=== PATIENT | female | born 1950 | race Caucasian/White ===

== ENCOUNTER 2016-07-28 07:43 | Day surgery (SDC) | payer BC, OTHER ==
[2016-07-27 11:45] VITALS: BMI 43.0
[2016-07-28 08:25] LABS: EOSINOPHIL 3.9 % (0-4.5); MCH 31.9 pg (25.7-33.7); MCHC 33.3 g/dl (32.0-36.0); MEAN CELL VOLUME 95.9 fl (80-96); NEUTROPHILS 75.2 % (42.8-82.8); PLATELET COUNT 246 K/MM3 (134-434); RDW 15.5 % (11.6-15.6); WHITE BLOOD COUNT 5.3 K/mm3 (4.0-10.0)
[2016-07-28 08:45] LABS: ALBUMIN 3.3 g/dl (3.4-5.0); ALK PHOS 101 U/L (45-117); ANION GAP 5 (8-16); BILIRUBIN,TOTAL 0.4 mg/dL (0.2-1.0); CALCIUM 9.1 mg/dL (8.5-10.1); CO2 28 mmol/L (21-32); CREATININE 0.8 mg/dL (0.55-1.02); GLUCOSE,RANDOM 105 mg/dL (74-106); SGOT/AST 61 U/L (15-37); SGPT/ALT 44 U/L (12-78); TOT PROT 7.6 g/dl (6.4-8.2)
[2016-07-28 08:48] LABS: INR 1.25 (0.82-1.09); PROTHROMBIN TIME (PATIENT) 13.8 SEC (9.98-11.88)
[2016-07-28] MEDS ORDERED: DOXOrubicin HCL 50 MG/25 ML VIAL IV ONE (10:00)
[2016-07-28] MEDS ORDERED: DOXOrubicin HCL 50 MG/25 ML VIAL EMBO ONE (11:00)
--- NOTE | 2016-07-28 15:59 | HP ---
CHIEF COMPLAINT: S/P IR procedure PCP: Dr. Owens HISTORY OF PRESENT ILLNESS: The patient is a 65 year old female witha s ignificant past medical history of metastatic colorectal cancer (sp resection with diverting colostomy, s/p systemic chemotherapy) and hypothyroidism, who had IR guided chemoembolization of the right hepatic lobe today and is being observed for potential complications after the procedure. Case discussed with interventional radiologist Dr. Huston, who reported an uneventful procedure and no obvious complications at the right femoral puncture site. PAST MEDICAL HISTORY: As above PAST SURGICAL HISTORY: As above Social History: Smoking: None Alcohol: None Drugs: None Family History: Allergies shellfish derived Allergy (Verified 07/27/16 11:46) Vomiting HOME MEDICATIONS: Home Medications Medication Instructions Recorded Levothyroxine [Synthroid -] 112 mcg PO DAILY 10/09/13 Cholecalciferol (Vitamin D3) 1,000 unit PO DAILY 05/21/14 [Vitamin D3] Multivitamins [Multivit ([facility] 1 tab PO DAILY 05/21/14 Formulary)] Iron 28 mg PO DAILY 07/04/14 REVIEW OF SYSTEMS CONSTITUTIONAL: Absent: fever, chills, diaphoresis, generalized weakness, malaise, loss of appetite, weight change HEENT: Absent: rhinorrhea, nasal congestion, throat pain, throat swelling, difficulty swallowing, mouth swelling, ear pain, eye pain, visual changes CARDIOVASCULAR: Absent: chest pain, syncope, palpitations, irregular heart rate, lightheadedness , peripheral edema RESPIRATORY: Absent: cough, shortness of breath, dyspnea with exertion, orthopnea, wheezing, stridor, hemoptysis GASTROINTESTINAL: Absent: abdominal pain, abdominal distension, nausea, vomiting, diarrhea, constipation, melena, hematochezia GENITOURINARY: Absent: dysuria, frequency, urgency, hesitancy, hematuria, flank pain, genital pain MUSCULOSKELETAL: Absent: myalgia, arthralgia, joint swelling, back pain, neck pain SKIN: Absent: rash, itching, pallor HEMATOLOGIC/IMMUNOLOGIC: Absent: easy bleeding, easy bruising, lymphadenopathy, frequent infections ENDOCRINE: Absent: unexplained weight gain, unexplained weight loss, heat intolerance, cold intolerance NEUROLOGIC: Absent: headache, focal weakness or paresthesias, dizziness, unsteady gait, seizure, mental status changes, bladder or bowel incontinence PSYCHIATRIC: Absent: anxiety, depression, suicidal or homicidal ideation, hallucinations. PHYSICAL EXAMINATION Vital Signs - 24 hr 07/28/16 07/28/16 07/28/16 08:40 09:27 11:38 Temperature 98.4 F Pulse Rate 70 62 Pulse Rate [ Right Lower Arm ] Respiratory 18 16 Rate Respiratory Rate [Right Lower Arm] Blood Pressure 148/77 165/80 Blood Pressure [Right Lower Arm] O2 Sat by Pulse 96 100 Oximetry (%) O2 Sat by Pulse Oximetry (%) [ Right Lower Arm ] 07/28/16 07/28/16 07/28/16 11:49 11:59 12:06 Temperature Pulse Rate Pulse Rate [ 65 61 60 Right Lower Arm ] Respiratory Rate Respiratory 16 16 16 Rate [Right Lower Arm] Blood Pressure Blood Pressure 154/82 154/82 155/75 [Right Lower Arm] O2 Sat by Pulse Oximetry (%) O2 Sat by Pulse 100 100 100 Oximetry (%) [ Right Lower Arm ] 07/28/16 07/28/16 07/28/16 12:16 12:26 12:36 Temperature Pulse Rate Pulse Rate [ 61 62 62 Right Lower Arm ] Respiratory Rate Respiratory 16 16 16 Rate [Right Lower Arm] Blood Pressure Blood Pressure 155/75 163/76 170/80 [Right Lower Arm] O2 Sat by Pulse Oximetry (%) O2 Sat by Pulse 100 100 100 Oximetry (%) [ Right Lower Arm ] 07/28/16 07/28/16 07/28/16 12:46 12:56 13:06 Temperature Pulse Rate 60 Pulse Rate [ 63 59 L Right Lower Arm ] Respiratory 16 Rate Respiratory 16 16 Rate [Right Lower Arm] Blood Pressure 156/77 Blood Pressure 170/80 152/75 [Right Lower Arm] O2 Sat by Pulse 100 Oximetry (%) O2 Sat by Pulse 100 100 Oximetry (%) [ Right Lower Arm ] 07/28/16 07/28/16 07/28/16 13:50 14:05 14:20 Temperature 97.9 F Pulse Rate 60 62 61 Pulse Rate [ Right Lower Arm ] Respiratory 12 15 15 Rate Respiratory Rate [Right Lower Arm] Blood Pressure 146/64 143/68 138/65 Blood Pressure [Right Lower Arm] O2 Sat by Pulse 99 97 99 Oximetry (%) O2 Sat by Pulse Oximetry (%) [ Right Lower Arm ] GENERAL: Awake, alert, and fully oriented, in no acute distress. HEAD: Normal with no signs of trauma. EYES: Pupils equal, round and reactive to light, extraocular movements intact, sclera anicteric, conjunctiva clear. No lid lag. EARS, NOSE, THROAT: Ears normal, nares patent, oropharynx clear without exudates. Moist mucous membranes. NECK: Normal range of motion, supple without lymphadenopathy, JVD, or masses. LUNGS: Breath sounds equal, clear to auscultation bilaterally. No wheezes, and no crackles. No accessory muscle use. HEART: Regular rate and rhythm, normal S1 and S2 without murmur, rub or gallop. ABDOMEN: Soft, nontender, not distended, normoactive bowel sounds, no guarding, no rebound, no masses. No hepatomegaly or splenomegaly. MUSCULOSKELETAL: Normal range of motion at all joints. No bony deformities or tenderness. No CVA tenderness. UPPER EXTREMITIES: 2+ pulses, warm, well-perfused. No cyanosis. No clubbing. No peripheral edema. LOWER EXTREMITIES: 2+ pulses, warm, well-perfused. No calf tenderness. No peripheral edema. NEUROLOGICAL: Cranial nerves II-XII intact. Normal speech. Normal gait. PSYCHIATRIC: Cooperative. Good eye contact. Appropriate mood and affect. SKIN: Warm, dry, normal turgor, no rashes or lesions noted, normal capillary refill. Laboratory Results - last 24 hr 07/28/16 07/28/16 07/28/16 08:10 08:10 08:10 WBC 5.3 RBC 3.92 Hgb 12.5 Hct 37.6 MCV 95.9 MCHC 33.3 RDW 15.5 Plt Count 246 D MPV 8.0 Neutrophils % 75.2 D Lymphocytes % 14.3 D Monocytes % 5.6 Eosinophils % 3.9 Basophils % 1.0 INR 1.25 H Sodium 140 Potassium 4.5 D Chloride 107 Carbon Dioxide 28 Anion Gap 5 L BUN 13 Creatinine 0.8 Creat Clearance w eGFR > 60 Random Glucose 105 Calcium 9.1 Total Bilirubin 0.4 D AST 61 H ALT 44 D Alkaline Phosphatase 101 Total Protein 7.6 Albumin 3.3 L ASSESSMENT/PLAN: -Post Embolization Observation She has no complaints There is no evidence of bleeding at the femoral puncture site Femoral and lower extremity peripheral pulses are symmetric No evidence of peripheral microemboli on physical exam Per IR, low grade fever is common after chemoembolization Tylenol prn pain CBC at 6pm and in am to rule out occult femoral compartment bleeding CMP in the am to monitor LFTs Will continue to follow closely -Endocrine Continue Synthroid -FEN She is euvolemic Regular diet Continue home dietary meds -Prophylaxis Eating Ambulating after recovery SCDs rather than Lovenox given recent procedure and anticipated very short stay -Disposition Anticipate discharge in am Visit type - Emergency Visit Emergency Visit: No - New Patient This patient is new to me today: Yes Date on this admission: 07/31/16 - Critical Care Critical Care patient: No
[2016-07-28] MEDS ORDERED: ACETAMINOPHEN 325 MG TABLET (FP) PO PRN (16:08)
[2016-07-28] MEDS ORDERED: SODIUM CHLORIDE 0.45% 1,000 ML IV SCH (16:45)
--- NOTE | 2016-07-28 17:57 | HOSP ---
Physical Examination Vital Signs: Vital Signs Temperature 97.5 F L 07/28/16 17:11 Pulse Rate 69 07/28/16 17:11 Respiratory Rate 18 07/28/16 16:05 Blood Pressure 144/67 07/28/16 17:11 O2 Sat by Pulse Oximetry (%) 97 07/28/16 17:11 Constitutional: Yes: No Distress, Calm Eyes: Yes: Conjunctiva Clear Neck: Yes: Supple Cardiovascular: Yes: Regular Rate and Rhythm Respiratory: Yes: Regular Gastrointestinal: Yes: Normal Bowel Sounds, Soft, Abdomen, Obese Renal/: Yes: WNL Breast(s): Yes: WNL Musculoskeletal: Yes: WNL Extremities: Yes: WNL Peripheral Pulses WNL: Yes Wound/Incision: Yes: Clean/Dry, Dressing Dry and Intact Neurological: Yes: WNL ...Motor Strength: WNL Psychiatric: Yes: WNL Labs: CBC, BMP 07/28/16 08:10 07/28/16 08:10 Hospitalist Encounter Assessment: S/p chemoembolization: Surgical site assessment of right groin Assessment/Plan: Right groin site clean/dry/intact, no edema no hematoma noted Patient ambulating OOB to bathroom tolerating room air, lungs clear to auscultation bilaterally Encourage incentive spirometer Tylenol for low grade fevers, IVF as ordered denies abdominal pain, nausea or vomiting Appears comfortable at rest Plan: Will await repeat CBC @ 1800 Labs for a.m. > cbc, cmp, hepatic panel likely d/c in a.m.
[2016-07-28 18:21] LABS: MCH 31.2 pg (25.7-33.7); MCHC 32.4 g/dl (32.0-36.0); MEAN CELL VOLUME 96.4 fl (80-96); MEAN PLT VOLUME 8.4 fl (7.5-11.1); PLATELET COUNT 252 K/MM3 (134-434); RDW 15.8 % (11.6-15.6); WHITE BLOOD COUNT 6.8 K/mm3 (4.0-10.0)
[2016-07-29 04:23] VITALS: PULSE 68
[2016-07-29] MEDS ORDERED: LEVOTHYROXINE NA 112 MCG TABLET (FP) PO SCH (07:00)
[2016-07-29 08:13] LABS: MCH 31.9 pg (25.7-33.7); MCHC 33.3 g/dl (32.0-36.0); MEAN CELL VOLUME 95.8 fl (80-96); PLATELET COUNT 208 K/MM3 (134-434); RDW 15.6 % (11.6-15.6); WHITE BLOOD COUNT 6.6 K/mm3 (4.0-10.0)
[2016-07-29 08:36] VITALS: BP 160/77; TEMP 98
[2016-07-29 08:46] LABS: ANION GAP 9 (8-16); BILIRUBIN,TOTAL 0.6 mg/dL (0.2-1.0); CALCIUM 8.6 mg/dL (8.5-10.1); CO2 25 mmol/L (21-32); CREATININE 0.7 mg/dL (0.55-1.02); GLUCOSE,RANDOM 91 mg/dL (74-106); SGOT/AST 87 U/L (15-37); SGPT/ALT 41 U/L (12-78); TOT PROT 7.2 g/dl (6.4-8.2)
[2016-07-29 08:47] LABS: ALK PHOS 84 U/L (45-117)
[2016-07-29 08:56] LABS: ALBUMIN 3.1 g/dl (3.4-5.0); BILIRUBIN,DIRECT 0.2 mg/dL (0.0-0.2); BILIRUBIN,TOTAL 0.7 mg/dL (0.2-1.0); TOT PROT 7.2 g/dl (6.4-8.2)
[2016-07-29] MEDS ORDERED: MULTIVITAMINS (DAILY MVI) TABLET (FP) PO SCH (10:00)
[2016-07-29] MEDS ORDERED: CHOLECALCIFEROL (VITAMIN D3) 1,000 UNIT TABLET (FP) PO SCH (10:00)
[2016-07-29] MEDS ORDERED: IRON 28 MG PO SCH (10:00)
--- NOTE | 2016-07-29 16:26 | DS ---
Physical Exam: SUBJECTIVE: Patient seen and examined. Pt feels well, no bleeding reported, able to ambulate without difficulty. OBJECTIVE: Vital Signs Period Temp Pulse Resp BP Sys/Bird Pulse Ox Last 24 Hr 97.5 F-98.5 F 68-72 20-20 126-160/56-77 97-97 PE Neuro: alert, awake, cn 2-12intact Pulm: CTAB CV: s1 s2 rrr no mrg Abd: s nt nd + bs + colostomy bag Skin: R groin dressing CDI Ext: warm no le edema Laboratory Results - last 24 hr 07/28/16 07/29/16 07/29/16 17:45 06:20 06:20 WBC 6.8 RBC 4.00 Hgb 12.5 Hct 38.5 MCV 96.4 H MCHC 32.4 RDW 15.8 H Plt Count 252 MPV 8.4 Sodium 138 Potassium 4.2 Chloride 104 Carbon Dioxide 25 Anion Gap 9 BUN 10 D Creatinine 0.7 Creat Clearance w eGFR > 60 Random Glucose 91 Calcium 8.6 Total Bilirubin 0.6 D 0.7 Direct Bilirubin 0.2 AST 87 H D 87 H ALT 41 42 Alkaline Phosphatase 84 92 Total Protein 7.2 7.2 Albumin 3.0 L 3.1 L 07/29/16 06:30 WBC 6.6 RBC 3.76 Hgb 12.0 Hct 36.0 MCV 95.8 MCHC 33.3 RDW 15.6 Plt Count 208 MPV 8.0 Sodium Potassium Chloride Carbon Dioxide Anion Gap BUN Creatinine Creat Clearance w eGFR Random Glucose Calcium Total Bilirubin Direct Bilirubin AST ALT Alkaline Phosphatase Total Protein Albumin HOSPITAL COURSE: Date of Admission:07/28/16 Date of Discharge: 07/29/16 Minutes to complete discharge: 35 Discharge Summary Reason For Visit: RECTAL [place] Hospital Course: Initial Hospital Course: Briefly, this 65 year old female with significant past medical history of metastatic colorectal cancer (s/p resection with diverting colostomy, s/p systemic chemotherapy) and hypothyroidism s/p IR guided chemoembolization of the right hepatic lobe 07/28 admitted for observation. Per radiologist Dr. Huston procedure was uneventful and no obvious complications at the right femoral puncture site. Subsequent Hospital Course: Hgb stable, dressing dry, no fevers, CMP wnl Pt to remove dressing tomorrow and shower Outpt follow up with Dr. Owens next week for follow up Pt aware and agrees to above plan No changes to home medications Condition: Stable - Instructions Diet, Activity, Other Instructions: Please return to the ED for any new, persistent, or worsening symptoms. Remove right groin dressing 07/30/16, august shower. Follow up with Dr Owens in 1 week in his office Resume home medications as directed If wound site begins to bleed apply pressure immediately Referrals: Mateo Giraldo MD [Staff Physician] - Fred Owens MD [Staff Physician] - Disposition: HOME - Home Medications Comprehensive Discharge Medication List: Ambulatory Orders Levothyroxine [Synthroid -] 112 mcg PO DAILY 10/09/13 Cholecalciferol (Vitamin D3) [Vitamin D3] 1,000 unit PO DAILY 05/21/14 Multivitamins [Multivit ([facility] Formulary)] 1 tab PO DAILY 05/21/14 Iron 28 mg PO DAILY 07/04/14 This patient is new to me today: Yes Date on this admission: 07/29/16 Emergency Visit: Yes Care time: The patient presented to the Emergency Department on the above date and was hospitalized for further evaluation of their emergent condition. Critical Care patient: No - Discharge Referral Referred to [facility] Med P.C.: No
== END 2016-07-29 11:59 | disposition home or self-care (01) ==
LOC: JASUSAT 07:43 → SUATTDRO 07:43 → J8W 16:36 → JASUSAT 07-29 11:59
PROVIDERS: ATTEND Nurse Practitioner Acute Care
PROC: 3E05305 Introduction of Other Antineoplastic into Peripheral Artery, Percutaneous Approach (ICD-10-PCS; principal; 2016-07-28)
PROC: 04L33DZ Occlusion of Hepatic Artery with Intraluminal Device, Percutaneous Approach (ICD-10-PCS; 2016-07-28)
DX: C20 Malignant neoplasm of rectum (principal)
CPT/HCPCS: 36415; 37243; 76937-TC; 80053; 80076; 85025; 85027; 85610; C1760; C1769; C1887; C1894

== ENCOUNTER 2016-11-16 07:55 | Day surgery (SDC) | payer BC ==
[2016-11-13 15:56] VITALS: BMI 42.5
[2016-11-16 08:48] LABS: BASOPHIL 1.2 % (0-2.0); MCH 32.2 pg (25.7-33.7); MCHC 32.8 g/dl (32.0-36.0); MEAN CELL VOLUME 98.2 fl (80-96); MEAN PLT VOLUME 8.4 fl (7.5-11.1); NEUTROPHILS 70.2 % (42.8-82.8); PLATELET COUNT 178 K/MM3 (134-434); RDW 16.4 % (11.6-15.6); WHITE BLOOD COUNT 4.9 K/mm3 (4.0-10.0)
[2016-11-16 08:59] LABS: INR 1.26 (0.82-1.09); PROTHROMBIN TIME (PATIENT) 13.9 SEC (9.98-11.88)
[2016-11-16 09:36] LABS: ALBUMIN 3.4 g/dl (3.4-5.0); ANION GAP 6 (8-16); BILIRUBIN,DIRECT 0.1 mg/dL (0.0-0.2); CALCIUM 9.4 mg/dL (8.5-10.1); CO2 27 mmol/L (21-32); CREATININE 0.9 mg/dL (0.55-1.02); GLUCOSE,RANDOM 106 mg/dL (74-106); SGOT/AST 54 U/L (15-37); SGPT/ALT 37 U/L (12-78)
[2016-11-16 09:38] LABS: ALK PHOS 112 U/L (45-117); BILIRUBIN,TOTAL 0.4 mg/dL (0.2-1.0); TOT PROT 7.5 g/dl (6.4-8.2)
[2016-11-16] MEDS ORDERED: DOXOrubicin HCL 50 MG/25 ML VIAL EMBO ONE (11:15)
--- NOTE | 2016-11-16 17:22 | HP ---
CHIEF COMPLAINT: S/P IR procedure: chemoembolization via right groin PCP: Dr. Owens HISTORY OF PRESENT ILLNESS: Patient is a 66 year old female with a significant past medical history of metastatic colorectal cancer (sp resection with diverting colostomy s/p systemic chemotherapy) and hypothyroidism. Today she had a IR guided chemoembolization of the left hepatic lobe and is being observed for potential complications after the procedure. Right femoral groin site, is clean, dry and intact with no obvious complications at the puncture site. PAST MEDICAL HISTORY: Metastatic colorectal cancer (s/p resection with diverting colostomy s/p systemic chemotherapy) and hypothyroidism. PAST SURGICAL HISTORY: Multiple chemoembolizations Colostomy Social History: Smoking: None Alcohol: None Drugs: None Family History: Allergies shellfish derived Allergy (Verified 11/16/16 08:51) Vomiting HOME MEDICATIONS: Home Medications Medication Instructions Recorded Levothyroxine [Synthroid -] 112 mcg PO DAILY 10/09/13 Cholecalciferol (Vitamin D3) 1,000 unit PO DAILY 05/21/14 [Vitamin D3] Multivitamins [Multivit ([facility] 1 tab PO DAILY 05/21/14 Formulary)] Iron 28 mg PO DAILY 07/04/14 REVIEW OF SYSTEMS CONSTITUTIONAL: Absent: fever, chills, diaphoresis, generalized weakness, malaise, loss of appetite, weight change HEENT: Absent: rhinorrhea, nasal congestion, throat pain, throat swelling, difficulty swallowing, mouth swelling, ear pain, eye pain, visual changes CARDIOVASCULAR: Absent: chest pain, syncope, palpitations, irregular heart rate, lightheadedness , peripheral edema RESPIRATORY: Absent: cough, shortness of breath, dyspnea with exertion, orthopnea, wheezing, stridor, hemoptysis GASTROINTESTINAL: Absent: abdominal pain, abdominal distension, nausea, vomiting, diarrhea, constipation, melena, hematochezia GENITOURINARY: Absent: dysuria, frequency, urgency, hesitancy, hematuria, flank pain, genital pain MUSCULOSKELETAL: Absent: myalgia, arthralgia, joint swelling, back pain, neck pain SKIN: Absent: rash, itching, pallor HEMATOLOGIC/IMMUNOLOGIC: Absent: easy bleeding, easy bruising, lymphadenopathy, frequent infections ENDOCRINE: Absent: unexplained weight gain, unexplained weight loss, heat intolerance, cold intolerance NEUROLOGIC: Absent: headache, focal weakness or paresthesias, dizziness, unsteady gait, seizure, mental status changes, bladder or bowel incontinence PSYCHIATRIC: Absent: anxiety, depression, suicidal or homicidal ideation, hallucinations. PHYSICAL EXAMINATION Vital Signs - 24 hr 11/16/16 11/16/16 11/16/16 08:27 08:33 13:41 Temperature 98.9 F Pulse Rate 70 64 Pulse Rate [ Left Upper Arm] Respiratory 18 16 Rate Respiratory Rate [Left Upper Arm] Blood Pressure 147/77 163/88 Blood Pressure [Left Upper Arm ] O2 Sat by Pulse 99 97 Oximetry (%) O2 Sat by Pulse Oximetry (%) [ Left Upper Arm] 11/16/16 11/16/16 11/16/16 13:50 14:00 14:10 Temperature Pulse Rate Pulse Rate [ 63 62 62 Left Upper Arm] Respiratory Rate Respiratory 16 16 16 Rate [Left Upper Arm] Blood Pressure Blood Pressure 156/78 156/78 148/74 [Left Upper Arm ] O2 Sat by Pulse Oximetry (%) O2 Sat by Pulse 97 95 98 Oximetry (%) [ Left Upper Arm] 11/16/16 11/16/16 11/16/16 14:20 14:30 14:40 Temperature Pulse Rate Pulse Rate [ 62 61 65 Left Upper Arm] Respiratory Rate Respiratory 16 16 16 Rate [Left Upper Arm] Blood Pressure Blood Pressure 155/78 155/78 163/78 [Left Upper Arm ] O2 Sat by Pulse Oximetry (%) O2 Sat by Pulse 98 99 97 Oximetry (%) [ Left Upper Arm] 11/16/16 11/16/16 11/16/16 14:50 15:15 15:30 Temperature 98.6 F Pulse Rate 60 64 62 Pulse Rate [ Left Upper Arm] Respiratory 16 16 16 Rate Respiratory Rate [Left Upper Arm] Blood Pressure 170/78 155/70 155/70 Blood Pressure [Left Upper Arm ] O2 Sat by Pulse 97 100 100 Oximetry (%) O2 Sat by Pulse Oximetry (%) [ Left Upper Arm] 11/16/16 11/16/16 15:45 16:00 Temperature Pulse Rate 64 62 Pulse Rate [ Left Upper Arm] Respiratory 16 16 Rate Respiratory Rate [Left Upper Arm] Blood Pressure 152/70 160/81 Blood Pressure [Left Upper Arm ] O2 Sat by Pulse 100 100 Oximetry (%) O2 Sat by Pulse Oximetry (%) [ Left Upper Arm] GENERAL: Awake, alert, and fully oriented, in no acute distress. HEAD: Normal with no signs of trauma. EYES: Pupils equal, round and reactive to light, extraocular movements intact, sclera anicteric, conjunctiva clear. No lid lag. EARS, NOSE, THROAT: Ears normal, nares patent, oropharynx clear without exudates. Moist mucous membranes. NECK: Normal range of motion, supple without lymphadenopathy, JVD, or masses. LUNGS: Breath sounds equal, clear to auscultation bilaterally HEART: Regular rate and rhythm, normal S1 and S2 without murmur, rub or gallop. ABDOMEN: Soft, nontender, not distended, normoactive bowel sounds, no guarding, no rebound, no masses. No hepatomegaly or splenomegaly. MUSCULOSKELETAL: Normal range of motion at all joints. No bony deformities or tenderness. No CVA tenderness. UPPER EXTREMITIES: 2+ pulses, warm, well-perfused. No cyanosis. No clubbing. No peripheral edema. LOWER EXTREMITIES: 2+ pulses, warm, well-perfused. No calf tenderness. No peripheral edema. NEUROLOGICAL: Normal speech. Normal gait. PSYCHIATRIC: Cooperative. Good eye contact. Appropriate mood and affect. SKIN: + right groin puncture site s/p chemoembolization, no hematoma or bleeding noted Laboratory Results - last 24 hr 11/16/16 11/16/16 11/16/16 08:11 08:11 08:11 WBC 4.9 RBC 3.87 Hgb 12.5 Hct 38.0 MCV 98.2 H MCH 32.2 MCHC 32.8 RDW 16.4 H Plt Count 178 MPV 8.4 Neutrophils % 70.2 Lymphocytes % 16.7 Monocytes % 6.9 Eosinophils % 5.0 H Basophils % 1.2 INR 1.26 H Sodium 141 Potassium 4.5 Chloride 108 H Carbon Dioxide 27 Anion Gap 6 L BUN 9 Creatinine 0.9 Creat Clearance w eGFR > 60 Random Glucose 106 D Calcium 9.4 Total Bilirubin 0.4 Direct Bilirubin 0.1 AST 54 H ALT 37 Alkaline Phosphatase 112 Total Protein 7.5 Albumin 3.4 ASSESSMENT/PLAN: Patient is a 66 year old female with a significant past medical history of metastatic colorectal cancer (sp resection with diverting colostomy s/p systemic chemotherapy) and hypothyroidism. Today she had a IR guided chemoembolization of the left hepatic lobe today and is being observed for potential complications after the procedure. Oncology: S/p chemoembolization: Surgical site assessment of right groin/post embolization A/P: Comfortable at rest, no evidence of bleeding at the femoral puncture site ( right) Denies any pain, Lower ext peripheral pulses present No edema no hematoma noted Tylenol for low grade fevers, IVF as ordered denies abdominal pain, nausea or vomiting Appears comfortable at rest CBC at 6pm today to rule out acute bleeding Repeat CBC in a.m. CMP in a.m. to monitor LFTs GI: Diverting Colostomy A/P: Soft stool in colostomy bag Stoma not seen Endocrine: Hypothyroidism A/P: On Synthroid F.E.N. Fluids: Tolerating PO Electrolytes: CMP in a.m. Nutrition: Regular diet Prophylaxis: DVT: Ambulatory after post op SCDs, no Lovenox given recent procedure and anticipated short hospital stay Disposition: Discharge in a.m. with close oncology follow-up. Full code. Visit type - Emergency Visit Emergency Visit: Yes Care time: The patient presented to the Emergency Department on the above date and was hospitalized for further evaluation of their emergent condition. - New Patient This patient is new to me today: Yes Date on this admission: 11/16/16 - Critical Care Critical Care patient: No
[2016-11-16] MEDS ORDERED: ACETAMINOPHEN 325 MG TABLET (FP) PO PRN (18:43)
[2016-11-16 18:45] LABS: BASOPHIL 0.7 % (0-2.0); EOSINOPHIL 2.8 % (0-4.5); MCH 32.2 pg (25.7-33.7); MCHC 32.9 g/dl (32.0-36.0); MEAN PLT VOLUME 8.7 fl (7.5-11.1); PLATELET COUNT 166 K/MM3 (134-434); RDW 16.4 % (11.6-15.6); WHITE BLOOD COUNT 6.3 K/mm3 (4.0-10.0)
[2016-11-17 06:02] VITALS: BP 140/75; PULSE 63; TEMP 98.3
[2016-11-17 08:51] LABS: BASOPHIL 0.8 % (0-2.0); EOSINOPHIL 3.4 % (0-4.5); MCH 32.1 pg (25.7-33.7); MCHC 32.9 g/dl (32.0-36.0); MEAN CELL VOLUME 97.4 fl (80-96); MEAN PLT VOLUME 8.7 fl (7.5-11.1); NEUTROPHILS 74.4 % (42.8-82.8); PLATELET COUNT 165 K/MM3 (134-434); RDW 16.3 % (11.6-15.6); WHITE BLOOD COUNT 5.4 K/mm3 (4.0-10.0)
--- NOTE | 2016-11-17 09:09 | DS ---
Physical Exam: SUBJECTIVE: Patient seen and examined at the bedside. Patient denies any pain or discomfort at the groin site. Denies shortness of breath or any other discomfort. OBJECTIVE: Vital Signs Period Temp Pulse Resp BP Sys/Bird Pulse Ox Last 24 Hr 98.0 F-98.9 F 60-70 16-20 125-170/62-88 95-100 PHYSICAL EXAM GENERAL: Awake, alert, and fully oriented, in no acute distress. HEAD: Normal with no signs of trauma. EYES: Pupils equal, round and reactive to light, extraocular movements intact, sclera anicteric, conjunctiva clear. No lid lag. EARS, NOSE, THROAT: Ears normal, nares patent, oropharynx clear without exudates. Moist mucous membranes. NECK: Normal range of motion, supple without lymphadenopathy, JVD, or masses. LUNGS: Breath sounds equal, clear to auscultation bilaterally HEART: Regular rate and rhythm, normal S1 and S2 without murmur, rub or gallop. ABDOMEN: Soft, nontender, not distended, normoactive bowel sounds, no guarding, no rebound, no masses. No hepatomegaly or splenomegaly. MUSCULOSKELETAL: Normal range of motion at all joints. No bony deformities or tenderness. No CVA tenderness. UPPER EXTREMITIES: 2+ pulses, warm, well-perfused. No cyanosis. No clubbing. No peripheral edema. LOWER EXTREMITIES: 2+ pulses, warm, well-perfused. No calf tenderness. No peripheral edema. NEUROLOGICAL: Normal speech. Normal gait. PSYCHIATRIC: Cooperative. Good eye contact. Appropriate mood and affect. SKIN: + right groin puncture site s/p chemoembolization, no hematoma or bleeding noted LABS Laboratory Results - last 24 hr 11/16/16 11/16/16 11/16/16 08:11 08:11 18:00 WBC 6.3 RBC 3.87 Hgb 12.5 Hct 37.9 MCV 98.0 H MCH 32.2 MCHC 32.9 RDW 16.4 H Plt Count 166 MPV 8.7 Neutrophils % 79.0 Lymphocytes % 11.9 D Monocytes % 5.6 Eosinophils % 2.8 Basophils % 0.7 INR 1.26 H Sodium 141 Potassium 4.5 Chloride 108 H Carbon Dioxide 27 Anion Gap 6 L BUN 9 Creatinine 0.9 Creat Clearance w eGFR > 60 Random Glucose 106 D Calcium 9.4 Total Bilirubin 0.4 Direct Bilirubin 0.1 AST 54 H ALT 37 Alkaline Phosphatase 112 Total Protein 7.5 Albumin 3.4 11/17/16 08:36 WBC 5.4 RBC 3.77 Hgb 12.1 Hct 36.7 MCV 97.4 H MCH 32.1 MCHC 32.9 RDW 16.3 H Plt Count 165 MPV 8.7 Neutrophils % 74.4 Lymphocytes % 13.9 Monocytes % 7.5 Eosinophils % 3.4 Basophils % 0.8 INR Sodium Potassium Chloride Carbon Dioxide Anion Gap BUN Creatinine Creat Clearance w eGFR Random Glucose Calcium Total Bilirubin Direct Bilirubin AST ALT Alkaline Phosphatase Total Protein Albumin HOSPITAL COURSE: Date of Admission:11/16/16 Date of Discharge: 11/17/16 ASSESSMENT/PLAN: Patient is a 66 year old female with a significant past medical history of metastatic colorectal cancer (sp resection with diverting colostomy s/p systemic chemotherapy) and hypothyroidism. On 11/16/2016 she had a IR guided chemoembolization of the left hepatic lobe. Oncology: S/p chemoembolization on 11/16/2016 Surgical site assessment of right groin/post embolization A/P: Comfortable at rest, no evidence of bleeding at the femoral puncture site ( right), no overnight events Denies any pain, Lower ext peripheral pulses present, ambulating to bathroom, no dizziness, no pain or discomfort No edema no hematoma noted to the right groin, dressing remains c/d/i denies abdominal pain, nausea or vomiting Appears comfortable at rest CBC and CMP within normal limits GI: Diverting Colostomy A/P: Soft stool in colostomy bag Stoma not seen, colostomy bag changed by patient overnight Endocrine: Hypothyroidism A/P: On Synthroid, continue same Disposition: Discharge today with close follow up with Dr. Owens. Full code. Minutes to complete discharge: 60 Discharge Summary Reason For Visit: MALIGNANT NEOPLASM OF RECTUM Condition: Stable - Instructions Diet, Activity, Other Instructions: Mrs. Lindsay: You had a chemo embolization procedure with Dr. Cyr on 11/16/2016 through the right groin. You can remove the dressing tomorrow and shower. Please follow up with Dr. Owens next week for follow up appointment. There are no changes to your home medications. Please return to the ED for any new, persistent, or worsening symptoms. Remove right groin dressing 11/18/16, you may shower. If wound site begins to bleed apply pressure immediately and return to the nearest emergency room if bleeding persists. Please call me with any questions that you may have. [facility] [phone] Disposition: HOME - Home Medications Comprehensive Discharge Medication List: Ambulatory Orders Levothyroxine [Synthroid -] 112 mcg PO DAILY 10/09/13 Cholecalciferol (Vitamin D3) [Vitamin D3] 1,000 unit PO DAILY 05/21/14 Multivitamins [Multivit ([facility] Formulary)] 1 tab PO DAILY 05/21/14 Iron 28 mg PO DAILY 07/04/14 This patient is new to me today: No Emergency Visit: Yes Care time: The patient presented to the Emergency Department on the above date and was hospitalized for further evaluation of their emergent condition. Critical Care patient: No - Discharge Referral Referred to [facility] Med P.C.: No
[2016-11-17 09:15] LABS: ALBUMIN 3.3 g/dl (3.4-5.0); ALK PHOS 95 U/L (45-117); ANION GAP 9 (8-16); CALCIUM 9.2 mg/dL (8.5-10.1); CO2 25 mmol/L (21-32); CREATININE 0.7 mg/dL (0.55-1.02); GLUCOSE,RANDOM 100 mg/dL (74-106); SGOT/AST 75 U/L (15-37); SGPT/ALT 38 U/L (12-78)
[2016-11-17 09:16] LABS: TOT PROT 7.3 g/dl (6.4-8.2)
[2016-11-17] MEDS ORDERED: CHOLECALCIFEROL (VITAMIN D3) 1,000 UNIT TABLET (FP) PO SCH (10:00)
[2016-11-17] MEDS ORDERED: FERROUS SO4 325 MG TABLET (FP) PO SCH ×2 (10:00→12:00)
[2016-11-17] MEDS ORDERED: LEVOTHYROXINE NA 112 MCG TABLET (FP) PO SCH (10:00)
[2016-11-17] MEDS ORDERED: MULTIVITAMINS (DAILY MVI) TABLET (FP) PO SCH (10:00)
--- NOTE | 2016-11-17 10:02 | CONSULT ---
Consult Consult Specialty:: Oncology - History of Present Illness History of Present Illness: is admitted for TACE ( second) , for her metastatic rectal ca with liver mets. TACE 1 was in 07/2016. TACE 2 was 11/16/2016. Patient seen and examined. Well known to us. Patient feels tired, she mentioned that the procedure did go well. She has no pain in the groin. she denies any swelling in the lower extremity. She wanted to go home and rest as she could not sleep here overnight. - History Source History Provided By: Patient Limitations to Obtaining History: No Limitations - Past Medical History ...: No - Alcohol/Substance Use Hx Alcohol Use: No - Smoking History Smoking history: Former smoker Have you smoked in the past 12 months: Yes Aproximately how many cigarettes per day: 15 If you are a former smoker, when did you quit?: 12/2013 Home Medications - Allergies Allergies/Adverse Reactions: Allergies Allergy/AdvReac Type Severity Reaction Status Date / Time shellfish derived Allergy Vomiting Verified 11/16/16 08:51 - Home Medications Home Medications: Ambulatory Orders Levothyroxine [Synthroid -] 112 mcg PO DAILY 10/09/13 Cholecalciferol (Vitamin D3) [Vitamin D3] 1,000 unit PO DAILY 05/21/14 Multivitamins [Multivit ([facility] Formulary)] 1 tab PO DAILY 05/21/14 Iron 28 mg PO DAILY 07/04/14 Family Disease History - Family Disease History Family History: Denies Review of Systems - Review of Systems Constitutional: reports: Weakness. denies: Fever, Lethargy, Loss of Appetite HENT: denies: Difficult Swallowing, Hearing Loss Neck: denies: Decreased ROM Cardiovascular: denies: Chest Pain, Edema, Palpitations, Shortness of Breath Respiratory: denies: Cough, Exercise Intolerance Gastrointestinal: denies: Abdominal Pain Genitourinary: denies: Burning Musculoskeletal: denies: Extremity Pain Integumentary: denies: Erythema Hematology/Lymphatic: denies: Excessive Bleeding Physical Exam Vital Signs: Vital Signs Temperature 98.3 F 11/17/16 06:00 Pulse Rate 63 11/17/16 06:00 Respiratory Rate 20 11/17/16 06:00 Blood Pressure 140/75 11/17/16 06:00 O2 Sat by Pulse Oximetry (%) 100 11/16/16 21:00 Constitutional: Yes: Well Nourished, No Distress, Calm Eyes: Yes: Conjunctiva Clear, EOM Intact HENT: Yes: Atraumatic, Normocephalic Neck: Yes: Supple, Trachea Midline Cardiovascular: Yes: Regular Rate and Rhythm Respiratory: Yes: Regular, CTA Bilaterally Gastrointestinal: Yes: Normal Bowel Sounds, Soft, Other (colostomy) Musculoskeletal: Yes: Other (site of the TACE, rightgroin Looks normal, no tenderness No ecymmoses or bruises seen) Edema: No Labs: CBC, BMP 11/17/16 08:36 11/17/16 08:36 Problem List - Problems (1) Rectal adenocarcinoma metastatic to liver Code(s): C20 - MALIGNANT NEOPLASM OF RECTUM C78.7 - SECONDARY MALIG NEOPLASM OF LIVER AND INTRAHEPATIC BILE DUCT (2) Chemotherapy follow-up examination Code(s): Z09 - ENCNTR FOR F/U EXAM AFT TRTMT FOR COND OTH THAN MALIG NEOPLM Assessment/Plan is a mRectal to liver. now admitted for TACE , second procedure. Doing well post procedure CBC chem post procedure. Post procedure precautions given. Repeat imaging and tumor markers would be sent from office. She will follow-up in our office, she would give us a call to make appointment
== END 2016-11-17 11:11 | disposition home or self-care (01) ==
LOC: JASUSAT 07:55 → J6S 17:28 → JASUSAT 11-17 11:11
PROVIDERS: ATTEND Nurse Practitioner Family
PROC: 3E05305 Introduction of Other Antineoplastic into Peripheral Artery, Percutaneous Approach (ICD-10-PCS; 2016-11-16)
PROC: 04V33DZ Restriction of Hepatic Artery with Intraluminal Device, Percutaneous Approach (ICD-10-PCS; principal; 2016-11-16 10:00)
DX: C19 Malignant neoplasm of rectosigmoid junction (principal); C79.9 Secondary malignant neoplasm of unspecified site
CPT/HCPCS: 36415; 37243; 75894-TC; 76937-TC; 80053; 80076; 85025; 85610; 94760; C1760; C1769; C1887; C1894

== ENCOUNTER 2017-05-03 07:42 | Day surgery (SDC) | payer BC, OTHER ==
[2017-05-03] MEDS ORDERED: SODIUM CHLORIDE 250 ML IV ONE (08:00)
[2017-05-03] MEDS ORDERED: PALONOSETRON HCL 0.25 MG/5 ML VIAL IVPUSH ONE (08:30)
[2017-05-03] MEDS ORDERED: DEXAMETHASONE INJECTION 20 MG in SODIUM CHLORIDE 100 ML IVPB ONE (08:30)
[2017-05-03] MEDS ORDERED: BEVACIZUMAB IV ONE (09:00)
[2017-05-03] MEDS ORDERED: SODIUM CHLORIDE IV ONE (09:00)
[2017-05-03] MEDS ORDERED: DEXTROSE 5% IV ONE (09:30)
[2017-05-03] MEDS ORDERED: OXALIPLATIN IV ONE (09:30)
[2017-05-03] MEDS ORDERED: LEUCOVORIN IVPB ONE (09:30)
[2017-05-03] MEDS ORDERED: WATER IV ONE (09:30)
[2017-05-03] MEDS ORDERED: WATER IVPB ONE (09:30)
[2017-05-03] MEDS ORDERED: DEXTROSE 5% IVPB ONE (09:30)
[2017-05-03] MEDS ORDERED: FLUOROURACIL 500 MG/10 ML VIAL IVPUSH ONE (11:30)
[2017-05-03] MEDS ORDERED: FLUOROURACIL 4,275 MG in SODIUM CHLORIDE 6.5 ML IV ONE (11:45)
[2017-05-03 12:40] LABS: BASO % 0.8 % (0-2.0); EOS % 2.7 % (0-4.5); HEMATOCRIT 29.7 % (32.4-45.2); HEMOGLOBIN 9.4 GM/dL (10.7-15.3); LYMPH % 10.8 % (8-40); MCHC 31.6 g/dl (32.0-36.0); MEAN PLT VOLUME 9.6 fl (7.5-11.1); MONO % 7.8 % (3.8-10.2); NEUT % 77.9 % (42.8-82.8); PLATELET COUNT 149 K/MM3 (134-434); RBC 3.13 M/mm3 (3.60-5.2); RDW 17.6 % (11.6-15.6); WHITE BLOOD COUNT 4.5 K/mm3 (4.0-10.0)
[2017-05-03 13:06] LABS: ALK PHOS 102 U/L (45-117); ANION GAP 9 (8-16); BILIRUBIN,DIRECT 0.4 mg/dL (0.0-0.2); BILIRUBIN,TOTAL 0.9 mg/dL (0.2-1.0); BLOOD UREA NITROGEN 10 mg/dL (7-18); CALCIUM 9.2 mg/dL (8.5-10.1); CHLORIDE 106 mmol/L (98-107); CO2 26 mmol/L (21-32); CREATININE 0.7 mg/dL (0.55-1.02); GLUCOSE,RANDOM 83 mg/dL (74-106); POTASSIUM 3.8 mmol/L (3.5-5.1); SGOT/AST 57 U/L (15-37); SGPT/ALT 21 U/L (12-78); SODIUM 141 mmol/L (136-145); TOT PROT 7.4 g/dl (6.4-8.2)
[2017-05-03 16:12] VITALS: TEMP 98
[2017-05-03 18:51] VITALS: BP 132/68; PULSE 79
[2017-05-03] MEDS ORDERED: PORTA CATH FLUSH 10 ML IVPUSH ONE ×2 (18:51→19:07)
== END 2017-05-03 17:00 | disposition home or self-care (01) ==
LOC: JONCCHEMO 07:42 → J7W 10:46 → JONCCHEMO 17:00
PROVIDERS: ATTEND Internal Medicine Hematology & Oncology
PROC: 3E033GC Introduction of Other Therapeutic Substance into Peripheral Vein, Percutaneous Approach (ICD-10-PCS; principal; 2017-05-03)
DX: Z51.11 Encounter for antineoplastic chemotherapy (principal); C20 Malignant neoplasm of rectum
CPT/HCPCS: 36415; 80048; 80076; 82378; 83735; 85025; 96361; 96365; 96366; 96367; 96375; 96413; 96415; 96417; J1100; J2469; J9035; J9190; J9263

== ENCOUNTER 2017-05-24 07:06 | Day surgery (SDC) | payer BC, OTHER ==
[2017-05-24] MEDS ORDERED: SODIUM CHLORIDE 250 ML IV ONE (08:00)
[2017-05-24] MEDS ORDERED: DEXAMETHASONE INJECTION 20 MG in SODIUM CHLORIDE 100 ML IVPB ONE (08:30)
[2017-05-24] MEDS ORDERED: PALONOSETRON HCL 0.25 MG/5 ML VIAL IVPUSH ONE (08:30)
[2017-05-24] MEDS ORDERED: SODIUM CHLORIDE IV ONE (09:00)
[2017-05-24] MEDS ORDERED: BEVACIZUMAB IV ONE (09:00)
[2017-05-24] MEDS ORDERED: OXALIPLATIN 100 MG, OXALIPLATIN 50 MG in DEXTROSE 5%-WATER - 500 ML IV ONE (09:30)
[2017-05-24] MEDS ORDERED: WATER IVPB ONE (09:30)
[2017-05-24] MEDS ORDERED: DEXTROSE 5% IVPB ONE (09:30)
[2017-05-24] MEDS ORDERED: LEUCOVORIN IVPB ONE (09:30)
[2017-05-24 10:13] LABS: HEMATOCRIT 31.2 % (32.4-45.2); MCH 29.8 pg (25.7-33.7); MCHC 31.9 g/dl (32.0-36.0); MEAN CELL VOLUME 93.4 fl (80-96); MEAN PLT VOLUME 9.3 fl (7.5-11.1); PLATELET COUNT 174 K/MM3 (134-434); RBC 3.34 M/mm3 (3.60-5.2); RDW 18.3 % (11.6-15.6)
[2017-05-24 10:32] VITALS: TEMP 98.2
[2017-05-24 10:33] LABS: ANION GAP 8 (8-16); BLOOD UREA NITROGEN 9 mg/dL (7-18); CALCIUM 9.5 mg/dL (8.5-10.1); CHLORIDE 106 mmol/L (98-107); CO2 27 mmol/L (21-32); CREATININE 0.8 mg/dL (0.55-1.02); GLUCOSE,RANDOM 99 mg/dL (74-106); MAGNESIUM 2.1 mg/dL (1.8-2.4); POTASSIUM 3.8 mmol/L (3.5-5.1); SODIUM 141 mmol/L (136-145)
[2017-05-24 10:54] LABS: ALBUMIN 3.1 g/dl (3.4-5.0); ALK PHOS 100 U/L (45-117); BILIRUBIN,DIRECT 0.2 mg/dL (0.0-0.2); BILIRUBIN,TOTAL 0.5 mg/dL (0.2-1.0); SGOT/AST 38 U/L (15-37); SGPT/ALT 18 U/L (12-78); TOT PROT 7.4 g/dl (6.4-8.2)
[2017-05-24] MEDS ORDERED: FLUOROURACIL 4,275 MG in SODIUM CHLORIDE 6.5 ML IV ONE (11:30)
[2017-05-24 11:32] LABS: MACROCYTOSIS 1+; OVALOCYTE 1+; TEAR DROP CELLS 1+
[2017-05-24] MEDS ORDERED: PORTA CATH FLUSH 10 ML IVPUSH ONE (11:37)
[2017-05-24] MEDS ORDERED: HYDROCORTISONE 1% TOPICAL CREAM 30 GM TUBE TP SCH (15:45)
[2017-05-24 16:08] VITALS: BP 138/65; PULSE 68
== END 2017-05-24 16:45 | disposition home or self-care (01) ==
LOC: JONCNONCHE 07:06 → J7W 09:05 → JONCNONCHE 16:45
PROVIDERS: ATTEND Internal Medicine Hematology & Oncology
DX: Z51.11 Encounter for antineoplastic chemotherapy (principal); C20 Malignant neoplasm of rectum
CPT/HCPCS: 36415; 80048; 80076; 82378; 83735; 85025; 96361; 96366; 96367; 96375; 96413; 96415; 96417; G0498; J1100; J2469; J9035; J9263

== ENCOUNTER 2017-06-07 07:24 | Day surgery (SDC) | payer BC, OTHER ==
[2017-06-07] MEDS ORDERED: SODIUM CHLORIDE 250 ML IV ONE (09:00)
[2017-06-07] MEDS ORDERED: PALONOSETRON HCL 0.25 MG/5 ML VIAL IVPUSH ONE (10:00)
[2017-06-07] MEDS ORDERED: DEXAMETHASONE INJECTION 20 MG in SODIUM CHLORIDE 100 ML IVPB ONE (10:00)
[2017-06-07] MEDS ORDERED: BEVACIZUMAB IV ONE (10:30)
[2017-06-07] MEDS ORDERED: SODIUM CHLORIDE IV ONE (10:30)
[2017-06-07 10:55] LABS: BASO % 0.9 % (0-2.0); EOS % 3.2 % (0-4.5); HEMOGLOBIN 9.3 GM/dL (10.7-15.3); LYMPH % 17.9 % (8-40); MCH 29.4 pg (25.7-33.7); MCHC 31.1 g/dl (32.0-36.0); MEAN CELL VOLUME 94.4 fl (80-96); MEAN PLT VOLUME 9.3 fl (7.5-11.1); MONO % 23.7 % (3.8-10.2); NEUT % 54.3 % (42.8-82.8); PLATELET COUNT 141 K/MM3 (134-434); RBC 3.18 M/mm3 (3.60-5.2); RDW 19.8 % (11.6-15.6)
[2017-06-07] MEDS ORDERED: OXALIPLATIN 100 MG, OXALIPLATIN 50 MG in DEXTROSE 5%-WATER - 500 ML IV ONE (11:00)
[2017-06-07] MEDS ORDERED: DEXTROSE 5% IVPB ONE (11:00)
[2017-06-07] MEDS ORDERED: WATER IVPB ONE (11:00)
[2017-06-07] MEDS ORDERED: LEUCOVORIN IVPB ONE (11:00)
[2017-06-07 11:18] LABS: WHITE BLOOD COUNT 1.8 K/mm3 (4.0-10.0)
[2017-06-07 11:20] LABS: ALBUMIN 3.2 g/dl (3.4-5.0); ALK PHOS 83 U/L (45-117); ANION GAP 9 (8-16); BILIRUBIN,DIRECT 0.3 mg/dL (0.0-0.2); BILIRUBIN,TOTAL 0.8 mg/dL (0.2-1.0); BLOOD UREA NITROGEN 11 mg/dL (7-18); CALCIUM 8.5 mg/dL (8.5-10.1); CHLORIDE 105 mmol/L (98-107); CO2 24 mmol/L (21-32); CREATININE 0.8 mg/dL (0.55-1.02); GLUCOSE,RANDOM 102 mg/dL (74-106); MAGNESIUM 2.1 mg/dL (1.8-2.4); SGOT/AST 31 U/L (15-37); SGPT/ALT 19 U/L (12-78); SODIUM 138 mmol/L (136-145)
[2017-06-07] MEDS ORDERED: FLUOROURACIL 4,275 MG in SODIUM CHLORIDE 6.5 ML CP ONE (13:00)
[2017-06-07] MEDS ORDERED: PORTA CATH FLUSH 10 ML IVPUSH ONE ×2 (16:02→16:22)
[2017-06-07 16:07] VITALS: BP 140/70; PULSE 72
[2017-06-07 16:24] VITALS: TEMP 98.5
== END 2017-06-07 16:00 | disposition home or self-care (01) ==
LOC: JONCCHEMO 07:24 → J7W 10:52 → JONCCHEMO 16:00
PROVIDERS: ATTEND Internal Medicine Hematology & Oncology
DX: Z51.11 Encounter for antineoplastic chemotherapy (principal); C20 Malignant neoplasm of rectum
CPT/HCPCS: 36415; 80053; 80076; 83735; 85025; 96361; 96367; 96375; 96413; 96415; 96417; G0498; J1100; J2469; J9035; J9263

== ENCOUNTER 2017-06-09 07:35 | Day surgery (SDC) | payer BC, OTHER ==
[2017-06-09 17:42] VITALS: BP 140/62; PULSE 77; TEMP 98
[2017-06-09] MEDS ORDERED: PORTA CATH FLUSH 10 ML IVPUSH ONE (17:45)
== END 2017-06-09 14:45 | disposition home or self-care (01) ==
LOC: JONCCHEMO 07:35 → J7W 14:10 → JONCCHEMO 14:45
PROVIDERS: ATTEND Internal Medicine Hematology & Oncology
PROC: 0JPVXVZ Removal of Infusion Pump from Upper Extremity Subcutaneous Tissue and Fascia, External Approach (ICD-10-PCS; principal; 2017-06-09)
DX: Z53.8 Procedure and treatment not carried out for other reasons (principal)

== ENCOUNTER 2017-06-10 07:37 | Day surgery (SDC) | payer BC, OTHER ==
[2017-06-10] MEDS ORDERED: PEGFILGRASTIM 6 MG/0.6 ML DISP.SYRIN SQ ONE (10:00)
[2017-06-10 12:38] VITALS: BP 131/65; PULSE 88; TEMP 98
== END 2017-06-10 12:40 | disposition home or self-care (01) ==
LOC: JONCCHEMO 07:37
PROVIDERS: ATTEND Internal Medicine Hematology & Oncology
PROC: 3E013GC Introduction of Other Therapeutic Substance into Subcutaneous Tissue, Percutaneous Approach (ICD-10-PCS; principal; 2017-06-10)
DX: C20 Malignant neoplasm of rectum (principal)
CPT/HCPCS: 96372; J2505

== ENCOUNTER 2017-06-21 07:37 | Day surgery (SDC) | payer OTHER, BC ==
[2017-06-21] MEDS ORDERED: SODIUM CHLORIDE 250 ML IV ONE (09:00)
[2017-06-21] MEDS ORDERED: DEXAMETHASONE INJECTION 20 MG in SODIUM CHLORIDE 100 ML IVPB ONE (10:00)
[2017-06-21] MEDS ORDERED: PALONOSETRON HCL 0.25 MG/5 ML VIAL IVPUSH ONE (10:00)
[2017-06-21] MEDS ORDERED: SODIUM CHLORIDE IV ONE (10:30)
[2017-06-21] MEDS ORDERED: BEVACIZUMAB IV ONE (10:30)
[2017-06-21] MEDS ORDERED: WATER IV ONE (11:00)
[2017-06-21] MEDS ORDERED: WATER IVPB ONE (11:00)
[2017-06-21] MEDS ORDERED: DEXTROSE 5% IV ONE (11:00)
[2017-06-21] MEDS ORDERED: OXALIPLATIN IV ONE (11:00)
[2017-06-21] MEDS ORDERED: LEUCOVORIN IVPB ONE (11:00)
[2017-06-21] MEDS ORDERED: DEXTROSE 5% IVPB ONE (11:00)
[2017-06-21 11:33] LABS: BASO % 0.6 % (0-2.0); EOS % 0.9 % (0-4.5); HEMATOCRIT 30.6 % (32.4-45.2); HEMOGLOBIN 9.8 GM/dL (10.7-15.3); LYMPH % 10.3 % (8-40); MCH 30.1 pg (25.7-33.7); MEAN CELL VOLUME 94.1 fl (80-96); MEAN PLT VOLUME 9.8 fl (7.5-11.1); MONO % 7.9 % (3.8-10.2); NEUT % 80.3 % (42.8-82.8); PLATELET COUNT 146 K/MM3 (134-434); RBC 3.25 M/mm3 (3.60-5.2); WHITE BLOOD COUNT 6.6 K/mm3 (4.0-10.0)
[2017-06-21 11:50] LABS: ANION GAP 11 (8-16); BLOOD UREA NITROGEN 9 mg/dL (7-18); CALCIUM 9.1 mg/dL (8.5-10.1); CHLORIDE 107 mmol/L (98-107); CO2 25 mmol/L (21-32); CREATININE 0.8 mg/dL (0.55-1.02); GLUCOSE,RANDOM 102 mg/dL (74-106); MAGNESIUM 2.4 mg/dL (1.8-2.4); SODIUM 143 mmol/L (136-145)
[2017-06-21 11:51] LABS: ALBUMIN 2.9 g/dl (3.4-5.0); BILIRUBIN,DIRECT 0.2 mg/dL (0.0-0.2)
[2017-06-21 11:54] LABS: BILIRUBIN,TOTAL 0.6 mg/dL (0.2-1.0); TOT PROT 7.1 g/dl (6.4-8.2)
[2017-06-21] MEDS ORDERED: FLUOROURACIL 4,275 MG in SODIUM CHLORIDE 6.5 ML CP ONE (13:00)
[2017-06-21 18:01] VITALS: BP 146/76; PULSE 84; TEMP 98
[2017-06-21] MEDS ORDERED: PORTA CATH FLUSH 10 ML IVPUSH ONE (18:01)
== END 2017-06-21 14:30 | disposition home or self-care (01) ==
LOC: JONCCHEMO 07:37 → J7W 10:55 → JONCCHEMO 14:30
PROVIDERS: ATTEND Internal Medicine Hematology & Oncology
DX: Z51.11 Encounter for antineoplastic chemotherapy (principal); C20 Malignant neoplasm of rectum
CPT/HCPCS: 36415; 80048; 80076; 82378; 83735; 84439; 84443; 85025; 96361; 96367; 96375; 96413; 96415; 96417; G0498; J1100; J2469; J9035; J9263

== ENCOUNTER 2017-07-07 07:31 | Day surgery (SDC) | payer OTHER, BC ==
[2017-07-07 17:44] VITALS: BP 118/68; PULSE 81; TEMP 98.5
[2017-07-07] MEDS ORDERED: PORTA CATH FLUSH 10 ML IVPUSH ONE (17:47)
== END 2017-07-07 14:35 | disposition home or self-care (01) ==
LOC: JONCCHEMO 07:31 → J7W 14:45
PROVIDERS: ATTEND Internal Medicine Hematology & Oncology
PROC: 0JPVXVZ Removal of Infusion Pump from Upper Extremity Subcutaneous Tissue and Fascia, External Approach (ICD-10-PCS; principal; 2017-07-07)
DX: Z53.8 Procedure and treatment not carried out for other reasons (principal)

== ENCOUNTER 2017-07-19 07:13 | Inpatient (IN) | payer OTHER, BC ==
[2017-07-19] MEDS ORDERED: SODIUM CHLORIDE 250 ML IV ONE (08:00)
[2017-07-19] MEDS ORDERED: DEXAMETHASONE INJECTION 20 MG in SODIUM CHLORIDE 100 ML IVPB ONE (08:30)
[2017-07-19] MEDS ORDERED: PALONOSETRON HCL 0.25 MG/5 ML VIAL IVPUSH ONE (08:30)
[2017-07-19] MEDS ORDERED: BEVACIZUMAB IV ONE (09:00)
[2017-07-19] MEDS ORDERED: SODIUM CHLORIDE IV ONE ×2 (09:00→09:30)
[2017-07-19] MEDS ORDERED: DEXTROSE 5% IVPB ONE (09:30)
[2017-07-19] MEDS ORDERED: OXALIPLATIN 100 MG, OXALIPLATIN 50 MG in DEXTROSE 5%-WATER - 500 ML IV ONE (09:30)
[2017-07-19] MEDS ORDERED: WATER IVPB ONE (09:30)
[2017-07-19] MEDS ORDERED: LEUCOVORIN IVPB ONE (09:30)
[2017-07-19] MEDS ORDERED: OXALIPLATIN IV ONE (09:30)
[2017-07-19 10:01] LABS: BASO % 1.2 % (0-2.0); EOS % 0.8 % (0-4.5); HEMATOCRIT 28.8 % (32.4-45.2); HEMOGLOBIN 9.1 GM/dL (10.7-15.3); LYMPH % 18.8 % (8-40); MCH 30.8 pg (25.7-33.7); MCHC 31.8 g/dl (32.0-36.0); MEAN CELL VOLUME 96.9 fl (80-96); MEAN PLT VOLUME 8.3 fl (7.5-11.1); MONO % 18.8 % (3.8-10.2); NEUT % 60.4 % (42.8-82.8); PLATELET COUNT 126 K/MM3 (134-434); RBC 2.97 M/mm3 (3.60-5.2); RDW 23.7 % (11.6-15.6); WHITE BLOOD COUNT 2.2 K/mm3 (4.0-10.0)
[2017-07-19 10:27] LABS: ANION GAP 10 (8-16); CALCIUM 9.2 mg/dL (8.5-10.1); CHLORIDE 106 mmol/L (98-107); CO2 22 mmol/L (21-32); GLUCOSE,RANDOM 116 mg/dL (74-106); POTASSIUM 4.1 mmol/L (3.5-5.1); SODIUM 138 mmol/L (136-145)
[2017-07-19 10:31] LABS: ALK PHOS 84 U/L (45-117); BILIRUBIN,DIRECT 0.3 mg/dL (0.0-0.2); BILIRUBIN,TOTAL 0.9 mg/dL (0.2-1.0); BLOOD UREA NITROGEN 15 mg/dL (7-18); CREATININE 1.1 mg/dL (0.55-1.02); SGOT/AST 23 U/L (15-37); SGPT/ALT 18 U/L (12-78); TOT PROT 7.7 g/dl (6.4-8.2)
[2017-07-19] MEDS ORDERED: MAGNESIUM SULF 50% (8.12 MEQ/2 ML-1 GM VIAL) ONE (10:45)
[2017-07-19] MEDS ORDERED: TBO-FILGRASTIM 480 MCG/0.8 ML DISP.SYRIN SQ ONE (11:00)
[2017-07-19] MEDS ORDERED: LOPERAMIDE HCL 2 MG CAPSULE PO ONE ×2 (11:00→18:45)
[2017-07-19] MEDS ORDERED: FLUOROURACIL 4,275 MG in SODIUM CHLORIDE 6.5 ML IV ONE (11:30)
[2017-07-19] MEDS: D5-1/2NS+20 MEQ KCL - 20 MEQ/1,000 ML INFUS.BAG IV SCH (14:10)
[2017-07-19] MEDS ORDERED: PORTA CATH FLUSH 10 ML IVPUSH ONE (16:53)
[2017-07-19] MEDS: CLINDAMYCIN 600MG PREMIX IVPB 600 MG/50 ML BAG IVPB SCH (18:32)
[2017-07-19] MEDS: ZOLPIDEM TARTRATE 5 MG TABLET PO PRN (21:55)
[2017-07-20] MEDS: CLINDAMYCIN 600MG PREMIX IVPB 600 MG/50 ML BAG IVPB SCH ×3 (01:32→18:29)
[2017-07-20] MEDS: D5-1/2NS+20 MEQ KCL - 20 MEQ/1,000 ML INFUS.BAG IV SCH ×3 (05:38→21:55)
[2017-07-20] MEDS: LEVOTHYROXINE NA 125 MCG TABLET (FP) PO SCH (06:50)
--- NOTE | 2017-07-20 09:35 | HP ---
History and Physical History and Physical: Patient seen and examined 07/20/15 Patient is a 65 year old female with significant medical hx of metastatic rectal CA (s/p tumor resection) , radioembolizationof liver mets, here for FOLFOX but it was held due to neutropenia She is being admitted for diarrhea and weakness from the infusion suite Denies fever, chills, nausea, vomiting, and abdominal pain. c/o insomnia - Past Medical History Anemia: Yes Cancer: Yes (RECTAL CANCER, LIVER 09/23) GI Disorders: Yes (RECTAL CA) Liver Disease: Yes (CA) Thyroid Disease: Yes (HYPO) - Surgical History Abdominal Surgery: Yes (ILEOSTOMY 09/23) - Psycho/Social/Smoking Cessation Hx Smoking History: Former smoker Allergies/Adverse Reactions: Allergies Allergy/AdvReac Type Severity Reaction Status Date / Time shellfish derived Allergy Vomiting Verified 04/12/15 20:51 Home Medications: Ambulatory Orders Levothyroxine [Synthroid -] 1 tab PO DAILY 10/09/13 Cholecalciferol (Vitamin D3) [Vitamin D] 1,000 unit PO DAILY 05/21/14 Multivitamins [Multivit ([facility] Formul[facility])] 1 tab PO DAILY 05/21/14 Iron 28 mg PO DAILY 07/04/14 Vital Signs: AFVSS GENERAL: Well-appearing, well-nourished. No apparent distress. CARDIOVASCULAR: Normal S1, S2. Regular rate and rhythm. PULMONARY: Clear to auscultation bilaterally. ABDOMEN: Soft, non-distended, non-tender + colostomy EXTREMITIES: Normal ROM in all four extremities. No gross deformities. Labs/Meds reviewed A/P 67 y/o female with metastatic rectal cancer , liver mets, on palliative chemotherapy. FOLFOX held today due to neutropenia Being admitted from infusion suite for diarrhea and weakness Checking cultures empiric antibiotics IV hydration neupogen monitor labs
[2017-07-20] MEDS: CHOLECALCIFEROL (VITAMIN D3) 1,000 UNIT TABLET (FP) PO SCH (10:03)
[2017-07-20] MEDS: LOPERAMIDE HCL 2 MG CAPSULE PO PRN (10:03)
[2017-07-20] MEDS: FERROUS SO4 325 MG TABLET (FP) PO SCH (10:03)
[2017-07-20] MEDS: MULTIVITAMINS (DAILY MVI) TABLET (FP) PO SCH (10:03)
[2017-07-20 11:21] LABS: HEMATOCRIT 22.4 % (32.4-45.2); HEMOGLOBIN 7.1 GM/dL (10.7-15.3); MCH 30.7 pg (25.7-33.7); MCHC 31.5 g/dl (32.0-36.0); MEAN CELL VOLUME 97.5 fl (80-96); MEAN PLT VOLUME 9.9 fl (7.5-11.1); PLATELET COUNT 100 K/MM3 (134-434); RDW 23.8 % (11.6-15.6); WHITE BLOOD COUNT 3.1 K/mm3 (4.0-10.0)
[2017-07-20 11:49] LABS: ANION GAP 9 (8-16); BLOOD UREA NITROGEN 13 mg/dL (7-18); CALCIUM 8.9 mg/dL (8.5-10.1); CHLORIDE 108 mmol/L (98-107); CO2 24 mmol/L (21-32); CREATININE 0.8 mg/dL (0.55-1.02); GLUCOSE,RANDOM 107 mg/dL (74-106); MAGNESIUM 2.1 mg/dL (1.8-2.4); PHOSPHOROUS 2.5 mg/dL (2.5-4.9); POTASSIUM 3.9 mmol/L (3.5-5.1); SODIUM 141 mmol/L (136-145)
--- NOTE | 2017-07-20 12:36 | PN ---
Progress Note (short form) - Note Progress Note: Pt seen and examined +Fatigue No fevers +liquid ostomy output O/E: General: NAD HEENT: NCAT Oral: Dry MM Cor:RRR Lungs: CTA b/l Abd: +ostomy , liquid stool LE: No CCE Temp Pulse Resp BP Pulse Ox 98.3 F 75 20 137/76 07/20/17 06:06 07/20/17 06:06 07/20/17 06:06 07/20/17 06:06 CBC, BMP 07/20/17 10:45 07/20/17 10:45 Current Medications Generic Name Dose Route Start Last Admin Trade Name Freq PRN Reason Stop Dose Admin Cholecalciferol 1,000 unit 07/20/17 10:00 07/20/17 10:03 Vitamin D3 - PO 1,000 unit DAILY TED Administration Ferrous Sulfate 325 mg 07/20/17 10:00 07/20/17 10:03 Feosol - PO 325 mg DAILY TED Administration Clindamycin Phosphate 600 mg in 50 mls @ 100 mls/hr 07/19/17 18:00 07/20/17 10:03 Cleocin 600 Mg Premix Ivpb - IVPB 100 mls/hr Q8H-IV TED Administration Potassium Chloride/Dextrose/Sod Cl 20 meq in 1,000 mls @ 83 mls/hr 07/19/17 16 :15 07/20/17 05:38 D5-1/2ns+20 Meq Kcl - IV 83 mls/hr ASDIR TED Administration Levothyroxine Sodium 125 mcg 07/20/17 07:00 07/20/17 06:50 Synthroid - PO 125 mcg DAILY@0700 TED Administration Loperamide HCl 2 mg 07/19/17 18:41 07/20/17 10:03 Imodium - PO 2 mg Q6H PRN Administration DIARRHEA Multivitamins/Minerals/Vitamin C 1 tab 07/20/17 10:00 07/20/17 10:03 Tab-A-Vit - PO 1 tab DAILY TED Administration Zolpidem Tartrate 5 mg 07/19/17 21:17 07/19/17 21:55 Ambien - PO 5 mg HS PRN Administration INSOMNIA Pancytopenia: in the setting of chemotherapy for stage IV CRC for 2U PRBCs today Increased Ostomy Output: send C diff empiric abx c/w loperamide for now monitor closely. will monitor lytes IVF Fatigue; Multifactorial transfusion ,might help
[2017-07-20] MEDS ORDERED: SODIUM CHLORIDE 1,000 ML IV SCH (12:45)
[2017-07-20 13:13] LABS: ANISOCYTOSIS 2+; MACROCYTOSIS 1+; OVALOCYTE 1+; PLATELET ESTIMATE DECREASED; TEAR DROP CELLS 1+
[2017-07-20 13:59] VITALS: BMI 33.9
[2017-07-20] MEDS: ZOLPIDEM TARTRATE 5 MG TABLET PO PRN (21:54)
[2017-07-21] MEDS: CLINDAMYCIN 600MG PREMIX IVPB 600 MG/50 ML BAG IVPB SCH ×3 (02:34→18:35)
[2017-07-21] MEDS: LEVOTHYROXINE NA 125 MCG TABLET (FP) PO SCH (06:02)
[2017-07-21] MEDS: FERROUS SO4 325 MG TABLET (FP) PO SCH (09:34)
[2017-07-21] MEDS: CHOLECALCIFEROL (VITAMIN D3) 1,000 UNIT TABLET (FP) PO SCH (09:34)
[2017-07-21] MEDS: MULTIVITAMINS (DAILY MVI) TABLET (FP) PO SCH (09:34)
--- NOTE | 2017-07-21 10:04 | PN ---
Progress Note (short form) - Note Progress Note: Pt seen and examined No overnight events c/o continued fatigue s/p 2U PRBCS stool studies pending O/E: General: NAD HEENT: NCAT Oral: Dry MM Cor:RRR Lungs: CTA b/l Abd: +ostomy ,slightly formed stool LE: No CCE CBC, BMP Last Vital Signs Temp Pulse Resp BP Pulse Ox 98.6 F 66 18 120/66 97 07/21/17 09:09 07/21/17 09:09 07/21/17 09:09 07/21/17 09:09 07/20/17 21:00 CBC, BMP 07/20/17 10:45 07/20/17 10:45 Current Medications Generic Name Dose Route Start Last Admin Trade Name Freq PRN Reason Stop Dose Admin Cholecalciferol 1,000 unit 07/20/17 10:00 07/21/17 09:34 Vitamin D3 - PO 1,000 unit DAILY TED Administration Ferrous Sulfate 325 mg 07/20/17 10:00 07/21/17 09:34 Feosol - PO 325 mg DAILY TED Administration Clindamycin Phosphate 600 mg in 50 mls @ 100 mls/hr 07/19/17 18:00 07/21/17 09:33 Cleocin 600 Mg Premix Ivpb - IVPB 100 mls/hr Q8H-IV TED Administration Potassium Chloride/Dextrose/Sod Cl 20 meq in 1,000 mls @ 83 mls/hr 07/19/17 16 :15 07/20/17 21:55 D5-1/2ns+20 Meq Kcl - IV 83 mls/hr ASDIR TED Administration Levothyroxine Sodium 125 mcg 07/20/17 07:00 07/21/17 06:02 Synthroid - PO 125 mcg DAILY@0700 TED Administration Loperamide HCl 2 mg 07/19/17 18:41 07/20/17 10:03 Imodium - PO 2 mg Q6H PRN Administration DIARRHEA Multivitamins/Minerals/Vitamin C 1 tab 07/20/17 10:00 07/21/17 09:34 Tab-A-Vit - PO 1 tab DAILY TED Administration Zolpidem Tartrate 5 mg 07/19/17 21:17 07/20/17 21:54 Ambien - PO 5 mg HS PRN Administration INSOMNIA Stage IV CRC Pancytopenia Fatigue Increased Ostomy Output: CBC pending from today ( post 2U PRBCS) follow stool studies empiric abx c/w loperamide for now monitor lytes c/w IVF will start DVT ppx if CBC acceptable PT eval. OOB to chair anticipated DC in 1-2days pending stool studies/pt improvement.
[2017-07-21 10:12] LABS: BASO % 0.6 % (0-2.0); EOS % 1.9 % (0-4.5); HEMATOCRIT 27.8 % (32.4-45.2); LYMPH % 15.6 % (8-40); MCH 30.4 pg (25.7-33.7); MCHC 32.3 g/dl (32.0-36.0); MEAN CELL VOLUME 94.1 fl (80-96); MEAN PLT VOLUME 9.4 fl (7.5-11.1); MONO % 17.3 % (3.8-10.2); NEUT % 64.6 % (42.8-82.8); PLATELET COUNT 106 K/MM3 (134-434); RBC 2.96 M/mm3 (3.60-5.2); RDW 23.2 % (11.6-15.6); WHITE BLOOD COUNT 3.2 K/mm3 (4.0-10.0)
[2017-07-21] MEDS: D5-1/2NS+20 MEQ KCL - 20 MEQ/1,000 ML INFUS.BAG IV SCH (15:36)
[2017-07-21] MEDS: ZOLPIDEM TARTRATE 5 MG TABLET PO PRN (22:27)
[2017-07-22] MEDS: CLINDAMYCIN 600MG PREMIX IVPB 600 MG/50 ML BAG IVPB SCH ×3 (02:23→17:12)
[2017-07-22] MEDS ORDERED: PT OWN MED DRAWER 7, Y5N ONE (06:23)
[2017-07-22] MEDS: LEVOTHYROXINE NA 125 MCG TABLET (FP) PO SCH (06:43)
[2017-07-22 07:38] LABS: HEMATOCRIT 27.8 % (32.4-45.2); HEMOGLOBIN 9.1 GM/dL (10.7-15.3); MCH 30.4 pg (25.7-33.7); MCHC 32.6 g/dl (32.0-36.0); MEAN CELL VOLUME 93.2 fl (80-96); MEAN PLT VOLUME 9.7 fl (7.5-11.1); PLATELET COUNT 114 K/MM3 (134-434); RBC 2.98 M/mm3 (3.60-5.2); RDW 23.3 % (11.6-15.6)
[2017-07-22 07:58] LABS: CHLORIDE 108 mmol/L (98-107); SODIUM 141 mmol/L (136-145)
[2017-07-22 08:15] LABS: ALBUMIN 2.4 g/dl (3.4-5.0); ALK PHOS 81 U/L (45-117); ANION GAP 9 (8-16); BILIRUBIN,TOTAL 0.4 mg/dL (0.2-1.0); BLOOD UREA NITROGEN 8 mg/dL (7-18); CALCIUM 8.6 mg/dL (8.5-10.1); CO2 24 mmol/L (21-32); CREATININE 0.7 mg/dL (0.55-1.02); GLUCOSE,RANDOM 99 mg/dL (74-106); MAGNESIUM 1.9 mg/dL (1.8-2.4); SGOT/AST 24 U/L (15-37); SGPT/ALT 14 U/L (12-78); TOT PROT 6.4 g/dl (6.4-8.2)
--- NOTE | 2017-07-22 10:13 | PN ---
Progress Note (short form) - Note Progress Note: Pt seen and examined No overnight events ROS : denies chest pain, SOB, headaches, LE pain , +rash in the diaper area. stool studies pending O/E: General: NAD HEENT: NCAT Oral: Dry MM Cor:RRR Lungs: CTA b/l Abd: +ostomy ,more formed stool than yesterday LE: No CCE Last Vital Signs Temp Pulse Resp BP Pulse Ox 98.1 F 61 20 132/73 96 07/22/17 06:25 07/22/17 06:25 07/22/17 06:25 07/22/17 06:25 07/21/17 22:00 CBC, BMP 07/22/17 06:00 07/22/17 06:00 Current Medications Generic Name Dose Route Start Last Admin Trade Name Freq PRN Reason Stop Dose Admin Cholecalciferol 1,000 unit 07/20/17 10:00 07/21/17 09:34 Vitamin D3 - PO 1,000 unit DAILY TED Administration Ferrous Sulfate 325 mg 07/20/17 10:00 07/21/17 09:34 Feosol - PO 325 mg DAILY TED Administration Clindamycin Phosphate 600 mg in 50 mls @ 100 mls/hr 07/19/17 18:00 07/22/17 02:23 Cleocin 600 Mg Premix Ivpb - IVPB 100 mls/hr Q8H-IV TED Administration Potassium Chloride/Dextrose/Sod Cl 20 meq in 1,000 mls @ 83 mls/hr 07/19/17 16 :15 07/21/17 15:36 D5-1/2ns+20 Meq Kcl - IV 83 mls/hr ASDIR TED Administration Levothyroxine Sodium 125 mcg 07/20/17 07:00 07/22/17 06:43 Synthroid - PO 125 mcg DAILY@0700 TED Administration Loperamide HCl 2 mg 07/19/17 18:41 07/20/17 10:03 Imodium - PO 2 mg Q6H PRN Administration DIARRHEA Multivitamins/Minerals/Vitamin C 1 tab 07/20/17 10:00 07/21/17 09:34 Tab-A-Vit - PO 1 tab DAILY TED Administration Zolpidem Tartrate 5 mg 07/19/17 21:17 07/21/17 22:27 Ambien - PO 5 mg HS PRN Administration INSOMNIA Stage IV CRC Pancytopenia---improving Fatigue--stable, multifactorial Increased Ostomy Output:Improving CBC stable had to re-send stool for c diff c/w loperamide for now Stop IVF, tolerating PO well, now with formed stools PT eval appreciated, home with services ,SW aware OOB to chair DVT ppx anticipated DC in tomorrow pending stool studies/pt improvement.
[2017-07-22] MEDS: MULTIVITAMINS (DAILY MVI) TABLET (FP) PO SCH (10:29)
[2017-07-22] MEDS: CHOLECALCIFEROL (VITAMIN D3) 1,000 UNIT TABLET (FP) PO SCH (10:29)
[2017-07-22] MEDS: FERROUS SO4 325 MG TABLET (FP) PO SCH (10:29)
[2017-07-22 11:28] LABS: ANISOCYTOSIS 2+
[2017-07-22 11:29] LABS: MACROCYTOSIS 1+; OVALOCYTE 1+; PLATELET ESTIMATE DECREASED; TEAR DROP CELLS 1+
[2017-07-22] MEDS: ENOXAPARIN NA (PORCINE) 40 MG/0.4 ML DISP.SYRIN SQ SCH (11:58)
[2017-07-22] MEDS: D5-1/2NS+20 MEQ KCL - 20 MEQ/1,000 ML INFUS.BAG IV SCH ×2 (17:12→21:37)
[2017-07-22] MEDS: ZOLPIDEM TARTRATE 5 MG TABLET PO PRN (22:01)
[2017-07-23] MEDS: CLINDAMYCIN 600MG PREMIX IVPB 600 MG/50 ML BAG IVPB SCH ×3 (02:07→18:25)
[2017-07-23] MEDS ORDERED: PT OWN MED DRAWER 7, Y5N ONE (06:13)
[2017-07-23] MEDS: LEVOTHYROXINE NA 125 MCG TABLET (FP) PO SCH (06:42)
[2017-07-23] MEDS: FERROUS SO4 325 MG TABLET (FP) PO SCH (10:37)
[2017-07-23] MEDS: ENOXAPARIN NA (PORCINE) 40 MG/0.4 ML DISP.SYRIN SQ SCH (10:37)
[2017-07-23] MEDS: CHOLECALCIFEROL (VITAMIN D3) 1,000 UNIT TABLET (FP) PO SCH (10:37)
[2017-07-23] MEDS: MULTIVITAMINS (DAILY MVI) TABLET (FP) PO SCH (10:39)
[2017-07-23] MEDS: HYDROCORTISONE 2.5% TOPICAL CREAM 30 GM TUBE PR SCH (11:33)
--- NOTE | 2017-07-23 13:57 | PN ---
Progress Note (short form) - Note Progress Note: Pt seen and examined No overnight events ROS : denies chest pain, SOB, headaches, LE pain , +rectal pain stool studies negative for C diff O/E: General: NAD HEENT: NCAT Oral: Dry MM Cor:RRR Lungs: CTA b/l Abd: +ostomy ,much more formed stool than yesterday LE: No CCE Last Vital Signs Temp Pulse Resp BP Pulse Ox 98.1 F 61 20 132/73 96 07/22/17 06:25 07/22/17 06:25 07/22/17 06:25 07/22/17 06:25 07/21/17 22:00 CBC, BMP 07/22/17 06:00 07/22/17 06:00 Current Medications Generic Name Dose Route Start Last Admin Trade Name Freq PRN Reason Stop Dose Admin Cholecalciferol 1,000 unit 07/20/17 10:00 07/21/17 09:34 Vitamin D3 - PO 1,000 unit DAILY TED Administration Ferrous Sulfate 325 mg 07/20/17 10:00 07/21/17 09:34 Feosol - PO 325 mg DAILY TED Administration Clindamycin Phosphate 600 mg in 50 mls @ 100 mls/hr 07/19/17 18:00 07/22/17 02:23 Cleocin 600 Mg Premix Ivpb - IVPB 100 mls/hr Q8H-IV TED Administration Potassium Chloride/Dextrose/Sod Cl 20 meq in 1,000 mls @ 83 mls/hr 07/19/17 16 :15 07/21/17 15:36 D5-1/2ns+20 Meq Kcl - IV 83 mls/hr ASDIR TED Administration Levothyroxine Sodium 125 mcg 07/20/17 07:00 07/22/17 06:43 Synthroid - PO 125 mcg DAILY@0700 TED Administration Loperamide HCl 2 mg 07/19/17 18:41 07/20/17 10:03 Imodium - PO 2 mg Q6H PRN Administration DIARRHEA Multivitamins/Minerals/Vitamin C 1 tab 07/20/17 10:00 07/21/17 09:34 Tab-A-Vit - PO 1 tab DAILY TED Administration Zolpidem Tartrate 5 mg 07/19/17 21:17 07/21/17 22:27 Ambien - PO 5 mg HS PRN Administration INSOMNIA Stage IV CRC Pancytopenia---improving Fatigue--stable, multifactorial Increased Ostomy Output:Improving CBC stable c diff negative c/w loperamide change to PO abx tomorrow rectal pain Rx with anusol. PT [place] appreciated, home with services ,SW aware and all was set up. OOB to chair DVT ppx dc in the am
[2017-07-23] MEDS ORDERED: SODIUM CHLORIDE 1,000 ML IV SCH (19:45)
[2017-07-23] MEDS ORDERED: PORTA CATH FLUSH 10 ML IVPUSH ONE (19:46)
[2017-07-23] MEDS ORDERED: ACETAMINOPHEN 325 MG TABLET (FP) PO PRN (19:47)
[2017-07-23] MEDS: SODIUM CHLORIDE 1,000 ML IV SCH (20:39)
[2017-07-24] MEDS: ZOLPIDEM TARTRATE 5 MG TABLET PO PRN ×2 (00:26→21:55)
[2017-07-24] MEDS: CLINDAMYCIN 600MG PREMIX IVPB 600 MG/50 ML BAG IVPB SCH ×2 (01:21→10:04)
[2017-07-24] MEDS: LEVOTHYROXINE NA 125 MCG TABLET (FP) PO SCH (06:28)
[2017-07-24 07:38] LABS: HEMATOCRIT 29.6 % (32.4-45.2); HEMOGLOBIN 9.7 GM/dL (10.7-15.3); MCH 30.6 pg (25.7-33.7); MCHC 32.7 g/dl (32.0-36.0); MEAN CELL VOLUME 93.5 fl (80-96); MEAN PLT VOLUME 9.2 fl (7.5-11.1); PLATELET COUNT 133 K/MM3 (134-434); RBC 3.16 M/mm3 (3.60-5.2); RDW 22.9 % (11.6-15.6); WHITE BLOOD COUNT 6.2 K/mm3 (4.0-10.0)
[2017-07-24 07:58] LABS: CHLORIDE 108 mmol/L (98-107); POTASSIUM 4.1 mmol/L (3.5-5.1); SODIUM 138 mmol/L (136-145)
[2017-07-24 08:05] LABS: ALBUMIN 2.4 g/dl (3.4-5.0); ALK PHOS 73 U/L (45-117); ANION GAP 5 (8-16); BILIRUBIN,TOTAL 0.5 mg/dL (0.2-1.0); BLOOD UREA NITROGEN 11 mg/dL (7-18); CALCIUM 8.8 mg/dL (8.5-10.1); CO2 25 mmol/L (21-32); CREATININE 0.7 mg/dL (0.55-1.02); GLUCOSE,RANDOM 96 mg/dL (74-106); SGOT/AST 22 U/L (15-37); SGPT/ALT 13 U/L (12-78); TOT PROT 6.7 g/dl (6.4-8.2)
[2017-07-24] MEDS: CHOLECALCIFEROL (VITAMIN D3) 1,000 UNIT TABLET (FP) PO SCH (10:02)
[2017-07-24] MEDS: FERROUS SO4 325 MG TABLET (FP) PO SCH (10:03)
[2017-07-24] MEDS: MULTIVITAMINS (DAILY MVI) TABLET (FP) PO SCH (10:03)
[2017-07-24] MEDS: ENOXAPARIN NA (PORCINE) 40 MG/0.4 ML DISP.SYRIN SQ SCH (10:04)
[2017-07-24] MEDS: HYDROCORTISONE 2.5% TOPICAL CREAM 30 GM TUBE PR SCH (10:09)
--- NOTE | 2017-07-24 17:30 | PN ---
Progress Note (short form) - Note Progress Note: Pt seen and examined fevers overnight ROS : denies chest pain, SOB, headaches, LE pain , +rectal pain stool studies negative for C diff O/E: General: NAD HEENT: NCAT Oral: Dry MM Cor:RRR Lungs: CTA b/l Abd: +ostomy ,continues to have good output LE: No CCE Last Vital Signs Temp Pulse Resp BP Pulse Ox 99.1 F 84 18 128/56 96 07/24/17 13:33 07/24/17 13:33 07/24/17 13:33 07/24/17 13:33 07/24/17 09:00 CBC, BMP 07/24/17 06:00 07/24/17 06:00 Current Medications Generic Name Dose Route Start Last Admin Trade Name Freq PRN Reason Stop Dose Admin Acetaminophen 650 mg 07/23/17 19:47 07/23/17 20:36 Tylenol - PO 650 mg Q6H PRN Administration PAIN Cholecalciferol 1,000 unit 07/20/17 10:00 07/24/17 10:02 Vitamin D3 - PO 1,000 unit DAILY TED Administration Enoxaparin Sodium 40 mg 07/22/17 12:00 07/24/17 10:04 Lovenox - SQ 40 mg DAILY TED Administration Ferrous Sulfate 325 mg 07/20/17 10:00 07/24/17 10:03 Feosol - PO 325 mg DAILY TED Administration Hydrocortisone 1 applic 07/23/17 11:00 07/24/17 10:09 Anusol 2.5% Hc Cream - TN Not Given DAILY TED Clindamycin Phosphate 600 mg in 50 mls @ 100 mls/hr 07/19/17 18:00 07/24/17 10:04 Cleocin 600 Mg Premix Ivpb - IVPB 100 mls/hr Q8H-IV TED Administration Sodium Chloride 1,000 mls @ 60 mls/hr 07/23/17 20:00 07/23/17 20:39 Normal Saline - IV 60 mls/hr ASDIR TED Administration Levothyroxine Sodium 125 mcg 07/20/17 07:00 07/24/17 06:28 Synthroid - PO 125 mcg DAILY@0700 TED Administration Loperamide HCl 2 mg 07/19/17 18:41 07/20/17 10:03 Imodium - PO 2 mg Q6H PRN Administration DIARRHEA Multivitamins/Minerals/Vitamin C 1 tab 07/20/17 10:00 07/23/17 10:39 Tab-A-Vit - PO 1 tab DAILY TED Administration Zolpidem Tartrate 5 mg 07/22/17 21:56 07/24/17 00:26 Ambien - PO 5 mg HS PRN Administration INSOMNIA Stage IV CRC Pancytopenia---improving Fatigue--stable, multifactorial Increased Ostomy Output:Improving ID c/s supportive care
--- NOTE | 2017-07-24 17:39 | PN ---
Progress Note (short form) - Note Progress Note: ID consult dictated imp/reccd 67 yo female with metastatic rectal cancer admitted with neutropenia and dehydration she had not been feeling well for the last week prior to coming on Wednesday for chemo her counts were low and she was admitted for further evaluation she notes she has started having some stools per rectum over the last 3 weeks she got rectal radiation many years ago nurse reports port site has no erythema neutropenia has resolved last night she had sudden onset of fevers with sweats-tmax 102 no cough, no sob cxray no infiltrate fever metastatic rectal cancer cultures pending ct scan abd/pelvis r/o abscess, r/o fistula vanco/zosyn until cultures are back Problem List - Problems (1) Fever Code(s): R50.9 - FEVER, UNSPECIFIED (2) Rectal adenocarcinoma metastatic to liver Code(s): C20 - MALIGNANT NEOPLASM OF RECTUM; C78.7 - SECONDARY MALIG NEOPLASM OF LIVER AND INTRAHEPATIC BILE DUCT
[2017-07-24] MEDS ORDERED: PIPERACILLIN/TAZOB 4.5 GM/100 ML PREMIX BAG IVPB SCH (18:00)
[2017-07-24] MEDS: VANCOMYCIN 1,000 MG in DEXTROSE 5%-WATER - 250 ML IVPB SCH (18:45)
[2017-07-24] MEDS: PIPERACILLIN/TAZOB 4.5 GM 4.5 GM in DEXTROSE 5%-WATER 100 ML IVPB SCH (20:40)
[2017-07-24] MEDS: SODIUM CHLORIDE 1,000 ML IV SCH (23:32)
[2017-07-24] MEDS: LOPERAMIDE HCL 2 MG CAPSULE PO PRN (23:32)
[2017-07-25] MEDS: PIPERACILLIN/TAZOB 4.5 GM 4.5 GM in DEXTROSE 5%-WATER 100 ML IVPB SCH ×3 (02:15→17:18)
[2017-07-25] MEDS ORDERED: PT OWN MED DRAWER 7, Y5N ONE (05:54)
[2017-07-25] MEDS: VANCOMYCIN 1,000 MG in DEXTROSE 5%-WATER - 250 ML IVPB SCH (06:06)
[2017-07-25] MEDS: LEVOTHYROXINE NA 125 MCG TABLET (FP) PO SCH (06:07)
[2017-07-25] MEDS: SODIUM CHLORIDE 1,000 ML IV SCH (06:07)
--- NOTE | 2017-07-25 06:25 | CONS ---
DATE OF CONSULTATION: DATE OF DICTATION: 07/24/2017 INFECTIOUS DISEASE CONSULTATION REQUESTING PHYSICIAN: HISTORY OF PRESENT ILLNESS: This is a 67-year-old female with a history of metastatic rectal cancer. She has had tumor resection in the past. She has an ileostomy. She has had radiation in the past. She has also had radio embolization of liver metastases. She presented for infusion on the and was noted to have neutropenia. She also then reported feeling extremely weak and dehydrated over the course of the prior week, and she was admitted for weakness. There were no fever, chills, nausea, vomiting or diarrhea. She was treated empirically with clindamycin. She had cultures done that were negative. She received IV hydration, and she received Neupogen. She has started feeling better over the course of the last several days, but last night she developed fever as high as 102. Currently she is 99.8. She had no rigors but she thought that she had sweats. She had no nausea or vomiting. She reports for the last 3 weeks that she has had some discharge from her rectum as well. Her chemotherapy currently is FOLFOX. PAST MEDICAL HISTORY: Notable for the rectal carcinoma. She has a history of anemia and hypothyroidism. PAST SURGICAL HISTORY: Notable for a port in her right chest wall and ileostomy in September 2013. ALLERGIES: SHE IS ALLERGIC TO SHELLFISH, BUT SHE CAN TOLERATE CONTRAST DYE. MEDICATIONS: Her medications include Synthroid, vitamin D, multivitamins and iron. SOCIAL HISTORY: She lives with her brother. She is retired. They have no pets. There has been no travel. PHYSICAL EXAMINATION: Vital Signs: Current temperature is 99.8. Temperature maximum is 102. Pulse is 76. Blood pressure 134/65, respiratory rate 18. HEENT: She is normocephalic. Her eyes are anicteric. Chest: She has a large dressing over her port site. I spoke with the nurses, as the site is clean access the port. Her lungs are clear to auscultation. Abdomen: Soft, nontender. Extremities: Without edema. Skin: The perirectal area has some mild erythema. There is no fluctuance. DIAGNOSTIC STUDIES: White count is 6.2 today, hemoglobin 9.7, platelets 133, BUN 11, creatinine 0.7. Her blood cultures done on the are negative. She had a C. difficile that was negative as well. Blood cultures have been repeated today. She had a chest x-ray done earlier today that shows no acute pathology. ASSESSMENT AND RECOMMENDATIONS: In summary, this is a 67-year-old woman with metastatic rectal carcinoma, who now has unknown onset of fevers, with resolution of her neutropenia. The only localizing factor is that she is now having some stools per rectum. So I would suggest at this time that while awaiting cultures, we treat her with vancomycin and Zosyn. We will get a CT scan of her abdomen and pelvis to rule out abscess, rule out fistula. I discussed this with Dr. Carrizales, and she is agreeable to her getting p.o. and IV contrast, as she has tolerated this in the past. Her last scan was in April. Further recommendations to follow. The patient was informed of the plan. ANNA GARCIA M.D. [id number]
[2017-07-25] MEDS ORDERED: DEXTROSE 5%-WATER 100 ML IVPB ONE ×2 (09:51→17:13)
[2017-07-25] MEDS ORDERED: PIPERACILLIN/TAZOBACTAM 4.5 GM VIAL IVPB ONE ×2 (09:51→17:13)
[2017-07-25] MEDS: MULTIVITAMINS (DAILY MVI) TABLET (FP) PO SCH (09:55)
[2017-07-25] MEDS: CHOLECALCIFEROL (VITAMIN D3) 1,000 UNIT TABLET (FP) PO SCH (09:55)
[2017-07-25] MEDS: FERROUS SO4 325 MG TABLET (FP) PO SCH (09:55)
[2017-07-25] MEDS: ENOXAPARIN NA (PORCINE) 40 MG/0.4 ML DISP.SYRIN SQ SCH (09:55)
--- NOTE | 2017-07-25 13:37 | PN ---
Progress Note (short form) - Note Progress Note: Pt seen and examined fevers overnight ROS : denies chest pain, SOB, headaches, LE pain , +rectal pain stool studies negative for C diff Urine studies: Noted O/E: General: NAD HEENT: NCAT Oral: Dry MM Cor:RRR Lungs: CTA b/l Abd: +ostomy ,continues to have good output LE: No CCE Last Vital Signs Temp Pulse Resp BP Pulse Ox 98.3 F 69 20 136/85 95 07/25/17 06:00 07/25/17 06:00 07/25/17 06:00 07/25/17 06:00 07/24/17 21:00 CBC, BMP 07/24/17 06:00 07/24/17 06:00 Current Medications Generic Name Dose Route Start Last Admin Trade Name Freq PRN Reason Stop Dose Admin Acetaminophen 650 mg 07/23/17 19:47 07/23/17 20:36 Tylenol - PO 650 mg Q6H PRN Administration PAIN Cholecalciferol 1,000 unit 07/20/17 10:00 07/25/17 09:55 Vitamin D3 - PO 1,000 unit DAILY TED Administration Enoxaparin Sodium 40 mg 07/22/17 12:00 07/25/17 09:55 Lovenox - SQ 40 mg DAILY TED Administration Ferrous Sulfate 325 mg 07/20/17 10:00 07/25/17 09:55 Feosol - PO 325 mg DAILY TED Administration Hydrocortisone 1 applic 07/23/17 11:00 07/24/17 10:09 Anusol 2.5% Hc Cream - DC Not Given DAILY TED Sodium Chloride 1,000 mls @ 60 mls/hr 07/23/17 20:00 07/25/17 06:07 Normal Saline - IV 60 mls/hr ASDIR TED Administration Vancomycin HCl 1,000 mg/ 250 mls @ 166.667 mls/hr 07/24/17 19:00 07/25/17 06: 06 Dextrose IVPB 166.667 mls/hr BID@0700,1900 TED Administration Piperacillin Sod/Tazobactam 100 mls @ 200 mls/hr 07/24/17 18:00 07/25/17 09: 55 Sod 4.5 gm/ Dextrose IVPB 200 mls/hr Q8H-IV TED Administration Levothyroxine Sodium 125 mcg 07/20/17 07:00 07/25/17 06:07 Synthroid - PO 125 mcg DAILY@0700 TED Administration Loperamide HCl 2 mg 07/19/17 18:41 07/24/17 23:32 Imodium - PO 2 mg Q6H PRN Administration DIARRHEA Multivitamins/Minerals/Vitamin C 1 tab 07/20/17 10:00 07/25/17 09:55 Tab-A-Vit - PO 1 tab DAILY TED Administration Zolpidem Tartrate 5 mg 07/22/17 21:56 07/24/17 21:55 Ambien - PO 5 mg HS PRN Administration INSOMNIA Stage IV CRC Pancytopenia---improving Fatigue--stable, multifactorial Increased Ostomy Output:Improving ID c/s appreciated supportive care
[2017-07-25] MEDS: HYDROCORTISONE 2.5% TOPICAL CREAM 30 GM TUBE PR SCH (14:00)
[2017-07-25] MEDS ORDERED: SODIUM CHLORIDE 1,000 ML IV SCH (16:20)
--- NOTE | 2017-07-25 16:22 | PN ---
Progress Note (short form) - Note Progress Note: no further fevers still some rectal discharge just returned from ct scan Vital Signs Period Temp Pulse Resp BP Sys/Bird Pulse Ox Last 24 Hr 98.3 F-99.8 F 69-76 18-20 134-137/65-85 95 cor-rrr lungs clear abd soft,nt ext no edema CBC, BMP 07/24/17 06:00 07/24/17 06:00 Microbiology 07/23/17 21:40 Urine - Urine Clean Catch Urine Culture - Final Streptococcus Viridans 07/23/17 20:00 Stool Salmonella/Shigella Culture - Preliminary Non Lactose Fermenting Gnb 07/23/17 20:00 Stool Yersinia Culture - Preliminary NO ENTERIC PATHOGENS, 24 HOURS, ON PRIMARY PLATES 07/23/17 20:00 Stool Vibrio Culture - Final NO GROWTH OF VIBRIO SPECIES OBTAINED 07/23/17 20:00 Stool Escherichia coli 0157 Culture - Final NO GROWTH OF E COLI 0157 OBTAINED 07/23/17 20:35 Blood - Peripheral Venous Blood Culture - Preliminary NO GROWTH OBTAINED AFTER 24 HOURS, INCUBATION TO CONTINUE FOR 4 DAYS. 07/23/17 20:30 Blood - Angus Cath Blood Culture - Preliminary NO GROWTH OBTAINED AFTER 24 HOURS, INCUBATION TO CONTINUE FOR 4 DAYS. 07/19/17 11:00 Blood - Angus Cath Blood Culture - Final NO GROWTH AFTER 5 DAYS INCUBATION 07/19/17 11:00 Blood - Angus Cath Blood Culture - Final NO GROWTH AFTER 5 DAYS INCUBATION 07/22/17 01:15 Stool Clostridium difficile Antigen (JEFFY) - Final 07/22/17 01:15 Stool Clostridium difficile Toxin Assay - Final a/p fever metastatic rectal cancer cultures pending ct scan abd/pelvis r/o abscess, r/o fistula d/c vancomycin, blood cultures negative continue zosyn continue IVF Problem List - Problems (1) Fever Code(s): R50.9 - FEVER, UNSPECIFIED (2) Rectal adenocarcinoma metastatic to liver Code(s): C20 - MALIGNANT NEOPLASM OF RECTUM; C78.7 - SECONDARY MALIG NEOPLASM OF LIVER AND INTRAHEPATIC BILE DUCT
[2017-07-25] MEDS: ZOLPIDEM TARTRATE 5 MG TABLET PO PRN (21:21)
[2017-07-26] MEDS ORDERED: SODIUM CHLORIDE 1,000 ML IV SCH (00:37)
[2017-07-26] MEDS ORDERED: PIPERACILLIN/TAZOBACTAM 4.5 GM VIAL IVPB ONE ×2 (01:13→09:37)
[2017-07-26] MEDS ORDERED: DEXTROSE 5%-WATER 100 ML IVPB ONE ×2 (01:13→09:38)
[2017-07-26] MEDS: PIPERACILLIN/TAZOB 4.5 GM 4.5 GM in DEXTROSE 5%-WATER 100 ML IVPB SCH ×2 (01:42→10:01)
[2017-07-26] MEDS ORDERED: PT OWN MED DRAWER 7, Y5N ONE (06:13)
[2017-07-26] MEDS: LEVOTHYROXINE NA 125 MCG TABLET (FP) PO SCH (07:11)
[2017-07-26 07:48] LABS: HEMATOCRIT 28.5 % (32.4-45.2); HEMOGLOBIN 9.3 GM/dL (10.7-15.3); MCH 30.4 pg (25.7-33.7); MCHC 32.4 g/dl (32.0-36.0); MEAN CELL VOLUME 93.8 fl (80-96); PLATELET COUNT 121 K/MM3 (134-434); RBC 3.04 M/mm3 (3.60-5.2); RDW 22.3 % (11.6-15.6); WHITE BLOOD COUNT 3.8 K/mm3 (4.0-10.0)
[2017-07-26 08:16] LABS: CALCIUM 8.7 mg/dL (8.5-10.1); CHLORIDE 111 mmol/L (98-107); POTASSIUM 3.8 mmol/L (3.5-5.1); SODIUM 142 mmol/L (136-145)
[2017-07-26 08:23] LABS: ALBUMIN 2.3 g/dl (3.4-5.0); ALK PHOS 77 U/L (45-117); ANION GAP 8 (8-16); BILIRUBIN,TOTAL 0.5 mg/dL (0.2-1.0); BLOOD UREA NITROGEN 6 mg/dL (7-18); CO2 23 mmol/L (21-32); CREATININE 0.7 mg/dL (0.55-1.02); GLUCOSE,RANDOM 90 mg/dL (74-106); MAGNESIUM 2.2 mg/dL (1.8-2.4); SGOT/AST 26 U/L (15-37); SGPT/ALT 16 U/L (12-78); TOT PROT 6.5 g/dl (6.4-8.2)
[2017-07-26] MEDS: HYDROCORTISONE 2.5% TOPICAL CREAM 30 GM TUBE PR SCH (10:00)
[2017-07-26] MEDS: MULTIVITAMINS (DAILY MVI) TABLET (FP) PO SCH (10:01)
[2017-07-26] MEDS: FERROUS SO4 325 MG TABLET (FP) PO SCH (10:01)
[2017-07-26] MEDS: CHOLECALCIFEROL (VITAMIN D3) 1,000 UNIT TABLET (FP) PO SCH (10:02)
--- NOTE | 2017-07-26 10:27 | PN ---
Progress Note (short form) - Note Progress Note: no further fevers still some rectal discharge Vital Signs Period Temp Pulse Resp BP Sys/Bird Pulse Ox Last 24 Hr 98.3 F-99.1 F 66-73 20-20 128-140/64-67 96 cor-rrr lungs clear abd soft,nt ext no edema +ostomy CBC, BMP 07/26/17 06:45 07/26/17 06:45 Microbiology 07/23/17 20:35 Blood - Peripheral Venous Blood Culture - Preliminary NO GROWTH OBTAINED AFTER 48 HOURS, INCUBATION TO CONTINUE FOR 3 DAYS. 07/23/17 20:30 Blood - Angus Cath Blood Culture - Preliminary NO GROWTH OBTAINED AFTER 48 HOURS, INCUBATION TO CONTINUE FOR 3 DAYS. 07/23/17 21:40 Urine - Urine Clean Catch Urine Culture - Final Streptococcus Viridans 07/23/17 20:00 Stool Salmonella/Shigella Culture - Preliminary Non Lactose Fermenting Gnb 07/23/17 20:00 Stool Yersinia Culture - Preliminary NO ENTERIC PATHOGENS, 24 HOURS, ON PRIMARY PLATES 07/23/17 20:00 Stool Vibrio Culture - Final NO GROWTH OF VIBRIO SPECIES OBTAINED 07/23/17 20:00 Stool Escherichia coli 0157 Culture - Final NO GROWTH OF E COLI 0157 OBTAINED 07/19/17 11:00 Blood - Angus Cath Blood Culture - Final NO GROWTH AFTER 5 DAYS INCUBATION 07/19/17 11:00 Blood - Angus Cath Blood Culture - Final NO GROWTH AFTER 5 DAYS INCUBATION 07/22/17 01:15 Stool Clostridium difficile Antigen (JEFFY) - Final 07/22/17 01:15 Stool Clostridium difficile Toxin Assay - Final a/p fever metastatic rectal cancer ct scan no abscess spoke to microbiology stool cultures all negative will d/c antiibotics and observe Problem List - Problems (1) Fever Code(s): R50.9 - FEVER, UNSPECIFIED (2) Rectal adenocarcinoma metastatic to liver Code(s): C20 - MALIGNANT NEOPLASM OF RECTUM; C78.7 - SECONDARY MALIG NEOPLASM OF LIVER AND INTRAHEPATIC BILE DUCT
[2017-07-26] MEDS: ENOXAPARIN NA (PORCINE) 40 MG/0.4 ML DISP.SYRIN SQ SCH (11:00)
--- NOTE | 2017-07-26 22:34 | PN ---
Progress Note (short form) - Note Progress Note: Patient seen and examined weak c/o insominia AFVSS Cor: RSR, No murmurs, No gallops Lungs: Clear to P&A Abd: Soft, Normal bowel sounds, No organomegaly Ext:No significant edema Labs/meds reviewed A/P 67 y/o patient with metrastatic colon cancer declining performance sattus observing off antibiotics carrie ruboi
[2017-07-26] MEDS: ZOLPIDEM TARTRATE 5 MG TABLET PO PRN (23:41)
[2017-07-27] MEDS ORDERED: PT OWN MED DRAWER 7, Y5N ONE (06:12)
[2017-07-27] MEDS: LEVOTHYROXINE NA 125 MCG TABLET (FP) PO SCH (06:34)
[2017-07-27] MEDS: FERROUS SO4 325 MG TABLET (FP) PO SCH (10:26)
[2017-07-27] MEDS: MULTIVITAMINS (DAILY MVI) TABLET (FP) PO SCH (10:26)
[2017-07-27] MEDS: ENOXAPARIN NA (PORCINE) 40 MG/0.4 ML DISP.SYRIN SQ SCH (10:26)
[2017-07-27] MEDS: CHOLECALCIFEROL (VITAMIN D3) 1,000 UNIT TABLET (FP) PO SCH (10:26)
[2017-07-27] MEDS: HYDROCORTISONE 2.5% TOPICAL CREAM 30 GM TUBE PR SCH (10:27)
--- NOTE | 2017-07-27 17:21 | PN ---
Progress Note (short form) - Note Progress Note: Patient seen and examined Off antibiotics- afebrile Minimal rectal discharge Last Vital Signs Temp Pulse Resp BP Pulse Ox 97.9 F 78 20 132/63 98 07/27/17 13:54 07/27/17 13:54 07/27/17 13:54 07/27/17 13:54 07/27/17 09:00 HEENT: EVETTE, EOM Intact Oropharynx: No thrush, No mucositis Cor: RSR, No murmurs, No gallops Lungs: Clear to P&A Abd: Soft, Normal bowel sounds, No organomegaly, functioning colostomy Ext:No significant edema Skin: No rashes, Integument intact CBC, BMP 07/26/17 06:45 07/26/17 06:45 Current Medications Generic Name Dose Route Start Last Admin Trade Name Freq PRN Reason Stop Dose Admin Acetaminophen 650 mg 07/23/17 19:47 07/23/17 20:36 Tylenol - PO 650 mg Q6H PRN Administration PAIN Cholecalciferol 1,000 unit 07/20/17 10:00 07/27/17 10:26 Vitamin D3 - PO 1,000 unit DAILY TED Administration Enoxaparin Sodium 40 mg 07/22/17 12:00 07/27/17 10:26 Lovenox - SQ 40 mg DAILY TED Administration Ferrous Sulfate 325 mg 07/20/17 10:00 07/27/17 10:26 Feosol - PO 325 mg DAILY TED Administration Hydrocortisone 1 applic 07/23/17 11:00 07/27/17 10:27 Anusol 2.5% Hc Cream - SD 1 applic DAILY TED Administration Levothyroxine Sodium 125 mcg 07/20/17 07:00 07/27/17 06:34 Synthroid - PO 125 mcg DAILY@0700 TED Administration Loperamide HCl 2 mg 07/19/17 18:41 07/24/17 23:32 Imodium - PO 2 mg Q6H PRN Administration DIARRHEA Multivitamins/Minerals/Vitamin C 1 tab 07/20/17 10:00 07/27/17 10:26 Tab-A-Vit - PO 1 tab DAILY TED Administration Zolpidem Tartrate 5 mg 07/26/17 23:30 07/26/17 23:41 Ambien - PO 5 mg HS PRN Administration INSOMNIA Impression: Metastatic colorectal ca Liver /Extrahepatic mets Fevers- source?? Plan: Off antibiotics Being monitored. If afebrile will be discharged 07/28.
[2017-07-27] MEDS: ZOLPIDEM TARTRATE 5 MG TABLET PO PRN (21:38)
[2017-07-28] MEDS: LEVOTHYROXINE NA 125 MCG TABLET (FP) PO SCH (06:26)
[2017-07-28] MEDS: MULTIVITAMINS (DAILY MVI) TABLET (FP) PO SCH (09:18)
[2017-07-28] MEDS: CHOLECALCIFEROL (VITAMIN D3) 1,000 UNIT TABLET (FP) PO SCH (09:18)
[2017-07-28] MEDS: ENOXAPARIN NA (PORCINE) 40 MG/0.4 ML DISP.SYRIN SQ SCH (09:18)
[2017-07-28] MEDS: HYDROCORTISONE 2.5% TOPICAL CREAM 30 GM TUBE PR SCH (09:21)
[2017-07-28] MEDS: FERROUS SO4 325 MG TABLET (FP) PO SCH (09:21)
--- NOTE | 2017-07-28 09:47 | DS ---
Physical Examination Vital Signs: Vital Signs Temperature 98 F 07/28/17 09:29 Pulse Rate 66 07/28/17 09:29 Respiratory Rate 18 07/28/17 09:29 Blood Pressure 145/70 07/28/17 09:29 O2 Sat by Pulse Oximetry (%) 96 07/27/17 20:09 Constitutional: Yes: No Distress, Calm Eyes: Yes: Conjunctiva Clear HENT: Yes: Atraumatic, Normocephalic Cardiovascular: Yes: Regular Rate and Rhythm Respiratory: Yes: Regular Gastrointestinal: Yes: Normal Bowel Sounds, Soft, Abdomen, Obese Musculoskeletal: Yes: WNL Labs: CBC, BMP 07/26/17 06:45 07/26/17 06:45 Discharge Summary Reason For Visit: RECTAL CANCER (C20) METS TO LIVER(C78.7) Current Active Problems Fever (Acute) Hospital Course: admitted for diarrhea and hypovolemia received IVF, PRBCs, antibiotics Had fevers, CT c/a/p negative and no source found Was observed off of abx for >48 hr Pt ready to be discharged home with services on 07/28 Condition: Good - Instructions Disposition: VNS/HOME HEALTH CARE - Home Medications Comprehensive Discharge Medication List: Ambulatory Orders Levothyroxine [Synthroid -] 112 mcg PO DAILY 10/09/13 Cholecalciferol (Vitamin D3) [Vitamin D3] 1,000 unit PO DAILY 05/21/14 Multivitamins [Multivit ([facility] Formulary)] 1 tab PO DAILY 05/21/14 Iron 28 mg PO DAILY 07/04/14
[2017-07-28 14:12] VITALS: BP 137/70; PULSE 71; TEMP 98.2
== END 2017-07-28 16:42 | disposition home health service (06) | DRG 809 ==
LOC: JONCCHEMO 07:13 → J7W 10:27 → JONCCHEMO 10:28 → J7W 21:31
PROVIDERS: ADMIT Internal Medicine Hematology & Oncology; ATTEND Internal Medicine Hematology & Oncology
PROC: 30233N1 Transfusion of Nonautologous Red Blood Cells into Peripheral Vein, Percutaneous Approach (ICD-10-PCS; principal; 2017-07-20)
DX: D61.810 Antineoplastic chemotherapy induced pancytopenia (principal); C20 Malignant neoplasm of rectum; C78.7 Secondary malignant neoplasm of liver and intrahepatic bile duct; R19.7 Diarrhea, unspecified; E86.0 Dehydration; Z93.3 Colostomy status
CPT/HCPCS: 36415; 36430; 71045-TC-FY; 74178-TC; 80048; 80053; 80076; 82378; 83735; 84100; 85025; 85027; 86850; 86900; 86901; 86922; 87040; 87045; 87046; 87077; 87086; 87177; 87186; 87209; 87324; 87449; 96372; 97116-GP; 97162-GP; J1447; J7030; P9038; P9058

== ENCOUNTER 2017-08-18 09:43 | Inpatient (IN) | payer OTHER, BC ==
--- NOTE | 2017-08-18 10:11 | PDOC ---
History of Present Illness - General History Source: Patient Exam Limitations: No Limitations - History of Present Illness Initial Comments: 08/18/17 11:22 The patient is a 67 year old F with history of rectal CA with mets to the liver s/p total colectomy 2013 with ileostomy bag, s/p total hysterectomy, on chemotherapy and radiation who presents to the ED complaining of rectal bleeding for two weeks, significantly worse last night. She states that approximately 2 months ago, she began to experience the urge to pass a bowel movement. She used a suppository but did not pass anything. In July, she began to feel generally weak and was admitted to the hospital for dehydration. She states she has continued to feel generally weak since that time. Over the past two weeks, she has noted small amounts of intermittent, bright red blood per rectum. Last night, she noted a larger amount of BRB, prompting her to come to the ED for evaluation. She does admit she is not entirely sure whether her bleeding is from the rectum or vagina. She was supposed to see her oncologist Dr. Owens today, but due to the bleeding came to the ED for evaluation. No fever or chills. No nausea or vomiting. Has not been able to have chemotherapy end of June. Oncologist: Dr. Fred Owens <Sissy Danielle - Last Filed: 08/18/17 14:45> <Shelbie Peralta - Last Filed: 08/20/17 21:10> - General Chief Complaint: Rectal Bleed Stated Complaint: Rectal Bleed Time Seen by Provider: 08/18/17 10:11 Past History <Sissy Danielle - Last Filed: 08/18/17 14:45> - Past Medical History Anemia: Yes Asthma: No Cancer: Yes (RECTAL CANCER, LIVER 09/23) Cardiac Disorders: No CVA: No COPD: No CHF: No Dementia: No Diabetes: No GI Disorders: Yes (RECTAL CA) Disorders: No HTN: No Hypercholesterolemia: No Liver Disease: Yes (Cancer) Seizures: No Thyroid Disease: Yes (HYPO) - Surgical History Abdominal Surgery: Yes (ILEOSTOMY 09/23) Appendectomy: No Cardiac Surgery: No Cholecystectomy: No Lung Surgery: No Neurologic Surgery: No Orthopedic Surgery: No - Suicide/Smoking/Psychosocial Hx Smoking History: Former smoker Have you smoked in the past 12 months: No Number of Cigarettes Smoked Daily: 15 If you are a former smoker, when did you quit?: 2013 Information on smoking cessation initiated: No 'Breaking Loose' booklet given: 10/09/13 Hx Alcohol Use: No Drug/Substance Use Hx: No Substance Use Type: None Hx Substance Use Treatment: No <Shelbie Peralta - Last Filed: 08/20/17 21:10> - Past Medical History Allergies/Adverse Reactions: Allergies Allergy/AdvReac Type Severity Reaction Status Date / Time ciprofloxacin [From Cipro] Allergy Rash Verified 08/18/17 10:00 shellfish derived Allergy Vomiting Verified 08/18/17 10:00 Home Medications: Ambulatory Orders Levothyroxine [Synthroid -] 125 mcg PO DAILY 10/09/13 Zolpidem Tartrate [Ambien] 10 mg PO HS 08/18/17 Review of Systems - Review of Systems Able to Perform ROS?: Yes Comments:: 08/18/17 11:23 GENERAL/CONSTITUTIONAL: +Generalized weaknessx 2 months. No fever or chills. HEAD, EYES, EARS, NOSE AND THROAT: No change in vision. No ear pain or discharge. No sore throat. GASTROINTESTINAL: +Rectal bleeding. No nausea, vomiting, diarrhea or constipation. GENITOURINARY: No dysuria, frequency, or change in urination. CARDIOVASCULAR: No chest pain or shortness of breath. RESPIRATORY: No cough, wheezing, or hemoptysis. MUSCULOSKELETAL: No joint or muscle swelling or pain. No neck or back pain. SKIN: No rash NEUROLOGIC: No headache, vertigo, loss of consciousness, or change in strength/ sensation. ENDOCRINE: No increased thirst. No abnormal weight change. HEMATOLOGIC/LYMPHATIC: No anemia, easy bleeding, or history of blood clots. ALLERGIC/IMMUNOLOGIC: No hives or skin allergy. <Sissy Danielle - Last Filed: 08/18/17 14:45> *Physical Exam - Vital Signs Last Vital Signs Temp Pulse Resp BP Pulse Ox 97.9 F 75 20 143/67 100 08/18/17 10:00 08/18/17 10:00 08/18/17 10:00 08/18/17 10:00 08/18/17 10:23 - Physical Exam Comments: 08/18/17 11:26 GENERAL: Awake, alert, and fully oriented, in no acute distress. Pale HEAD: No signs of trauma EYES: PERRLA, EOMI, sclera anicteric, conjunctiva clear ENT: Auricles normal inspection, hearing grossly normal, nares patent, oropharynx clear without exudates. Moist mucosa NECK: Normal ROM, supple, no lymphadenopathy, JVD, or masses LUNGS: Breath sounds equal, clear to auscultation bilaterally. No wheezes, and no crackles HEART: Regular rate and rhythm, normal S1 and S2, no murmurs, rubs or gallops ABDOMEN: Soft, nontender, normoactive bowel sounds. No guarding, no rebound. + empty Ileostomy bag in place. EXTREMITIES: Normal range of motion, no edema. No clubbing or cyanosis. No cords, erythema, or tenderness BACK: No midline spinal tenderness in cervical/thoracic/lumbar region NEUROLOGICAL: Normal speech, cranial nerves intact, negative pronator drift, 5/ 5 strength in all 4 extremities, normal sensation to light touch in all 4 extremities SKIN: Warm, Dry, normal turgor, no rashes or lesions noted. RECTAL/PELVIS: Oozing brownish red discharge from vaginal vault. No oozing from rectum <Sissy Danielle - Last Filed: 08/18/17 14:45> - Vital Signs Last Vital Signs Temp Pulse Resp BP Pulse Ox 97.9 F 75 20 143/67 100 08/18/17 10:00 08/18/17 10:00 08/18/17 10:00 08/18/17 10:00 08/18/17 10:00 <Shelbie Peralta - Last Filed: 08/20/17 21:10> Heart Score/ECG Review #1 08/18/17 10:12 Twelve-lead EKG was performed and reviewed by me. <Shelbie Peralta - Last Filed: 08/20/17 21:10> ED Treatment Course - LABORATORY CBC & Chemistry Diagram: 08/18/17 10:36 08/18/17 10:36 - ADDITIONAL ORDERS Additional order review: Laboratory Results 08/18/17 10:36 PT with INR 14.50 H INR 1.28 H PTT (Actin FS) 34.1 08/18/17 10:36 RBC 2.99 L MCV 92.9 MCHC 32.6 RDW 20.9 H MPV 8.1 Neutrophils % 78.9 D Lymphocytes % 10.7 D Monocytes % 7.9 Eosinophils % 1.8 Basophils % 0.7 <Sissy Danielle - Last Filed: 08/18/17 14:45> - LABORATORY CBC & Chemistry Diagram: 08/20/17 07:30 08/20/17 07:30 <Shelbie Peralta - Last Filed: 08/20/17 21:10> Medical Decision Making - Medical Decision Making 08/18/17 14:39 Case discussed with patient's oncologist, Dr. Owens. Requested patient be admitted to hospital 08/18/17 14:45 CT of abdomen with contrast, read and reviewed by Dr. Timmons Impression: 1. Multiple pulmonary nodules 2. Multiple hepatic metastases 3. Cholelithiasis and fluid collection within the gallbladder fosa. 4. Extensive retroperitoneal lymphadenopathy 5. No evidence of acute pathology or significant change since prior exam. <Sissy Danielle - Last Filed: 08/18/17 14:45> - Medical Decision Making 08/18/17 11:11 67-year-old female with multiple medical problems including metastatic rectal cancer on chemotherapy presents the emergency department with c/o rectal bleeding, on exam more consistent with vaginal bleeding. Vitals unremarkable. Exam with brown bloody material oozing from the vagina concerning for possible rectovaginal fistula vs mass eroding into vaginal wall. Will obtain a CT scan of the abdomen and pelvis, lab work and discussed with Dr. Owens. 08/18/17 14:56 Labs with hemoglobin of 9.1, not too far off baseline. Remainder of labs unremarkable. CT abdomen pelvis with metastatic disease but no evidence of acute pathology. Case discussed with Dr. Owens who recommends admission and consultation by DECALER, surgery, and gastroenterology. Consults ordered. Case discussed with Dr. Blanchard who accepts the patient for admission. Case discussed in detail with admitting physician including history, physical exam and ancillary studies. Admitting physician has assumed care for the patient, will follow all pending diagnostics and will complete the evaluation and treatment. <Shelbie Peralta - Last Filed: 08/20/17 21:10> *DC/Admit/Observation/Transfer - Attestations Scribe Attestion: 08/18/17 11:26 Documentation prepared by Sissy Danielle, acting as medical technical writer for Shelbie Peralta MD. <Sissy Danielle - Last Filed: 08/18/17 14:45> - Discharge Dispostion Decision to Admit order: Yes - Attestations Physician Attestion: 08/18/17 14:58 I, Dr. Shelbie Peralta MD, attest that this document has been prepared under my direction and personally reviewed by me in its entirety. I further attest, that it accurately reflects all work, treatment, procedures and medical decision -making performed by me. 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
[2017-08-18 10:43] LABS: BASO % 0.7 % (0-2.0); EOS % 1.8 % (0-4.5); HEMATOCRIT 27.8 % (32.4-45.2); HEMOGLOBIN 9.1 GM/dL (10.7-15.3); LYMPH % 10.7 % (8-40); MCH 30.3 pg (25.7-33.7); MCHC 32.6 g/dl (32.0-36.0); MEAN CELL VOLUME 92.9 fl (80-96); MEAN PLT VOLUME 8.1 fl (7.5-11.1); MONO % 7.9 % (3.8-10.2); NEUT % 78.9 % (42.8-82.8); PLATELET COUNT 118 K/MM3 (134-434); RBC 2.99 M/mm3 (3.60-5.2); RDW 20.9 % (11.6-15.6); WHITE BLOOD COUNT 3.5 K/mm3 (4.0-10.0)
[2017-08-18 11:05] LABS: INR 1.28 (0.82-1.09); PROTHROMBIN TIME (PATIENT) 14.5 SEC (9.7-13.0)
[2017-08-18 11:08] LABS: ACTIVATED PTT 34.1 SECONDS (26.9-34.4)
[2017-08-18 11:16] LABS: ALBUMIN 2.5 g/dl (3.4-5.0); ANION GAP 7 (8-16); BLOOD UREA NITROGEN 8 mg/dL (7-18); CALCIUM 8.7 mg/dL (8.5-10.1); CHLORIDE 109 mmol/L (98-107); CO2 25 mmol/L (21-32); GLUCOSE,RANDOM 93 mg/dL (74-106); LIPASE 66 U/L (73-393); MAGNESIUM 2.2 mg/dL (1.8-2.4); POTASSIUM 4.2 mmol/L (3.5-5.1); SODIUM 141 mmol/L (136-145)
[2017-08-18 11:19] LABS: ALK PHOS 88 U/L (45-117); BILIRUBIN,TOTAL 0.5 mg/dL (0.2-1.0); CREATININE 0.7 mg/dL (0.55-1.02); SGOT/AST 30 U/L (15-37); SGPT/ALT 14 U/L (12-78); TOT PROT 6.8 g/dl (6.4-8.2)
[2017-08-18 15:19] LABS: HEMATOCRIT 31.7 % (32.4-45.2); HEMOGLOBIN 10.2 GM/dL (10.7-15.3); MCHC 32.1 g/dl (32.0-36.0); MEAN CELL VOLUME 93.5 fl (80-96); RBC 3.39 M/mm3 (3.60-5.2); RDW 21.4 % (11.6-15.6); WHITE BLOOD COUNT 3.4 K/mm3 (4.0-10.0)
--- NOTE | 2017-08-18 15:28 | EKG ---
Test Reason : Blood Pressure : / mmHG Vent. Rate : 076 BPM Atrial Rate : 076 BPM P-R Int : 144 ms QRS Dur : 114 ms QT Int : 392 ms P-R-T Axes : 012 -51 010 degrees QTc Int : 441 ms NORMAL SINUS RHYTHM LEFT AXIS DEVIATION ABNORMAL ECG WHEN COMPARED WITH ECG OF 28-DEC-2013 09:47, NO SIGNIFICANT CHANGE WAS FOUND Confirmed by LESLIE MALDONADO MD ([id number]) on 08/18/2017 3:28:49 PM Referred By: Confirmed By:LESLIE MALDONADO MD
[2017-08-18 15:53] LABS: MEAN PLT VOLUME 8.3 fl (7.5-11.1); PLATELET COUNT 120 K/MM3 (134-434)
[2017-08-18] MEDS ORDERED: ONDANSETRON 4 MG/2 ML VIAL IVPUSH PRN (17:16)
[2017-08-18] MEDS ORDERED: ACETAMINOPHEN 325 MG TABLET (FP) PO PRN (17:16)
[2017-08-18] MEDS: ZOLPIDEM TARTRATE 5 MG TABLET PO PRN (23:13)
[2017-08-19] MEDS: LEVOTHYROXINE NA 125 MCG TABLET (FP) PO SCH (06:01)
--- NOTE | 2017-08-19 06:19 | CONSULT ---
Consult Consult Specialty:: surgery Reason for Consultation:: rectal/ vaginal bleeding - History of Present Illness Chief Complaint: rectal / vaginal bleeding History of Present Illness: 67 yr old female s/p coloectomy for coorectal cancer 4 yrs ago presents with advanced metastatic disease and new onset of rectal? vaginal bleeding intermitently over the past 1 month - History Source History Provided By: Patient Limitations to Obtaining History: No Limitations - Alcohol/Substance Use Hx Alcohol Use: No - Smoking History Smoking history: Former smoker Have you smoked in the past 12 months: No Aproximately how many cigarettes per day: 15 If you are a former smoker, when did you quit?: 2013 Home Medications - Allergies Allergies/Adverse Reactions: Allergies Allergy/AdvReac Type Severity Reaction Status Date / Time ciprofloxacin [From Cipro] Allergy Rash Verified 08/18/17 10:00 shellfish derived Allergy Vomiting Verified 08/18/17 10:00 - Home Medications Home Medications: Ambulatory Orders Levothyroxine [Synthroid -] 125 mcg PO DAILY 10/09/13 Zolpidem Tartrate [Ambien] 10 mg PO HS 08/18/17 Physical Exam Vital Signs: Vital Signs Temperature 98.2 F 08/18/17 20:00 Pulse Rate 72 08/18/17 20:00 Respiratory Rate 18 08/19/17 02:00 Blood Pressure 131/64 08/18/17 20:00 O2 Sat by Pulse Oximetry (%) 97 08/19/17 02:00 Labs: CBC, BMP 08/18/17 15:12 08/18/17 10:36 Problem List - Problems (1) Rectal adenocarcinoma metastatic to liver Assessment/Plan: 67 yr olf female with advanced rectal cancer and intermittent vaginal bleeding , 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 Oconnor Code(s): C20 - MALIGNANT NEOPLASM OF RECTUM; C78.7 - SECONDARY MALIG NEOPLASM OF LIVER AND INTRAHEPATIC BILE DUCT (2) Vaginal bleeding Code(s): N93.9 - ABNORMAL UTERINE AND VAGINAL BLEEDING, UNSPECIFIED
[2017-08-19 07:36] LABS: HEMOGLOBIN 10.4 GM/dL (10.7-15.3); MCH 30.3 pg (25.7-33.7); MCHC 32.4 g/dl (32.0-36.0); MEAN CELL VOLUME 93.5 fl (80-96); MEAN PLT VOLUME 9.3 fl (7.5-11.1); PLATELET COUNT 206 K/MM3 (134-434); RBC 3.43 M/mm3 (3.60-5.2); RDW 20.8 % (11.6-15.6); WHITE BLOOD COUNT 5.2 K/mm3 (4.0-10.0)
[2017-08-19 08:09] LABS: ALBUMIN 2.8 g/dl (3.4-5.0); ANION GAP 8 (8-16); BILIRUBIN,TOTAL 0.7 mg/dL (0.2-1.0); BLOOD UREA NITROGEN 10 mg/dL (7-18); CALCIUM 8.8 mg/dL (8.5-10.1); CHLORIDE 105 mmol/L (98-107); CHOLESTEROL 177 mg/dL (50-200); CO2 25 mmol/L (21-32); GLUCOSE,RANDOM 88 mg/dL (74-106); LDL CHOLESTEROL (ONLY SJRH) 132 mg/dL (5-100); POTASSIUM 4.2 mmol/L (3.5-5.1); SGOT/AST 37 U/L (15-37); SGPT/ALT 14 U/L (12-78); SODIUM 138 mmol/L (136-145); TOT PROT 7.6 g/dl (6.4-8.2); TRIGLYCERIDES 145 mg/dL (35-160)
[2017-08-19 08:10] LABS: ALK PHOS 96 U/L (45-117); HDL CHOLESTEROL 32 mg/dL (40-60)
[2017-08-19] MEDS ORDERED: PT OWN MED DRAWER 7, Y5N ONE ×2 (09:18→21:47)
--- NOTE | 2017-08-19 10:10 | CON.OBG ---
Consult Consult Specialty:: gynecology Reason for Consultation:: ?Vaginal bleeding - possible rectovaginal fistula - History of Present Illness History of Present Illness: 67 y/o female with h/o metastatic rectal cancer s/p colectomy, diverting ileostomy and h/o total hysterectomy who presents to ED with possible vaginal bleeding that had worsened over the past few days. Pt states blood/discharge is dark and brown in color, and foul smelling. Pt was initially concerned for rectal bleeding but now thinks the discharge/bleeding is coming from the vagina. - History Source History Provided By: Patient, Medical Record Limitations to Obtaining History: No Limitations - Past Medical History Gastrointestinal: Yes: Other (rectal ca - metastatic) - Past Surgical History Past Surgical History: Yes: Colectomy, Colostomy, Hysterectomy - Alcohol/Substance Use Hx Alcohol Use: No - Smoking History Smoking history: Former smoker Have you smoked in the past 12 months: No Aproximately how many cigarettes per day: 15 If you are a former smoker, when did you quit?: 2013 - Social History History of Recent Travel: No Home Medications - Allergies Allergies/Adverse Reactions: Allergies Allergy/AdvReac Type Severity Reaction Status Date / Time ciprofloxacin [From Cipro] Allergy Rash Verified 08/18/17 10:00 shellfish derived Allergy Vomiting Verified 08/18/17 10:00 - Home Medications Home Medications: Ambulatory Orders Levothyroxine [Synthroid -] 125 mcg PO DAILY 10/09/13 Zolpidem Tartrate [Ambien] 10 mg PO HS 08/18/17 Review of Systems - Review of Systems Constitutional: denies: Chills, Fever Neck: reports: No Symptoms Cardiovascular: reports: No Symptoms Respiratory: reports: No Symptoms Gastrointestinal: reports: Rectal Bleeding (possible recto/vaginal bleeding/ discharge). denies: Abdominal Pain Genitourinary: reports: Vaginal Bleeding (vs. 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
[2017-08-19] MEDS: LIDOCAINE HCL 2% JELLY (30 ML/TUBE) TP SCH ×2 (14:00→21:51)
--- NOTE | 2017-08-19 14:19 | HP ---
Admitting History and Physical - Primary Care Physician PCP: Jaime Velasco MD - Admission Chief Complaint: came in for vagina discharge History of Present Illness: he patient is a 67 year old F with history of rectal CA with mets to the liver s /p total colectomy 2013 with ileostomy bag, s/p total hysterectomy, on chemotherapy and radiation who presents to the ED complaining of rectal bleeding for two weeks, significantly worse last night. She states that approximately 2 months ago, she began to experience the urge to pass a bowel movement. She used a suppository but did not pass anything. In July, she began to feel generally weak and was admitted to the hospital for dehydration. She states she has continued to feel generally weak since that time. Over the past two weeks, she has noted small amounts of intermittent, bright red blood per rectum. Last night, she noted a larger amount of BRB, prompting her to come to the ED for evaluation. She does admit she is not entirely sure whether her bleeding is from the rectum or vagina. She was supposed to see her oncologist Dr. Owens today, but due to the bleeding came to the ED for evaluation. No fever or chills. No nausea or vomiting. Has not been able to have chemotherapy end of June. Oncologist: Dr. Fred Owens History Source: Patient - Past Medical History Gastrointestinal: Yes: Other (rectal ca - metastatic) Endocrine: Yes: Hypothyroidism - Past Surgical History Past Surgical History: Yes: Colectomy, Colostomy, Hysterectomy - Smoking History Smoking history: Former smoker Have you smoked in the past 12 months: No Aproximately how many cigarettes per day: 15 If you are a former smoker, when did you quit?: 2013 - Alcohol/Substance Use Hx Alcohol Use: No - Social History History of Recent Travel: No Home Medications - Allergies Allergies/Adverse Reactions: Allergies Allergy/AdvReac Type Severity Reaction Status Date / Time ciprofloxacin [From Cipro] Allergy Rash Verified 08/18/17 10:00 shellfish derived Allergy Vomiting Verified 08/18/17 10:00 - Home Medications Home Medications: Ambulatory Orders Levothyroxine [Synthroid -] 125 mcg PO DAILY 10/09/13 Zolpidem Tartrate [Ambien] 10 mg PO HS 08/18/17 Review of Systems - Review of Systems Gastrointestinal: reports: Other (rectal discharge) Physical Examination Vital Signs: Vital Signs Temperature 98.8 F 08/19/17 14:02 Pulse Rate 76 08/19/17 14:02 Respiratory Rate 18 08/19/17 14:02 Blood Pressure 131/66 08/19/17 14:02 O2 Sat by Pulse Oximetry (%) 96 08/19/17 09:11 Constitutional: Yes: Calm Cardiovascular: Yes: Regular Rate and Rhythm, S1, S2 Respiratory: Yes: CTA Bilaterally Gastrointestinal: Yes: Normal Bowel Sounds, Soft, Other (osotomy with brown liquid) Renal/: Yes: Vaginal Discharge (brownish discharge looks like stool) Edema: No Neurological: Yes: Alert, Oriented Labs: CBC, BMP 08/19/17 06:30 08/19/17 06:30 Imaging - Results Cat Scan: Report Reviewed Problem List - Problems (1) Vaginal bleeding Assessment/Plan: appreicate surgery and obstetrician gynecologist note plan to do examination under anesthesia in OR to r/o rectal-vaginal fistula Code(s): N93.9 - ABNORMAL UTERINE AND VAGINAL BLEEDING, UNSPECIFIED (2) 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
--- NOTE | 2017-08-19 15:25 | CON.GI ---
Consult Consult Specialty:: GI Reason for Consultation:: question of rectovaginal fistula - History of Present Illness History of Present Illness: chart reviewed. Events noted. GI consulted for possible rectovaginal fistula. As per initial intake: he patient is a 67 year old F with history of rectal CA with mets to the liver s/p total colectomy 2013 with ileostomy bag, s/ p total hysterectomy, on chemotherapy and radiation who presents to the ED complaining of rectal bleeding for two weeks, significantly worse last night. She states that approximately 2 months ago, she began to experience the urge to pass a bowel movement. She used a suppository but did not pass anything. In July, she began to feel generally weak and was admitted to the hospital for dehydration. She states she has continued to feel generally weak since that time. Over the past two weeks, she has noted small amounts of intermittent, bright red blood per rectum. Last night, she noted a larger amount of BRB, prompting her to come to the ED for evaluation. She does admit she is not entirely sure whether her bleeding is from the rectum or vagina. She was supposed to see her oncologist Dr. Owens today, but due to the bleeding came to the ED for evaluation. No fever or chills. No nausea or vomiting. at the time of this and constipation appears comfortable. Reports foul- smelling vaginal discharge for the last 2 weeks. Denies fever, chills, abdominal pain, luann bleeding. Also reports occasional, minimal amounts of foul-smelling discharge per rectum, at times blood tinged. No luann hematochezia. reports no issues with ileostomy back. Denies nausea, vomiting, dysphagia, odynophagia, abdominal distention, blood in ileostomy bag, or melena. - History Source History Provided By: Patient, Medical Record - Past Medical History Gastrointestinal: Yes: Other (rectal ca - metastatic) Endocrine: Yes: Hypothyroidism - Past Surgical History Past Surgical History: Yes: Colectomy, Colostomy, Hysterectomy - Alcohol/Substance Use Hx Alcohol Use: No - Smoking History Smoking history: Former smoker Have you smoked in the past 12 months: No Aproximately how many cigarettes per day: 15 If you are a former smoker, when did you quit?: 2013 - Social History History of Recent Travel: No Home Medications - Allergies Allergies/Adverse Reactions: Allergies Allergy/AdvReac Type Severity Reaction Status Date / Time ciprofloxacin [From Cipro] Allergy Rash Verified 08/18/17 10:00 shellfish derived Allergy Vomiting Verified 08/18/17 10:00 - Home Medications Home Medications: Ambulatory Orders Levothyroxine [Synthroid -] 125 mcg PO DAILY 10/09/13 Zolpidem Tartrate [Ambien] 10 mg PO HS 08/18/17 Review of Systems Findings/Remarks: As per H&P and HPI Physical Exam-GI Vital Signs: Vital Signs Temperature 98.8 F 08/19/17 14:02 Pulse Rate 76 08/19/17 14:02 Respiratory Rate 18 08/19/17 14:02 Blood Pressure 131/66 08/19/17 14:02 O2 Sat by Pulse Oximetry (%) 96 08/19/17 09:11 Constitutional: Yes: Well Nourished, No Distress, Calm Eyes: Yes: Conjunctiva Clear HENT: Yes: Atraumatic Neck: Yes: Supple Cardiovascular: Yes: Regular Rate and Rhythm Respiratory: Yes: Regular Gastrointestinal Inspection: No: Distention ...Palpate: No: Firm/Rigid, Guarding, Tenderness, Epigastium, Tenderness, Rebound ...Rectal Exam: Yes: Hemorrhoids/External, Sphincter Tone Normal, Other ( Normal anal canal. A defect is palpable in the rectal vault At 6 o'clock position. Brown stool-like material on the glove. no launn hematochezia, or melena.) Neurological: Yes: Alert, Oriented Labs: CBC, BMP 08/19/17 06:30 08/19/17 06:30 INR, PTT INR 1.28 (0.82-1.09) H 08/18/17 10:36 Laboratory Last Values WBC 5.2 K/mm3 (4.0-10.0) D 08/19/17 06:30 RBC 3.43 M/mm3 (3.60-5.2) L 08/19/17 06:30 Hgb 10.4 GM/dL (10.7-15.3) L 08/19/17 06:30 Hct 32.0 % (32.4-45.2) L 08/19/17 06:30 MCV 93.5 fl (80-96) 08/19/17 06:30 MCH 30.3 pg (25.7-33.7) 08/19/17 06:30 MCHC 32.4 g/dl (32.0-36.0) 08/19/17 06:30 RDW 20.8 % (11.6-15.6) H 08/19/17 06:30 Plt Count 206 K/MM3 (134-434) D 08/19/17 06:30 MPV 9.3 fl (7.5-11.1) D 08/19/17 06:30 Neutrophils % 78.9 % (42.8-82.8) D 08/18/17 10:36 Lymphocytes % 10.7 % (8-40) D 08/18/17 10:36 Monocytes % 7.9 % (3.8-10.2) 08/18/17 10:36 Eosinophils % 1.8 % (0-4.5) 08/18/17 10:36 Basophils % 0.7 % (0-2.0) 08/18/17 10:36 Platelet Comment No clumping noted 08/18/17 15:12 PT with INR 14.50 SEC (9.7-13.0) H 08/18/17 10:36 INR 1.28 (0.82-1.09) H 08/18/17 10:36 PTT (Actin FS) 34.1 SECONDS (26.9-34.4) 08/18/17 10:36 Sodium 138 mmol/L (136-145) 08/19/17 06:30 Potassium 4.2 mmol/L (3.5-5.1) 08/19/17 06:30 Chloride 105 mmol/L (98-107) 08/19/17 06:30 Carbon Dioxide 25 mmol/L (21-32) 08/19/17 06:30 Anion Gap 8 (8-16) 08/19/17 06:30 BUN 10 mg/dL (7-18) 08/19/17 06:30 Creatinine 0.7 mg/dL (0.55-1.02) 08/18/17 10:36 Creat Clearance w eGFR > 60 (>60) 08/18/17 10:36 Random Glucose 88 mg/dL (74-106) 08/19/17 06:30 Hemoglobin A1c % 5.2 % (4.8-6.0) 08/19/17 06:30 Calcium 8.8 mg/dL (8.5-10.1) 08/19/17 06:30 Magnesium 2.2 mg/dL (1.8-2.4) 08/18/17 10:36 Total Bilirubin 0.7 mg/dL (0.2-1.0) D 08/19/17 06:30 AST 37 U/L (15-37) 08/19/17 06:30 ALT 14 U/L (12-78) 08/19/17 06:30 Alkaline Phosphatase 96 U/L (45-117) 08/19/17 06:30 Total Protein 7.6 g/dl (6.4-8.2) 08/19/17 06:30 Albumin 2.8 g/dl (3.4-5.0) L 08/19/17 06:30 Triglycerides 145 mg/dL (35-160) 08/19/17 06:30 Cholesterol 177 mg/dL (50-200) 08/19/17 06:30 Total LDL Cholesterol 132 mg/dL (5-100) H 08/19/17 06:30 HDL Cholesterol 32 mg/dL (40-60) L 08/19/17 06:30 Lipase 66 U/L (73-393) L 08/18/17 10:36 Blood Type O POSITIVE 08/18/17 10:36 Antibody Screen Negative 08/18/17 10:36 Imaging - Results Cat Scan: Report Reviewed Problem List - Problems (1) Rectovaginal fistula Code(s): N82.3 - FISTULA OF VAGINA TO LARGE INTESTINE (2) Rectal adenocarcinoma metastatic to liver Code(s): C20 - MALIGNANT NEOPLASM OF RECTUM; C78.7 - SECONDARY MALIG NEOPLASM OF LIVER AND INTRAHEPATIC BILE DUCT Assessment/Plan CHUTE BUILDER/vaginal exam. Proctoscopy/Anoscopy to evaluate digital rectal exam findings. Discussed with the patient in detail. Will follow.
--- NOTE | 2017-08-19 16:32 | PN ---
Progress Note (short form) - Note Progress Note: Pt seen and examined Patient is our office patient with history of stage IV CRC on active chemotherapy, last being in 06/2017. Presently, she is admitted for vaginal bleeding. The concern here is recto-vaginal fistula. 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 Pt seen and examined. she endorses Fatigue, slight bleeding. O/E: General: NAD HEENT: NCAT Oral: Dry MM Cor:RRR Lungs: CTA b/l Abd: +ostomy ,slightly formed stool LE: No CCE Last Vital Signs Temp Pulse Resp BP Pulse Ox 98.8 F 76 18 131/66 96 08/19/17 14:02 08/19/17 14:02 08/19/17 14:02 08/19/17 14:02 08/19/17 09:11 CBC, BMP 08/19/17 06:30 08/19/17 06:30 Current Medications Generic Name Dose Route Start Last Admin Trade Name Freq PRN Reason Stop Dose Admin Acetaminophen 650 mg 08/18/17 17:16 Tylenol - PO Q6H PRN PAIN OR FEVER Levothyroxine Sodium 125 mcg 08/19/17 07:00 08/19/17 06:01 Synthroid - PO 125 mcg DAILY@0700 TED Administration Lidocaine HCl 1 applic 08/19/17 14:00 Xylocaine 2% Jelly TP BID TED Ondansetron HCl 4 mg 08/18/17 17:16 Zofran Injection IVPUSH Q6H PRN NAUSEA AND/OR VOMITING Zolpidem Tartrate 5 mg 08/18/17 22:00 08/18/17 23:13 Ambien - PO 5 mg HS PRN Administration INSOMNIA concern for recto-vaginal fistula appreciate all the consultants involved plan for EUA. Stage IV CRC presently off of chemotherapy will monitor counts Stable disease as of the CT c/a/p will follow through course
[2017-08-19 22:15] LABS: CREATININE 0.9 mg/dL (0.55-1.02)
[2017-08-20] MEDS: ZOLPIDEM TARTRATE 5 MG TABLET PO PRN ×2 (01:56→22:46)
[2017-08-20] MEDS: LEVOTHYROXINE NA 125 MCG TABLET (FP) PO SCH (06:18)
--- NOTE | 2017-08-20 07:06 | PN ---
Progress Note (short form) - Note Progress Note: Patient remains stable will coordinate with Engineering Analyst time for EUA In the mean time will order a gastrograffin enema Problem List - Problems (1) Rectal adenocarcinoma metastatic to liver Code(s): C20 - MALIGNANT NEOPLASM OF RECTUM; C78.7 - SECONDARY MALIG NEOPLASM OF LIVER AND INTRAHEPATIC BILE DUCT (2) Vaginal bleeding Code(s): N93.9 - ABNORMAL UTERINE AND VAGINAL BLEEDING, UNSPECIFIED
[2017-08-20 07:48] LABS: BASO % 0.6 % (0-2.0); EOS % 1.7 % (0-4.5); HEMATOCRIT 28.9 % (32.4-45.2); HEMOGLOBIN 9.3 GM/dL (10.7-15.3); LYMPH % 14.8 % (8-40); MCH 30.1 pg (25.7-33.7); MCHC 32.3 g/dl (32.0-36.0); MEAN CELL VOLUME 93.3 fl (80-96); MEAN PLT VOLUME 8.6 fl (7.5-11.1); MONO % 7.6 % (3.8-10.2); NEUT % 75.3 % (42.8-82.8); PLATELET COUNT 118 K/MM3 (134-434); RBC 3.09 M/mm3 (3.60-5.2); RDW 21.2 % (11.6-15.6); WHITE BLOOD COUNT 3.1 K/mm3 (4.0-10.0)
[2017-08-20 08:13] LABS: ALBUMIN 2.5 g/dl (3.4-5.0); ANION GAP 8 (8-16); BLOOD UREA NITROGEN 10 mg/dL (7-18); CALCIUM 8.5 mg/dL (8.5-10.1); CHLORIDE 107 mmol/L (98-107); CO2 26 mmol/L (21-32); GLUCOSE,RANDOM 91 mg/dL (74-106); POTASSIUM 3.8 mmol/L (3.5-5.1); SODIUM 141 mmol/L (136-145)
[2017-08-20 08:25] LABS: ALK PHOS 86 U/L (45-117); BILIRUBIN,TOTAL 0.5 mg/dL (0.2-1.0); CREATININE 0.7 mg/dL (0.55-1.02); SGOT/AST 31 U/L (15-37); SGPT/ALT 14 U/L (12-78); TOT PROT 6.9 g/dl (6.4-8.2)
[2017-08-20] MEDS: LIDOCAINE HCL 2% JELLY (30 ML/TUBE) TP SCH ×2 (10:00→21:41)
--- NOTE | 2017-08-20 10:47 | PN ---
Progress Note (short form) - Note Progress Note: Patient seen and examined Seen by GI, surgery, and SPICE MILLER. Consults appreciated. Patient feels that when she wipes herself there is stool present - suggesting as previously thought possibility of rectal - vaginal fistula. To have gastrograffin -enema to help assess. Last Vital Signs Temp Pulse Resp BP Pulse Ox 98 F 70 17 123/66 95 08/20/17 08:54 08/20/17 08:54 08/20/17 08:54 08/20/17 08:54 08/19/17 21:00 HEENT: EVETTE, EOM Intact Oropharynx: No thrush, No mucositis Neck: Supple Nodes: Without adenopathy Breasts: Without masses Cor: RSR, No murmurs, No gallops Lungs: Clear to P&A Abd: Soft, Normal bowel sounds, No organomegaly, functioning colostomy Current Medications Generic Name Dose Route Start Last Admin Trade Name Freq PRN Reason Stop Dose Admin Acetaminophen 650 mg 08/18/17 17:16 Tylenol - PO Q6H PRN PAIN OR FEVER Levothyroxine Sodium 125 mcg 08/19/17 07:00 08/20/17 06:18 Synthroid - PO 125 mcg DAILY@0700 TED Administration Lidocaine HCl 1 applic 08/19/17 14:00 08/19/17 21:51 Xylocaine 2% Jelly TP 1 applic BID TED Administration Ondansetron HCl 4 mg 08/18/17 17:16 Zofran Injection IVPUSH Q6H PRN NAUSEA AND/OR VOMITING Zolpidem Tartrate 5 mg 08/18/17 22:00 08/20/17 01:56 Ambien - PO 5 mg HS PRN Administration INSOMNIA Ext:No significant edema Skin: No rashes, Integument intact Impression: Metastatic colo-rectal ca with hepatic and extra- hepatic mets. Recent chemotherapy with response suggested by falling CEA.Developed vaginal bleeding and now suggestion of stool from vagina. For gastrograffin enema. Despite vaginal bleeding, in view of malignancy, sedentary state, obesity will begin DVT prophylaxis after enema today.
[2017-08-20 11:25] VITALS: BMI 31.3
--- NOTE | 2017-08-20 15:17 | PN ---
Progress Note, Physician Chief Complaint: patient in bed no distress got barium enema today awaiting report - Current Medication List Current Medications: Active Medications Acetaminophen (Tylenol -) 650 mg PO Q6H PRN PRN Reason: PAIN OR FEVER Enoxaparin Sodium (Lovenox -) 40 mg SQ DAILY [facility] Levothyroxine Sodium (Synthroid -) 125 mcg PO DAILY@0700 [facility] Last Admin: 08/20/17 06:18 Dose: 125 mcg Lidocaine HCl (Xylocaine 2% Jelly) 1 applic TP BID [facility] Last Admin: 08/20/17 10:00 Dose: Not Given Ondansetron HCl (Zofran Injection) 4 mg IVPUSH Q6H PRN PRN Reason: NAUSEA AND/OR VOMITING Zolpidem Tartrate (Ambien -) 5 mg PO HS PRN PRN Reason: INSOMNIA Last Admin: 08/20/17 01:56 Dose: 5 mg - Objective Vital Signs: Vital Signs Temperature 98 F 08/20/17 08:54 Pulse Rate 70 08/20/17 08:54 Respiratory Rate 17 08/20/17 08:54 Blood Pressure 123/66 08/20/17 08:54 O2 Sat by Pulse Oximetry (%) 96 08/20/17 08:45 Constitutional: Yes: Calm Neck: Yes: Trachea Midline Cardiovascular: Yes: Regular Rate and Rhythm, S1, S2 Respiratory: Yes: CTA Bilaterally Gastrointestinal: Yes: Normal Bowel Sounds, Soft Neurological: Yes: Alert, Oriented Labs: CBC, BMP 08/20/17 07:30 08/20/17 07:30 INR, PTT INR 1.28 (0.82-1.09) H 08/18/17 10:36 Problem List - Problems (1) Vaginal bleeding Assessment/Plan: appreicate surgery and aircraft systems technician note plan to do examination under anesthesia in OR to r/o rectal-vaginal fistula barium enema done awaiting report Code(s): N93.9 - ABNORMAL UTERINE AND VAGINAL BLEEDING, UNSPECIFIED (2) Rectal adenocarcinoma metastatic to liver Assessment/Plan: oncology eval noted dvt ppx started Code(s): C20 - MALIGNANT NEOPLASM OF RECTUM; C78.7 - SECONDARY MALIG NEOPLASM OF LIVER AND INTRAHEPATIC BILE DUCT (3) Hypothyroid Assessment/Plan: synthroid tsh noted decrease the dose to 112mcg daily Code(s): E03.9 - HYPOTHYROIDISM, UNSPECIFIED
[2017-08-20] MEDS: ENOXAPARIN NA (PORCINE) 40 MG/0.4 ML DISP.SYRIN SQ SCH (17:26)
[2017-08-21] MEDS ORDERED: PT OWN MED DRAWER 7, Y5N ONE ×3 (04:56→23:04)
[2017-08-21] MEDS: LEVOTHYROXINE NA 112 MCG TABLET (FP) PO SCH (06:08)
[2017-08-21] MEDS: ENOXAPARIN NA (PORCINE) 40 MG/0.4 ML DISP.SYRIN SQ SCH (10:13)
[2017-08-21] MEDS: LIDOCAINE HCL 2% JELLY (30 ML/TUBE) TP SCH ×2 (10:13→21:29)
--- NOTE | 2017-08-21 10:29 | PN ---
Progress Note, Physician History of Present Illness: 67 yr old female s/p neoadjuvant chemo radiation, low anterior resection with a loop transverse colostomy presenting now with a recto-vaginal fistula - Current Medication List Current Medications: Active Medications Acetaminophen (Tylenol -) 650 mg PO Q6H PRN PRN Reason: PAIN OR FEVER Enoxaparin Sodium (Lovenox -) 40 mg SQ DAILY [facility] Last Admin: 08/20/17 17:26 Dose: 40 mg Levothyroxine Sodium (Synthroid -) 112 mcg PO DAILY@0700 [facility] Last Admin: 08/21/17 06:08 Dose: 112 mcg Lidocaine HCl (Xylocaine 2% Jelly) 1 applic TP BID [facility] Last Admin: 08/20/17 21:41 Dose: Not Given Ondansetron HCl (Zofran Injection) 4 mg IVPUSH Q6H PRN PRN Reason: NAUSEA AND/OR VOMITING Zolpidem Tartrate (Ambien -) 5 mg PO HS PRN PRN Reason: INSOMNIA Last Admin: 08/20/17 22:46 Dose: 5 mg - Objective Vital Signs: Vital Signs Temperature 97.5 F L 08/21/17 10:09 Pulse Rate 71 08/21/17 10:09 Respiratory Rate 19 08/21/17 10:09 Blood Pressure 126/64 08/21/17 10:09 O2 Sat by Pulse Oximetry (%) 97 08/20/17 21:00 Labs: CBC, BMP 08/20/17 07:30 08/20/17 07:30 INR, PTT INR 1.28 (0.82-1.09) H 08/18/17 10:36 Problem List - Problems (1) Rectal adenocarcinoma metastatic to liver Code(s): C20 - MALIGNANT NEOPLASM OF RECTUM; C78.7 - SECONDARY MALIG NEOPLASM OF LIVER AND INTRAHEPATIC BILE DUCT (2) Vaginal bleeding Code(s): N93.9 - ABNORMAL UTERINE AND VAGINAL BLEEDING, UNSPECIFIED Assessment/Plan Repair of recto-vaginal fistula is possible but difficult and challenging in this setting with significant perioperative risk. Alternatively I have also suggested to convert the loop colostomy , which is incompletely diverting, to an end colostomy, which would completely divert the fecal stream and in the very least alleviate her current symptoms. This would be a simpler low risk option and allow patient to return to her chemotherapy soon. Once her chemotherapy is over and she is nutritionally optimized we can reconsider elective repair of the fistula Will tentatively add her to the schedule for wednesday pending medical clearance
--- NOTE | 2017-08-21 12:02 | PN ---
Progress Note, Physician Chief Complaint: recto-vaginal fistula History of Present Illness: NAD seen by Surgery recommended to convert the loop colostomy - Current Medication List Current Medications: Active Medications Acetaminophen (Tylenol -) 650 mg PO Q6H PRN PRN Reason: PAIN OR FEVER Enoxaparin Sodium (Lovenox -) 40 mg SQ DAILY [facility] Last Admin: 08/21/17 10:13 Dose: 40 mg Levothyroxine Sodium (Synthroid -) 112 mcg PO DAILY@0700 [facility] Last Admin: 08/21/17 06:08 Dose: 112 mcg Lidocaine HCl (Xylocaine 2% Jelly) 1 applic TP BID [facility] Last Admin: 08/21/17 10:13 Dose: 1 applic Ondansetron HCl (Zofran Injection) 4 mg IVPUSH Q6H PRN PRN Reason: NAUSEA AND/OR VOMITING Zolpidem Tartrate (Ambien -) 5 mg PO HS PRN PRN Reason: INSOMNIA Last Admin: 08/20/17 22:46 Dose: 5 mg - Objective Vital Signs: Vital Signs Temperature 97.5 F L 08/21/17 10:09 Pulse Rate 71 08/21/17 10:09 Respiratory Rate 19 08/21/17 10:09 Blood Pressure 126/64 08/21/17 10:09 O2 Sat by Pulse Oximetry (%) 97 08/21/17 09:00 Constitutional: Yes: Well Nourished, No Distress, Calm Cardiovascular: Yes: Regular Rate and Rhythm Respiratory: Yes: Regular Gastrointestinal: Yes: Normal Bowel Sounds, Soft Musculoskeletal: Yes: WNL Extremities: Yes: WNL Edema: No Peripheral Pulses WNL: Yes Neurological: Yes: Alert, Oriented Psychiatric: Yes: Alert, Oriented Labs: CBC, BMP 08/20/17 07:30 08/20/17 07:30 INR, PTT INR 1.28 (0.82-1.09) H 08/18/17 10:36 Problem List - Problems (1) Rectal adenocarcinoma metastatic to liver Assessment/Plan: -seen by oncology -on chemo outpatient Code(s): C20 - MALIGNANT NEOPLASM OF RECTUM; C78.7 - SECONDARY MALIG NEOPLASM OF LIVER AND INTRAHEPATIC BILE DUCT (2) Rectovaginal fistula Assessment/Plan: -Seen by Surgery -agreeable to loop colostomy -cardiology clearance Code(s): N82.3 - FISTULA OF VAGINA TO LARGE INTESTINE (3) Anemia Assessment/Plan: -2/2 to blood loss -monitor trend -normal transfusion parameters -check iron profile, B12,FA,Thyroid profile Code(s): D64.9 - ANEMIA, UNSPECIFIED Assessment/Plan see problem list
[2017-08-21 13:14] LABS: EOS % 2.6 % (0-4.5); HEMATOCRIT 28.3 % (32.4-45.2); HEMOGLOBIN 9.1 GM/dL (10.7-15.3); LYMPH % 12.4 % (8-40); MCH 30.2 pg (25.7-33.7); MCHC 32.2 g/dl (32.0-36.0); MEAN CELL VOLUME 93.6 fl (80-96); MEAN PLT VOLUME 9.8 fl (7.5-11.1); MONO % 8.3 % (3.8-10.2); NEUT % 75.7 % (42.8-82.8); PLATELET COUNT 131 K/MM3 (134-434); RBC 3.02 M/mm3 (3.60-5.2); RDW 20.9 % (11.6-15.6); WHITE BLOOD COUNT 2.8 K/mm3 (4.0-10.0)
[2017-08-21 13:59] LABS: ALBUMIN 2.7 g/dl (3.4-5.0); ALK PHOS 95 U/L (45-117); ANION GAP 11 (8-16); BILIRUBIN,TOTAL 0.3 mg/dL (0.2-1.0); BLOOD UREA NITROGEN 11 mg/dL (7-18); CALCIUM 8.8 mg/dL (8.5-10.1); CHLORIDE 107 mmol/L (98-107); CO2 26 mmol/L (21-32); CREATININE 0.8 mg/dL (0.55-1.02); GLUCOSE,RANDOM 103 mg/dL (74-106); SGOT/AST 32 U/L (15-37); SGPT/ALT 12 U/L (12-78); SODIUM 144 mmol/L (136-145); TOT PROT 6.9 g/dl (6.4-8.2)
--- NOTE | 2017-08-21 18:10 | CON.CARD ---
Consult Consult Specialty:: Cardiology Referred by:: Gely Box ND Reason for Consultation:: Pre-op CV evaluation - History of Present Illness Chief Complaint: Vaginal bleed and foul smelling vaginal discharge History of Present Illness: 67 y/o female with h/o hypothyroidism, metastatic rectal cancer to liver s/p neoadjuvant chemo radiation, low anterior resection with a loop transverse colostomy and h/o total hysterectomy who presents to ED with possible vaginal bleeding that had worsened over the past few days. Pt states blood/discharge is dark and brown in color, and foul smelling consistent with a recto-vaginal fistula planned for loop colostomy repair. - History Source History Provided By: Patient Limitations to Obtaining History: No Limitations - Past Medical History Gastrointestinal: Yes: Other (rectal ca - metastatic) Endocrine: Yes: Hypothyroidism - Past Surgical History Past Surgical History: Yes: Colectomy, Colostomy, Hysterectomy - Alcohol/Substance Use Hx Alcohol Use: No - Smoking History Smoking history: Former smoker Have you smoked in the past 12 months: No Aproximately how many cigarettes per day: 15 If you are a former smoker, when did you quit?: 2013 - Social History History of Recent Travel: No Home Medications - Allergies Allergies/Adverse Reactions: Allergies Allergy/AdvReac Type Severity Reaction Status Date / Time ciprofloxacin [From Cipro] Allergy Rash Verified 08/18/17 10:00 shellfish derived Allergy Vomiting Verified 08/18/17 10:00 - Home Medications Home Medications: Ambulatory Orders Levothyroxine [Synthroid -] 125 mcg PO DAILY 10/09/13 Zolpidem Tartrate [Ambien] 10 mg PO HS 08/18/17 Review of Systems - Review of Systems Genitourinary: reports: Vaginal Bleeding Vital Signs: Vital Signs Temperature 98.3 F 08/21/17 14:46 Pulse Rate 80 08/21/17 14:46 Respiratory Rate 20 08/21/17 14:46 Blood Pressure 125/65 08/21/17 14:46 O2 Sat by Pulse Oximetry (%) 97 08/21/17 09:00 Constitutional: Yes: No Distress, Calm Neck: Yes: Supple Respiratory: Yes: Regular, CTA Bilaterally Gastrointestinal: Yes: Normal Bowel Sounds, Soft Cardiovascular: Yes: Regular Rate and Rhythm JVD: No Carotid Bruit: No Heart Sounds: Yes: S1, S2 Edema: No - Other Data Labs, Other Data: CBC, BMP 08/21/17 12:53 08/21/17 12:53 INR, PTT INR 1.28 (0.82-1.09) H 08/18/17 10:36 NSR LAD Problem List - Problems (1) Pre-operative cardiovascular examination Code(s): Z01.810 - ENCOUNTER FOR PREPROCEDURAL CARDIOVASCULAR EXAMINATION (2) Anemia Code(s): D64.9 - ANEMIA, UNSPECIFIED Qualifiers: Anemia type: unspecified type Qualified Code(s): D64.9 - Anemia, unspecified (3) Hypothyroid Code(s): E03.9 - HYPOTHYROIDISM, UNSPECIFIED Qualifiers: Hypothyroidism type: unspecified Qualified Code(s): E03.9 - Hypothyroidism , unspecified (4) Rectal adenocarcinoma metastatic to liver Code(s): C20 - MALIGNANT NEOPLASM OF RECTUM; C78.7 - SECONDARY MALIG NEOPLASM OF LIVER AND INTRAHEPATIC BILE DUCT (5) Rectovaginal fistula Code(s): N82.3 - FISTULA OF VAGINA TO LARGE INTESTINE (6) Vaginal bleeding Code(s): N93.9 - ABNORMAL UTERINE AND VAGINAL BLEEDING, UNSPECIFIED Assessment/Plan 1. Pre-operative cardiovascular evaluation 2. Rectal ca with liver mets 3. Rectovaginal fistula plan for repair with loop colostomy 4. Anemia 5. Hypothyroidism P:1. Given absence of sxs of acute coronary syndrome, decompensated CHF or malignant arrythmia, may proceed with noncardiac surgery from CV-standpoint without further testing 2. Transfuse for Hgb>8.0, f/u TSH 3. Thank you for consultative opportunity
[2017-08-21] MEDS: ZOLPIDEM TARTRATE 5 MG TABLET PO PRN (23:20)
[2017-08-22] MEDS: LEVOTHYROXINE NA 112 MCG TABLET (FP) PO SCH (07:03)
[2017-08-22 07:36] LABS: BASO % 0.8 % (0-2.0); EOS % 2.5 % (0-4.5); HEMATOCRIT 26.4 % (32.4-45.2); HEMOGLOBIN 8.8 GM/dL (10.7-15.3); LYMPH % 14.4 % (8-40); MCH 30.7 pg (25.7-33.7); MCHC 33.2 g/dl (32.0-36.0); MEAN CELL VOLUME 92.5 fl (80-96); MONO % 12.1 % (3.8-10.2); NEUT % 70.2 % (42.8-82.8); PLATELET COUNT 111 K/MM3 (134-434); RBC 2.85 M/mm3 (3.60-5.2); RDW 21.5 % (11.6-15.6); WHITE BLOOD COUNT 2.7 K/mm3 (4.0-10.0)
[2017-08-22 07:54] LABS: ALBUMIN 2.4 g/dl (3.4-5.0); ANION GAP 5 (8-16); BLOOD UREA NITROGEN 12 mg/dL (7-18); CALCIUM 8.5 mg/dL (8.5-10.1); CHLORIDE 109 mmol/L (98-107); CO2 27 mmol/L (21-32); CREATININE 0.8 mg/dL (0.55-1.02); GLUCOSE,RANDOM 96 mg/dL (74-106); POTASSIUM 3.8 mmol/L (3.5-5.1); SGOT/AST 32 U/L (15-37); SGPT/ALT 13 U/L (12-78); SODIUM 141 mmol/L (136-145)
[2017-08-22 07:56] LABS: ALK PHOS 85 U/L (45-117); BILIRUBIN,TOTAL 0.4 mg/dL (0.2-1.0); TOT PROT 6.6 g/dl (6.4-8.2)
[2017-08-22 08:07] LABS: SERUM IRON SATURATION 16 % (15-55); TOTAL IRON BINDING CAPACITY 183 ug/dL (250-450); UIBC 154 ug/dL (118-369)
[2017-08-22] MEDS: LIDOCAINE HCL 2% JELLY (30 ML/TUBE) TP SCH ×2 (09:25→22:08)
[2017-08-22] MEDS: ENOXAPARIN NA (PORCINE) 40 MG/0.4 ML DISP.SYRIN SQ SCH (09:36)
--- NOTE | 2017-08-22 12:06 | PN ---
Progress Note, Physician Chief Complaint: recto-vaginal fistula History of Present Illness: NAD seen by Surgery recommended to convert the loop colostomy Cleared by Cardiology - Current Medication List Current Medications: Active Medications Acetaminophen (Tylenol -) 650 mg PO Q6H PRN PRN Reason: PAIN OR FEVER Enoxaparin Sodium (Lovenox -) 40 mg SQ DAILY [facility] Last Admin: 08/22/17 09:36 Dose: 40 mg Levothyroxine Sodium (Synthroid -) 112 mcg PO DAILY@0700 [facility] Last Admin: 08/22/17 07:03 Dose: 112 mcg Lidocaine HCl (Xylocaine 2% Jelly) 1 applic TP BID [facility] Last Admin: 08/22/17 09:25 Dose: 1 applic Ondansetron HCl (Zofran Injection) 4 mg IVPUSH Q6H PRN PRN Reason: NAUSEA AND/OR VOMITING Zolpidem Tartrate (Ambien -) 5 mg PO HS PRN PRN Reason: INSOMNIA Last Admin: 08/21/17 23:20 Dose: 5 mg - Objective Vital Signs: Vital Signs Temperature 98.5 F 08/22/17 09:00 Pulse Rate 74 08/22/17 09:00 Respiratory Rate 18 08/22/17 09:00 Blood Pressure 131/61 08/22/17 09:00 O2 Sat by Pulse Oximetry (%) 99 08/22/17 09:00 Constitutional: Yes: Well Nourished, No Distress, Calm Cardiovascular: Yes: Regular Rate and Rhythm Respiratory: Yes: Regular Gastrointestinal: Yes: Normal Bowel Sounds, Soft Musculoskeletal: Yes: WNL Extremities: Yes: WNL Edema: No Peripheral Pulses WNL: Yes Neurological: Yes: Alert, Oriented Psychiatric: Yes: Alert, Oriented Labs: CBC, BMP 08/22/17 06:50 08/22/17 06:50 INR, PTT INR 1.28 (0.82-1.09) H 08/18/17 10:36 Problem List - Problems (1) Rectal adenocarcinoma metastatic to liver Assessment/Plan: -seen by oncology -on chemo outpatient Code(s): C20 - MALIGNANT NEOPLASM OF RECTUM; C78.7 - SECONDARY MALIG NEOPLASM OF LIVER AND INTRAHEPATIC BILE DUCT (2) Rectovaginal fistula Assessment/Plan: -Seen by Surgery -agreeable to loop colostomy -cardiology clearance done -NPO past midnight -Medically cleared for surgery with acceptable OR risks Code(s): N82.3 - FISTULA OF VAGINA TO LARGE INTESTINE (3) Anemia Assessment/Plan: -2/2 to blood loss -monitor trend -normal transfusion parameters -labs in AM Code(s): D64.9 - ANEMIA, UNSPECIFIED Qualifiers: Anemia type: unspecified type Qualified Code(s): D64.9 - Anemia, unspecified (4) Hyperthyroidism, subclinical Assessment/Plan: -Levothyroxine readjusted from 125 mcg to 112 mcg -repeat thyroid profile in 4 weeks Code(s): E05.90 - THYROTOXICOSIS, UNSP WITHOUT THYROTOXIC CRISIS OR STORM Assessment/Plan see problem list
--- NOTE | 2017-08-22 14:47 | PN ---
Progress Note, Physician History of Present Illness: Pt with recto-vaginal fistula planned for loop colostomy repair in AM. - Current Medication List Current Medications: Active Medications Acetaminophen (Tylenol -) 650 mg PO Q6H PRN PRN Reason: PAIN OR FEVER Enoxaparin Sodium (Lovenox -) 40 mg SQ DAILY [facility] Last Admin: 08/22/17 09:36 Dose: 40 mg Levothyroxine Sodium (Synthroid -) 112 mcg PO DAILY@0700 [facility] Last Admin: 08/22/17 07:03 Dose: 112 mcg Lidocaine HCl (Xylocaine 2% Jelly) 1 applic TP BID [facility] Last Admin: 08/22/17 09:25 Dose: 1 applic Ondansetron HCl (Zofran Injection) 4 mg IVPUSH Q6H PRN PRN Reason: NAUSEA AND/OR VOMITING Zolpidem Tartrate (Ambien -) 5 mg PO HS PRN PRN Reason: INSOMNIA Last Admin: 08/21/17 23:20 Dose: 5 mg - Objective Vital Signs: Vital Signs Temperature 98.5 F 08/22/17 09:00 Pulse Rate 74 08/22/17 09:00 Respiratory Rate 18 08/22/17 09:00 Blood Pressure 131/61 08/22/17 09:00 O2 Sat by Pulse Oximetry (%) 99 08/22/17 09:00 Constitutional: Yes: No Distress, Calm Neck: Yes: Supple Cardiovascular: Yes: Regular Rate and Rhythm Respiratory: Yes: Regular, Diminished Gastrointestinal: Yes: Soft, Hypoactive Bowel Sounds Edema: No Labs: CBC, BMP 08/22/17 06:50 08/22/17 06:50 INR, PTT INR 1.28 (0.82-1.09) H 08/18/17 10:36 Problem List - Problems (1) Pre-operative cardiovascular examination Code(s): Z01.810 - ENCOUNTER FOR PREPROCEDURAL CARDIOVASCULAR EXAMINATION (2) Anemia Code(s): D64.9 - ANEMIA, UNSPECIFIED Qualifiers: Anemia type: unspecified type Qualified Code(s): D64.9 - Anemia, unspecified (3) Hypothyroid Code(s): E03.9 - HYPOTHYROIDISM, UNSPECIFIED Qualifiers: Hypothyroidism type: unspecified Qualified Code(s): E03.9 - Hypothyroidism , unspecified (4) Rectal adenocarcinoma metastatic to liver Code(s): C20 - MALIGNANT NEOPLASM OF RECTUM; C78.7 - SECONDARY MALIG NEOPLASM OF LIVER AND INTRAHEPATIC BILE DUCT (5) Rectovaginal fistula Code(s): N82.3 - FISTULA OF VAGINA TO LARGE INTESTINE (6) Vaginal bleeding Code(s): N93.9 - ABNORMAL UTERINE AND VAGINAL BLEEDING, UNSPECIFIED Assessment/Plan 1. Pre-operative cardiovascular evaluation 2. Rectal ca with liver mets 3. Rectovaginal fistula plan for repair with loop colostomy 4. Anemia 5. Hypothyroidism P:1. Given absence of sxs of acute coronary syndrome, decompensated CHF or malignant arrythmia, may proceed with noncardiac surgery from CV-standpoint without further testing 2. Transfuse for Hgb>8.0, synthroid decreased per TSH
[2017-08-23] MEDS: LEVOTHYROXINE NA 112 MCG TABLET (FP) PO SCH ×2 (07:08→09:57)
[2017-08-23 08:17] LABS: BASO % 0.9 % (0-2.0); EOS % 3.2 % (0-4.5); HEMATOCRIT 26.9 % (32.4-45.2); HEMOGLOBIN 8.8 GM/dL (10.7-15.3); LYMPH % 14.7 % (8-40); MCH 30.6 pg (25.7-33.7); MCHC 32.8 g/dl (32.0-36.0); MEAN CELL VOLUME 93.2 fl (80-96); MEAN PLT VOLUME 8.7 fl (7.5-11.1); MONO % 11.7 % (3.8-10.2); NEUT % 69.5 % (42.8-82.8); PLATELET COUNT 106 K/MM3 (134-434); RBC 2.89 M/mm3 (3.60-5.2); RDW 21.5 % (11.6-15.6); WHITE BLOOD COUNT 2.1 K/mm3 (4.0-10.0)
[2017-08-23 08:29] LABS: INR 1.3 (0.82-1.09); PROTHROMBIN TIME (PATIENT) 14.7 SEC (9.7-13.0)
[2017-08-23 08:42] LABS: CHLORIDE 110 mmol/L (98-107); POTASSIUM 4.2 mmol/L (3.5-5.1); SODIUM 143 mmol/L (136-145)
[2017-08-23 08:51] LABS: ALBUMIN 2.4 g/dl (3.4-5.0); ALK PHOS 89 U/L (45-117); ANION GAP 7 (8-16); BILIRUBIN,TOTAL 0.5 mg/dL (0.2-1.0); BLOOD UREA NITROGEN 11 mg/dL (7-18); CALCIUM 8.4 mg/dL (8.5-10.1); CO2 26 mmol/L (21-32); CREATININE 0.7 mg/dL (0.55-1.02); GLUCOSE,RANDOM 90 mg/dL (74-106); SGOT/AST 34 U/L (15-37); SGPT/ALT 14 U/L (12-78); TOT PROT 6.6 g/dl (6.4-8.2)
[2017-08-23] MEDS ORDERED: PT OWN MED DRAWER 7, Y5N ONE ×2 (09:46→09:55)
[2017-08-23] MEDS: LIDOCAINE HCL 2% JELLY (30 ML/TUBE) TP SCH ×2 (09:54→22:47)
[2017-08-23] MEDS: ENOXAPARIN NA (PORCINE) 40 MG/0.4 ML DISP.SYRIN SQ SCH (09:54)
--- NOTE | 2017-08-23 11:25 | PN ---
Progress Note, Physician History of Present Illness: Pt with recto-vaginal fistula planned for loop colostomy repair. - Current Medication List Current Medications: Active Medications Acetaminophen (Tylenol -) 650 mg PO Q6H PRN PRN Reason: PAIN OR FEVER Enoxaparin Sodium (Lovenox -) 40 mg SQ DAILY [facility] Last Admin: 08/23/17 09:54 Dose: 40 mg Levothyroxine Sodium (Synthroid -) 112 mcg PO DAILY@0700 [facility] Last Admin: 08/23/17 09:57 Dose: 112 mcg Lidocaine HCl (Xylocaine 2% Jelly) 1 applic TP BID [facility] Last Admin: 08/23/17 09:54 Dose: Not Given Ondansetron HCl (Zofran Injection) 4 mg IVPUSH Q6H PRN PRN Reason: NAUSEA AND/OR VOMITING Zolpidem Tartrate (Ambien -) 5 mg PO HS PRN PRN Reason: INSOMNIA Last Admin: 08/21/17 23:20 Dose: 5 mg - Objective Vital Signs: Vital Signs Temperature 98.1 F 08/23/17 06:00 Pulse Rate 65 08/23/17 06:00 Respiratory Rate 20 08/23/17 06:00 Blood Pressure 226/68 08/23/17 06:00 O2 Sat by Pulse Oximetry (%) 99 08/22/17 21:00 Constitutional: Yes: No Distress, Calm Neck: Yes: Supple Cardiovascular: Yes: Regular Rate and Rhythm Respiratory: Yes: Regular, Diminished Gastrointestinal: Yes: Soft, Hypoactive Bowel Sounds Edema: No Labs: CBC, BMP 08/23/17 07:36 08/23/17 07:36 INR, PTT INR 1.30 (0.82-1.09) H 08/23/17 07:36 Problem List - Problems (1) Pre-operative cardiovascular examination Code(s): Z01.810 - ENCOUNTER FOR PREPROCEDURAL CARDIOVASCULAR EXAMINATION (2) Anemia Code(s): D64.9 - ANEMIA, UNSPECIFIED Qualifiers: Anemia type: unspecified type Qualified Code(s): D64.9 - Anemia, unspecified (3) Hypothyroid Code(s): E03.9 - HYPOTHYROIDISM, UNSPECIFIED Qualifiers: Hypothyroidism type: unspecified Qualified Code(s): E03.9 - Hypothyroidism , unspecified (4) Rectal adenocarcinoma metastatic to liver Code(s): C20 - MALIGNANT NEOPLASM OF RECTUM; C78.7 - SECONDARY MALIG NEOPLASM OF LIVER AND INTRAHEPATIC BILE DUCT (5) Rectovaginal fistula Code(s): N82.3 - FISTULA OF VAGINA TO LARGE INTESTINE (6) Vaginal bleeding Code(s): N93.9 - ABNORMAL UTERINE AND VAGINAL BLEEDING, UNSPECIFIED Assessment/Plan 1. Pre-operative cardiovascular evaluation 2. Rectal ca with liver mets 3. Rectovaginal fistula plan for repair with loop colostomy 4. Anemia 5. Hypothyroidism P:1. Given absence of sxs of acute coronary syndrome, decompensated CHF or malignant arrythmia, may proceed with noncardiac surgery from CV-standpoint without further testing 2. Transfuse for Hgb>8.0, synthroid decreased per TSH
--- NOTE | 2017-08-23 14:18 | PN ---
Progress Note, Physician Chief Complaint: patient seen and examined awaiting to get procedure done - Current Medication List Current Medications: Active Medications Acetaminophen (Tylenol -) 650 mg PO Q6H PRN PRN Reason: PAIN OR FEVER Enoxaparin Sodium (Lovenox -) 40 mg SQ DAILY [facility] Last Admin: 08/23/17 09:54 Dose: 40 mg Levothyroxine Sodium (Synthroid -) 112 mcg PO DAILY@0700 [facility] Last Admin: 08/23/17 09:57 Dose: 112 mcg Lidocaine HCl (Xylocaine 2% Jelly) 1 applic TP BID [facility] Last Admin: 08/23/17 09:54 Dose: Not Given Ondansetron HCl (Zofran Injection) 4 mg IVPUSH Q6H PRN PRN Reason: NAUSEA AND/OR VOMITING Zolpidem Tartrate (Ambien -) 5 mg PO HS PRN PRN Reason: INSOMNIA Last Admin: 08/21/17 23:20 Dose: 5 mg - Objective Vital Signs: Vital Signs Temperature 98.3 F 08/23/17 09:00 Pulse Rate 70 08/23/17 09:00 Respiratory Rate 18 08/23/17 09:00 Blood Pressure 127/49 08/23/17 09:00 O2 Sat by Pulse Oximetry (%) 99 08/22/17 21:00 Constitutional: Yes: Calm Neck: Yes: Trachea Midline Cardiovascular: Yes: Regular Rate and Rhythm, S1, S2 Respiratory: Yes: CTA Bilaterally Gastrointestinal: Yes: Normal Bowel Sounds, Soft Edema: No Neurological: Yes: Alert, Oriented Labs: CBC, BMP 08/23/17 07:36 08/23/17 07:36 INR, PTT INR 1.30 (0.82-1.09) H 08/23/17 07:36 Problem List - Problems (1) Vaginal bleeding Assessment/Plan: appreicate surgery and night club manager note plan to do examination under anesthesia in OR to r/o rectal-vaginal fistula barium enema report noted to get procedure later tmw afternoon Code(s): N93.9 - ABNORMAL UTERINE AND VAGINAL BLEEDING, UNSPECIFIED (2) Rectal adenocarcinoma metastatic to liver Assessment/Plan: oncology eval noted dvt ppx started Code(s): C20 - MALIGNANT NEOPLASM OF RECTUM; C78.7 - SECONDARY MALIG NEOPLASM OF LIVER AND INTRAHEPATIC BILE DUCT (3) Hypothyroid Assessment/Plan: synthroid tsh noted decrease the dose to 112mcg daily Code(s): E03.9 - HYPOTHYROIDISM, UNSPECIFIED Qualifiers: Hypothyroidism type: unspecified Qualified Code(s): E03.9 - Hypothyroidism , unspecified
--- NOTE | 2017-08-23 16:02 | SPA.PREOP ---
- PRE-OP NOTE Dx: recto-vaginal fistula Planned Procedure: exam under anesthesia, revision of colostomy Surgeon: Dr. Benítez Last Vital Signs Temp Pulse Resp BP Pulse Ox 98.5 F 72 18 136/59 99 08/23/17 15:13 08/23/17 15:13 08/23/17 15:13 08/23/17 15:13 08/23/17 09:00 Lab Results WBC 2.1 K/mm3 (4.0-10.0) L 08/23/17 07:36 RBC 2.89 M/mm3 (3.60-5.2) L 08/23/17 07:36 Hgb 8.8 GM/dL (10.7-15.3) L 08/23/17 07:36 Hct 26.9 % (32.4-45.2) L 08/23/17 07:36 MCV 93.2 fl (80-96) 08/23/17 07:36 MCHC 32.8 g/dl (32.0-36.0) 08/23/17 07:36 RDW 21.5 % (11.6-15.6) H 08/23/17 07:36 Plt Count 106 K/MM3 (134-434) L 08/23/17 07:36 Sodium 143 mmol/L (136-145) 08/23/17 07:36 Potassium 4.2 mmol/L (3.5-5.1) 08/23/17 07:36 Chloride 110 mmol/L (98-107) H 08/23/17 07:36 Carbon Dioxide 26 mmol/L (21-32) 08/23/17 07:36 Anion Gap 7 (8-16) L 08/23/17 07:36 BUN 11 mg/dL (7-18) 08/23/17 07:36 Creatinine 0.7 mg/dL (0.55-1.02) 08/23/17 07:36 Random Glucose 90 mg/dL (74-106) 08/23/17 07:36 Calcium 8.4 mg/dL (8.5-10.1) L 08/23/17 07:36 Blood Type O POSITIVE 08/18/17 10:36 Antibody Screen Negative 08/18/17 10:36 INR 1.30 (0.82-1.09) H 08/23/17 07:36 T &S, 08/18 - ASSESSMENT/PLAN 1. Make NPO after midnight except po meds 2. GI/DVT PPX 3. Medical optimization / clearance in chart from 08/23/2017 4. Type and screen ordered
--- NOTE | 2017-08-23 22:56 | PN ---
Progress Note (short form) - Note Progress Note: Patient seen and examined Feels weak Last Vital Signs Temp Pulse Resp BP Pulse Ox 99.4 F 72 18 128/69 99 08/23/17 18:00 08/23/17 18:00 08/23/17 18:00 08/23/17 18:00 08/23/17 09:00 Cor: RSR, No murmurs, No gallops Lungs: Clear to P&A Abd: Soft, Normal bowel sounds, colostomy + Ext:No significant edema Abnormal Lab Results 08/23/17 08/23/17 08/23/17 07:36 07:36 07:36 WBC 2.1 L RBC 2.89 L Hgb 8.8 L Hct 26.9 L RDW 21.5 H Plt Count 106 L Monocytes % 11.7 H PT with INR 14.70 H INR 1.30 H Chloride 110 H Anion Gap 7 L Calcium 8.4 L Albumin 2.4 L Active Medications Generic Name Dose Route Start Last Admin Trade Name Freq PRN Reason Stop Dose Admin Acetaminophen 650 mg 08/18/17 17:16 Tylenol - PO Q6H PRN PAIN OR FEVER Enoxaparin Sodium 40 mg 08/20/17 17:15 08/23/17 09:54 Lovenox - SQ 40 mg DAILY [facility] Administration Levothyroxine Sodium 112 mcg 08/21/17 07:00 08/23/17 09:57 Synthroid - PO 112 mcg DAILY@0700 [facility] Administration Lidocaine HCl 1 applic 08/19/17 14:00 08/23/17 22:47 Xylocaine 2% Jelly TP Not Given BID [facility] Ondansetron HCl 4 mg 08/18/17 17:16 Zofran Injection IVPUSH Q6H PRN NAUSEA AND/OR VOMITING Zolpidem Tartrate 5 mg 08/18/17 22:00 08/21/17 23:20 Ambien - PO 5 mg HS PRN Administration INSOMNIA A/P 67 y/o patient with advanced rectal cancer/h/o chemp/RT, h/grace mets, now with possible rectovaginal fistula For EUA/revision of colostomy tomorrow will discuss with Dr. Owens
[2017-08-24] MEDS ORDERED: PT OWN MED DRAWER 7, Y5N ONE ×2 (06:26→06:47)
[2017-08-24] MEDS: LEVOTHYROXINE NA 112 MCG TABLET (FP) PO SCH (06:39)
[2017-08-24 07:41] LABS: BASO % 0.8 % (0-2.0); EOS % 2.9 % (0-4.5); LYMPH % 16.6 % (8-40); MCH 30.3 pg (25.7-33.7); MCHC 32.2 g/dl (32.0-36.0); MEAN CELL VOLUME 94.1 fl (80-96); MEAN PLT VOLUME 9.7 fl (7.5-11.1); MONO % 11.7 % (3.8-10.2); PLATELET COUNT 113 K/MM3 (134-434); RBC 2.98 M/mm3 (3.60-5.2); RDW 21.7 % (11.6-15.6); WHITE BLOOD COUNT 2.5 K/mm3 (4.0-10.0)
[2017-08-24 08:19] LABS: CHLORIDE 109 mmol/L (98-107); SODIUM 142 mmol/L (136-145)
[2017-08-24 08:29] LABS: ALBUMIN 2.5 g/dl (3.4-5.0); ALK PHOS 91 U/L (45-117); ANION GAP 9 (8-16); BILIRUBIN,TOTAL 0.6 mg/dL (0.2-1.0); BLOOD UREA NITROGEN 11 mg/dL (7-18); CALCIUM 8.9 mg/dL (8.5-10.1); CO2 24 mmol/L (21-32); CREATININE 0.7 mg/dL (0.55-1.02); GLUCOSE,RANDOM 87 mg/dL (74-106); SGOT/AST 37 U/L (15-37); SGPT/ALT 15 U/L (12-78); TOT PROT 6.7 g/dl (6.4-8.2)
[2017-08-24] MEDS: ENOXAPARIN NA (PORCINE) 40 MG/0.4 ML DISP.SYRIN SQ SCH (10:01)
[2017-08-24] MEDS: LIDOCAINE HCL 2% JELLY (30 ML/TUBE) TP SCH (10:43)
--- NOTE | 2017-08-24 13:04 | PN ---
Progress Note, Physician Chief Complaint: patient is nPO awaiting to g génesis OR for EUA and revision of fistula - Current Medication List Current Medications: Active Medications Acetaminophen (Tylenol -) 650 mg PO Q6H PRN PRN Reason: PAIN OR FEVER Enoxaparin Sodium (Lovenox -) 40 mg SQ DAILY [facility] Last Admin: 08/24/17 10:01 Dose: Not Given Levothyroxine Sodium (Synthroid -) 112 mcg PO DAILY@0700 [facility] Last Admin: 08/24/17 06:39 Dose: 112 mcg Lidocaine HCl (Xylocaine 2% Jelly) 1 applic TP BID [facility] Last Admin: 08/24/17 10:43 Dose: Not Given Ondansetron HCl (Zofran Injection) 4 mg IVPUSH Q6H PRN PRN Reason: NAUSEA AND/OR VOMITING Zolpidem Tartrate (Ambien -) 5 mg PO HS PRN PRN Reason: INSOMNIA Last Admin: 08/21/17 23:20 Dose: 5 mg - Objective Vital Signs: Vital Signs Temperature 98.6 F 08/24/17 06:30 Pulse Rate 68 08/24/17 06:30 Respiratory Rate 18 08/24/17 06:30 Blood Pressure 135/67 08/24/17 06:30 O2 Sat by Pulse Oximetry (%) 99 08/23/17 21:00 Constitutional: Yes: Calm Neck: Yes: Trachea Midline Cardiovascular: Yes: Regular Rate and Rhythm, S1, S2 Respiratory: Yes: CTA Bilaterally Gastrointestinal: Yes: Normal Bowel Sounds, Soft Edema: No Neurological: Yes: Alert, Oriented Labs: CBC, BMP 08/24/17 06:30 08/24/17 06:30 INR, PTT INR 1.30 (0.82-1.09) H 08/23/17 07:36 Problem List - Problems (1) Vaginal bleeding Assessment/Plan: appreciate surgery and enrollment clerk note today examination under anesthesia in OR to r/o rectal-vaginal fistula barium enema report noted NPO cleared for procedure Code(s): N93.9 - ABNORMAL UTERINE AND VAGINAL BLEEDING, UNSPECIFIED (2) Rectal adenocarcinoma metastatic to liver Assessment/Plan: oncology eval noted dvt ppx started Code(s): C20 - MALIGNANT NEOPLASM OF RECTUM; C78.7 - SECONDARY MALIG NEOPLASM OF LIVER AND INTRAHEPATIC BILE DUCT (3) Hypothyroid Assessment/Plan: synthroid tsh noted decrease the dose to 112mcg daily Code(s): E03.9 - HYPOTHYROIDISM, UNSPECIFIED Qualifiers: Hypothyroidism type: unspecified Qualified Code(s): E03.9 - Hypothyroidism , unspecified
--- NOTE | 2017-08-24 15:55 | PN ---
Progress Note (short form) - Note Progress Note: pt in OR, Unable to be seen.
[2017-08-24] MEDS ORDERED: fentaNYL CITRATE 250 MCG/5 ML VIAL ONE (19:44)
[2017-08-24] MEDS ORDERED: ROCURONIUM BROMIDE 50 MG/5 ML VIAL ONE (19:45)
[2017-08-24] MEDS ORDERED: MIDAZOLAM HCL 2 MG/2 ML SINGLE DOSE VIAL ONE (19:45)
[2017-08-24] MEDS ORDERED: PROPOFOL 20 ML ONE (19:45)
[2017-08-24] MEDS ORDERED: LIDOCAINE HCL/PF 2% SDV 5ML VIAL ONE (19:46)
[2017-08-24] MEDS ORDERED: DEXAMETHASONE SOD PHOSPHATE 4 MG/1 ML VIAL ONE (20:43)
[2017-08-24] MEDS ORDERED: ceFAZolin SODIUM 1 GM VIAL ONE (20:43)
[2017-08-24] MEDS ORDERED: ceFAZolin SODIUM 1 GM VIAL IVPB ONE (20:45)
[2017-08-24] MEDS ORDERED: BUPIVACAINE HCL/PF 0.5% (5MG/ML) 10 ML VIAL ONE (21:22)
[2017-08-24] MEDS ORDERED: NEOSTIGMINE METHYLSULFATE 0.5 MG/ML - 10 ML MDV ONE (21:24)
[2017-08-24] MEDS ORDERED: KETOROLAC TROMETHAMINE 30 MG/1 ML VIAL ONE (21:24)
[2017-08-24] MEDS ORDERED: GLYCOPYRROLATE 0.2 MG/1 ML VIAL ONE (21:24)
--- NOTE | 2017-08-24 21:28 | PN ---
Progress Note, Physician Chief Complaint: Patient was seen earlier this morning before surgery History of Present Illness: Not in distress this morning anxiously waiting for surgery Denied chest pain, shortness of breath or palpitations - Current Medication List Current Medications: Active Medications Acetaminophen (Tylenol -) 650 mg PO Q6H PRN PRN Reason: PAIN OR FEVER Enoxaparin Sodium (Lovenox -) 40 mg SQ DAILY [facility] Last Admin: 08/24/17 10:01 Dose: Not Given Levothyroxine Sodium (Synthroid -) 112 mcg PO DAILY@0700 [facility] Last Admin: 08/24/17 06:39 Dose: 112 mcg Lidocaine HCl (Xylocaine 2% Jelly) 1 applic TP BID [facility] Last Admin: 08/24/17 10:43 Dose: Not Given Ondansetron HCl (Zofran Injection) 4 mg IVPUSH Q6H PRN PRN Reason: NAUSEA AND/OR VOMITING Zolpidem Tartrate (Ambien -) 5 mg PO HS PRN PRN Reason: INSOMNIA Last Admin: 08/21/17 23:20 Dose: 5 mg - Objective Vital Signs: Vital Signs Temperature 98.3 F 08/24/17 18:00 Pulse Rate 71 08/24/17 18:00 Respiratory Rate 20 08/24/17 18:00 Blood Pressure 141/67 08/24/17 18:00 O2 Sat by Pulse Oximetry (%) 99 08/24/17 09:00 Constitutional: Yes: Well Nourished HENT: Yes: Atraumatic Neck: Yes: Supple Cardiovascular: Yes: Regular Rate and Rhythm, S1, S2 Respiratory: Yes: CTA Bilaterally Gastrointestinal: Yes: Normal Bowel Sounds, Soft. No: Tenderness Edema: No Labs: CBC, BMP 08/24/17 06:30 08/24/17 06:30 INR, PTT INR 1.30 (0.82-1.09) H 08/23/17 07:36 Problem List - Problems (1) Anemia Code(s): D64.9 - ANEMIA, UNSPECIFIED Qualifiers: Anemia type: unspecified type Qualified Code(s): D64.9 - Anemia, unspecified (2) Hypothyroid Code(s): E03.9 - HYPOTHYROIDISM, UNSPECIFIED Qualifiers: Hypothyroidism type: unspecified Qualified Code(s): E03.9 - Hypothyroidism , unspecified (3) Rectal adenocarcinoma metastatic to liver Code(s): C20 - MALIGNANT NEOPLASM OF RECTUM; C78.7 - SECONDARY MALIG NEOPLASM OF LIVER AND INTRAHEPATIC BILE DUCT (4) Rectovaginal fistula Code(s): N82.3 - FISTULA OF VAGINA TO LARGE INTESTINE Assessment/Plan 1. Rectal cancer with liver metastasis 2. Rectovaginal fistula plan for repair with loop colostomy 3. Anemia 4. Hypothyroidism PLAN: 1. As outlined previously, may proceed with surgery 2. Transfuse as needed. 3. Thyroid replacement therapy Thor Castillo MD
--- NOTE | 2017-08-24 21:32 | OP ---
Operative Note - Note: Operative Date: 08/24/17 Pre-Operative Diagnosis: rectovaginal fistula Operation: revision of colostomy to end colostomy Findings: ventral hernia Post-Operative Diagnosis: Same as Pre-op Surgeon: Al Gray Shoe Sticks Repairer: Candie Romero Anesthesia: General Estimated Blood Loss (mls): 1 Operative Report Dictated: Yes
[2017-08-24] MEDS ORDERED: morphine SULFATE 4 MG/ML VIAL IVPUSH PRN (21:41)
[2017-08-24] MEDS ORDERED: ACETAMINOPHEN WITH CODEINE 300MG/30MG TABLET PO PRN (21:42)
[2017-08-24] MEDS ORDERED: DEXTROSE 5%-LACTATED RINGERS 1,000 ML IV SCH (21:45)
[2017-08-24] MEDS ORDERED: PROMETHAZINE HCL 25 MG/1 ML VIAL IVPUSH PRN (21:47)
[2017-08-24] MEDS ORDERED: LACTATED RINGERS SOLUTION 1,000 ML IV SCH (22:00)
[2017-08-24] MEDS ORDERED: ONDANSETRON 4 MG/2 ML VIAL IVPUSH PRN (22:04)
[2017-08-24] MEDS ORDERED: ACETAMINOPHEN 325 MG TABLET (FP) PO PRN (22:04)
[2017-08-24] MEDS ORDERED: ZOLPIDEM TARTRATE 5 MG TABLET PO PRN (22:04)
[2017-08-25] MEDS: LEVOTHYROXINE NA 112 MCG TABLET (FP) PO SCH (06:09)
--- NOTE | 2017-08-25 08:12 | PN ---
Progress Note (short form) - Note Progress Note: POD #1 - s/p EUA/revision of colostomy under general anesthesia. VSS. Pt. doing well, sitting up comfortably in bed having breakfast. No complaints. No apparent anesthetic complications noted. Continue current care.
--- NOTE | 2017-08-25 08:30 | OP ---
DATE OF OPERATION: 08/24/2017 PREOPERATIVE DIAGNOSIS: Rectovaginal fistula, metastatic colorectal cancer. SURGEON: Avi Bo MD INTERNATIONAL FREIGHT FORWARDER: MELISA Hawthorne PROCEDURE: Examination under anesthesia, lavage of the distal colon, laparoscopic revision of loop colostomy to end-colostomy. INDICATIONS: This is a 67-year-old female with a history of rectal cancer status post pelvic radiation and chemotherapy, low anterior resection, presenting now with a rectovaginal fistula, currently undergoing chemotherapy which has been suspended because of this admission. Given the evidence of the rectovaginal fistula and continuous spillage as patient has a history of a previous loop colostomy which was never closed by patient choice, a decision was made to then convert this to end-colostomy in order to give her better pelvic hygiene. DESCRIPTION OF PROCEDURE: In the operating room she was placed in supine position. After induction of general anesthesia, an examination under anesthesia was performed by digital manual exam which revealed no extensive abnormality other than extensive spillage of feces into the vagina. A Patel was placed through the distal end of loop colostomy. It was irrigated with copious amount of saline until most of the lavage was clear. At this point in time a 4 x 4 was placed over the ostomy, and then the area was prepped with chlorhexidine prep and then draped with Ioban. At this point in time a Veress needle was used to insufflate in the left subcostal margin to a pressure of 15 mmHg, and Optiview trocar was used to gain initial access to the left subcostal margin via the 5-mm port. A 12-mm port was placed just superior to the umbilicus in the paramedian direction, and another 5-mm port was placed in the left lower quadrant. The tract was followed, was easily visualized entering into the abdominal wall through a large ventral hernia defect at the site of the ostomy. A large parastomal ventral hernia was identified. Some adhesions were then taken down upon the distal aspect of the transverse colon to allow mobilization as much as possible of the transverse colon just distal to the ostomy. Once it was clearly visualized, an EndoGIA stapler purple cartridge was used transverse the transverse colon at this level near the fascia of the abdominal wall. There was little to no bleeding from the staple line. The area was inspected for integrity and the procedure at this point terminated. The ports were removed under direct vision. A new appliance was applied. The wound was closed with 4-0 Monocryl, infiltrated with Marcaine, and the patient was then returned to the recovery room awake and alert in stable condition. She tolerated the procedure well. AVI BO M.D. [id number]
[2017-08-25] MEDS ORDERED: PT OWN MED DRAWER 7, Y5N ONE (10:18)
[2017-08-25] MEDS: ENOXAPARIN NA (PORCINE) 40 MG/0.4 ML DISP.SYRIN SQ SCH (10:22)
[2017-08-25] MEDS: LIDOCAINE HCL 2% JELLY (30 ML/TUBE) TP SCH ×2 (10:24→21:49)
--- NOTE | 2017-08-25 11:07 | DS ---
Physical Examination Vital Signs: Vital Signs Temperature 97.7 F 08/25/17 09:00 Pulse Rate 61 08/25/17 09:00 Respiratory Rate 18 08/25/17 09:00 Blood Pressure 117/63 08/25/17 09:00 O2 Sat by Pulse Oximetry (%) 100 08/24/17 22:30 Constitutional: Yes: Well Nourished, No Distress, Calm Cardiovascular: Yes: Regular Rate and Rhythm Respiratory: Yes: Regular Gastrointestinal: Yes: Normal Bowel Sounds, Soft, Abdomen, Obese, Tenderness ( lncisional, colostomy) Musculoskeletal: Yes: WNL Extremities: Yes: WNL Edema: No Peripheral Pulses WNL: Yes Wound/Incision: Yes: Dressing Dry and Intact Neurological: Yes: Alert, Oriented Psychiatric: Yes: Alert, Oriented Labs: CBC, BMP 08/24/17 06:30 08/24/17 06:30 Discharge Summary Reason For Visit: ADENOCARCINOMA OF RECTUM METASTATIC TO LIVER,VAG B Current Active Problems Anemia (Acute) Hyperthyroidism, subclinical (Acute) Hypothyroid (Acute) Pre-operative cardiovascular examination (Acute) Rectal adenocarcinoma metastatic to liver (Acute) Rectovaginal fistula (Acute) Vaginal bleeding (Acute) Other Procedures: Operative Date: 08/24/17. Pre-Operative Diagnosis: rectovaginal fistula. Operation: revision of colostomy to end colostomy. Findings: ventral hernia. Post-Operative Diagnosis: Same as Pre-op. Surgeon: Al Gray Morgue Keeper: Candie Romero [facility] Course: The patient is a 67 year old F with history of rectal CA with mets to the liver s/p total colectomy 2013 with ileostomy bag, s/p total hysterectomy, on chemotherapy and radiation who presents to the ED complaining of rectal bleeding for two weeks, significantly worse last night. She states that approximately 2 months ago, she began to experience the urge to pass a bowel movement. She used a suppository but did not pass anything. In July, she began to feel generally weak and was admitted to the hospital for dehydration. She states she has continued to feel generally weak since that time. Over the past two weeks, she has noted small amounts of intermittent, bright red blood per rectum. Last night, she noted a larger amount of BRB, prompting her to come to the ED for evaluation. She does admit she is not entirely sure whether her bleeding is from the rectum or vagina. She was supposed to see her oncologist Dr. Owens today, but due to the bleeding came to the ED for evaluation. No fever or chills. No nausea or vomiting. Has not been able to have chemotherapy end of June. Oncologist: Dr. Fred Owens Barium enema CT showed: Limited examination to rule out a rectovaginal fistula. The sigmoid and the most of the descending colon was opacified without gross evidence of a stricture. Filling of a pouchlike cavity anterior to the distal sigmoid colon compatible with the vagina is consistent with the presence of a rectovaginal fistula. Correlate clinically. Case discussed with , referring attending physician Condition: Stable - Instructions Referrals: Jaime Velasco MD, MD [Primary Care Provider] - Disposition: VNS/HOME HEALTH CARE - Home Medications Comprehensive Discharge Medication List: Ambulatory Orders Levothyroxine [Synthroid -] 125 mcg PO DAILY 10/09/13 Zolpidem Tartrate [Ambien] 10 mg PO HS 08/18/17
--- NOTE | 2017-08-25 11:12 | PN ---
Progress Note, Physician Chief Complaint: recto-vaginal fistula History of Present Illness: NAD Tolerated surgery well sitting in chair - Current Medication List Current Medications: Active Medications Acetaminophen (Tylenol -) 650 mg PO Q6H PRN PRN Reason: PAIN OR FEVER Acetaminophen/Codeine Phosphate (Tylenol # 3 -) 1 tab PO Q6H PRN PRN Reason: PAIN LEVEL 4 - 6 Enoxaparin Sodium (Lovenox -) 40 mg SQ DAILY [facility] Last Admin: 08/25/17 10:22 Dose: 40 mg Dextrose/Lactated Ringer's (D5-Lr -) 1,000 mls @ 83 mls/hr IV ASDIR [facility] Last Admin: 08/24/17 22:45 Dose: 0 mls Levothyroxine Sodium (Synthroid -) 112 mcg PO DAILY@0700 [facility] Last Admin: 08/25/17 06:09 Dose: 112 mcg Lidocaine HCl (Xylocaine 2% Jelly) 1 applic TP BID [facility] Last Admin: 08/25/17 10:24 Dose: Not Given Morphine Sulfate (Morphine Sulfate) 4 mg IVPUSH Q3H PRN PRN Reason: PAIN LEVEL 7 - 10 Ondansetron HCl (Zofran Injection) 4 mg IVPUSH Q6H PRN PRN Reason: NAUSEA AND/OR VOMITING Zolpidem Tartrate (Ambien -) 5 mg PO HS PRN PRN Reason: INSOMNIA - Objective Vital Signs: Vital Signs Temperature 97.7 F 08/25/17 09:00 Pulse Rate 61 08/25/17 09:00 Respiratory Rate 18 08/25/17 09:00 Blood Pressure 117/63 08/25/17 09:00 O2 Sat by Pulse Oximetry (%) 100 08/24/17 22:30 Constitutional: Yes: Well Nourished, No Distress, Calm Cardiovascular: Yes: Regular Rate and Rhythm Respiratory: Yes: Regular Gastrointestinal: Yes: Normal Bowel Sounds, Soft, Abdomen, Obese, Tenderness ( incisional), Other (colostomy) Musculoskeletal: Yes: WNL Extremities: Yes: WNL Edema: No Peripheral Pulses WNL: Yes Wound/Incision: Yes: Dressing Dry and Intact Neurological: Yes: Alert, Oriented Psychiatric: Yes: Alert, Oriented Labs: CBC, BMP 08/24/17 06:30 08/24/17 06:30 INR, PTT INR 1.30 (0.82-1.09) H 08/23/17 07:36 Problem List - Problems (1) Rectal adenocarcinoma metastatic to liver Assessment/Plan: -seen by oncology -on chemo outpatient Code(s): C20 - MALIGNANT NEOPLASM OF RECTUM; C78.7 - SECONDARY MALIG NEOPLASM OF LIVER AND INTRAHEPATIC BILE DUCT (2) Rectovaginal fistula Assessment/Plan: -Seen by Surgery -s/p loop colostomy -liquid stool leaking from vaginal canal Code(s): N82.3 - FISTULA OF VAGINA TO LARGE INTESTINE (3) Anemia Assessment/Plan: -2/2 to blood loss -monitor trend -normal transfusion parameters -labs in AM Code(s): D64.9 - ANEMIA, UNSPECIFIED Qualifiers: Anemia type: unspecified type Qualified Code(s): D64.9 - Anemia, unspecified (4) Hyperthyroidism, subclinical Assessment/Plan: -Levothyroxine readjusted from 125 mcg to 112 mcg -repeat thyroid profile in 4 weeks Code(s): E05.90 - THYROTOXICOSIS, UNSP WITHOUT THYROTOXIC CRISIS OR STORM Assessment/Plan see problem list walked well with physical therapy
--- NOTE | 2017-08-25 12:16 | PN ---
Progress Note (short form) - Note Progress Note: surgery POD #1 revision of colostomy to end colostomy. Patient seen and examined at bedside. Patient states her pain is controlled. She has been OOb to urinate and is having some stool d/c from the vagina. She denies ant C/P, SOB, Fever, Chills , N/V. She is tolerating a clear liquid diet. Vital Signs Temp 97.7 F 08/25/17 09:00 Pulse 61 08/25/17 09:00 Resp 18 08/25/17 09:00 BP 117/63 08/25/17 09:00 Pulse Ox 100 08/24/17 22:30 Intake & Output 08/24/17 08/25/17 08/25/17 23:59 11:59 23:59 Intake Total 1150 750 Output Total 10 600 Balance 1140 150 Weight 205 lb 9 oz Intake: IV 1100 600 D5-Lr - 1,000 ml @ 83 mls 600 /hr IV ASDIR TED Rx#: [id number] Oral 50 150 Output: Urine 400 Void 400 Colostomy 200 Estimated Blood Loss 10 Other: Voiding Method Bedpan Bowel Movement Yes colostomy # Bowel Movements 1 200 Weight Measurement Method Built in [facility] CBC, BMP 08/24/17 06:30 08/24/17 06:30 PE: A&Ox3, NAD unlabored resp on RA abdomen with large hernia and distended around colostomy site RUQ (unchanged from pre-op) Colostomy, [place] and producing some liquid stool, no evidence of tracking erythema or ecchymosis, Abdomen is soft with mild ttp over epigastric area and RUQ. dressings are clean and dry. Problem List - Problems (1) Rectal adenocarcinoma metastatic to liver Assessment/Plan: POD #1 revision of colostomy patient doing well. 1) Advance diet as tolerated 2) OOB with PT 3) Pain control 4) d/c planning Code(s): C20 - MALIGNANT NEOPLASM OF RECTUM; C78.7 - SECONDARY MALIG NEOPLASM OF LIVER AND INTRAHEPATIC BILE DUCT
--- NOTE | 2017-08-25 19:01 | PN ---
Progress Note (short form) - Note Progress Note: Patient seen and examined Feels weak surgery tolerated Cor: RSR, No murmurs, No gallops Lungs: Clear to P&A Abd: Soft, Normal bowel sounds, colostomy + Ext:No significant edema Last Vital Signs Temp Pulse Resp BP Pulse Ox 98.0 F 62 20 127/45 100 08/25/17 14:00 08/25/17 14:00 08/25/17 14:00 08/25/17 14:00 08/25/17 09:00 CBC, BMP 08/24/17 06:30 08/24/17 06:30 Current Medications Generic Name Dose Route Start Last Admin Trade Name Freq PRN Reason Stop Dose Admin Acetaminophen 650 mg 08/24/17 22:04 Tylenol - PO Q6H PRN PAIN OR FEVER Acetaminophen/Codeine Phosphate 1 tab 08/24/17 21:42 Tylenol # 3 - PO Q6H PRN PAIN LEVEL 4 - 6 Enoxaparin Sodium 40 mg 08/25/17 10:00 08/25/17 10:22 Lovenox - SQ 40 mg DAILY TED Administration Dextrose/Lactated Ringer's 1,000 mls @ 83 mls/hr 08/24/17 21:45 08/24/17 22: 45 D5-Lr - IV 0 mls ASDIR TED Administration Levothyroxine Sodium 112 mcg 08/25/17 07:00 08/25/17 06:09 Synthroid - PO 112 mcg DAILY@0700 TED Administration Lidocaine HCl 1 applic 08/25/17 10:00 08/25/17 10:24 Xylocaine 2% Jelly TP Not Given BID TED Morphine Sulfate 4 mg 08/24/17 21:41 Morphine Sulfate IVPUSH Q3H PRN PAIN LEVEL 7 - 10 Ondansetron HCl 4 mg 08/24/17 22:04 Zofran Injection IVPUSH Q6H PRN NAUSEA AND/OR VOMITING Zolpidem Tartrate 5 mg 08/24/17 22:04 Ambien - PO HS PRN INSOMNIA 67 y/o patient with advanced rectal cancer/h/o chemp/RT, h/grace mets, now with possible rectovaginal fistula s/p EUA/revision of colostomy post surgical care monitor CBC, slightly low counts PT eval for OP f.u
[2017-08-26] MEDS: LEVOTHYROXINE NA 112 MCG TABLET (FP) PO SCH (06:14)
[2017-08-26] MEDS: ENOXAPARIN NA (PORCINE) 40 MG/0.4 ML DISP.SYRIN SQ SCH (10:36)
[2017-08-26] MEDS: LIDOCAINE HCL 2% JELLY (30 ML/TUBE) TP SCH ×2 (10:36→22:07)
--- NOTE | 2017-08-26 10:47 | PN ---
Progress Note, Physician History of Present Illness: Pt with rectovaginal fistula planned POD #1 loop colostomy repair, tolerated meal. - Current Medication List Current Medications: Active Medications Acetaminophen (Tylenol -) 650 mg PO Q6H PRN PRN Reason: PAIN OR FEVER Acetaminophen/Codeine Phosphate (Tylenol # 3 -) 1 tab PO Q6H PRN PRN Reason: PAIN LEVEL 4 - 6 Enoxaparin Sodium (Lovenox -) 40 mg SQ DAILY [facility] Last Admin: 08/26/17 10:36 Dose: 40 mg Dextrose/Lactated Ringer's (D5-Lr -) 1,000 mls @ 83 mls/hr IV ASDIR [facility] Last Admin: 08/24/17 22:45 Dose: 0 mls Levothyroxine Sodium (Synthroid -) 112 mcg PO DAILY@0700 [facility] Last Admin: 08/26/17 06:14 Dose: 112 mcg Lidocaine HCl (Xylocaine 2% Jelly) 1 applic TP BID [facility] Last Admin: 08/26/17 10:36 Dose: 1 applic Morphine Sulfate (Morphine Sulfate) 4 mg IVPUSH Q3H PRN PRN Reason: PAIN LEVEL 7 - 10 Ondansetron HCl (Zofran Injection) 4 mg IVPUSH Q6H PRN PRN Reason: NAUSEA AND/OR VOMITING Zolpidem Tartrate (Ambien -) 5 mg PO HS PRN PRN Reason: INSOMNIA - Objective Vital Signs: Vital Signs Temperature 97.9 F 08/26/17 06:00 Pulse Rate 60 08/26/17 06:00 Respiratory Rate 18 08/26/17 06:00 Blood Pressure 134/62 08/26/17 06:00 O2 Sat by Pulse Oximetry (%) 100 08/25/17 21:00 Constitutional: Yes: No Distress, Calm Neck: Yes: Supple Cardiovascular: Yes: Regular Rate and Rhythm Respiratory: Yes: Regular, Diminished Gastrointestinal: Yes: Normal Bowel Sounds, Soft Edema: No Labs: CBC, BMP 08/24/17 06:30 08/24/17 06:30 INR, PTT INR 1.30 (0.82-1.09) H 08/23/17 07:36 Problem List - Problems (1) Anemia Code(s): D64.9 - ANEMIA, UNSPECIFIED Qualifiers: Anemia type: unspecified type Qualified Code(s): D64.9 - Anemia, unspecified (2) Hypothyroid Code(s): E03.9 - HYPOTHYROIDISM, UNSPECIFIED Qualifiers: Hypothyroidism type: unspecified Qualified Code(s): E03.9 - Hypothyroidism , unspecified (3) Rectal adenocarcinoma metastatic to liver Code(s): C20 - MALIGNANT NEOPLASM OF RECTUM; C78.7 - SECONDARY MALIG NEOPLASM OF LIVER AND INTRAHEPATIC BILE DUCT (4) Rectovaginal fistula Code(s): N82.3 - FISTULA OF VAGINA TO LARGE INTESTINE (5) Vaginal bleeding Code(s): N93.9 - ABNORMAL UTERINE AND VAGINAL BLEEDING, UNSPECIFIED Assessment/Plan 1. Rectal cancer with liver metastasis 2. Rectovaginal fistula POD#1 revision of colostomy to end colostomy 3. Anemia 4. Hypothyroidism PLAN: 1. Routine post-op care, analgesia as needed, DVT prophylaxis, advance diet as tolerated 2. Transfuse as needed. 3. Thyroid replacement therapy
--- NOTE | 2017-08-26 10:53 | PN ---
Progress Note, Physician Chief Complaint: recto-vaginal fistula History of Present Illness: NAD Tolerated surgery well sitting in chair - Current Medication List Current Medications: Active Medications Acetaminophen (Tylenol -) 650 mg PO Q6H PRN PRN Reason: PAIN OR FEVER Acetaminophen/Codeine Phosphate (Tylenol # 3 -) 1 tab PO Q6H PRN PRN Reason: PAIN LEVEL 4 - 6 Enoxaparin Sodium (Lovenox -) 40 mg SQ DAILY [facility] Last Admin: 08/26/17 10:36 Dose: 40 mg Dextrose/Lactated Ringer's (D5-Lr -) 1,000 mls @ 83 mls/hr IV ASDIR [facility] Last Admin: 08/24/17 22:45 Dose: 0 mls Levothyroxine Sodium (Synthroid -) 112 mcg PO DAILY@0700 [facility] Last Admin: 08/26/17 06:14 Dose: 112 mcg Lidocaine HCl (Xylocaine 2% Jelly) 1 applic TP BID [facility] Last Admin: 08/26/17 10:36 Dose: 1 applic Morphine Sulfate (Morphine Sulfate) 4 mg IVPUSH Q3H PRN PRN Reason: PAIN LEVEL 7 - 10 Ondansetron HCl (Zofran Injection) 4 mg IVPUSH Q6H PRN PRN Reason: NAUSEA AND/OR VOMITING Zolpidem Tartrate (Ambien -) 5 mg PO HS PRN PRN Reason: INSOMNIA - Objective Vital Signs: Vital Signs Temperature 97.9 F 08/26/17 06:00 Pulse Rate 60 08/26/17 06:00 Respiratory Rate 18 08/26/17 06:00 Blood Pressure 134/62 08/26/17 06:00 O2 Sat by Pulse Oximetry (%) 100 08/25/17 21:00 Constitutional: Yes: Well Nourished, No Distress, Calm Labs: CBC, BMP 08/24/17 06:30 08/24/17 06:30 INR, PTT INR 1.30 (0.82-1.09) H 08/23/17 07:36 Problem List - Problems (1) Rectal adenocarcinoma metastatic to liver Assessment/Plan: -seen by oncology -on chemo outpatient Code(s): C20 - MALIGNANT NEOPLASM OF RECTUM; C78.7 - SECONDARY MALIG NEOPLASM OF LIVER AND INTRAHEPATIC BILE DUCT (2) Rectovaginal fistula Assessment/Plan: -Seen by Surgery -s/p loop colostomy -liquid stool leaking from vaginal canal Code(s): N82.3 - FISTULA OF VAGINA TO LARGE INTESTINE (3) Anemia Assessment/Plan: -2/2 to blood loss -monitor trend -normal transfusion parameters -Vaginal bleeding overnight -Surgery to re-evaluate -labs in AM Code(s): D64.9 - ANEMIA, UNSPECIFIED Qualifiers: Anemia type: unspecified type Qualified Code(s): D64.9 - Anemia, unspecified (4) Hyperthyroidism, subclinical Assessment/Plan: -Levothyroxine readjusted from 125 mcg to 112 mcg -repeat thyroid profile in 4 weeks Code(s): E05.90 - THYROTOXICOSIS, UNSP WITHOUT THYROTOXIC CRISIS OR STORM Assessment/Plan see problem list walked well with physical therapy
--- NOTE | 2017-08-26 23:59 | HOSP ---
Subjective - Review of Symptoms Events since last encounter: Hospitalist Encounter Notified by RN that the patient reports having vaginal bleeding. Subjective: Arrived to bedside, patient is awake, alert and oriented. Patient reports having vaginal bleeding with clots and is concerned. Upon inspection of the vaginal opening, and labia, no active bleed noted, no blood noted in diaper. Reassurance given to patent Plan: [employer] Consult RN to inform Surgeon of overnights events Will continue to monitor overnight Other Systems: Gynecological: Vaginal bleed with small clots Physical Examination Vital Signs: Vital Signs Temperature 97.9 F 08/26/17 21:17 Pulse Rate 79 08/26/17 21:17 Respiratory Rate 19 08/26/17 21:17 Blood Pressure 122/61 08/26/17 21: O2 Sat by Pulse Oximetry (%) 98 08/26/17 08:00 Constitutional: Yes: Anxious, Obese Eyes: Yes: Conjunctiva Clear, EOM Intact, PERRL HENT: Yes: WNL, Atraumatic, Normocephalic Neck: Yes: WNL, Supple, Trachea Midline Cardiovascular: Yes: WNL, Regular Rate and Rhythm Respiratory: Yes: WNL, Regular, CTA Bilaterally Gastrointestinal: Yes: Abdomen, Obese, Hypoactive Bowel Sounds, Other ( Colostomy noted- mid abdomen with collection bag- fecal content) Breast(s): Yes: WNL Musculoskeletal: Yes: WNL Neurological: Yes: WNL, Alert, Oriented, Cran Nerves II-XII Intact ...Motor Strength: WNL Psychiatric: Yes: WNL, Alert, Oriented Labs: CBC, BMP 08/24/17 06:30 08/24/17 06:30 Current Medications Generic Name Dose Route Start Last Admin Trade Name Freq PRN Reason Stop Dose Admin Acetaminophen 650 mg 08/24/17 22:04 Tylenol - PO Q6H PRN PAIN OR FEVER Acetaminophen/Codeine Phosphate 1 tab 08/24/17 21:42 Tylenol # 3 - PO Q6H PRN PAIN LEVEL 4 - 6 Enoxaparin Sodium 40 mg 08/25/17 10:00 08/27/17 09:59 Lovenox - SQ 40 mg DAILY TED Administration Dextrose/Lactated Ringer's 1,000 mls @ 83 mls/hr 08/24/17 21:45 08/24/17 22: 45 D5-Lr - IV 0 mls ASDIR TED Administration Levothyroxine Sodium 112 mcg 08/25/17 07:00 08/27/17 06:25 Synthroid - PO 112 mcg DAILY@0700 TED Administration Lidocaine HCl 1 applic 08/25/17 10:00 08/27/17 09:59 Xylocaine 2% Jelly TP 1 applic BID TED Administration Morphine Sulfate 4 mg 08/24/17 21:41 Morphine Sulfate IVPUSH Q3H PRN PAIN LEVEL 7 - 10 Ondansetron HCl 4 mg 08/24/17 22:04 Zofran Injection IVPUSH Q6H PRN NAUSEA AND/OR VOMITING Zolpidem Tartrate 5 mg 08/24/17 22:04 08/26/17 22:06 Ambien - PO 5 mg HS PRN Administration INSOMNIA Intake & Output 08/24/17 08/25/17 08/26/17 08/27/17 23:59 23:59 23:59 23:59 Intake Total 1150 2050 1150 Output Total 10 1200 1200 Balance 1140 850 -50 Weight 91.181 kg 93.242 kg 92.164 kg 93.582 kg
[2017-08-27 06:06] LABS: SERUM IRON SATURATION 18 % (15-55); TOTAL IRON BINDING CAPACITY 158 ug/dL (250-450); UIBC 130 ug/dL (118-369)
[2017-08-27] MEDS: LEVOTHYROXINE NA 112 MCG TABLET (FP) PO SCH (06:25)
[2017-08-27 07:27] LABS: BASO % 0.9 % (0-2.0); EOS % 2.5 % (0-4.5); HEMATOCRIT 29.3 % (32.4-45.2); HEMOGLOBIN 9.5 GM/dL (10.7-15.3); LYMPH % 17.4 % (8-40); MCH 30.6 pg (25.7-33.7); MCHC 32.5 g/dl (32.0-36.0); MEAN CELL VOLUME 94.1 fl (80-96); MONO % 8.3 % (3.8-10.2); NEUT % 70.9 % (42.8-82.8); PLATELET COUNT 121 K/MM3 (134-434); RBC 3.12 M/mm3 (3.60-5.2); RDW 21.5 % (11.6-15.6); WHITE BLOOD COUNT 3.2 K/mm3 (4.0-10.0)
[2017-08-27] MEDS: ENOXAPARIN NA (PORCINE) 40 MG/0.4 ML DISP.SYRIN SQ SCH (09:59)
[2017-08-27] MEDS: LIDOCAINE HCL 2% JELLY (30 ML/TUBE) TP SCH (09:59)
--- NOTE | 2017-08-27 10:57 | PN ---
Progress Note, Physician Chief Complaint: recto-vaginal fistula History of Present Illness: NAD Tolerated surgery well sitting in chair - Current Medication List Current Medications: Active Medications Acetaminophen (Tylenol -) 650 mg PO Q6H PRN PRN Reason: PAIN OR FEVER Acetaminophen/Codeine Phosphate (Tylenol # 3 -) 1 tab PO Q6H PRN PRN Reason: PAIN LEVEL 4 - 6 Enoxaparin Sodium (Lovenox -) 40 mg SQ DAILY [facility] Last Admin: 08/27/17 09:59 Dose: 40 mg Dextrose/Lactated Ringer's (D5-Lr -) 1,000 mls @ 83 mls/hr IV ASDIR [facility] Last Admin: 08/24/17 22:45 Dose: 0 mls Levothyroxine Sodium (Synthroid -) 112 mcg PO DAILY@0700 [facility] Last Admin: 08/27/17 06:25 Dose: 112 mcg Lidocaine HCl (Xylocaine 2% Jelly) 1 applic TP BID [facility] Last Admin: 08/27/17 09:59 Dose: 1 applic Morphine Sulfate (Morphine Sulfate) 4 mg IVPUSH Q3H PRN PRN Reason: PAIN LEVEL 7 - 10 Ondansetron HCl (Zofran Injection) 4 mg IVPUSH Q6H PRN PRN Reason: NAUSEA AND/OR VOMITING Zolpidem Tartrate (Ambien -) 5 mg PO HS PRN PRN Reason: INSOMNIA Last Admin: 08/26/17 22:06 Dose: 5 mg - Objective Vital Signs: Vital Signs Temperature 98.4 F 08/27/17 05:50 Pulse Rate 71 08/27/17 05:50 Respiratory Rate 20 08/27/17 05:50 Blood Pressure 116/66 08/27/17 05:50 O2 Sat by Pulse Oximetry (%) 98 08/26/17 21:00 Constitutional: Yes: Well Nourished, No Distress, Calm Cardiovascular: Yes: Regular Rate and Rhythm Respiratory: Yes: Regular Gastrointestinal: Yes: Normal Bowel Sounds, Soft Genitourinary: Yes: Vaginal Bleeding (overnight) Musculoskeletal: Yes: WNL Extremities: Yes: WNL Edema: No Peripheral Pulses WNL: Yes Neurological: Yes: Alert, Oriented Psychiatric: Yes: Alert, Oriented Labs: CBC, BMP 08/27/17 07:06 08/24/17 06:30 INR, PTT INR 1.30 (0.82-1.09) H 08/23/17 07:36 Problem List - Problems (1) Rectal adenocarcinoma metastatic to liver Assessment/Plan: -seen by oncology -on chemo outpatient Code(s): C20 - MALIGNANT NEOPLASM OF RECTUM; C78.7 - SECONDARY MALIG NEOPLASM OF LIVER AND INTRAHEPATIC BILE DUCT (2) Rectovaginal fistula Assessment/Plan: -Seen by Surgery -s/p loop colostomy -liquid stool leaking from vaginal canal Code(s): N82.3 - FISTULA OF VAGINA TO LARGE INTESTINE (3) Anemia Assessment/Plan: -2/2 to blood loss -monitor trend -normal transfusion parameters -Vaginal bleeding overnight -Surgery to re-evaluate -labs in AM Code(s): D64.9 - ANEMIA, UNSPECIFIED Qualifiers: Anemia type: unspecified type Qualified Code(s): D64.9 - Anemia, unspecified (4) Hyperthyroidism, subclinical Assessment/Plan: -Levothyroxine readjusted from 125 mcg to 112 mcg -repeat thyroid profile in 4 weeks Code(s): E05.90 - THYROTOXICOSIS, UNSP WITHOUT THYROTOXIC CRISIS OR STORM Assessment/Plan see problem list walked well with physical therapy
[2017-08-27 14:45] VITALS: BP 114/62; PULSE 74; TEMP 98.7
--- NOTE | 2017-08-27 17:06 | DS ---
Physical Examination Vital Signs: Vital Signs Temperature 98.7 F 08/27/17 14:00 Pulse Rate 74 08/27/17 14:00 Respiratory Rate 20 08/27/17 14:00 Blood Pressure 114/62 08/27/17 14:00 O2 Sat by Pulse Oximetry (%) 98 08/27/17 08:00 Constitutional: Yes: Well Nourished, No Distress, Calm Cardiovascular: Yes: Regular Rate and Rhythm Respiratory: Yes: Regular Gastrointestinal: Yes: Normal Bowel Sounds, Soft, Other (Colostomy) Musculoskeletal: Yes: WNL Extremities: Yes: WNL Edema: No Peripheral Pulses WNL: Yes Neurological: Yes: Alert, Oriented Psychiatric: Yes: Alert, Oriented Labs: CBC, BMP 08/27/17 07:06 08/24/17 06:30 Discharge Summary Reason For Visit: ADENOCARCINOMA OF RECTUM METASTATIC TO LIVER,VAG B Current Active Problems Anemia (Acute) Hyperthyroidism, subclinical (Acute) Hypothyroid (Acute) Pre-operative cardiovascular examination (Acute) Rectal adenocarcinoma metastatic to liver (Acute) Rectovaginal fistula (Acute) Vaginal bleeding (Acute) Hospital Course: Other Procedures: Operative Date: 08/24/17. Pre-Operative Diagnosis: rectovaginal fistula. Operation: revision of colostomy to end colostomy. Findings: ventral hernia. Post-Operative Diagnosis: Same as Pre-op. Surgeon: Al Gray Drop Wire Operator: Candie Romero [facility] Course: The patient is a 67 year old F with history of rectal CA with mets to the liver s/p total colectomy 2013 with ileostomy bag, s/p total hysterectomy, on chemotherapy and radiation who presents to the ED complaining of rectal bleeding for two weeks, significantly worse last night. She states that approximately 2 months ago, she began to experience the urge to pass a bowel movement. She used a suppository but did not pass anything. In July, she began to feel generally weak and was admitted to the hospital for dehydration. She states she has continued to feel generally weak since that time. Over the past two weeks, she has noted small amounts of intermittent, bright red blood per rectum. Last night, she noted a larger amount of BRB, prompting her to come to the ED for evaluation. She does admit she is not entirely sure whether her bleeding is from the rectum or vagina. She was supposed to see her oncologist Dr. Owens today, but due to the bleeding came to the ED for evaluation. No fever or chills. No nausea or vomiting. Has not been able to have chemotherapy end of June. Oncologist: Dr. Fred Owens Barium enema CT showed: Limited examination to rule out a rectovaginal fistula. The sigmoid and the most of the descending colon was opacified without gross evidence of a stricture. Filling of a pouchlike cavity anterior to the distal sigmoid colon compatible with the vagina is consistent with the presence of a rectovaginal fistula. Correlate clinically. Case discussed with , referring attending physician Condition: Stable - Instructions Referrals: Jaime Velasco MD, MD [Primary Care Provider] - Fred Owens MD [Staff Physician] - Al Gray [Staff Physician] - Disposition: VNS/HOME HEALTH CARE - Home Medications Comprehensive Discharge Medication List: Ambulatory Orders Zolpidem Tartrate [Ambien] 10 mg PO HS 08/18/17 Acetaminophen W/ Codeine #3 [Tylenol # 3 -] 1 tab PO Q6H PRN #40 tablet MDD 4 Acetaminophen [Tylenol .Regular Strength -] 650 mg PO Q6H PRN tablet 08/27/17 Levothyroxine [Synthroid -] 112 mcg PO DAILY@0700 #30 tablet 08/27/17 Lidocaine 2% Jelly [Xylocaine 2% Jelly] 1 applic TP BID #1 tube 08/27/17 Zolpidem Tartrate [Ambien] 5 mg PO HS PRN tablet MDD 1 08/27/17
--- NOTE | 2017-08-27 18:43 | PN ---
Progress Note, Physician History of Present Illness: s/p revision of colostomy reports smalll amount of blood in the ostomy ans some vaginal discharge - Current Medication List Current Medications: Active Medications Acetaminophen (Tylenol -) 650 mg PO Q6H PRN PRN Reason: PAIN OR FEVER Acetaminophen/Codeine Phosphate (Tylenol # 3 -) 1 tab PO Q6H PRN PRN Reason: PAIN LEVEL 4 - 6 Enoxaparin Sodium (Lovenox -) 40 mg SQ DAILY [facility] Last Admin: 08/27/17 09:59 Dose: 40 mg Dextrose/Lactated Ringer's (D5-Lr -) 1,000 mls @ 83 mls/hr IV ASDIR [facility] Last Admin: 08/24/17 22:45 Dose: 0 mls Levothyroxine Sodium (Synthroid -) 112 mcg PO DAILY@0700 [facility] Last Admin: 08/27/17 06:25 Dose: 112 mcg Lidocaine HCl (Xylocaine 2% Jelly) 1 applic TP BID [facility] Last Admin: 08/27/17 09:59 Dose: 1 applic Morphine Sulfate (Morphine Sulfate) 4 mg IVPUSH Q3H PRN PRN Reason: PAIN LEVEL 7 - 10 Ondansetron HCl (Zofran Injection) 4 mg IVPUSH Q6H PRN PRN Reason: NAUSEA AND/OR VOMITING Zolpidem Tartrate (Ambien -) 5 mg PO HS PRN PRN Reason: INSOMNIA Last Admin: 08/26/17 22:06 Dose: 5 mg - Objective Vital Signs: Vital Signs Temperature 98.7 F 08/27/17 14:00 Pulse Rate 74 08/27/17 14:00 Respiratory Rate 20 08/27/17 14:00 Blood Pressure 114/62 08/27/17 14:00 O2 Sat by Pulse Oximetry (%) 98 08/27/17 08:00 Labs: CBC, BMP 08/27/17 07:06 08/24/17 06:30 INR, PTT INR 1.30 (0.82-1.09) H 08/23/17 07:36 Problem List - Problems (1) Rectal adenocarcinoma metastatic to liver Code(s): C20 - MALIGNANT NEOPLASM OF RECTUM; C78.7 - SECONDARY MALIG NEOPLASM OF LIVER AND INTRAHEPATIC BILE DUCT (2) Vaginal bleeding Code(s): N93.9 - ABNORMAL UTERINE AND VAGINAL BLEEDING, UNSPECIFIED Assessment/Plan s/p revision of colostomy small amount of serosanguinous fluid at this stage is expected and not of concern Clear for discharge from surgical point of view
--- NOTE | 2017-08-27 19:38 | PN ---
Progress Note (short form) - Note Progress Note: Patient seen and examined S/P revision of colostomy Rectovaginal fistula Last Vital Signs Temp Pulse Resp BP Pulse Ox 98.7 F 74 20 114/62 98 08/27/17 14:00 08/27/17 14:00 08/27/17 14:00 08/27/17 14:00 08/27/17 08:00 HEENT: [place], EOM Intact Oropharynx: No thrush, No mucositis Cor: RSR, No murmurs, No gallops Lungs: Clear to P&A Abd: colostomy Ext:No significant edema Skin: No rashes, Integument intact CBC, BMP 08/27/17 07:06 08/24/17 06:30 Impression: Metastatic colon ca Recto-vaginal fistulae S/P colostomy revision For outpatient follow up. Will resume chemotherapy when healed surgically.
--- NOTE | 2017-08-28 10:52 | PN ---
Progress Note, Physician - Objective Vital Signs: Vital Signs Temperature 98.7 F 08/27/17 14:00 Pulse Rate 74 08/27/17 14:00 Respiratory Rate 20 08/27/17 20:18 Blood Pressure 114/62 08/27/17 14:00 O2 Sat by Pulse Oximetry (%) 98 08/27/17 20:18 Labs: CBC, BMP 08/27/17 07:06 08/24/17 06:30 INR, PTT INR 1.30 (0.82-1.09) H 08/23/17 07:36 Problem List - Problems (1) Rectal adenocarcinoma metastatic to liver Code(s): C20 - MALIGNANT NEOPLASM OF RECTUM; C78.7 - SECONDARY MALIG NEOPLASM OF LIVER AND INTRAHEPATIC BILE DUCT (2) Rectovaginal fistula Code(s): N82.3 - FISTULA OF VAGINA TO LARGE INTESTINE (3) Anemia Code(s): D64.9 - ANEMIA, UNSPECIFIED Qualifiers: Anemia type: unspecified type Qualified Code(s): D64.9 - Anemia, unspecified (4) Hyperthyroidism, subclinical Code(s): E05.90 - THYROTOXICOSIS, UNSP WITHOUT THYROTOXIC CRISIS OR STORM
== END 2017-08-27 20:44 | disposition home health service (06) | DRG 330 ==
LOC: JER 09:43 → JERBED 14:58 → J5S 17:50 → J6S 08-24 23:23
PROVIDERS: ADMIT Family Medicine; ATTEND Family Medicine
PROC: 3E1H78Z Irrigation of Lower GI using Irrigating Substance, Via Natural or Artificial Opening (ICD-10-PCS; 2017-08-24)
PROC: 0D1L4Z4 Bypass Transverse Colon to Cutaneous, Percutaneous Endoscopic Approach (ICD-10-PCS; principal; 2017-08-24 17:00)
DX: N82.3 Fistula of vagina to large intestine (principal); C78.7 Secondary malignant neoplasm of liver and intrahepatic bile duct; D62 Acute posthemorrhagic anemia; C20 Malignant neoplasm of rectum; K43.9 Ventral hernia without obstruction or gangrene; R91.8 Other nonspecific abnormal finding of lung field; Z85.038 Personal history of other malignant neoplasm of large intestine; Z93.2 Ileostomy status; Z90.49 Acquired absence of other specified parts of digestive tract; Z90.710 Acquired absence of both cervix and uterus; E03.9 Hypothyroidism, unspecified; Z87.891 Personal history of nicotine dependence; E66.9 Obesity, unspecified; Z68.32 Body mass index [BMI] 32.0-32.9, adult; N39.9 Disorder of urinary system, unspecified
CPT/HCPCS: 36415; 74177-TC; 74270-TC-FY; 80053; 80061; 82378; 82607; 82728; 82746; 83036; 83540; 83550; 83690; 83721; 83735; 84439; 84443; 85025; 85027; 85610; 85730; 86850; 86900; 86901; 93005; 93010; 94760; 97116-GP; 97161-GP; 99284-25

== ENCOUNTER 2017-10-21 07:46 | Day surgery (SDC) | payer OTHER, BC ==
[2017-10-21] MEDS ORDERED: DEXAMETHASONE INJECTION 10 MG in SODIUM CHLORIDE 50 ML IVPB ONE (08:00)
[2017-10-21] MEDS ORDERED: PALONOSETRON HCL 0.25 MG/5 ML VIAL IVPUSH ONE (08:00)
[2017-10-21] MEDS ORDERED: BEVACIZUMAB IV ONE (08:30)
[2017-10-21] MEDS ORDERED: SODIUM CHLORIDE IV ONE (08:30)
[2017-10-21] MEDS ORDERED: WATER IVPB ONE (09:00)
[2017-10-21] MEDS ORDERED: DEXTROSE 5% IVPB ONE (09:00)
[2017-10-21] MEDS ORDERED: LEUCOVORIN IVPB ONE (09:00)
[2017-10-21] MEDS ORDERED: FLUOROURACIL 2,500 MG/50 ML VIAL IVPUSH ONE (10:00)
[2017-10-21 10:53] LABS: BASO % 0.7 % (0-2.0); EOS % 1.7 % (0-4.5); HEMATOCRIT 28.3 % (32.4-45.2); HEMOGLOBIN 8.9 GM/dL (10.7-15.3); LYMPH % 6.6 % (8-40); MCH 27.8 pg (25.7-33.7); MCHC 31.6 g/dl (32.0-36.0); MEAN CELL VOLUME 88.2 fl (80-96); MEAN PLT VOLUME 9.2 fl (7.5-11.1); MONO % 8.4 % (3.8-10.2); NEUT % 82.6 % (42.8-82.8); PLATELET COUNT 171 K/MM3 (134-434); RBC 3.21 M/mm3 (3.60-5.2); RDW 21.2 % (11.6-15.6); WHITE BLOOD COUNT 4.4 K/mm3 (4.0-10.0)
[2017-10-21 11:12] LABS: ANION GAP 10 (8-16); BLOOD UREA NITROGEN 9 mg/dL (7-18); CALCIUM 9.1 mg/dL (8.5-10.1); CHLORIDE 107 mmol/L (98-107); CO2 24 mmol/L (21-32); CREATININE 0.7 mg/dL (0.55-1.02); GLUCOSE,RANDOM 85 mg/dL (74-106); POTASSIUM 3.8 mmol/L (3.5-5.1); SODIUM 141 mmol/L (136-145)
[2017-10-21] MEDS ORDERED: SODIUM CHLORIDE 250 ML IV ONE (11:15)
[2017-10-21 11:17] LABS: ALBUMIN 2.6 g/dl (3.4-5.0); BILIRUBIN,DIRECT 0.3 mg/dL (0.0-0.2); BILIRUBIN,TOTAL 0.8 mg/dL (0.2-1.0); TOT PROT 6.6 g/dl (6.4-8.2)
[2017-10-21 15:10] VITALS: TEMP 98
[2017-10-21 16:17] VITALS: BP 159/79; PULSE 75
[2017-10-21 21:21] LABS: ANISOCYTOSIS 2+
[2017-10-21 21:22] LABS: MACROCYTOSIS 1+; OVALOCYTE 1+; PLATELET ESTIMATE ADEQUATE
== END 2017-10-21 16:21 | disposition home or self-care (01) ==
LOC: JONCCHEMO 07:46 → J7W 09:55 → JONCCHEMO 16:21
PROVIDERS: ATTEND Internal Medicine Hematology & Oncology
DX: Z51.11 Encounter for antineoplastic chemotherapy (principal); C20 Malignant neoplasm of rectum; C78.7 Secondary malignant neoplasm of liver and intrahepatic bile duct
CPT/HCPCS: 36415; 80048; 80076; 82378; 83735; 84439; 84443; 85025; 87070; 87186; 87205; 96361; 96375; 96413; 96415; 96417; J1100; J2469; J9035

== ENCOUNTER 2017-10-28 07:41 | Day surgery (SDC) | payer OTHER, BC ==
[2017-10-28] MEDS ORDERED: PALONOSETRON HCL 0.25 MG/5 ML VIAL IVPUSH ONE (08:00)
[2017-10-28] MEDS ORDERED: DEXAMETHASONE INJECTION 10 MG in SODIUM CHLORIDE 50 ML IVPB ONE (08:00)
[2017-10-28] MEDS ORDERED: DEXTROSE 5% IVPB ONE (08:30)
[2017-10-28] MEDS ORDERED: LEUCOVORIN IVPB ONE (08:30)
[2017-10-28] MEDS ORDERED: WATER IVPB ONE (08:30)
[2017-10-28] MEDS ORDERED: FLUOROURACIL 2,500 MG/50 ML VIAL IVPUSH ONE (09:30)
[2017-10-28 09:59] VITALS: TEMP 98.2
[2017-10-28] MEDS ORDERED: PORTA CATH FLUSH 10 ML IVPUSH ONE (09:59)
[2017-10-28] MEDS ORDERED: SODIUM CHLORIDE 250 ML IV ONE (10:30)
[2017-10-28 10:33] LABS: EOS % 2.9 % (0-4.5); HEMATOCRIT 27.3 % (32.4-45.2); HEMOGLOBIN 8.9 GM/dL (10.7-15.3); LYMPH % 9.3 % (8-40); MCH 28.4 pg (25.7-33.7); MCHC 32.7 g/dl (32.0-36.0); MEAN CELL VOLUME 86.9 fl (80-96); MEAN PLT VOLUME 8.7 fl (7.5-11.1); MONO % 9.1 % (3.8-10.2); NEUT % 77.7 % (42.8-82.8); PLATELET COUNT 143 K/MM3 (134-434); RBC 3.14 M/mm3 (3.60-5.2); RDW 20.7 % (11.6-15.6); WHITE BLOOD COUNT 3.8 K/mm3 (4.0-10.0)
[2017-10-28 11:25] LABS: ANISOCYTOSIS 2+; MACROCYTOSIS 0; OVALOCYTE 1+; PLATELET ESTIMATE DECREASED
[2017-10-28 11:39] LABS: ALBUMIN 2.8 g/dl (3.4-5.0); ANION GAP 9 (8-16); BILIRUBIN,DIRECT 0.3 mg/dL (0.0-0.2); BLOOD UREA NITROGEN 9 mg/dL (7-18); CALCIUM 8.8 mg/dL (8.5-10.1); CHLORIDE 106 mmol/L (98-107); CO2 24 mmol/L (21-32); GLUCOSE,RANDOM 84 mg/dL (74-106); MAGNESIUM 1.9 mg/dL (1.8-2.4); POTASSIUM 3.9 mmol/L (3.5-5.1); SODIUM 139 mmol/L (136-145)
[2017-10-28 11:42] LABS: ALK PHOS 121 U/L (45-117); BILIRUBIN,TOTAL 0.6 mg/dL (0.2-1.0); CREATININE 0.6 mg/dL (0.55-1.02); SGOT/AST 48 U/L (15-37); SGPT/ALT 22 U/L (12-78); TOT PROT 6.6 g/dl (6.4-8.2)
[2017-10-28 14:54] VITALS: BP 146/70; PULSE 72
== END 2017-10-28 14:59 | disposition home or self-care (01) ==
LOC: JONCCHEMO 07:41 → J7W 09:46 → JONCCHEMO 14:59
PROVIDERS: ATTEND Internal Medicine Hematology & Oncology
PROC: 3E043GC Introduction of Other Therapeutic Substance into Central Vein, Percutaneous Approach (ICD-10-PCS; principal; 2017-10-28)
PROC: 3E043GC Introduction of Other Therapeutic Substance into Central Vein, Percutaneous Approach (ICD-10-PCS; 2017-10-28)
DX: C20 Malignant neoplasm of rectum (principal); C78.7 Secondary malignant neoplasm of liver and intrahepatic bile duct; E03.9 Hypothyroidism, unspecified
CPT/HCPCS: 36415; 80048; 80076; 83735; 85025; 96365; 96366; 96375; 96409; 96415; 96417; J1100; J2469

== ENCOUNTER 2017-11-04 07:29 | Day surgery (SDC) | payer OTHER, BC ==
[2017-11-04] MEDS ORDERED: PALONOSETRON HCL 0.25 MG/5 ML VIAL IVPUSH ONE (08:00)
[2017-11-04] MEDS ORDERED: DEXAMETHASONE INJECTION 10 MG in SODIUM CHLORIDE 50 ML IVPB ONE (08:00)
[2017-11-04] MEDS ORDERED: BEVACIZUMAB IV ONE (08:30)
[2017-11-04] MEDS ORDERED: SODIUM CHLORIDE IV ONE (08:30)
[2017-11-04] MEDS ORDERED: LEUCOVORIN IVPB ONE (09:00)
[2017-11-04] MEDS ORDERED: WATER IVPB ONE (09:00)
[2017-11-04] MEDS ORDERED: DEXTROSE 5% IVPB ONE (09:00)
[2017-11-04] MEDS ORDERED: FLUOROURACIL 2,500 MG/50 ML VIAL IVPUSH ONE (10:00)
[2017-11-04 10:44] LABS: BASO % 1.7 % (0-2.0); EOS % 4.2 % (0-4.5); HEMATOCRIT 27.6 % (32.4-45.2); MCH 28.9 pg (25.7-33.7); MCHC 32.5 g/dl (32.0-36.0); MEAN CELL VOLUME 88.7 fl (80-96); MEAN PLT VOLUME 8.3 fl (7.5-11.1); MONO % 9.1 % (3.8-10.2); PLATELET COUNT 162 K/MM3 (134-434); RBC 3.11 M/mm3 (3.60-5.2); RDW 21.3 % (11.6-15.6); WHITE BLOOD COUNT 3.1 K/mm3 (4.0-10.0)
[2017-11-04] MEDS ORDERED: SODIUM CHLORIDE 250 ML IV ONE (11:00)
[2017-11-04] MEDS ORDERED: PORTA CATH FLUSH 10 ML IVPUSH ONE (11:45)
[2017-11-04 12:33] LABS: ANISOCYTOSIS 2+; MACROCYTOSIS 1+; OVALOCYTE 1+
[2017-11-04 15:18] VITALS: BP 150/70; PULSE 65
[2017-11-04 15:23] VITALS: TEMP 98.1
[2017-11-04 15:24] LABS: BLOOD UREA NITROGEN 9 mg/dL (7-18); CREATININE 0.6 mg/dL (0.55-1.02); GLUCOSE,RANDOM 83 mg/dL (74-106)
[2017-11-04 15:25] LABS: ANION GAP 8 (8-16); BILIRUBIN,DIRECT 0.2 mg/dL (0.0-0.2); BILIRUBIN,TOTAL 0.6 mg/dL (0.2-1.0); CALCIUM 9.1 mg/dL (8.5-10.1); CHLORIDE 106 mmol/L (98-107); CO2 25 mmol/L (21-32); MAGNESIUM 1.9 mg/dL (1.8-2.4); SGOT/AST 35 U/L (15-37); SGPT/ALT 21 U/L (12-78); SODIUM 139 mmol/L (136-145); TOT PROT 6.7 g/dl (6.4-8.2)
[2017-11-04 15:27] LABS: ALK PHOS 114 U/L (45-117)
[2017-11-04 17:26] LABS: URINE APPEARANCE CLEAR; URINE BILIRUBIN NEGATIVE (<2.0 mg/dL); URINE COLOR STRAW; URINE GLUCOSE (UA) NEGATIVE (NEGATIVE); URINE KETONE NEGATIVE (NEGATIVE); URINE NITRITE NEGATIVE (NEGATIVE); URINE PROTEIN NEGATIVE (NEGATIVE); URINE UROBILINOGEN NEGATIVE mg/dL (0.2-1.0)
[2017-11-04 17:28] LABS: URINE LEUK ESTERASE 1+ (NEGATIVE)
[2017-11-04 19:04] LABS: EPI CELLS RARE /HPF (FEW); URINE MUCUS RARE
== END 2017-11-04 15:15 | disposition home or self-care (01) ==
LOC: JONCCHEMO 07:29 → J7W 09:36 → JONCCHEMO 15:15
PROVIDERS: ATTEND Internal Medicine Hematology & Oncology
DX: Z51.11 Encounter for antineoplastic chemotherapy (principal); C20 Malignant neoplasm of rectum; C78.7 Secondary malignant neoplasm of liver and intrahepatic bile duct; E03.9 Hypothyroidism, unspecified
CPT/HCPCS: 36415; 80048; 80076; 81003; 81015; 83735; 85025; 87086; 96361; 96366; 96367; 96375; 96409; 96413; 96415; 96417; 97116-GP; 97161-GP; J1100; J2469; J9035

== ENCOUNTER 2017-11-18 07:18 | Day surgery (SDC) | payer OTHER, BC ==
[2017-11-18] MEDS ORDERED: PALONOSETRON HCL 0.25 MG/5 ML VIAL IVPUSH ONE (10:00)
[2017-11-18] MEDS ORDERED: DEXAMETHASONE INJECTION 10 MG in SODIUM CHLORIDE 50 ML IVPB ONE (10:00)
[2017-11-18] MEDS ORDERED: DEXTROSE 5% IVPB ONE (10:30)
[2017-11-18] MEDS ORDERED: WATER IVPB ONE (10:30)
[2017-11-18] MEDS ORDERED: LEUCOVORIN IVPB ONE (10:30)
[2017-11-18 11:07] LABS: BASO % 1.2 % (0-2.0); EOS % 2.5 % (0-4.5); HEMATOCRIT 31.3 % (32.4-45.2); HEMOGLOBIN 10.1 GM/dL (10.7-15.3); LYMPH % 13.1 % (8-40); MCH 29.8 pg (25.7-33.7); MCHC 32.4 g/dl (32.0-36.0); MEAN CELL VOLUME 92.1 fl (80-96); MEAN PLT VOLUME 9.1 fl (7.5-11.1); MONO % 11.4 % (3.8-10.2); NEUT % 71.8 % (42.8-82.8); PLATELET COUNT 164 K/MM3 (134-434); RDW 27.1 % (11.6-15.6); WHITE BLOOD COUNT 3.8 K/mm3 (4.0-10.0)
[2017-11-18] MEDS ORDERED: FLUOROURACIL 500 MG/10 ML VIAL IVPUSH ONE (11:30)
[2017-11-18 11:56] LABS: ALBUMIN 3.2 g/dl (3.4-5.0); ANION GAP 13 (8-16); BLOOD UREA NITROGEN 10 mg/dL (7-18); CALCIUM 9.4 mg/dL (8.5-10.1); CHLORIDE 105 mmol/L (98-107); CO2 23 mmol/L (21-32); GLUCOSE,RANDOM 87 mg/dL (74-106); MAGNESIUM 2.1 mg/dL (1.8-2.4); POTASSIUM 3.9 mmol/L (3.5-5.1); SODIUM 141 mmol/L (136-145)
[2017-11-18 12:00] LABS: ALK PHOS 127 U/L (45-117); BILIRUBIN,DIRECT 0.4 mg/dL (0.0-0.2); BILIRUBIN,TOTAL 1.1 mg/dL (0.2-1.0); CREATININE 0.8 mg/dL (0.55-1.02); SGOT/AST 33 U/L (15-37); SGPT/ALT 17 U/L (12-78)
[2017-11-18] MEDS ORDERED: BEVACIZUMAB IV ONE (12:30)
[2017-11-18] MEDS ORDERED: SODIUM CHLORIDE IV ONE (12:30)
[2017-11-18] MEDS ORDERED: SODIUM CHLORIDE 250 ML IV ONE (13:00)
[2017-11-18 17:40] VITALS: TEMP 98
[2017-11-18 18:06] VITALS: BP 126/58; PULSE 82
[2017-11-18] MEDS ORDERED: PORTA CATH FLUSH 10 ML IVPUSH ONE (18:15)
== END 2017-11-18 16:45 | disposition home or self-care (01) ==
LOC: JONCCHEMO 07:18 → J7W 10:17 → JONCCHEMO 16:45
PROVIDERS: ATTEND Internal Medicine Hematology & Oncology
PROC: 3E04305 Introduction of Other Antineoplastic into Central Vein, Percutaneous Approach (ICD-10-PCS; principal; 2017-11-18)
PROC: 3E043GC Introduction of Other Therapeutic Substance into Central Vein, Percutaneous Approach (ICD-10-PCS; 2017-11-18)
PROC: 3E0437Z Introduction of Electrolytic and Water Balance Substance into Central Vein, Percutaneous Approach (ICD-10-PCS; 2017-11-18)
DX: Z51.11 Encounter for antineoplastic chemotherapy (principal); C20 Malignant neoplasm of rectum; C78.7 Secondary malignant neoplasm of liver and intrahepatic bile duct; E03.9 Hypothyroidism, unspecified
CPT/HCPCS: 36415; 80048; 80076; 83735; 85025; 96361; 96375; 96409; 96413; 96415; 96417; J1100; J2469; J9035; J9190

== ENCOUNTER 2017-11-25 07:38 | Day surgery (SDC) | payer OTHER, BC ==
[2017-11-25] MEDS ORDERED: DEXAMETHASONE INJECTION 10 MG in SODIUM CHLORIDE 50 ML IVPB ONE (10:00)
[2017-11-25] MEDS ORDERED: PALONOSETRON HCL 0.25 MG/5 ML VIAL IVPUSH ONE (10:00)
[2017-11-25] MEDS ORDERED: WATER IVPB ONE (10:30)
[2017-11-25] MEDS ORDERED: DEXTROSE 5% IVPB ONE (10:30)
[2017-11-25] MEDS ORDERED: LEUCOVORIN IVPB ONE (10:30)
[2017-11-25 10:42] LABS: BASO % 0.8 % (0-2.0); EOS % 2.9 % (0-4.5); HEMATOCRIT 28.2 % (32.4-45.2); HEMOGLOBIN 9.2 GM/dL (10.7-15.3); MCH 30.1 pg (25.7-33.7); MCHC 32.5 g/dl (32.0-36.0); MEAN CELL VOLUME 92.8 fl (80-96); MEAN PLT VOLUME 8.8 fl (7.5-11.1); MONO % 10.1 % (3.8-10.2); NEUT % 77.2 % (42.8-82.8); PLATELET COUNT 119 K/MM3 (134-434); RBC 3.04 M/mm3 (3.60-5.2); RDW 26.6 % (11.6-15.6); WHITE BLOOD COUNT 3.6 K/mm3 (4.0-10.0)
[2017-11-25 11:01] LABS: ANION GAP 10 (8-16); BILIRUBIN,DIRECT 0.3 mg/dL (0.0-0.2); BLOOD UREA NITROGEN 13 mg/dL (7-18); CALCIUM 9.2 mg/dL (8.5-10.1); CHLORIDE 107 mmol/L (98-107); CO2 25 mmol/L (21-32); CREATININE 0.7 mg/dL (0.55-1.02); GLUCOSE,RANDOM 99 mg/dL (74-106); POTASSIUM 3.7 mmol/L (3.5-5.1); SGOT/AST 29 U/L (15-37); SGPT/ALT 18 U/L (12-78); SODIUM 142 mmol/L (136-145)
[2017-11-25 11:02] LABS: ALK PHOS 107 U/L (45-117); BILIRUBIN,TOTAL 0.7 mg/dL (0.2-1.0); TOT PROT 6.5 g/dl (6.4-8.2)
[2017-11-25] MEDS ORDERED: FLUOROURACIL 500 MG/10 ML VIAL IVPUSH ONE (11:30)
[2017-11-25] MEDS ORDERED: SODIUM CHLORIDE 250 ML IV ONE (12:30)
[2017-11-25 15:24] VITALS: TEMP 98.1
[2017-11-25] MEDS ORDERED: PORTA CATH FLUSH 10 ML IVPUSH ONE (16:07)
[2017-11-25 16:11] VITALS: BP 137/67; PULSE 68
== END 2017-11-25 15:00 | disposition home or self-care (01) ==
LOC: JONCCHEMO 07:38 → J7W 09:09 → JONCCHEMO 15:00
PROVIDERS: ATTEND Internal Medicine Hematology & Oncology
PROC: 3E04305 Introduction of Other Antineoplastic into Central Vein, Percutaneous Approach (ICD-10-PCS; principal; 2017-11-25)
PROC: 3E043GC Introduction of Other Therapeutic Substance into Central Vein, Percutaneous Approach (ICD-10-PCS; 2017-11-25)
PROC: 3E043GC Introduction of Other Therapeutic Substance into Central Vein, Percutaneous Approach (ICD-10-PCS; 2017-11-25)
DX: Z51.11 Encounter for antineoplastic chemotherapy (principal); C20 Malignant neoplasm of rectum; C78.7 Secondary malignant neoplasm of liver and intrahepatic bile duct; E03.9 Hypothyroidism, unspecified
CPT/HCPCS: 36415; 80048; 80076; 82378; 83735; 85025; 96361; 96365; 96375; 96409; 96415; 96417; J1100; J2469; J9190

== ENCOUNTER 2017-12-02 07:20 | Day surgery (SDC) | payer OTHER, BC ==
[2017-12-02] MEDS ORDERED: PALONOSETRON HCL 0.25 MG/5 ML VIAL IVPUSH ONE (10:00)
[2017-12-02] MEDS ORDERED: DEXAMETHASONE INJECTION 10 MG in SODIUM CHLORIDE 50 ML IVPB ONE (10:00)
[2017-12-02] MEDS ORDERED: SODIUM CHLORIDE IV ONE (10:30)
[2017-12-02] MEDS ORDERED: BEVACIZUMAB IV ONE (10:30)
[2017-12-02 10:33] LABS: BASO % 1.2 % (0-2.0); EOS % 2.3 % (0-4.5); HEMATOCRIT 29.9 % (32.4-45.2); HEMOGLOBIN 9.9 GM/dL (10.7-15.3); LYMPH % 10.8 % (8-40); MCHC 33.2 g/dl (32.0-36.0); MEAN CELL VOLUME 93.2 fl (80-96); MEAN PLT VOLUME 9.1 fl (7.5-11.1); MONO % 9.8 % (3.8-10.2); NEUT % 75.9 % (42.8-82.8); PLATELET COUNT 139 K/MM3 (134-434); RDW 27.2 % (11.6-15.6); WHITE BLOOD COUNT 4.3 K/mm3 (4.0-10.0)
[2017-12-02] MEDS ORDERED: WATER IVPB ONE (11:00)
[2017-12-02] MEDS ORDERED: LEUCOVORIN IVPB ONE (11:00)
[2017-12-02] MEDS ORDERED: DEXTROSE 5% IVPB ONE (11:00)
[2017-12-02 11:03] LABS: ANION GAP 12 MMOL/L (8-16); BILIRUBIN,DIRECT 0.3 mg/dL (0.0-0.2); BLOOD UREA NITROGEN 10 mg/dL (7-18); CALCIUM 9.2 mg/dL (8.5-10.1); CHLORIDE 106 mmol/L (98-107); CO2 24 mmol/L (21-32); CREATININE 0.6 mg/dL (0.55-1.02); GLUCOSE,RANDOM 86 mg/dL (74-106); POTASSIUM 3.6 mmol/L (3.5-5.1); SGOT/AST 28 U/L (15-37); SODIUM 142 mmol/L (136-145)
[2017-12-02 11:09] LABS: ALK PHOS 102 U/L (45-117); SGPT/ALT 17 U/L (12-78); TOT PROT 6.5 g/dl (6.4-8.2)
[2017-12-02] MEDS ORDERED: FLUOROURACIL 500 MG/10 ML VIAL IVPUSH ONE (12:00)
[2017-12-02 12:24] VITALS: BP 128/62; PULSE 77; TEMP 97.3
[2017-12-02] MEDS ORDERED: PORTA CATH FLUSH 10 ML IVPUSH ONE ×2 (12:25→15:30)
[2017-12-02] MEDS ORDERED: SODIUM CHLORIDE 250 ML IV ONE (13:00)
== END 2017-12-02 15:00 | disposition home or self-care (01) ==
LOC: JONCCHEMO 07:20 → J7W 09:42 → JONCCHEMO 15:00
PROVIDERS: ATTEND Internal Medicine Hematology & Oncology
DX: Z51.11 Encounter for antineoplastic chemotherapy (principal); C20 Malignant neoplasm of rectum; C78.7 Secondary malignant neoplasm of liver and intrahepatic bile duct
CPT/HCPCS: 36415; 80048; 80076; 85025; 96361; 96366; 96367; 96375; 96409; 96413; 96415; 96417; J1100; J2469; J9035; J9190

== ENCOUNTER 2017-12-09 06:18 | Inpatient (IN) | payer OTHER, BC ==
--- NOTE | 2017-12-09 06:45 | PDOC ---
Rapid Medical Evaluation Chief Complaint: Bleeding from Anus Medical Evaluation: Allergies Allergy/AdvReac Type Severity Reaction Status Date / Time ciprofloxacin [From Cipro] Allergy Rash Verified 12/09/17 06:28 shellfish derived Allergy Vomiting Verified 12/09/17 06:28 Vital Signs Temp Pulse Resp BP Pulse Ox 97.9 F 88 20 95/56 97 12/09/17 06:28 12/09/17 06:28 12/09/17 06:28 12/09/17 06:28 12/09/17 06:28 12/09/17 06:41 67 yo F with hx of colon cancer with active chemotherapy presenting with bright red blood per rectum since 12 am. Had small bleeding yesterday that was considered "normal" that she has every few weeks, but had bright red blood per rectum that soaked through two depends and was unusual for her. Denies pain and anticoagulant use, but has weakness. Last chemo; last followed by Dr. Owens. PE: VS borderline stable, A and O x3 will order cbc, cmp, TS, PT/INR, cardiac profile, EKG, 1 L NS. Will proceed to ED for further evaluation. 12/09/17 06:45 12/09/17 06:45 12/09/17 11:54 Discharge Disposition - Diagnosis GI bleed Qualifiers: GI bleed type/associated pathology: unspecified gastrointestinal hemorrhage type Qualified Code(s): K92.2 - Gastrointestinal hemorrhage, unspecified - Discharge Dispostion Last Admission D/C Date: 08/27/17 - Referrals - Patient Instructions - Post Discharge Activity
[2017-12-09] MEDS ORDERED: SODIUM CHLORIDE 1,000 ML IV STA (06:46)
--- NOTE | 2017-12-09 07:36 | PDOC ---
History of Present Illness - General Chief Complaint: Bleeding from Anus Stated Complaint: WEAKNESS Time Seen by Provider: 12/09/17 06:55 History Source: Patient Exam Limitations: No Limitations - History of Present Illness Initial Comments: 12/09/17 07:31 Pt is a 67yo f with PMH of rectal ca presenting to ED because "they told me that I'm bleeding from my rectum, but it could be my vagina and I feel week". Symptoms started 2 days ago. Pt said she was sitting in a chair and fell off, and could not get up. She denies losing consciousness or hitting her head. Pt said this happened to her before, and it went away. She states that she was told it was a fistula between her colon and vagina. She feels weak and lightheaded. She denies syncope, chest pain, shortness of breath, abdominal pain , n/v/d, dizziness, hematuria, dysuria, new numbness/tingling, changes in vision. She receives chemo 3 times/mo, last tx was last week. PCP: Rod Onc: Roman PMH: colorectal ca, hypothyroid PSH: colostomy Mesd: levothyroxine, cefidil allergies: cipro social: occasional alcohol use. Denies tobacco, illicit drug use Past History - Past Medical History Allergies/Adverse Reactions: Allergies Allergy/AdvReac Type Severity Reaction Status Date / Time ciprofloxacin [From Cipro] Allergy Rash Verified 12/09/17 06:28 shellfish derived Allergy Vomiting Verified 12/09/17 06:28 Home Medications: Ambulatory Orders Acetaminophen W/ Codeine #3 [Tylenol # 3 -] 1 tab PO Q6H PRN #40 tablet MDD 4 Acetaminophen [Tylenol .Regular Strength -] 650 mg PO Q6H PRN tablet 08/27/17 Levothyroxine [Synthroid -] 112 mcg PO DAILY@0700 #30 tablet 08/27/17 Melatonin 10 mg PO HS 12/09/17 Anemia: Yes Asthma: No Cancer: Yes (RECTAL CANCER w/ mets to LIVER 09/23) Cardiac Disorders: No CVA: No COPD: No CHF: No Dementia: No Diabetes: No GI Disorders: Yes (RECTAL CA) Disorders: No HTN: No Hypercholesterolemia: No Liver Disease: Yes (Cancer) Seizures: No Thyroid Disease: Yes (HYPO) - Surgical History Abdominal Surgery: Yes (ILEOSTOMY 09/23) Appendectomy: No Cardiac Surgery: No Cholecystectomy: No Lung Surgery: No Neurologic Surgery: No Orthopedic Surgery: No - Immunization History Immunization Up to Date: Yes - Suicide/Smoking/Psychosocial Hx Smoking History: Never smoked Have you smoked in the past 12 months: No Number of Cigarettes Smoked Daily: 15 If you are a former smoker, when did you quit?: 2013 Information on smoking cessation initiated: No 'Breaking Loose' booklet given: 10/09/13 Hx Alcohol Use: No Drug/Substance Use Hx: No Substance Use Type: None Hx Substance Use Treatment: No Review of Systems - Review of Systems Constitutional: Yes: Weakness. No: Chills, Fever HEENTM: No: Recent change in vision, Double Vision Respiratory: No: Cough, Shortness of Breath Cardiac (ROS): Yes: Lightheadedness. No: Chest Pain, Palpitations ABD/GI: Yes: Rectal Bleeding (or vaginal bleeding). No: Blood Streaked Bowels, Constipated, Diarrhea, Nausea, Vomiting, Tarry Stools : No: Burning, Dysuria Musculoskeletal: No: Back Pain, Muscle Pain Neurological: No: Headache, Numbness, Paresthesia, Tingling *Physical Exam - Vital Signs Last Vital Signs Temp Pulse Resp BP Pulse Ox 97.9 F 88 20 95/56 97 12/09/17 06:28 12/09/17 06:28 12/09/17 06:28 12/09/17 06:28 12/09/17 06:28 - Physical Exam General Appearance: Yes: Nourished, Appropriately Dressed, Apparent Distress HEENT: positive: EOMI, SIMON, Pharynx Normal, Pale Conjunctivae. negative: Pharyngeal Erythema Neck: positive: Trachea midline, Supple, Lymphadenopathy (R), Lymphadenopathy (L ). negative: Carotid bruit Respiratory/Chest: positive: Lungs Clear, Normal Breath Sounds. negative: Crackles, Rales, Rhonchi, Stridor Cardiovascular: positive: Regular Rate, S1, S2, Irregular. negative: JVD, Murmur Vascular Pulses: Carotid (R): 2+, Carotid (L): 2+, Dorsalis-Pedis (R): 2+, Doralis-Pedis (L): 2+ Female Pelvic Exam: positive: other (blood oozing from vaginal canal) Gastrointestinal/Abdominal: positive: Normal Bowel Sounds, Soft, Tenderness (RLQ , LUQ), Other (colostomy back RLQ). negative: Guarding, Rebound Rectal Exam: positive: normal rectal tone, heme positive stool (could be due to clotting blood noted around anus), other (dried blood around rectum. No gross blood noted on glove. ). negative: melena, hemorrhoids Musculoskeletal: negative: CVA Tenderness Extremity: positive: Delayed Capillary Refill. 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 negative: Motor Strength 08/14 ED Treatment Course - LABORATORY CBC & Chemistry Diagram: 12/09/17 06:45 12/09/17 08:30 Medical Decision Making - Medical Decision Making 12/09/17 19:44 Pt is a 67yo f with PMH of rectal ca presenting to ED because "they told me that I'm bleeding from my rectum, but it could be my vagina and I feel week". Pt given 2 L fluid, blood pressure went up from 95/56 to 110/54. Hgb 7.9 from 9.9 on 12/02. Pt given blood. 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 Pt will be admitted to Dr. Blanchard for further management. BP 113/44 *DC/Admit/Observation/Transfer Diagnosis at time of Disposition: GI bleed Qualifiers: GI bleed type/associated pathology: unspecified gastrointestinal hemorrhage type Qualified Code(s): K92.2 - Gastrointestinal hemorrhage, unspecified - Discharge Dispostion Condition at time of disposition: Stable Decision to Admit order: Yes - Referrals - Patient Instructions - Post Discharge Activity
[2017-12-09 07:38] LABS: BASO % 0.4 % (0-2.0); EOS % 0.2 % (0-4.5); HEMATOCRIT 24.8 % (32.4-45.2); HEMOGLOBIN 7.9 GM/dL (10.7-15.3); LYMPH % 4.4 % (8-40); MCHC 31.9 g/dl (32.0-36.0); MEAN CELL VOLUME 97.3 fl (80-96); MEAN PLT VOLUME 9.7 fl (7.5-11.1); MONO % 14.6 % (3.8-10.2); NEUT % 80.4 % (42.8-82.8); PLATELET COUNT 116 K/MM3 (134-434); RBC 2.55 M/mm3 (3.60-5.2); RDW 28.2 % (11.6-15.6); WHITE BLOOD COUNT 4.2 K/mm3 (4.0-10.0)
--- NOTE | 2017-12-09 08:53 | PDOC ---
Attending Attestation - Resident Resident Name: Cora Song - ED Attending Attestation I have performed the following: I have examined & evaluated the patient, The case was reviewed & discussed with the resident, I agree w/resident's findings & plan - HPI HPI: 12/09/17 08:45 67-year-old female with cognitive medical history including metastatic rectal adenocarcinoma status post resection/colostomy on chemotherapy with last infusion about one week ago presents now with 1 day of vaginal versus rectal bleeding, progressive severe weakness, and fall from chair this morning without loss of consciousness or injury. Denies any chest pain or shortness of breath, denies any fevers or chills. - Physicial Exam PE: 12/09/17 08:45 Vitals as noted, blood pressure initially 90 systolic down to 105 systolic after IV fluid resuscitation Pale, chronically ill-appearing, but alert and speaking full sentences Exam is atraumatic Right chest chemotherapy port lungs clear, heart regular abdomen soft, pelvic per resident - Critical Care Time Total Critical Care Time: 45 Critical Care Statement: The care of this patient involved high complexity decision making to prevent further life threatening deterioration of the patient 's condition and/or to evaluate & treat vital organ system(s) failure or risk of failure. - Medical Decision Making 12/09/17 08:53 67-year-old female with history of adenocarcinoma now complicated again by bleeding, likely acute on chronic anemia 2/2 blood loss leading to severe weakness and fall, initially hypotensive now improved after resuscitation. check labs transfuse PRBC ekg, cxr discuss with primary team: Rod/Roman/Marina for admission
[2017-12-09 09:42] LABS: ALBUMIN 2.2 g/dl (3.4-5.0); ANION GAP 12 MMOL/L (8-16); BLOOD UREA NITROGEN 18 mg/dL (7-18); CALCIUM 8.5 mg/dL (8.5-10.1); CHLORIDE 107 mmol/L (98-107); CO2 21 mmol/L (21-32); GLUCOSE,RANDOM 116 mg/dL (74-106); POTASSIUM 4.1 mmol/L (3.5-5.1); SODIUM 140 mmol/L (136-145)
[2017-12-09 09:45] LABS: ALK PHOS 76 U/L (45-117); CREATININE 1.2 mg/dL (0.55-1.02); SGOT/AST 25 U/L (15-37); SGPT/ALT 14 U/L (12-78); TOT PROT 4.8 g/dl (6.4-8.2)
[2017-12-09 09:49] LABS: INR 1.9 (0.83-1.09); PROTHROMBIN TIME (PATIENT) 21.5 SEC (9.7-13.0)
[2017-12-09 09:52] LABS: ACTIVATED PTT 23.3 SECONDS (25.2-36.5)
[2017-12-09 11:22] LABS: ANISOCYTOSIS 2+; MACROCYTOSIS 1+; OVALOCYTE 1+; PLATELET ESTIMATE DECREASED; TEAR DROP CELLS 1+; TOXIC GRANULATION 1+
--- NOTE | 2017-12-09 11:47 | EKG ---
Test Reason : Blood Pressure : / mmHG Vent. Rate : 092 BPM Atrial Rate : 092 BPM P-R Int : 148 ms QRS Dur : 112 ms QT Int : 396 ms P-R-T Axes : 008 -55 042 degrees QTc Int : 489 ms POOR DATA QUALITY, INTERPRETATION MAY BE ADVERSELY AFFECTED NORMAL SINUS RHYTHM LEFT ANTERIOR FASCICULAR BLOCK ABNORMAL ECG WHEN COMPARED WITH ECG OF 18-AUG-2017 10:02, QT HAS LENGTHENED Confirmed by ROCHELLE EDOUARD, DMITRY ([id number]) on 12/09/2017 11:46:58 AM Referred By: Confirmed By:DMITRY BYRD MD
[2017-12-09 15:55] VITALS: BMI 29.6
[2017-12-09] MEDS ORDERED: ONDANSETRON 4 MG/2 ML VIAL IVPB PRN (17:49)
[2017-12-09] MEDS ORDERED: MORPHINE SULFATE 2 MG/ML VIAL IVPUSH PRN (17:49)
[2017-12-09] MEDS ORDERED: ACETAMINOPHEN 1000 MG/100 ML VIAL (NON FORMULARY) IVPB PRN (17:49)
--- NOTE | 2017-12-09 23:17 | PN ---
Teaching Attending Note Name of Resident: Kamla Laureano ATTENDING PHYSICIAN STATEMENT I saw and evaluated the patient. I reviewed the resident's note and discussed the case with the resident. I agree with the resident's findings and plan as documented. SUBJECTIVE:67-year-old female with medical history including metastatic rectal adenocarcinoma status post resection/colostomy on chemotherapy with last chemotherapy about one week ago presents now with 1 day of vaginal bleeding, progressive severe weakness, and fall from chair this morning without loss of consciousness or injury. Denies any chest pain or shortness of breath, denies any fevers or chills. PE: Last Vital Signs Temp Pulse Resp BP Pulse Ox 97.9 F 88 20 95/56 97 12/09/17 06:28 12/09/17 06:28 12/09/17 06:28 12/09/17 06:28 12/09/17 06:28 Pale chronically ill-appearing, but alert and speaking full sentences Exam is atraumatic Right chest chemotherapy port lungs clear, heart regular abdomen soft, normal bowel sounds ext -no edema A/P 67 year old with history of rectal ca , s/p neoadjuvant RT and chemotherapy followed by surgery requiring colostomy and completion of adjuvant therapy. Developed liver mets and extrahepatic mets requiring multiple courses of chemotherapy. (oxaliplatin, irinotecan, avastin xeloda) Last chemotherapy one week earlier with infusional 5FU and leucovorum. 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 Presents now with vaginal bleeding , falling Hct. Getting PRBC transfusion
[2017-12-10] MEDS: LEVOTHYROXINE NA 112 MCG TABLET (FP) PO SCH (06:15)
--- NOTE | 2017-12-10 08:12 | PN ---
Progress Note (short form) - Note Progress Note: Patient seen and examined Admitted with weakness, falling Hct bleeding which seems vaginal in origin. Has required 2 units of packed cells and continues to have vaginal bleeding. Last Vital Signs Temp Pulse Resp BP Pulse Ox 97.8 F 57 L 20 121/58 100 12/10/17 06:00 12/10/17 06:00 12/10/17 06:00 12/10/17 06:00 12/09/17 21:00 HEENT: EVETTE, EOM Intact Oropharynx: No thrush, No mucositis Neck: Supple Nodes: Without adenopathy Breasts: Without masses Cor: RSR, No murmurs, No gallops Lungs: Clear to P&A Abd: Soft, Normal bowel sounds, No organomegaly, colostomy Ext:No significant edema Skin: No rashes, Integument intact No definite bleeding via rectum Blood per rectum CBC, BMP 12/09/17 06:45 12/09/17 08:30 INR, PTT INR 1.90 (0.83-1.09) H 12/09/17 08:30 Current Medications Generic Name Dose Route Start Last Admin Trade Name Freq PRN Reason Stop Dose Admin Acetaminophen 650 mg 12/09/17 11:07 Tylenol - PO Q6H PRN PAIN OR FEVER Acetaminophen 1,000 mg 12/09/17 17:49 Ofirmev Injection - IVPB Q6H PRN FEVER Acetaminophen/Codeine Phosphate 1 tab 12/09/17 11:07 Tylenol # 3 - PO Q6H PRN PAIN LEVEL 4 - 6 Levothyroxine Sodium 112 mcg 12/10/17 07:00 12/10/17 06:15 Synthroid - PO Not Given DAILY@0700 [facility] Morphine Sulfate 2 mg 12/09/17 17:49 Morphine Sulfate IVPUSH Q6H PRN PAIN LEVEL 7 - 10 Ondansetron HCl 8 mg 12/09/17 17:49 Zofran Injection IVPB Q6H PRN NAUSEA Pantoprazole Sodium 40 mg 12/10/17 10:00 Protonix Iv IVPUSH DAILY [facility] Impression: 67 year old with history of rectal ca , s/p neoadjuvant RT and chemotherapy followed by surgery requiring colostomy and completion of adjuvant therapy. Developed liver mets and extrahepatic mets requiring multiple courses of chemotherapy. (oxaliplatin, irinotecan, avastin xeloda) Last chemotherapy one week earlier with infusional 5FU and leucovorum. 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 Presents now with vaginal bleeding , falling Hct. Plan: Elevated INR- for vitamin K and FFP. HOME APPRAISER consult - called CT abdomen /pelvis Pelvic sono/TVS Surgical follow up Nonitor CBC/coags/lytes.
[2017-12-10 08:38] LABS: HEMATOCRIT 24.7 % (32.4-45.2); HEMOGLOBIN 8.3 GM/dL (10.7-15.3); MCH 30.8 pg (25.7-33.7); MCHC 33.5 g/dl (32.0-36.0); PLATELET COUNT 75 K/MM3 (134-434); RBC 2.69 M/mm3 (3.60-5.2); RDW 22.2 % (11.6-15.6); WHITE BLOOD COUNT 2.2 K/mm3 (4.0-10.0)
[2017-12-10 08:57] LABS: ALBUMIN 2.1 g/dl (3.4-5.0); ANION GAP 7 MMOL/L (8-16); BLOOD UREA NITROGEN 16 mg/dL (7-18); CALCIUM 8.2 mg/dL (8.5-10.1); CHLORIDE 109 mmol/L (98-107); CO2 24 mmol/L (21-32); CREATININE 0.6 mg/dL (0.55-1.02); GLUCOSE,RANDOM 75 mg/dL (74-106); MAGNESIUM 1.9 mg/dL (1.8-2.4); POTASSIUM 3.8 mmol/L (3.5-5.1); SGOT/AST 37 U/L (15-37); SODIUM 140 mmol/L (136-145)
[2017-12-10 09:10] LABS: ALK PHOS 82 U/L (45-117); BILIRUBIN,TOTAL 1.1 mg/dL (0.2-1.0); SGPT/ALT 16 U/L (12-78)
--- NOTE | 2017-12-10 09:22 | CONS ---
DATE OF CONSULTATION: 12/10/2017 REASON FOR CONSULTATION: Vaginal bleeding, rule out rectovaginal fistula. HISTORY OF PRESENT ILLNESS: Patient is a 67-year-old pleasant female with a past medical history of rectal cancer, status post colorectal surgery and colostomy, who has received chemotherapy, previous history of rectovaginal fistula which was repaired, now presented with weakness and severe anemia and complaint of rectovaginal bleed. I was asked to see the patient to rule out recurrence of the rectovaginal fistula, rule out metastasis to the vagina. PAST MEDICAL HISTORY: Hypothyroidism, presently on Synthroid. PHYSICAL EXAMINATION:Vital Signs: Temperature was 97.8, pulse was 57, blood pressure 121/58. Her white count was 2.2, hemoglobin of 8.3, hematocrit of 24.7 and platelets of 75,000. General: Patient comfortable, pleasant and awake and alert. Abdomen: Soft, nontender. No masses were palpable. She has a colostomy which was functional. Pelvic: Difficult examination on the bed and patient was very uncomfortable during the examination. External genitalia to be were normal. Vagina had some old bloody discharge. There was weakness between the vaginal rectum and the right vaginal wall area which appeared to be a possible rectovaginal fistula in that area. The glove was bloody when that area was touched. Upper part of the vagina blood was not seen. Difficult to visualize cervix. Rest of the pelvic exam was normal. Rectal: Also showed that there was some weakness in the right rectovaginal area, but no gross fistula was demonstrated. IMPRESSION: Vaginal bleeding secondary to possible recurrence of rectovaginal fistula. Patient has been scheduled to have radiographic studies and CAT scan. Will reevaluate after the CAT scan of the abdomen and pelvis completed. Meantime recommend monitor platelets and hemoglobin and hematocrit and observation. Thank you. Calin [id number]
--- NOTE | 2017-12-10 09:34 | PN ---
Progress Note (short form) - Note Progress Note: PT seen this am with Dr. Owens. A consult was placed for Dr. Benítez. The patient is s/p revision of loop colosotmy to end colostomy for rectovaginal fistula. She has a history of rectal cancer with a LAR/loop colostomy pelivc radiation/chemotherapy. She came to the ER becasue she felt weakness and slumped off the chair, when the paramedics arrived there was bleeding noted in her diaper. She states that she noticed it mostly in her diaper but also with urinating and blood on the tissue. This has happened in the past but resolved on its own. s/p 2 units of PRBC overnight. C/o poor appeitite/weakness. Last week she recvied a chomotherapy treatment. No blood noted in ostomy. Vital Signs Period Temp Pulse Resp BP Sys/Bird Pulse Ox Last 24 Hr 97.6 F-97.9 F 57-66 18-20 99-121/44-63 100-100 GEN: appears lethargic, A&0x3 ABD: soft, non-distended, non-tender. Ostomy with brown stool. TRAVEL PTA: blood noted on her labia Rectum: No blood visualized CBC, BMP 12/10/17 07:00 12/10/17 07:00 Laboratory Tests 12/09/17 08:30 PT with INR 21.50 H INR 1.90 H PTT (Actin FS) 23.3 L A/P: 67 yo female with a h/o Rectal CA s/p LAR with pelvic radiation/ chemotherapy. Revision of loop colostomy to end colostomy for rectovagnial fistula D/w Dr. Benítez and TRAVEL PTA consulted ordered Spoke with Dr. Owens and Dr. Prabhakar ordered pelvic/transvagnial sono, as well as ct scan of abd pelvis Recommend to monitor H&H and transfuse as needed Spoke with Dr. Benítez and he is to follow-up with the patients care
[2017-12-10] MEDS ORDERED: PHYTONADIONE 10 MG/1 ML AMP SQ ONE (10:45)
--- NOTE | 2017-12-10 11:07 | PN ---
Progress Note, Physician Chief Complaint: rectovaginal fistula History of Present Illness: NAD H/H stable Seen by CHAR BELT OPERATOR Awaiting CT abdomen/pelvis, U/S transvaginal - Current Medication List Current Medications: Active Medications Acetaminophen (Tylenol -) 650 mg PO Q6H PRN PRN Reason: PAIN OR FEVER Acetaminophen (Ofirmev Injection -) 1,000 mg IVPB Q6H PRN PRN Reason: FEVER Acetaminophen/Codeine Phosphate (Tylenol # 3 -) 1 tab PO Q6H PRN PRN Reason: PAIN LEVEL 4 - 6 Levothyroxine Sodium (Synthroid -) 112 mcg PO DAILY@0700 [facility] Last Admin: 12/10/17 06:15 Dose: Not Given Morphine Sulfate (Morphine Sulfate) 2 mg IVPUSH Q6H PRN PRN Reason: PAIN LEVEL 7 - 10 Ondansetron HCl (Zofran Injection) 8 mg IVPB Q6H PRN PRN Reason: NAUSEA Pantoprazole Sodium (Protonix Iv) 40 mg IVPUSH DAILY [facility] - Objective Vital Signs: Vital Signs Temperature 97.8 F 12/10/17 06:00 Pulse Rate 57 L 12/10/17 06:00 Respiratory Rate 20 12/10/17 06:00 Blood Pressure 121/58 12/10/17 06:00 O2 Sat by Pulse Oximetry (%) 100 12/09/17 21:00 Constitutional: Yes: Well Nourished, No Distress, Calm Cardiovascular: Yes: Regular Rate and Rhythm Respiratory: Yes: Regular Gastrointestinal: Yes: Normal Bowel Sounds, Soft Musculoskeletal: Yes: WNL Extremities: Yes: WNL Edema: No Neurological: Yes: Alert, Oriented Psychiatric: Yes: Alert, Oriented Labs: CBC, BMP 12/10/17 07:00 12/10/17 07:00 INR, PTT INR 1.90 (0.83-1.09) H 12/09/17 08:30 Problem List - Problems (1) Anemia Assessment/Plan: -2/2 to GI bleed -h/h stable at this time -monitor trend -transfuse for hg <8.0 -Hematology/oncology on board Code(s): D64.9 - ANEMIA, UNSPECIFIED Qualifiers: Anemia type: unspecified type Qualified Code(s): D64.9 - Anemia, unspecified (2) Rectovaginal fistula Assessment/Plan: -Has loop diverting colostomy -Surgery consult -CHAR BELT OPERATOR consult -Awaitng CT abd/pelvis -Pelvic/transvaginal US pending Code(s): N82.3 - FISTULA OF VAGINA TO LARGE INTESTINE (3) Metastasis from rectal cancer Assessment/Plan: -to liver and lungs -Oncology on board -Palliative consult Code(s): C79.9 - SECONDARY MALIGNANT NEOPLASM OF UNSPECIFIED SITE; C20 - MALIGNANT NEOPLASM OF RECTUM (4) Thrombocytopenia Assessment/Plan: 2/2 to chemo? -Oncology/hematology on board -monitor trend, transfuse if Plt < 10 mg/dl Code(s): D69.6 - THROMBOCYTOPENIA, UNSPECIFIED (5) Hypoalbuminemia Assessment/Plan: -2/2 to poor appetite -Prosource -Ensure BID Code(s): E88.09 - OTH DISORDERS OF PLASMA-PROTEIN METABOLISM, NEC Assessment/Plan see problem list
[2017-12-10] MEDS: PANTOPRAZOLE SODIUM 40 MG VIAL IVPUSH SCH (12:56)
[2017-12-10] MEDS ORDERED: PHYTONADIONE 10 MG/1 ML AMP ONE (13:02)
[2017-12-10 20:31] LABS: INR 1.64 (0.83-1.09); PROTHROMBIN TIME (PATIENT) 18.5 SEC (9.7-13.0)
[2017-12-11] MEDS: LEVOTHYROXINE NA 112 MCG TABLET (FP) PO SCH ×2 (06:39→08:27)
--- NOTE | 2017-12-11 07:16 | CONSULT ---
Consult Consult Specialty:: surgery Reason for Consultation:: vaginal bleeding - History of Present Illness History of Present Illness: 67 yr old with Hx of advanced rectal CA , s/p neoadjuvant radio/chemo therapy , low anterior resection followed by Adjuvant chemotherapy. presents with vaginal beeling and weakness. Of note she Presents several months ago with vaginal bleeding , at which time she was diagnosed with a recto-vaginal bleeding. At the time she underwent a completion diverting colostomy. - Past Medical History Gastrointestinal: Yes: Other (rectal ca - metastatic) ...: No Endocrine: Yes: Hypothyroidism - Past Surgical History Past Surgical History: Yes: Colectomy, Colostomy, Hysterectomy - Alcohol/Substance Use Hx Alcohol Use: No - Smoking History Smoking history: Never smoked Have you smoked in the past 12 months: No Aproximately how many cigarettes per day: 15 If you are a former smoker, when did you quit?: 2013 - Social History History of Recent Travel: No Home Medications - Allergies Allergies/Adverse Reactions: Allergies Allergy/AdvReac Type Severity Reaction Status Date / Time ciprofloxacin [From Cipro] Allergy Rash Verified 12/09/17 06:28 shellfish derived Allergy Vomiting Verified 12/09/17 06:28 - Home Medications Home Medications: Ambulatory Orders Acetaminophen W/ Codeine #3 [Tylenol # 3 -] 1 tab PO Q6H PRN #40 tablet MDD 4 Acetaminophen [Tylenol .Regular Strength -] 650 mg PO Q6H PRN tablet 08/27/17 Levothyroxine [Synthroid -] 112 mcg PO DAILY@0700 #30 tablet 08/27/17 Melatonin 10 mg PO HS 12/09/17 Physical Exam Vital Signs: Vital Signs Temperature 97.6 F 12/11/17 06:16 Pulse Rate 56 L 12/11/17 06:16 Respiratory Rate 20 12/11/17 06:16 Blood Pressure 134/59 12/11/17 06:16 O2 Sat by Pulse Oximetry (%) 100 12/09/17 21:00 Labs: CBC, BMP 12/10/17 07:00 12/10/17 07:00 Problem List - Problems (1) GI bleed Code(s): K92.2 - GASTROINTESTINAL HEMORRHAGE, UNSPECIFIED Qualifiers: GI bleed type/associated pathology: unspecified gastrointestinal hemorrhage type Qualified Code(s): K92.2 - Gastrointestinal hemorrhage, unspecified (2) Metastasis from rectal cancer Code(s): C79.9 - SECONDARY MALIGNANT NEOPLASM OF UNSPECIFIED SITE; C20 - MALIGNANT NEOPLASM OF RECTUM (3) Rectovaginal fistula Code(s): N82.3 - FISTULA OF VAGINA TO LARGE INTESTINE Assessment/Plan 67 yr old female with advanced rectal cancer s/p rectal resection and hysterectomy, currently undergoing chemotherapy presents with recurrent vaginal bleeding Recommendations Consider GI consult for possible sigmoidoscopy to evaluate possible GI source of bleeding [employer] consult will consider OR for Examination under anesthesia to evaluate the possiblity of repair of rectovaginal fistula which under the circunstances , undergoing chemo therapy and radiated pelvis stands a high risk of failure of any attempts of surgical repair.
--- NOTE | 2017-12-11 08:04 | PN ---
Progress Note, Physician Chief Complaint: rectovaginal fistula History of Present Illness: NAD H/H stable Seen by AIRFIELD MANAGER Awaiting CT abdomen/pelvis, U/S transvaginal - Current Medication List Current Medications: Active Medications Acetaminophen (Tylenol -) 650 mg PO Q6H PRN PRN Reason: PAIN OR FEVER Acetaminophen/Codeine Phosphate (Tylenol # 3 -) 1 tab PO Q6H PRN PRN Reason: PAIN LEVEL 4 - 6 Amino Acids (Prosource No Carb Liquid Pkt) 30 ml PO BID@0800,1730 [facility] Lactated Ringer's (Lactated Ringers Solution) 1,000 ml in 1,000 mls @ 75 mls/ hr IV ASDIR [facility] Levothyroxine Sodium (Synthroid -) 112 mcg PO DAILY@0700 [facility] Last Admin: 12/11/17 06:39 Dose: Not Given Morphine Sulfate (Morphine Sulfate) 2 mg IVPUSH Q6H PRN PRN Reason: PAIN LEVEL 7 - 10 Ondansetron HCl (Zofran Injection) 8 mg IVPB Q6H PRN PRN Reason: NAUSEA Pantoprazole Sodium (Protonix Iv) 40 mg IVPUSH DAILY [facility] Last Admin: 12/10/17 12:56 Dose: 40 mg - Objective Vital Signs: Vital Signs Temperature 97.6 F 12/11/17 06:16 Pulse Rate 56 L 12/11/17 06:16 Respiratory Rate 20 12/11/17 06:16 Blood Pressure 134/59 12/11/17 06:16 O2 Sat by Pulse Oximetry (%) 100 12/09/17 21:00 Constitutional: Yes: Well Nourished, No Distress, Calm, Other (fatigue) Cardiovascular: Yes: Regular Rate and Rhythm Respiratory: Yes: Regular Gastrointestinal: Yes: Normal Bowel Sounds, Soft, Abdomen, Obese, Other (RLQ colostomy bag) Musculoskeletal: Yes: Muscle Weakness Edema: No Peripheral Pulses WNL: Yes Neurological: Yes: Alert, Oriented Psychiatric: Yes: Alert, Oriented Labs: CBC, BMP 12/10/17 07:00 12/10/17 07:00 INR, PTT INR 1.64 (0.83-1.09) H 12/10/17 20:00 Problem List - Problems (1) Anemia Assessment/Plan: -2/2 to GI bleed -h/h stable at this time -monitor trend -transfuse for hg <8.0 -Hematology/oncology on board -Awaiting labs from today Code(s): D64.9 - ANEMIA, UNSPECIFIED Qualifiers: Anemia type: unspecified type Qualified Code(s): D64.9 - Anemia, unspecified (2) Rectovaginal fistula Assessment/Plan: -Has loop diverting colostomy -Seen by Surgery- pt to go to OR for further evaluation under anesthesia -GI consult called in -AIRFIELD MANAGER consult -CT abd/pelvis: 1. Multiple right pulmonary nodules suspicious for metastatic disease. 2. Small right pleural effusion and bibasilar atelectasis. 3. Ascites. 4. Multiple hepatic masses consistent with metastatic disease. 5. Right adrenal mass suspicious for additional metastases. 6. Cholelithiasis. 7. Retroperitoneal lymphadenopathy. 8. S/P diverting colostomy. 9. Slight progression of disease since 08/18/2017. Clinical correlation and follow -up recommended. Please see above discussion. -Pelvic/transvaginal US: Very limited transvaginal examination due to pain. Status post hysterectomy. Both ovaries were not visualized. Correlate clinically to determine further evaluation in view of the clinical history Partially distended urinary bladder without wall thickening. Floating internal debris and minimal layering, posteriorly. Bilateral ureteral jets were identified. Minimal postvoid urine residue Code(s): N82.3 - FISTULA OF VAGINA TO LARGE INTESTINE (3) Metastasis from rectal cancer Assessment/Plan: -to liver and lungs -Oncology on board -Palliative consult Code(s): C79.9 - SECONDARY MALIGNANT NEOPLASM OF UNSPECIFIED SITE; C20 - MALIGNANT NEOPLASM OF RECTUM (4) Thrombocytopenia Assessment/Plan: 2/2 to chemo? -Oncology/hematology on board -monitor trend, transfuse if Plt < 10 mg/dl Code(s): D69.6 - THROMBOCYTOPENIA, UNSPECIFIED (5) Hypoalbuminemia Assessment/Plan: -2/2 to poor appetite -Prosource -Ensure BID Code(s): E88.09 - OTH DISORDERS OF PLASMA-PROTEIN METABOLISM, NEC Assessment/Plan see problem list
[2017-12-11] MEDS: LACTATED RINGERS SOLUTION 1,000 ML/1,000 ML INFUS.BAG IV SCH ×2 (08:28→22:50)
[2017-12-11] MEDS: AMINO ACIDS/PROTEIN HYDROLYS 30 ML LIQUID.PKT PO SCH ×2 (08:28→16:48)
[2017-12-11 08:33] LABS: BASO % 0.8 % (0-2.0); EOS % 2.3 % (0-4.5); HEMATOCRIT 25.1 % (32.4-45.2); HEMOGLOBIN 8.4 GM/dL (10.7-15.3); LYMPH % 12.4 % (8-40); MCH 31.1 pg (25.7-33.7); MCHC 33.4 g/dl (32.0-36.0); MEAN CELL VOLUME 93.3 fl (80-96); MONO % 13.1 % (3.8-10.2); NEUT % 71.4 % (42.8-82.8); PLATELET COUNT 82 K/MM3 (134-434); RBC 2.69 M/mm3 (3.60-5.2); RDW 23.3 % (11.6-15.6); WHITE BLOOD COUNT 2.1 K/mm3 (4.0-10.0)
[2017-12-11 09:01] LABS: ALBUMIN 2.4 g/dl (3.4-5.0); ANION GAP 10 MMOL/L (8-16); BLOOD UREA NITROGEN 13 mg/dL (7-18); CALCIUM 8.6 mg/dL (8.5-10.1); CHLORIDE 110 mmol/L (98-107); CO2 24 mmol/L (21-32); CREATININE 0.5 mg/dL (0.55-1.02); GLUCOSE,RANDOM 71 mg/dL (74-106); POTASSIUM 3.7 mmol/L (3.5-5.1); SGOT/AST 33 U/L (15-37); SGPT/ALT 18 U/L (12-78); SODIUM 144 mmol/L (136-145)
[2017-12-11 09:03] LABS: ALK PHOS 83 U/L (45-117); BILIRUBIN,TOTAL 0.8 mg/dL (0.2-1.0); TOT PROT 5.3 g/dl (6.4-8.2)
[2017-12-11] MEDS: PANTOPRAZOLE SODIUM 40 MG VIAL IVPUSH SCH (09:26)
--- NOTE | 2017-12-11 11:37 | CON.GI ---
Consult Consult Specialty:: GI Referred by:: Ric Box Reason for Consultation:: rectovaginal fistula - History of Present Illness Chief Complaint: Pt admitted with profuse vaginal bleeding. History of Present Illness: 67 y.o. F with history of rectal ca., known rectovaginal fistula, massive liver metastases, admitted with vaginal bleeding in the context of coagulopathy ( moderate thrombocytopenia, INR 1.9) Pt has a diverting colostomy. She denies taking warfarin, aspirin, or recent antibiotic use. - Past Medical History Gastrointestinal: Yes: Other (rectal ca - metastatic) ...: No Endocrine: Yes: Hypothyroidism - Past Surgical History Past Surgical History: Yes: Colectomy, Colostomy, Hysterectomy - Alcohol/Substance Use Hx Alcohol Use: No - Smoking History Smoking history: Never smoked Have you smoked in the past 12 months: No Aproximately how many cigarettes per day: 15 If you are a former smoker, when did you quit?: 2013 - Social History History of Recent Travel: No Home Medications - Allergies Allergies/Adverse Reactions: Allergies Allergy/AdvReac Type Severity Reaction Status Date / Time ciprofloxacin [From Cipro] Allergy Rash Verified 12/09/17 06:28 shellfish derived Allergy Vomiting Verified 12/09/17 06:28 - Home Medications Home Medications: Ambulatory Orders Acetaminophen W/ Codeine #3 [Tylenol # 3 -] 1 tab PO Q6H PRN #40 tablet MDD 4 Acetaminophen [Tylenol .Regular Strength -] 650 mg PO Q6H PRN tablet 08/27/17 Levothyroxine [Synthroid -] 112 mcg PO DAILY@0700 #30 tablet 08/27/17 Melatonin 10 mg PO HS 12/09/17 Physical Exam-GI Vital Signs: Vital Signs Temperature 97.6 F 12/11/17 06:16 Pulse Rate 56 L 12/11/17 06:16 Respiratory Rate 20 12/11/17 06:16 Blood Pressure 134/59 12/11/17 06:16 O2 Sat by Pulse Oximetry (%) 100 12/09/17 21:00 Labs: CBC, BMP 12/11/17 08:00 12/11/17 08:00 INR, PTT INR 1.64 (0.83-1.09) H 12/10/17 20:00 Imaging - Results Cat Scan: Report Reviewed, Image Reviewed (Massive replacement of the right lobe of liver with multiple metastases.) Assessment/Plan Bleeding is at this point related to her coagulopathy. Given the patient's overall poor clinical condition I would reserve endoscopy and surgical evaluation only if bleeding persists after her coagulopathy is corrected. I do not see how an attempt at repair of the fistula will in any way improve her remaining quality of life. Also, with what is probably either radiation proctitis or locally recurrent rectal cancer, I do not see how any endoscopic approach can be effective with an INR approaching 2. Again, if she has enough residual liver function to make clotting factors after Vit K administration, then if bleeding persists after correction of the INR we can reconsider endoscopic or surgical intervention.
[2017-12-11] MEDS ORDERED: PHYTONADIONE 10 MG/1 ML AMP SQ ONE (20:00)
[2017-12-11] MEDS: PHYTONADIONE 10 MG/1 ML AMP SQ ONE ×2 (22:49→22:50)
--- NOTE | 2017-12-11 23:21 | PN ---
Progress Note (short form) - Note Progress Note: Patient seen and examined Feels weak overall AFVSS Cor: RSR, No murmurs, No gallops Lungs: Clear to P&A Abd: Soft, Normal bowel sounds, No organomegaly Ext:No significant edema Labs/Meds reviewed A/P 67 year old with history of rectal ca , s/p neoadjuvant RT and chemotherapy followed by surgery requiring colostomy and completion of adjuvant therapy. Developed liver mets and extrahepatic mets requiring multiple courses of chemotherapy. (oxaliplatin, irinotecan, avastin xeloda) Last chemotherapy one week earlier with infusional 5FU and leucovorum. 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 Presents now with vaginal bleeding , falling Hct. CT c/ap --slightly worsening mets since 08/28/17--extensive lung/liver/adrenal mets/retroperitoneal nodes Surgery/GI consults noted To get DROP WIRE ALINER consult ? consideration of EUA Elevated INR-improved with FFP. will repeat 5mg dose of vitamin K discussed with patient. will discuss with primary team .
[2017-12-12] MEDS: LEVOTHYROXINE NA 112 MCG TABLET (FP) PO SCH (06:50)
--- NOTE | 2017-12-12 08:01 | PN ---
Progress Note, Physician Chief Complaint: rectovaginal fistula History of Present Illness: NAD H/H stable Seen by DRYWALL STRIPPER CT abdomen/pelvis, U/S transvaginal reviewed - Current Medication List Current Medications: Active Medications Acetaminophen (Tylenol -) 650 mg PO Q6H PRN PRN Reason: PAIN OR FEVER Acetaminophen/Codeine Phosphate (Tylenol # 3 -) 1 tab PO Q6H PRN PRN Reason: PAIN LEVEL 4 - 6 Amino Acids (Prosource No Carb Liquid Pkt) 30 ml PO BID@0800,1730 [facility] Last Admin: 12/11/17 16:48 Dose: 30 ml Lactated Ringer's (Lactated Ringers Solution) 1,000 ml in 1,000 mls @ 75 mls/ hr IV ASDIR [facility] Last Admin: 12/11/17 22:50 Dose: 75 mls/hr Levothyroxine Sodium (Synthroid -) 112 mcg PO DAILY@0700 [facility] Last Admin: 12/12/17 06:50 Dose: 112 mcg Morphine Sulfate (Morphine Sulfate) 2 mg IVPUSH Q6H PRN PRN Reason: PAIN LEVEL 7 - 10 Ondansetron HCl (Zofran Injection) 8 mg IVPB Q6H PRN PRN Reason: NAUSEA Pantoprazole Sodium (Protonix Iv) 40 mg IVPUSH DAILY [facility] Last Admin: 12/11/17 09:26 Dose: 40 mg - Objective Vital Signs: Vital Signs Temperature 98.5 F 12/12/17 06:00 Pulse Rate 61 12/12/17 06:00 Respiratory Rate 18 12/12/17 06:00 Blood Pressure 136/58 12/12/17 06:00 O2 Sat by Pulse Oximetry (%) 98 12/11/17 21:00 Constitutional: Yes: Well Nourished, No Distress, Calm Cardiovascular: Yes: Regular Rate and Rhythm Respiratory: Yes: Regular Gastrointestinal: Yes: Normal Bowel Sounds, Soft, Other (RLQ colostomy) Musculoskeletal: Yes: Muscle Weakness Edema: No Peripheral Pulses WNL: Yes Neurological: Yes: Alert, Oriented Psychiatric: Yes: Alert, Oriented Labs: CBC, BMP 12/11/17 08:00 12/11/17 08:00 INR, PTT INR 1.64 (0.83-1.09) H 12/10/17 20:00 Problem List - Problems (1) Anemia Assessment/Plan: -2/2 to GI bleed -h/h stable at this time -monitor trend -transfuse for hg <8.0 -Hematology/oncology on board -Awaiting labs from today Code(s): D64.9 - ANEMIA, UNSPECIFIED Qualifiers: Anemia type: unspecified type Qualified Code(s): D64.9 - Anemia, unspecified (2) Rectovaginal fistula Assessment/Plan: -Has loop diverting colostomy -Seen by Surgery- pt to go to OR for further evaluation under anesthesia -GI consult called in -DRYWALL STRIPPER consult -CT abd/pelvis: 1. Multiple right pulmonary nodules suspicious for metastatic disease. 2. Small right pleural effusion and bibasilar atelectasis. 3. Ascites. 4. Multiple hepatic masses consistent with metastatic disease. 5. Right adrenal mass suspicious for additional metastases. 6. Cholelithiasis. 7. Retroperitoneal lymphadenopathy. 8. S/P diverting colostomy. 9. Slight progression of disease since 08/18/2017. Clinical correlation and follow -up recommended. Please see above discussion. -Pelvic/transvaginal US: Very limited transvaginal examination due to pain. Status post hysterectomy. Both ovaries were not visualized. Correlate clinically to determine further evaluation in view of the clinical history Partially distended urinary bladder without wall thickening. Floating internal debris and minimal layering, posteriorly. Bilateral ureteral jets were identified. Minimal postvoid urine residue Code(s): N82.3 - FISTULA OF VAGINA TO LARGE INTESTINE (3) Metastasis from rectal cancer Assessment/Plan: -to liver and lungs -Oncology on board -Palliative consult Code(s): C79.9 - SECONDARY MALIGNANT NEOPLASM OF UNSPECIFIED SITE; C20 - MALIGNANT NEOPLASM OF RECTUM (4) Thrombocytopenia Assessment/Plan: 2/2 to chemo? -Oncology/hematology on board -monitor trend, transfuse if Plt < 10 mg/dl Code(s): D69.6 - THROMBOCYTOPENIA, UNSPECIFIED (5) Hypoalbuminemia Assessment/Plan: -2/2 to poor appetite -Prosource -Ensure BID Code(s): E88.09 - OTH DISORDERS OF PLASMA-PROTEIN METABOLISM, NEC Assessment/Plan see problem list
[2017-12-12 09:17] LABS: BASO % 0.8 % (0-2.0); EOS % 3.6 % (0-4.5); HEMATOCRIT 23.2 % (32.4-45.2); HEMOGLOBIN 7.6 GM/dL (10.7-15.3); LYMPH % 14.3 % (8-40); MCH 30.8 pg (25.7-33.7); MCHC 32.7 g/dl (32.0-36.0); MEAN CELL VOLUME 94.1 fl (80-96); MEAN PLT VOLUME 8.7 fl (7.5-11.1); MONO % 11.6 % (3.8-10.2); NEUT % 69.7 % (42.8-82.8); PLATELET COUNT 72 K/MM3 (134-434); RBC 2.47 M/mm3 (3.60-5.2); RDW 22.7 % (11.6-15.6); WHITE BLOOD COUNT 2.1 K/mm3 (4.0-10.0)
--- NOTE | 2017-12-12 09:33 | PN ---
Progress Note (short form) - Note Progress Note: Pt comfortable, denies any further gross bleeding. Hgb/Hct stable. INR still somewhat elevated after FFP yesterday. Today's INR still pending. If INR does not correct with vit K it could indicate severe liver dysfunction, not surprising in view of the massive hepatic metastases and low serum albumin. Again, I do not believe an exam under anesthesia or a sigmoidoscopy will tell us any more than we already know, namely, that she has recurrent, widely metastatic rectal cancer and likely has radiation proctitis as well. Will no longer follow unless called again.
[2017-12-12] MEDS: AMINO ACIDS/PROTEIN HYDROLYS 30 ML LIQUID.PKT PO SCH ×2 (09:35→17:31)
[2017-12-12 09:37] LABS: INR 1.39 (0.83-1.09); PROTHROMBIN TIME (PATIENT) 15.7 SEC (9.7-13.0)
[2017-12-12] MEDS: PANTOPRAZOLE SODIUM 40 MG VIAL IVPUSH SCH (09:40)
[2017-12-12 10:46] LABS: ANION GAP 10 MMOL/L (8-16); BLOOD UREA NITROGEN 10 mg/dL (7-18); CALCIUM 7.7 mg/dL (8.5-10.1); CHLORIDE 110 mmol/L (98-107); CO2 23 mmol/L (21-32); CREATININE 0.4 mg/dL (0.55-1.02); GLUCOSE,RANDOM 81 mg/dL (74-106); POTASSIUM 3.5 mmol/L (3.5-5.1); SGOT/AST 25 U/L (15-37); SGPT/ALT 15 U/L (12-78); SODIUM 143 mmol/L (136-145)
[2017-12-12 10:48] LABS: ALK PHOS 83 U/L (45-117); BILIRUBIN,TOTAL 0.7 mg/dL (0.2-1.0); TOT PROT 4.7 g/dl (6.4-8.2)
--- NOTE | 2017-12-12 18:18 | PN ---
Progress Note (short form) - Note Progress Note: Patient seen and examined Feels weak overall AFVSS Cor: RSR, No murmurs, No gallops Lungs: Clear to P&A Abd: Soft, Normal bowel sounds, No organomegaly Ext:No significant edema Labs/Meds reviewed A/P 67 year old with history of rectal ca , s/p neoadjuvant RT and chemotherapy followed by surgery requiring colostomy and completion of adjuvant therapy. Developed liver mets and extrahepatic mets requiring multiple courses of chemotherapy. (oxaliplatin, irinotecan, avastin xeloda) Last chemotherapy one week earlier with infusional 5FU and leucovorin Has had enterovaginal fistula which has required surgical repair. Presents now with vaginal bleeding , falling Hct. CT c/ap --slightly worsening mets since 08/28/17--extensive lung/liver/adrenal mets/retroperitoneal nodes Surgery/GI consults noted Elevated INR-improved with FFP and 2 doses of vitamin K discussed with primary team .
[2017-12-13] MEDS ORDERED: PT OWN MED DRAWER 7, Y5N ONE (02:06)
[2017-12-13] MEDS: LEVOTHYROXINE NA 112 MCG TABLET (FP) PO SCH (06:09)
[2017-12-13] MEDS: AMINO ACIDS/PROTEIN HYDROLYS 30 ML LIQUID.PKT PO SCH ×2 (09:28→17:13)
[2017-12-13] MEDS: LACTATED RINGERS SOLUTION 1,000 ML/1,000 ML INFUS.BAG IV SCH ×2 (09:28→23:38)
[2017-12-13] MEDS: PANTOPRAZOLE SODIUM 40 MG VIAL IVPUSH SCH (09:28)
--- NOTE | 2017-12-13 11:19 | PN ---
Progress Note (short form) - Note Progress Note: stable Agree with Dr Troncoso's assessment. Rectovaginal fistulas do not usually cause bleeding. Local recrrence is llikely cause of bleeding and given the advance stage of disease, Surgical intervention is not likely to be beneficial. Continue with attempsts to correct coagulopathy and transfuse as needed. Problem List - Problems (1) GI bleed Code(s): K92.2 - GASTROINTESTINAL HEMORRHAGE, UNSPECIFIED Qualifiers: GI bleed type/associated pathology: unspecified gastrointestinal hemorrhage type Qualified Code(s): K92.2 - Gastrointestinal hemorrhage, unspecified (2) Metastasis from rectal cancer Code(s): C79.9 - SECONDARY MALIGNANT NEOPLASM OF UNSPECIFIED SITE; C20 - MALIGNANT NEOPLASM OF RECTUM (3) Rectovaginal fistula Code(s): N82.3 - FISTULA OF VAGINA TO LARGE INTESTINE
[2017-12-13 12:18] LABS: EOS % 3.9 % (0-4.5); HEMOGLOBIN 8.7 GM/dL (10.7-15.3); LYMPH % 13.7 % (8-40); MCH 30.9 pg (25.7-33.7); MCHC 32.3 g/dl (32.0-36.0); MEAN CELL VOLUME 95.7 fl (80-96); MEAN PLT VOLUME 8.1 fl (7.5-11.1); MONO % 11.8 % (3.8-10.2); NEUT % 69.6 % (42.8-82.8); PLATELET COUNT 86 K/MM3 (134-434); RBC 2.82 M/mm3 (3.60-5.2); RDW 22.4 % (11.6-15.6)
[2017-12-13 12:46] LABS: BLOOD UREA NITROGEN 10 mg/dL (7-18); CHLORIDE 106 mmol/L (98-107); POTASSIUM 3.3 mmol/L (3.5-5.1); SODIUM 141 mmol/L (136-145)
[2017-12-13 12:52] LABS: ALK PHOS 95 U/L (45-117); ANION GAP 9 MMOL/L (8-16); BILIRUBIN,TOTAL 0.6 mg/dL (0.2-1.0); CALCIUM 8.1 mg/dL (8.5-10.1); CO2 26 mmol/L (21-32); CREATININE 0.6 mg/dL (0.55-1.02); GLUCOSE,RANDOM 102 mg/dL (74-106); SGOT/AST 23 U/L (15-37); SGPT/ALT 15 U/L (12-78); TOT PROT 5.2 g/dl (6.4-8.2)
--- NOTE | 2017-12-13 16:47 | PN ---
Progress Note, Physician - Current Medication List Current Medications: Active Medications Acetaminophen (Tylenol -) 650 mg PO Q6H PRN PRN Reason: PAIN OR FEVER Acetaminophen/Codeine Phosphate (Tylenol # 3 -) 1 tab PO Q6H PRN PRN Reason: PAIN LEVEL 4 - 6 Amino Acids (Prosource No Carb Liquid Pkt) 30 ml PO BID@0800,1730 [facility] Last Admin: 12/13/17 09:28 Dose: 30 ml Lactated Ringer's (Lactated Ringers Solution) 1,000 ml in 1,000 mls @ 75 mls/ hr IV ASDIR [facility] Last Admin: 12/13/17 09:28 Dose: 75 mls/hr Levothyroxine Sodium (Synthroid -) 112 mcg PO DAILY@0700 [facility] Last Admin: 12/13/17 06:09 Dose: 112 mcg Morphine Sulfate (Morphine Sulfate) 2 mg IVPUSH Q6H PRN PRN Reason: PAIN LEVEL 7 - 10 Ondansetron HCl (Zofran Injection) 8 mg IVPB Q6H PRN PRN Reason: NAUSEA Pantoprazole Sodium (Protonix Iv) 40 mg IVPUSH DAILY [facility] Last Admin: 12/13/17 09:28 Dose: 40 mg - Objective Vital Signs: Vital Signs Temperature 99.1 F 12/13/17 14:00 Pulse Rate 68 12/13/17 14:00 Respiratory Rate 17 12/13/17 14:00 Blood Pressure 123/55 12/13/17 14:00 O2 Sat by Pulse Oximetry (%) 100 12/13/17 09:20 Cardiovascular: Yes: S1, S2 Respiratory: Yes: Regular, CTA Bilaterally Labs: CBC, BMP 12/13/17 12:05 12/13/17 12:05 INR, PTT INR 1.39 (0.83-1.09) H 12/12/17 08:00 Assessment/Plan - Problems (1) Anemia Assessment/Plan: -2/2 to GI bleed -h/h stable at this time -monitor trend -transfuse for hg <8.0 -Hematology/oncology on board -Awaiting labs from today Code(s): D64.9 - ANEMIA, UNSPECIFIED Qualifiers: Anemia type: unspecified type Qualified Code(s): D64.9 - Anemia, unspecified (2) Rectovaginal fistula Assessment/Plan: -Has loop diverting colostomy -Seen by Surgery- pt to go to OR for further evaluation under anesthesia -GI consult called in -SPAR MACHINE OPERATOR consult -CT abd/pelvis: 1. Multiple right pulmonary nodules suspicious for metastatic disease. 2. Small right pleural effusion and bibasilar atelectasis. 3. Ascites. 4. Multiple hepatic masses consistent with metastatic disease. 5. Right adrenal mass suspicious for additional metastases. 6. Cholelithiasis. 7. Retroperitoneal lymphadenopathy. 8. S/P diverting colostomy. 9. Slight progression of disease since 08/18/2017. Clinical correlation and follow -up recommended. Please see above discussion. -Pelvic/transvaginal US: Very limited transvaginal examination due to pain. Status post hysterectomy. Both ovaries were not visualized. Correlate clinically to determine further evaluation in view of the clinical history Partially distended urinary bladder without wall thickening. Floating internal debris and minimal layering, posteriorly. Bilateral ureteral jets were identified. Minimal postvoid urine residue Code(s): N82.3 - FISTULA OF VAGINA TO LARGE INTESTINE (3) Metastasis from rectal cancer Assessment/Plan: -to liver and lungs -Oncology on board -Palliative consult Code(s): C79.9 - SECONDARY MALIGNANT NEOPLASM OF UNSPECIFIED SITE; C20 - MALIGNANT NEOPLASM OF RECTUM (4) Thrombocytopenia Assessment/Plan: 2/2 to chemo? -Oncology/hematology on board -monitor trend, transfuse if Plt < 10 mg/dl Code(s): D69.6 - THROMBOCYTOPENIA, UNSPECIFIED (5) Hypoalbuminemia Assessment/Plan: -2/2 to poor appetite -Prosource -Ensure BID Code(s): E88.09 - OTH DISORDERS OF PLASMA-PROTEIN METABOLISM, NEC
[2017-12-13] MEDS: ACETAMINOPHEN WITH CODEINE 300MG/30MG TABLET PO PRN ×2 (17:13→23:48)
[2017-12-14] MEDS: LEVOTHYROXINE NA 112 MCG TABLET (FP) PO SCH (06:01)
[2017-12-14 08:32] LABS: BASO % 1.1 % (0-2.0); EOS % 5.3 % (0-4.5); HEMATOCRIT 29.8 % (32.4-45.2); HEMOGLOBIN 9.6 GM/dL (10.7-15.3); LYMPH % 16.5 % (8-40); MCHC 32.4 g/dl (32.0-36.0); MEAN CELL VOLUME 95.7 fl (80-96); MEAN PLT VOLUME 9.2 fl (7.5-11.1); MONO % 13.2 % (3.8-10.2); NEUT % 63.9 % (42.8-82.8); PLATELET COUNT 94 K/MM3 (134-434); RBC 3.11 M/mm3 (3.60-5.2); RDW 22.5 % (11.6-15.6); WHITE BLOOD COUNT 2.3 K/mm3 (4.0-10.0)
[2017-12-14 08:42] LABS: ALBUMIN 2.2 g/dl (3.4-5.0); ANION GAP 11 MMOL/L (8-16); BLOOD UREA NITROGEN 11 mg/dL (7-18); CALCIUM 8.5 mg/dL (8.5-10.1); CHLORIDE 107 mmol/L (98-107); CO2 25 mmol/L (21-32); GLUCOSE,RANDOM 83 mg/dL (74-106); POTASSIUM 3.7 mmol/L (3.5-5.1); SODIUM 143 mmol/L (136-145)
[2017-12-14 08:46] LABS: ALK PHOS 109 U/L (45-117); BILIRUBIN,TOTAL 0.7 mg/dL (0.2-1.0); CREATININE 0.4 mg/dL (0.55-1.02); SGOT/AST 24 U/L (15-37); SGPT/ALT 17 U/L (12-78); TOT PROT 5.4 g/dl (6.4-8.2)
[2017-12-14] MEDS: AMINO ACIDS/PROTEIN HYDROLYS 30 ML LIQUID.PKT PO SCH ×2 (08:59→16:36)
[2017-12-14] MEDS: PANTOPRAZOLE SODIUM 40 MG VIAL IVPUSH SCH (11:51)
--- NOTE | 2017-12-14 15:45 | PN ---
Progress Note, Physician Chief Complaint: EVENTS AND NOTES REVIEWED NAD FEELS GOOD TODAY - Current Medication List Current Medications: Active Medications Acetaminophen (Tylenol -) 650 mg PO Q6H PRN PRN Reason: PAIN OR FEVER Acetaminophen/Codeine Phosphate (Tylenol # 3 -) 1 tab PO Q6H PRN PRN Reason: PAIN LEVEL 4 - 6 Last Admin: 12/13/17 23:48 Dose: 1 tab Amino Acids (Prosource No Carb Liquid Pkt) 30 ml PO BID@0800,1730 [facility] Last Admin: 12/14/17 08:59 Dose: 30 ml Lactated Ringer's (Lactated Ringers Solution) 1,000 ml in 1,000 mls @ 75 mls/ hr IV ASDIR [facility] Last Admin: 12/13/17 23:38 Dose: 75 mls/hr Levothyroxine Sodium (Synthroid -) 112 mcg PO DAILY@0700 [facility] Last Admin: 12/14/17 06:01 Dose: 112 mcg Morphine Sulfate (Morphine Sulfate) 2 mg IVPUSH Q6H PRN PRN Reason: PAIN LEVEL 7 - 10 Ondansetron HCl (Zofran Injection) 8 mg IVPB Q6H PRN PRN Reason: NAUSEA Pantoprazole Sodium (Protonix Iv) 40 mg IVPUSH DAILY [facility] Last Admin: 12/14/17 11:51 Dose: 40 mg - Objective Vital Signs: Vital Signs Temperature 99.9 F H 12/14/17 14:46 Pulse Rate 83 12/14/17 14:46 Respiratory Rate 18 12/14/17 14:46 Blood Pressure 143/59 12/14/17 14:46 O2 Sat by Pulse Oximetry (%) 99 12/13/17 21:00 Constitutional: Yes: No Distress Eyes: Yes: WNL HENT: Yes: WNL Neck: Yes: WNL Cardiovascular: Yes: WNL Respiratory: Yes: WNL Gastrointestinal: Yes: Other (COLOSTOMY BAG) Genitourinary: Yes: WNL Musculoskeletal: Yes: Muscle Weakness Extremities: Yes: WNL Edema: Yes Edema: LLE: Trace, RLE: Trace Peripheral Pulses WNL: Yes Integumentary: Yes: WNL Wound/Incision: Yes: Other Neurological: Yes: Unsteady Gait ...Motor Strength: LLE, RLE Psychiatric: Yes: Other Labs: CBC, BMP 12/14/17 07:00 12/14/17 07:00 INR, PTT INR 1.39 (0.83-1.09) H 12/12/17 08:00 Problem List - Problems (1) GI bleed Code(s): K92.2 - GASTROINTESTINAL HEMORRHAGE, UNSPECIFIED Qualifiers: GI bleed type/associated pathology: unspecified gastrointestinal hemorrhage type Qualified Code(s): K92.2 - Gastrointestinal hemorrhage, unspecified (2) Metastasis from rectal cancer Code(s): C79.9 - SECONDARY MALIGNANT NEOPLASM OF UNSPECIFIED SITE; C20 - MALIGNANT NEOPLASM OF RECTUM (3) Thrombocytopenia Code(s): D69.6 - THROMBOCYTOPENIA, UNSPECIFIED (4) Rectal adenocarcinoma metastatic to liver Code(s): C20 - MALIGNANT NEOPLASM OF RECTUM; C78.7 - SECONDARY MALIG NEOPLASM OF LIVER AND INTRAHEPATIC BILE DUCT Assessment/Plan MONITORING LABS TRANSFUSE PRBC NEEDED ONCOLOGY F/U DC PLANNING [facility] SONDRA RIBERA TO CHAIR WITH ASSIST
[2017-12-14] MEDS: LACTATED RINGERS SOLUTION 1,000 ML/1,000 ML INFUS.BAG IV SCH (16:36)
[2017-12-14] MEDS: ACETAMINOPHEN 325 MG TABLET (FP) PO PRN (16:36)
--- NOTE | 2017-12-14 21:10 | PN ---
Progress Note (short form) - Note Progress Note: Patient seen and examined Prior notes reviewed Discussed with pastoral care. Patient is DNR,DNI --the question is whether she has decided to be a DN-treat. Surprisingly, the patient has had an almost of a halving of her CEA on her recent regimen of 5FU/Leucovorum. and Avastin. With recent bleeding avastin mook need be discontinued if the patient opts to continue therapy. I discussed hospice, as a possibility or going to a short term rehab for several weeks and then deciding if she would like to re-resume treatments or not . She currently has not decided which direction to go, but would think on it. Last Vital Signs Temp Pulse Resp BP Pulse Ox 99.4 F 76 20 120/66 98 12/14/17 18:54 12/14/17 16:20 12/14/17 16:20 12/14/17 16:20 12/14/17 09:00 HEENT: EVETTE, EOM Intact Cor: RSR, No murmurs, No gallops Lungs: Clear to P&A Abd: Soft, Normal bowel sounds, No organomegaly, colostomy brownish vaginal discharge Ext:No significant edema Skin: No rashes, Integument intact CBC, BMP 12/14/17 07:00 12/14/17 07:00 INR, PTT INR 1.39 (0.83-1.09) H 12/12/17 08:00 Current Medications Generic Name Dose Route Start Last Admin Trade Name Freq PRN Reason Stop Dose Admin Acetaminophen 650 mg 12/09/17 11:07 12/14/17 16:36 Tylenol - PO 650 mg Q6H PRN Administration PAIN OR FEVER Acetaminophen/Codeine Phosphate 1 tab 12/09/17 11:07 12/13/17 23:48 Tylenol # 3 - PO 1 tab Q6H PRN Administration PAIN LEVEL 4 - 6 Amino Acids 30 ml 12/11/17 08:00 12/14/17 16:36 Prosource No Carb Liquid Pkt PO 30 ml BID@0800,1730 [facility] Administration Lactated Ringer's 1,000 ml in 1,000 mls @ 75 mls/hr 12/11/17 08:00 12/14/17 16:36 Lactated Ringers Solution IV Not Given ASDIR [facility] Levothyroxine Sodium 112 mcg 12/10/17 07:00 12/14/17 06:01 Synthroid - PO 112 mcg DAILY@0700 [facility] Administration Morphine Sulfate 2 mg 12/09/17 17:49 Morphine Sulfate IVPUSH Q6H PRN PAIN LEVEL 7 - 10 Ondansetron HCl 8 mg 12/09/17 17:49 Zofran Injection IVPB Q6H PRN NAUSEA Pantoprazole Sodium 40 mg 12/10/17 10:00 12/14/17 11:51 Protonix Iv IVPUSH 40 mg DAILY [facility] Administration Impression: Metastatic rectal ca Hepatic and extra hepatic mets Vaginal bleeding - ?? local mets ?? other ?? fistulae Anemia Social issues to be decided upon if clinically stable, consider short term rehab
[2017-12-15] MEDS: LEVOTHYROXINE NA 112 MCG TABLET (FP) PO SCH (06:38)
[2017-12-15] MEDS: LACTATED RINGERS SOLUTION 1,000 ML/1,000 ML INFUS.BAG IV SCH ×2 (06:55→16:34)
[2017-12-15] MEDS: AMINO ACIDS/PROTEIN HYDROLYS 30 ML LIQUID.PKT PO SCH ×2 (08:09→17:19)
[2017-12-15 08:18] LABS: HEMATOCRIT 26.4 % (32.4-45.2); HEMOGLOBIN 8.5 GM/dL (10.7-15.3); MCH 30.5 pg (25.7-33.7); MCHC 32.1 g/dl (32.0-36.0); MEAN CELL VOLUME 95.1 fl (80-96); MEAN PLT VOLUME 8.9 fl (7.5-11.1); PLATELET COUNT 99 K/MM3 (134-434); RBC 2.78 M/mm3 (3.60-5.2); RDW 22.3 % (11.6-15.6); WHITE BLOOD COUNT 2.7 K/mm3 (4.0-10.0)
--- NOTE | 2017-12-15 08:51 | DS ---
Physical Examination Vital Signs: Vital Signs Temperature 99 F 12/15/17 06:49 Pulse Rate 75 12/15/17 06:49 Respiratory Rate 20 12/15/17 06:49 Blood Pressure 139/62 12/15/17 06:49 O2 Sat by Pulse Oximetry (%) 98 12/14/17 22:50 Constitutional: Yes: Mild Distress Eyes: Yes: WNL HENT: Yes: WNL Neck: Yes: WNL Cardiovascular: Yes: WNL Respiratory: Yes: WNL Gastrointestinal: Yes: WNL Renal/: Yes: WNL Musculoskeletal: Yes: Muscle Weakness Extremities: Yes: WNL Edema: Yes Edema: LLE: Trace, RLE: Trace Peripheral Pulses WNL: Yes Integumentary: Yes: WNL Wound/Incision: Yes: Clean/Dry Neurological: Yes: WNL ...Motor Strength: LLE, RLE Psychiatric: Yes: WNL Discharge Summary Reason For Visit: RECTOVAGINAL FISTULA Current Active Problems GI bleed (Acute) Hypoalbuminemia (Acute) Metastasis from rectal cancer (Acute) Thrombocytopenia (Acute) Procedures: Principal: CT SCAN/SONO Hospital Course: ADMITTED GI BLEED, VAGINAL BLLED, ANEMIA, METASTATIC CANCER, TREATED WITH TRANSFUSION, GI AND ONCOLOGY W/UP. PATIENT WILL NEED SNF FOR WEAKNESS AND CARE. PATIENT IS DECIDING ON ONCOLOGY FOLLOW UP Condition: Stable - Instructions Referrals: Jaime Velasco MD, MD [Primary Care Provider] - Disposition: LONG-TERM FACILITY - Home Medications Comprehensive Discharge Medication List: Ambulatory Orders Acetaminophen W/ Codeine #3 [Tylenol # 3 -] 1 tab PO Q6H PRN #40 tablet MDD 4 Acetaminophen [Tylenol .Regular Strength -] 650 mg PO Q6H PRN tablet 08/27/17 Levothyroxine [Synthroid -] 112 mcg PO DAILY@0700 #30 tablet 08/27/17 Melatonin 10 mg PO HS 12/09/17
[2017-12-15 08:56] LABS: ANION GAP 12 MMOL/L (8-16); BLOOD UREA NITROGEN 11 mg/dL (7-18); CALCIUM 8.5 mg/dL (8.5-10.1); CHLORIDE 106 mmol/L (98-107); CO2 22 mmol/L (21-32); CREATININE 0.3 mg/dL (0.55-1.02); GLUCOSE,RANDOM 91 mg/dL (74-106); POTASSIUM 3.8 mmol/L (3.5-5.1); SODIUM 140 mmol/L (136-145)
[2017-12-15] MEDS ORDERED: PT OWN MED DRAWER 7, Y5N ONE ×2 (09:13→18:09)
[2017-12-15] MEDS: PANTOPRAZOLE SODIUM 40 MG VIAL IVPUSH SCH (09:19)
[2017-12-15] MEDS: ACETAMINOPHEN 325 MG TABLET (FP) PO PRN (11:55)
[2017-12-15] MEDS ORDERED: VANCOMYCIN 1,250 MG in DEXTROSE 5%-WATER - 250 ML IVPB SCH (15:30)
--- NOTE | 2017-12-15 15:34 | PN ---
Progress Note (short form) - Note Progress Note: ID consult dictated imp/reccd fever (new) vaginal bleeding metastatic colorectal cancer blood cultures -peripheral and port urine culture cxray clear vanco/cefepime for now d/w Dr Owens Problem List - Problems (1) Fever Code(s): R50.9 - FEVER, UNSPECIFIED (2) Vaginal bleeding Code(s): N93.9 - ABNORMAL UTERINE AND VAGINAL BLEEDING, UNSPECIFIED (3) Rectal adenocarcinoma metastatic to liver Code(s): C20 - MALIGNANT NEOPLASM OF RECTUM; C78.7 - SECONDARY MALIG NEOPLASM OF LIVER AND INTRAHEPATIC BILE DUCT
[2017-12-15 17:35] LABS: URINE APPEARANCE CLOUDY; URINE BILIRUBIN NEGATIVE (<2.0 mg/dL); URINE COLOR YELLOW; URINE GLUCOSE (UA) NEGATIVE (NEGATIVE); URINE KETONE NEGATIVE (NEGATIVE); URINE NITRITE NEGATIVE (NEGATIVE)
[2017-12-15 17:44] LABS: URINE LEUK ESTERASE 3+ (NEGATIVE); URINE PROTEIN 1+ (NEGATIVE)
[2017-12-15 17:48] LABS: EPI CELLS RARE /HPF (FEW); URINE BACTERIA RARE /hpf (NONE SEEN); URINE MUCUS RARE
--- NOTE | 2017-12-15 19:18 | PN ---
Progress Note (short form) - Note Progress Note: Patient seen and examined Spiked temp last 24 hours. Seen by I.D> Empiric antibiotics begun Still with blood per urine Port cultured Last Vital Signs Temp Pulse Resp BP Pulse Ox 97.2 F L 77 18 138/72 98 12/15/17 16:15 12/15/17 16:15 12/15/17 16:15 12/15/17 16:15 12/14/17 22:50 HEENT: EVETTE, EOM Intact Oropharynx: No thrush, No mucositis Cor: RSR, No murmurs, No gallops Lungs: Clear to P&A Abd: Soft, Normal bowel sounds, No organomegaly, colostomy Ext:No significant edema Skin: No rashes, Integument intact CBC, BMP 12/15/17 07:00 12/15/17 07:00 Current Medications Generic Name Dose Route Start Last Admin Trade Name Freq PRN Reason Stop Dose Admin Acetaminophen 650 mg 12/09/17 11:07 12/15/17 11:55 Tylenol - PO 650 mg Q6H PRN Administration PAIN OR FEVER Amino Acids 30 ml 12/11/17 08:00 12/15/17 17:19 Prosource No Carb Liquid Pkt PO 30 ml BID@0800,1730 TED Administration Lactated Ringer's 1,000 ml in 1,000 mls @ 75 mls/hr 12/11/17 08:00 12/15/17 16:34 Lactated Ringers Solution IV Not Given ASDIR TED Cefepime HCl 1 gm in 50 mls @ 100 mls/hr 12/15/17 16:00 Maxipime 1 Gm Premix Ivpb IVPB Q8H-IV TED Protocol Vancomycin HCl 1,250 mg/ 250 mls @ 166.667 mls/hr 12/15/17 15:30 12/15/17 18: 14 Dextrose IVPB 166.667 mls/hr Q12H TED Administration Protocol Levothyroxine Sodium 112 mcg 12/10/17 07:00 12/15/17 06:38 Synthroid - PO 112 mcg DAILY@0700 TED Administration Ondansetron HCl 8 mg 12/09/17 17:49 Zofran Injection IVPB Q6H PRN NAUSEA Pantoprazole Sodium 40 mg 12/10/17 10:00 12/15/17 09:19 Protonix Iv IVPUSH 40 mg DAILY TED Administration Impression: Rectal ca /mets Fevers Vaginal bleeding Pancytopenia Plan: Ab per ID Monitor CBC
[2017-12-15] MEDS: CEFEPIME HCL/D5W 1 GM/50 ML BAG IVPB SCH (21:31)
[2017-12-16] MEDS: CEFEPIME HCL/D5W 1 GM/50 ML BAG IVPB SCH ×3 (01:27→17:43)
[2017-12-16] MEDS: LACTATED RINGERS SOLUTION 1,000 ML/1,000 ML INFUS.BAG IV SCH ×3 (02:09→18:22)
[2017-12-16] MEDS: VANCOMYCIN 1 GM PREMIX - 1 GM/200 ML BAG IVPB SCH ×2 (05:34→18:21)
[2017-12-16] MEDS: LEVOTHYROXINE NA 112 MCG TABLET (FP) PO SCH (06:24)
[2017-12-16 07:54] LABS: BASO % 0.8 % (0-2.0); EOS % 1.8 % (0-4.5); HEMATOCRIT 28.7 % (32.4-45.2); HEMOGLOBIN 9.4 GM/dL (10.7-15.3); LYMPH % 8.7 % (8-40); MCH 30.3 pg (25.7-33.7); MCHC 32.6 g/dl (32.0-36.0); MEAN PLT VOLUME 8.7 fl (7.5-11.1); MONO % 12.7 % (3.8-10.2); PLATELET COUNT 113 K/MM3 (134-434); RBC 3.09 M/mm3 (3.60-5.2); RDW 21.7 % (11.6-15.6); WHITE BLOOD COUNT 3.5 K/mm3 (4.0-10.0)
[2017-12-16] MEDS: AMINO ACIDS/PROTEIN HYDROLYS 30 ML LIQUID.PKT PO SCH ×2 (08:17→17:43)
[2017-12-16] MEDS ORDERED: PT OWN MED DRAWER 7, Y5N ONE ×2 (09:04→18:15)
[2017-12-16] MEDS: PANTOPRAZOLE SODIUM 40 MG VIAL IVPUSH SCH (09:08)
--- NOTE | 2017-12-16 09:53 | PN ---
Progress Note, Physician Chief Complaint: EVENTS REVIEWED FEVER WITH SEPSIS WORKUP - Current Medication List Current Medications: Active Medications Acetaminophen (Tylenol -) 650 mg PO Q6H PRN PRN Reason: PAIN OR FEVER Last Admin: 12/15/17 11:55 Dose: 650 mg Amino Acids (Prosource No Carb Liquid Pkt) 30 ml PO BID@0800,1730 [facility] Last Admin: 12/16/17 08:17 Dose: 30 ml Lactated Ringer's (Lactated Ringers Solution) 1,000 ml in 1,000 mls @ 75 mls/ hr IV ASDIR [facility] Last Admin: 12/16/17 02:09 Dose: 75 mls/hr Cefepime HCl (Maxipime 1 Gm Premix Ivpb) 1 gm in 50 mls @ 100 mls/hr IVPB Q8H- IV TED; Protocol Last Admin: 12/16/17 09:26 Dose: 100 mls/hr Vancomycin HCl (Vancomycin 1 Gm Premix -) 1 gm in 200 mls @ 133.333 mls/hr IVPB Q12H [facility]; Protocol Last Admin: 12/16/17 05:34 Dose: 133.333 mls/hr Levothyroxine Sodium (Synthroid -) 112 mcg PO DAILY@0700 [facility] Last Admin: 12/16/17 06:24 Dose: 112 mcg Ondansetron HCl (Zofran Injection) 8 mg IVPB Q6H PRN PRN Reason: NAUSEA Pantoprazole Sodium (Protonix Iv) 40 mg IVPUSH DAILY [facility] Last Admin: 12/16/17 09:08 Dose: 40 mg - Objective Vital Signs: Vital Signs Temperature 98.8 F 12/16/17 08:00 Pulse Rate 72 12/16/17 08:00 Respiratory Rate 20 12/16/17 08:00 Blood Pressure 130/68 12/16/17 08:00 O2 Sat by Pulse Oximetry (%) 98 12/15/17 21:00 Constitutional: Yes: Mild Distress Eyes: Yes: WNL HENT: Yes: WNL Neck: Yes: WNL Cardiovascular: Yes: WNL Respiratory: Yes: WNL Gastrointestinal: Yes: WNL Genitourinary: Yes: Hematuria Musculoskeletal: Yes: Muscle Weakness Extremities: Yes: WNL Edema: Yes Edema: LLE: Trace, RLE: Trace Peripheral Pulses WNL: Yes Integumentary: Yes: Venous Stasis Changes Wound/Incision: Yes: Clean/Dry Neurological: Yes: Other ...Motor Strength: LLE, RLE Psychiatric: Yes: WNL Labs: CBC, BMP 12/16/17 07:15 INR, PTT INR 1.39 (0.83-1.09) H 12/12/17 08:00 Problem List - Problems (1) GI bleed Code(s): K92.2 - GASTROINTESTINAL HEMORRHAGE, UNSPECIFIED Qualifiers: GI bleed type/associated pathology: unspecified gastrointestinal hemorrhage type Qualified Code(s): K92.2 - Gastrointestinal hemorrhage, unspecified (2) Metastasis from rectal cancer Code(s): C79.9 - SECONDARY MALIGNANT NEOPLASM OF UNSPECIFIED SITE; C20 - MALIGNANT NEOPLASM OF RECTUM (3) Thrombocytopenia Code(s): D69.6 - THROMBOCYTOPENIA, UNSPECIFIED (4) Rectal adenocarcinoma metastatic to liver Code(s): C20 - MALIGNANT NEOPLASM OF RECTUM; C78.7 - SECONDARY MALIG NEOPLASM OF LIVER AND INTRAHEPATIC BILE DUCT Assessment/Plan MONITORING LABS TRANSFUSE PRBC NEEDED ONCOLOGY F/U ON ABX VANC/CEFIPIME IF CULTURES NEGATIVE CAN DC TOMORROW TUMOR FEVERS LIKELY DC PLANNING [facility] SONDRA RIBERA TO CHAIR WITH ASSIST
[2017-12-16 10:22] LABS: ANION GAP 11 MMOL/L (8-16); BILIRUBIN,TOTAL 1.3 mg/dL (0.2-1.0); BLOOD UREA NITROGEN 12 mg/dL (7-18); CALCIUM 8.3 mg/dL (8.5-10.1); CHLORIDE 104 mmol/L (98-107); CO2 23 mmol/L (21-32); CREATININE 0.4 mg/dL (0.55-1.02); GLUCOSE,RANDOM 105 mg/dL (74-106); MAGNESIUM 1.6 mg/dL (1.8-2.4); POTASSIUM 3.7 mmol/L (3.5-5.1); SGOT/AST 25 U/L (15-37); SGPT/ALT 13 U/L (12-78); SODIUM 138 mmol/L (136-145); TOT PROT 5.3 g/dl (6.4-8.2)
[2017-12-16 10:23] LABS: ALK PHOS 119 U/L (45-117)
[2017-12-16 11:39] LABS: ANISOCYTOSIS 1+; MACROCYTOSIS 1+; PLATELET ESTIMATE DECREASED
--- NOTE | 2017-12-16 15:25 | PN ---
Progress Note (short form) - Note Progress Note: NAD no further fevers no bleeding Vital Signs Period Temp Pulse Resp BP Sys/Bird Pulse Ox Last 24 Hr 97.2 F-99.3 F 68-82 18-20 130-143/63-72 98 cor-rrr lungs clear abd soft,nt ext no edema CBC, BMP 12/16/17 07:15 12/16/17 07:15 Microbiology 12/15/17 13:35 Blood - Peripheral Venous Blood Culture - Preliminary NO GROWTH OBTAINED AFTER 24 HOURS, INCUBATION TO CONTINUE FOR 4 DAYS. 12/15/17 13:30 Blood - Peripheral Venous Blood Culture - Preliminary NO GROWTH OBTAINED AFTER 24 HOURS, INCUBATION TO CONTINUE FOR 4 DAYS. 12/15/17 14:30 Urine - Urine Clean Catch Urine Culture - Final Contaminated: Please Repeat imp/reccd fever resolved vaginal bleeding metastatic colorectal cancer blood cultures -peripheral and port urine culture cxray clear vanco/cefepime for now if cultures are negative in am, can dc antibiotics
[2017-12-16] MEDS: ACETAMINOPHEN 325 MG TABLET (FP) PO PRN (23:44)
[2017-12-17] MEDS: CEFEPIME HCL/D5W 1 GM/50 ML BAG IVPB SCH ×2 (02:04→10:38)
[2017-12-17] MEDS: VANCOMYCIN 1 GM PREMIX - 1 GM/200 ML BAG IVPB SCH (06:24)
[2017-12-17] MEDS: LEVOTHYROXINE NA 112 MCG TABLET (FP) PO SCH (06:24)
[2017-12-17 07:47] LABS: HEMATOCRIT 26.4 % (32.4-45.2); HEMOGLOBIN 8.5 GM/dL (10.7-15.3); MCH 30.5 pg (25.7-33.7); MCHC 32.4 g/dl (32.0-36.0); MEAN CELL VOLUME 94.2 fl (80-96); MEAN PLT VOLUME 8.3 fl (7.5-11.1); PLATELET COUNT 100 K/MM3 (134-434); WHITE BLOOD COUNT 3.6 K/mm3 (4.0-10.0)
--- NOTE | 2017-12-17 08:30 | PN ---
Progress Note, Physician Chief Complaint: AWAKE ALERT WEAK AND LETHARGIC - Current Medication List Current Medications: Active Medications Acetaminophen (Tylenol -) 650 mg PO Q6H PRN PRN Reason: PAIN OR FEVER Last Admin: 12/16/17 23:44 Dose: 650 mg Amino Acids (Prosource No Carb Liquid Pkt) 30 ml PO BID@0800,1730 [facility] Last Admin: 12/16/17 17:43 Dose: 30 ml Lactated Ringer's (Lactated Ringers Solution) 1,000 ml in 1,000 mls @ 75 mls/ hr IV ASDIR [facility] Last Admin: 12/16/17 18:22 Dose: Not Given Cefepime HCl (Maxipime 1 Gm Premix Ivpb) 1 gm in 50 mls @ 100 mls/hr IVPB Q8H- IV [facility]; Protocol Last Admin: 12/17/17 02:04 Dose: 100 mls/hr Vancomycin HCl (Vancomycin 1 Gm Premix -) 1 gm in 200 mls @ 133.333 mls/hr IVPB Q12H [facility]; Protocol Last Admin: 12/17/17 06:24 Dose: 133.333 mls/hr Levothyroxine Sodium (Synthroid -) 112 mcg PO DAILY@0700 [facility] Last Admin: 12/17/17 06:24 Dose: 112 mcg Ondansetron HCl (Zofran Injection) 8 mg IVPB Q6H PRN PRN Reason: NAUSEA Pantoprazole Sodium (Protonix Iv) 40 mg IVPUSH DAILY [facility] Last Admin: 12/16/17 09:08 Dose: 40 mg - Objective Vital Signs: Vital Signs Temperature 98.2 F 12/17/17 06:17 Pulse Rate 70 12/17/17 06:17 Respiratory Rate 20 12/17/17 06:17 Blood Pressure 132/74 12/17/17 06:17 O2 Sat by Pulse Oximetry (%) 98 12/16/17 21:00 Constitutional: Yes: Mild Distress Eyes: Yes: WNL HENT: Yes: WNL Neck: Yes: WNL Cardiovascular: Yes: WNL Respiratory: Yes: WNL Gastrointestinal: Yes: WNL Genitourinary: Yes: Incontinence Musculoskeletal: Yes: Muscle Weakness Extremities: Yes: WNL Edema: Yes Edema: LLE: Trace, RLE: Trace Peripheral Pulses WNL: Yes Integumentary: Yes: WNL Wound/Incision: Yes: Clean/Dry Neurological: Yes: Pre-Existing Deficit ...Motor Strength: LLE, RLE Psychiatric: Yes: WNL Labs: CBC, BMP 12/17/17 07:20 12/16/17 07:15 INR, PTT INR 1.39 (0.83-1.09) H 12/12/17 08:00 Problem List - Problems (1) GI bleed Code(s): K92.2 - GASTROINTESTINAL HEMORRHAGE, UNSPECIFIED Qualifiers: GI bleed type/associated pathology: unspecified gastrointestinal hemorrhage type Qualified Code(s): K92.2 - Gastrointestinal hemorrhage, unspecified (2) Metastasis from rectal cancer Code(s): C79.9 - SECONDARY MALIGNANT NEOPLASM OF UNSPECIFIED SITE; C20 - MALIGNANT NEOPLASM OF RECTUM (3) Thrombocytopenia Code(s): D69.6 - THROMBOCYTOPENIA, UNSPECIFIED (4) Rectal adenocarcinoma metastatic to liver Code(s): C20 - MALIGNANT NEOPLASM OF RECTUM; C78.7 - SECONDARY MALIG NEOPLASM OF LIVER AND INTRAHEPATIC BILE DUCT Assessment/Plan MONITORING LABS TRANSFUSE PRBC NEEDED ONCOLOGY F/U GYNECOLGY DR CORRIE LIZARRAGA FOR VAGINAL BLEED OFF ABX VANC/CEFIPIME TUMOR FEVERS LIKELY DC PLANNING [facility] SONDRA DIALLO OBERTA TO CHAIR WITH ASSIST
[2017-12-17] MEDS: AMINO ACIDS/PROTEIN HYDROLYS 30 ML LIQUID.PKT PO SCH ×2 (08:55→18:27)
[2017-12-17] MEDS: LACTATED RINGERS SOLUTION 1,000 ML/1,000 ML INFUS.BAG IV SCH (08:57)
[2017-12-17] MEDS: PANTOPRAZOLE SODIUM 40 MG VIAL IVPUSH SCH (10:38)
--- NOTE | 2017-12-17 16:45 | PN ---
Progress Note (short form) - Note Progress Note: low grade temp still with vaginal bleeding Vital Signs Period Temp Pulse Resp BP Sys/Bird Pulse Ox Last 24 Hr 98.2 F-100.6 F 70-80 18-20 132-148/66-74 98 cor-rrr lungs clear abd soft,nt ext no edema CBC, BMP 12/17/17 07:20 12/16/17 07:15 Microbiology 12/15/17 15:35 Blood - Angus Cath Blood Culture - Preliminary NO GROWTH OBTAINED AFTER 48 HOURS, INCUBATION TO CONTINUE FOR 3 DAYS. 12/15/17 13:35 Blood - Peripheral Venous Blood Culture - Preliminary NO GROWTH OBTAINED AFTER 48 HOURS, INCUBATION TO CONTINUE FOR 3 DAYS. 12/15/17 13:30 Blood - Peripheral Venous Blood Culture - Preliminary NO GROWTH OBTAINED AFTER 48 HOURS, INCUBATION TO CONTINUE FOR 3 DAYS. 12/15/17 14:30 Urine - Urine Clean Catch Urine Culture - Final Contaminated: Please Repeat a/p fever vaginal bleeding metastatic colorectal cancer cultures negative d/c vancomycin and cefepime she is not neutropenic will observe off antibiotics Problem List - Problems (1) Fever Code(s): R50.9 - FEVER, UNSPECIFIED (2) Vaginal bleeding Code(s): N93.9 - ABNORMAL UTERINE AND VAGINAL BLEEDING, UNSPECIFIED (3) Rectal adenocarcinoma metastatic to liver Code(s): C20 - MALIGNANT NEOPLASM OF RECTUM; C78.7 - SECONDARY MALIG NEOPLASM OF LIVER AND INTRAHEPATIC BILE DUCT
--- NOTE | 2017-12-17 18:36 | CONS ---
DATE OF CONSULTATION: DATE OF DICTATION: 12/17/2017 REQUESTED BY: Ghanshyam Blanchard MD HISTORY OF PRESENT ILLNESS: This is a 67-year-old woman with a history of metastatic colorectal cancer. She has metastases to the liver, status post total colectomy in 2013 with ileostomy. She is status post total hysterectomy. She presented to the emergency room for bleeding. It was not clear originally if it was GI or vaginally. She was evaluated by GI and Gynecology and felt to have a fistula with vaginal bleeding. Decision was made to treat her conservatively and she has been treated with multiple blood transfusions. I am asked to see her because on hospital day number 6 on December 15 she developed fever overnight. She had no chills and was not aware she was having fever. She first had fever to 101 overnight and again in the morning to 102.9. Is currently receiving blood and is quite comfortable. PAST MEDICAL HISTORY: Notable for hypothyroidism, colorectal cancer metastatic, she has a history of colectomy and a hysterectomy. She has a known rectovaginal fistula. ALLERGIES: She is allergic to CIPRO which gives her a rash and SHELLFISH which makes her vomit. MEDICATIONS AT HOME: Include Tylenol No. 3; levothyroxine; and melatonin. REVIEW OF SYSTEMS: She has no cough. She has no shortness of breath or dysuria. Per the nurse she continues to have intermittent vaginal bleeding. PHYSICAL EXAMINATION:General: She is awake and alert. Was receiving blood at the time we saw her. She is a well-appearing but tired 67-year-old woman in no acute distress. Vital Signs: With a temperature of 98.8, blood pressure of 148/66, pulse of 80, respiratory rate of 18, she was saturating 98% on room air. HEENT: She is normocephalic. Her eyes are anicteric. Neck: Supple. Lungs: Clear to auscultation. Heart: Regular rate and rhythm. Abdomen: Soft, nontender. Extremities: Without edema. Chest x-ray was done which showed no acute infiltrate. She had a CT of the abdomen and pelvis done on admission on December 10 that showed multiple pulmonary nodules, small right pleural effusion, some basilar atelectasis, ascites, multiple hepatic metastases and a right adrenal mass, a retroperitoneal adenopathy, diverting colostomy and some slight progression of her disease. She had a transvaginal and pelvic ultrasound that was very limited. Ovaries were not visualized, status post hysterectomy. ASSESSMENT: In summary this is a 67-year-old woman currently with fever, hospital day number 5, recurrent vaginal bleeding secondary to fistula and metastatic colorectal cancer. Unclear if there is really a source or that perhaps the fevers are just due to bleeding. She is not neutropenic. RECOMMENDATIONS: Would obtain cultures and treat with vancomycin and cefepime until the cultures are back. She has a port as well, the site of which does not appear infected. Will obtain a port culture before de-accessing the port. Would observe for temperature curve as well as her cultures. Of note she could also have tumor fever from the liver metastases as well as fever from perhaps blood collecting in her pelvic area. Further recommendations to follow. Calin [id number]
--- NOTE | 2017-12-17 19:26 | PN ---
Progress Note (short form) - Note Progress Note: Patient seen and examined Feels weak overall Vaginal bleeding Last Vital Signs Temp Pulse Resp BP Pulse Ox 99.4 F 79 18 128/55 100 12/17/17 17:11 12/17/17 17:11 12/17/17 17:11 12/17/17 17:11 12/17/17 09:00 Cor: RSR, No murmurs, No gallops Lungs: Clear to P&A Abd: Soft, Normal bowel sounds, No organomegaly Ext:No significant edema Abnormal Lab Results 12/17/17 07:20 WBC 3.6 L RBC 2.80 L Hgb 8.5 L Hct 26.4 L RDW 22.0 H Plt Count 100 L Active Medications Generic Name Dose Route Start Last Admin Trade Name Freq PRN Reason Stop Dose Admin Acetaminophen 650 mg 12/09/17 11:07 12/16/17 23:44 Tylenol - PO 650 mg Q6H PRN Administration PAIN OR FEVER Amino Acids 30 ml 12/11/17 08:00 12/17/17 18:27 Prosource No Carb Liquid Pkt PO 30 ml BID@0800,1730 TED Administration Lactated Ringer's 1,000 ml in 1,000 mls @ 75 mls/hr 12/11/17 08:00 12/17/17 08:57 Lactated Ringers Solution IV 75 mls/hr ASDIR TED Administration Levothyroxine Sodium 112 mcg 12/10/17 07:00 12/17/17 06:24 Synthroid - PO 112 mcg DAILY@0700 TED Administration Ondansetron HCl 8 mg 12/09/17 17:49 Zofran Injection IVPB Q6H PRN NAUSEA Pantoprazole Sodium 40 mg 12/10/17 10:00 12/17/17 10:38 Protonix Iv IVPUSH 40 mg DAILY TED Administration A/P 67 year old with history of rectal ca , s/p neoadjuvant RT and chemotherapy followed by surgery requiring colostomy and completion of adjuvant therapy. Developed liver mets and extrahepatic mets requiring multiple courses of chemotherapy. (oxaliplatin, irinotecan, avastin xeloda) Last chemotherapy one week earlier with infusional 5FU and leucovorin Has had enterovaginal fistula which has required surgical repair. Presents now with vaginal bleeding , falling Hct. CT c/a/p --slightly worsening mets since 08/28/17--extensive lung/liver/adrenal mets/retroperitoneal nodes Surgery/GI consults noted Elevated INR-improved with FFP and 2 doses of vitamin K Discussed overall poor prognosis with patient. Updated her about input of GI/ Surgicalt eams -- that given her overall status, she is not a surgical cancdiadate and bleeding mostlikely form recurrent rectal tumor. Patient wants to continue palliative care , with monitoring of CBC/transfusion as needed/supportive care at this time Understands her overallprognosis
--- NOTE | 2017-12-17 22:04 | PN ---
Progress Note (short form) - Note Progress Note: [employer] follow up still has vaginal bleeding sono s/p hysterectomy impression vaginal bleeding secondary to rectovagianl fistula no surgical candidate at this time advised supportive care monitor cbc
[2017-12-18] MEDS: LACTATED RINGERS SOLUTION 1,000 ML/1,000 ML INFUS.BAG IV SCH ×2 (02:30→16:10)
[2017-12-18] MEDS: LEVOTHYROXINE NA 112 MCG TABLET (FP) PO SCH (06:25)
[2017-12-18 07:45] LABS: BASO % 0.6 % (0-2.0); EOS % 2.3 % (0-4.5); HEMATOCRIT 26.7 % (32.4-45.2); HEMOGLOBIN 8.7 GM/dL (10.7-15.3); LYMPH % 7.8 % (8-40); MCH 30.6 pg (25.7-33.7); MCHC 32.7 g/dl (32.0-36.0); MEAN CELL VOLUME 93.6 fl (80-96); MEAN PLT VOLUME 8.3 fl (7.5-11.1); MONO % 11.9 % (3.8-10.2); NEUT % 77.4 % (42.8-82.8); PLATELET COUNT 111 K/MM3 (134-434); RBC 2.85 M/mm3 (3.60-5.2); RDW 21.7 % (11.6-15.6); WHITE BLOOD COUNT 4.1 K/mm3 (4.0-10.0)
[2017-12-18 08:15] LABS: INR 1.48 (0.83-1.09); PROTHROMBIN TIME (PATIENT) 16.7 SEC (9.7-13.0)
[2017-12-18 08:18] LABS: ACTIVATED PTT 30.8 SECONDS (25.2-36.5); ALBUMIN 1.9 g/dl (3.4-5.0); ALK PHOS 116 U/L (45-117); ANION GAP 9 MMOL/L (8-16); BILIRUBIN,TOTAL 0.7 mg/dL (0.2-1.0); BLOOD UREA NITROGEN 11 mg/dL (7-18); CALCIUM 8.4 mg/dL (8.5-10.1); CHLORIDE 106 mmol/L (98-107); CO2 25 mmol/L (21-32); CREATININE 0.5 mg/dL (0.55-1.02); GLUCOSE,RANDOM 96 mg/dL (74-106); POTASSIUM 3.5 mmol/L (3.5-5.1); SGOT/AST 22 U/L (15-37); SGPT/ALT 13 U/L (12-78); SODIUM 140 mmol/L (136-145)
--- NOTE | 2017-12-18 09:40 | PN ---
Progress Note (short form) - Note Progress Note: fevers resolved still with some vaginal bleeding Vital Signs Period Temp Pulse Resp BP Sys/Bird Pulse Ox Last 24 Hr 98.2 F-99.4 F 70-79 -18 128-148/55-70 99 cor-rrr lungs clear abd soft,nt +ostomy ext no edema CBC, BMP 12/18/17 07:15 12/18/17 07:15 Microbiology 12/15/17 15:35 Blood - Angus Cath Blood Culture - Preliminary NO GROWTH OBTAINED AFTER 48 HOURS, INCUBATION TO CONTINUE FOR 3 DAYS. 12/15/17 13:35 Blood - Peripheral Venous Blood Culture - Preliminary NO GROWTH OBTAINED AFTER 48 HOURS, INCUBATION TO CONTINUE FOR 3 DAYS. 12/15/17 13:30 Blood - Peripheral Venous Blood Culture - Preliminary NO GROWTH OBTAINED AFTER 48 HOURS, INCUBATION TO CONTINUE FOR 3 DAYS. 12/15/17 14:30 Urine - Urine Clean Catch Urine Culture - Final Contaminated: Please Repeat a/p fever- ?secondary to hematoma, ?liver mets- tumor fever, cultures are negative vaginal bleeding-rectovaginal fistula- metastatic colorectal cancer cultures negative stable off antibiotics please call back if needed Problem List - Problems (1) Fever Code(s): R50.9 - FEVER, UNSPECIFIED (2) Vaginal bleeding Code(s): N93.9 - ABNORMAL UTERINE AND VAGINAL BLEEDING, UNSPECIFIED (3) Rectal adenocarcinoma metastatic to liver Code(s): C20 - MALIGNANT NEOPLASM OF RECTUM; C78.7 - SECONDARY MALIG NEOPLASM OF LIVER AND INTRAHEPATIC BILE DUCT
[2017-12-18] MEDS: AMINO ACIDS/PROTEIN HYDROLYS 30 ML LIQUID.PKT PO SCH ×2 (10:24→17:51)
[2017-12-18] MEDS: PANTOPRAZOLE SODIUM 40 MG VIAL IVPUSH SCH (10:24)
--- NOTE | 2017-12-18 13:18 | PN ---
Progress Note (short form) - Note Progress Note: HEMATOLOGY PROGRESS NOTE : Patient seen and examined Feels ok today Vital Signs Period Temp Pulse Resp BP Sys/Bird Pulse Ox Last 24 Hr 98.2 F-99.4 F 70-79 18-18 128-148/55-70 99 Current Medications Generic Name Dose Route Start Last Admin Trade Name Freq PRN Reason Stop Dose Admin Acetaminophen 650 mg 12/09/17 11:07 12/16/17 23:44 Tylenol - PO 650 mg Q6H PRN Administration PAIN OR FEVER Amino Acids 30 ml 12/11/17 08:00 12/18/17 10:24 Prosource No Carb Liquid Pkt PO 30 ml BID@0800,1730 TED Administration Lactated Ringer's 1,000 ml in 1,000 mls @ 75 mls/hr 12/11/17 08:00 12/18/17 02:30 Lactated Ringers Solution IV 75 mls/hr ASDIR TED Administration Levothyroxine Sodium 112 mcg 12/10/17 07:00 12/18/17 06:25 Synthroid - PO 112 mcg DAILY@0700 TED Administration Ondansetron HCl 8 mg 12/09/17 17:49 Zofran Injection IVPB Q6H PRN NAUSEA Pantoprazole Sodium 40 mg 12/10/17 10:00 12/18/17 10:24 Protonix Iv IVPUSH 40 mg DAILY TED Administration CBC, BMP 12/18/17 07:15 12/18/17 07:15 A/P 67 year old with history of rectal ca , s/p neoadjuvant RT and chemotherapy followed by surgery requiring colostomy and completion of adjuvant therapy. Developed liver mets and extrahepatic mets requiring multiple courses of chemotherapy. (oxaliplatin, irinotecan, avastin xeloda) Last chemotherapy one week earlier with infusional 5FU and leucovorin Has had enterovaginal fistula which has required surgical repair. Presents now with vaginal bleeding , falling Hct. CT c/a/p --slightly worsening mets since 08/28/17--extensive lung/liver/adrenal mets/retroperitoneal nodes Surgery/GI consults noted Elevated INR-improved with FFP and 2 doses of vitamin K Continue palliative care
--- NOTE | 2017-12-18 13:25 | PN ---
Progress Note, Physician - Current Medication List Current Medications: Active Medications Acetaminophen (Tylenol -) 650 mg PO Q6H PRN PRN Reason: PAIN OR FEVER Last Admin: 12/16/17 23:44 Dose: 650 mg Amino Acids (Prosource No Carb Liquid Pkt) 30 ml PO BID@0800,1730 [facility] Last Admin: 12/18/17 10:24 Dose: 30 ml Lactated Ringer's (Lactated Ringers Solution) 1,000 ml in 1,000 mls @ 75 mls/ hr IV ASDIR [facility] Last Admin: 12/18/17 02:30 Dose: 75 mls/hr Levothyroxine Sodium (Synthroid -) 112 mcg PO DAILY@0700 [facility] Last Admin: 12/18/17 06:25 Dose: 112 mcg Ondansetron HCl (Zofran Injection) 8 mg IVPB Q6H PRN PRN Reason: NAUSEA Pantoprazole Sodium (Protonix Iv) 40 mg IVPUSH DAILY [facility] Last Admin: 12/18/17 10:24 Dose: 40 mg - Objective Vital Signs: Vital Signs Temperature 98.2 F 12/18/17 05:46 Pulse Rate 70 12/18/17 05:46 Respiratory Rate 18 12/18/17 05:46 Blood Pressure 148/70 12/18/17 05:46 O2 Sat by Pulse Oximetry (%) 99 12/17/17 21:00 Cardiovascular: Yes: S1, S2 Respiratory: Yes: Regular, CTA Bilaterally Gastrointestinal: Yes: Normal Bowel Sounds, Soft Labs: CBC, BMP 12/18/17 07:15 12/18/17 07:15 INR, PTT INR 1.48 (0.83-1.09) H 12/18/17 07:15 Fibrinogen > 500.0 mg/dL (238-498) H 12/18/17 07:15 Assessment/Plan - Problems (1) Anemia Assessment/Plan: -2/2 to GI bleed -h/h stable at this time -monitor trend -transfuse for hg <8.0 -Hematology/oncology on board -Awaiting labs from today Code(s): D64.9 - ANEMIA, UNSPECIFIED Qualifiers: Anemia type: unspecified type Qualified Code(s): D64.9 - Anemia, unspecified (2) Rectovaginal fistula Assessment/Plan: -Has loop diverting colostomy -Seen by Surgery- PT NOT A SURGICAL CANDIDATE -CT abd/pelvis: 1. Multiple right pulmonary nodules suspicious for metastatic disease. 2. Small right pleural effusion and bibasilar atelectasis. 3. Ascites. 4. Multiple hepatic masses consistent with metastatic disease. 5. Right adrenal mass suspicious for additional metastases. 6. Cholelithiasis. 7. Retroperitoneal lymphadenopathy. 8. S/P diverting colostomy. 9. Slight progression of disease since 08/18/2017. Clinical correlation and follow -up recommended. Please see above discussion. -Pelvic/transvaginal US: Very limited transvaginal examination due to pain. Status post hysterectomy. Both ovaries were not visualized. Correlate clinically to determine further evaluation in view of the clinical history Partially distended urinary bladder without wall thickening. Floating internal debris and minimal layering, posteriorly. Bilateral ureteral jets were identified. Minimal postvoid urine residue Code(s): N82.3 - FISTULA OF VAGINA TO LARGE INTESTINE (3) Metastasis from rectal cancer Assessment/Plan: -to liver and lungs -Oncology on board -Palliative consult Code(s): C79.9 - SECONDARY MALIGNANT NEOPLASM OF UNSPECIFIED SITE; C20 - MALIGNANT NEOPLASM OF RECTUM (4) Thrombocytopenia Assessment/Plan: 2/2 to chemo? -Oncology/hematology on board -monitor trend, transfuse if Plt < 10 mg/dl Code(s): D69.6 - THROMBOCYTOPENIA, UNSPECIFIED (5) Hypoalbuminemia Assessment/Plan: -2/2 to poor appetite -Prosource -Ensure BID Code(s): E88.09 - OTH DISORDERS OF PLASMA-PROTEIN METABOLISM, NEC
[2017-12-19] MEDS: LEVOTHYROXINE NA 112 MCG TABLET (FP) PO SCH (06:13)
[2017-12-19] MEDS: LACTATED RINGERS SOLUTION 1,000 ML/1,000 ML INFUS.BAG IV SCH ×2 (06:13→18:56)
[2017-12-19] MEDS: PANTOPRAZOLE SODIUM 40 MG VIAL IVPUSH SCH (09:49)
[2017-12-19] MEDS: AMINO ACIDS/PROTEIN HYDROLYS 30 ML LIQUID.PKT PO SCH ×2 (09:49→18:54)
--- NOTE | 2017-12-19 15:30 | PN ---
Progress Note, Physician - Current Medication List Current Medications: Active Medications Acetaminophen (Tylenol -) 650 mg PO Q6H PRN PRN Reason: PAIN OR FEVER Last Admin: 12/16/17 23:44 Dose: 650 mg Amino Acids (Prosource No Carb Liquid Pkt) 30 ml PO BID@0800,1730 [facility] Last Admin: 12/19/17 09:49 Dose: 30 ml Lactated Ringer's (Lactated Ringers Solution) 1,000 ml in 1,000 mls @ 75 mls/ hr IV ASDIR [facility] Last Admin: 12/19/17 06:13 Dose: 75 mls/hr Levothyroxine Sodium (Synthroid -) 112 mcg PO DAILY@0700 [facility] Last Admin: 12/19/17 06:13 Dose: 112 mcg Ondansetron HCl (Zofran Injection) 8 mg IVPB Q6H PRN PRN Reason: NAUSEA Pantoprazole Sodium (Protonix Iv) 40 mg IVPUSH DAILY [facility] Last Admin: 12/19/17 09:49 Dose: 40 mg - Objective Vital Signs: Vital Signs Temperature 97.7 F 12/19/17 08:00 Pulse Rate 74 12/19/17 08:00 Respiratory Rate 18 12/19/17 08:00 Blood Pressure 136/65 12/19/17 08:00 O2 Sat by Pulse Oximetry (%) 100 12/19/17 09:00 Cardiovascular: Yes: S1, S2 Respiratory: Yes: Regular, CTA Bilaterally Gastrointestinal: Yes: Normal Bowel Sounds, Soft Labs: CBC, BMP 12/18/17 07:15 12/18/17 07:15 INR, PTT INR 1.48 (0.83-1.09) H 12/18/17 07:15 Fibrinogen > 500.0 mg/dL (238-498) H 12/18/17 07:15 Assessment/Plan - Problems (1) Anemia Assessment/Plan: -2/2 to GI bleed -h/h stable at this time -monitor trend -transfuse for hg <8.0 -Hematology/oncology on board -Awaiting labs from today Code(s): D64.9 - ANEMIA, UNSPECIFIED Qualifiers: Anemia type: unspecified type Qualified Code(s): D64.9 - Anemia, unspecified (2) Rectovaginal fistula Assessment/Plan: -Has loop diverting colostomy -Seen by Surgery- PT NOT A SURGICAL CANDIDATE -CT abd/pelvis: 1. Multiple right pulmonary nodules suspicious for metastatic disease. 2. Small right pleural effusion and bibasilar atelectasis. 3. Ascites. 4. Multiple hepatic masses consistent with metastatic disease. 5. Right adrenal mass suspicious for additional metastases. 6. Cholelithiasis. 7. Retroperitoneal lymphadenopathy. 8. S/P diverting colostomy. 9. Slight progression of disease since 08/18/2017. Clinical correlation and follow -up recommended. Please see above discussion. -Pelvic/transvaginal US: Very limited transvaginal examination due to pain. Status post hysterectomy. Both ovaries were not visualized. Correlate clinically to determine further evaluation in view of the clinical history Partially distended urinary bladder without wall thickening. Floating internal debris and minimal layering, posteriorly. Bilateral ureteral jets were identified. Minimal postvoid urine residue Code(s): N82.3 - FISTULA OF VAGINA TO LARGE INTESTINE (3) Metastasis from rectal cancer Assessment/Plan: -to liver and lungs -Oncology on board -Palliative consult Code(s): C79.9 - SECONDARY MALIGNANT NEOPLASM OF UNSPECIFIED SITE; C20 - MALIGNANT NEOPLASM OF RECTUM (4) Thrombocytopenia Assessment/Plan: 2/2 to chemo? -Oncology/hematology on board -monitor trend, transfuse if Plt < 10 mg/dl Code(s): D69.6 - THROMBOCYTOPENIA, UNSPECIFIED (5) Hypoalbuminemia Assessment/Plan: -2/2 to poor appetite -Prosource -Ensure BID Code(s): E88.09 - OTH DISORDERS OF PLASMA-PROTEIN METABOLISM, NEC
[2017-12-20] MEDS: LEVOTHYROXINE NA 112 MCG TABLET (FP) PO SCH (06:07)
[2017-12-20] MEDS: AMINO ACIDS/PROTEIN HYDROLYS 30 ML LIQUID.PKT PO SCH ×2 (08:41→17:12)
[2017-12-20] MEDS: LACTATED RINGERS SOLUTION 1,000 ML/1,000 ML INFUS.BAG IV SCH (08:41)
[2017-12-20] MEDS: PANTOPRAZOLE SODIUM 40 MG VIAL IVPUSH SCH (10:20)
--- NOTE | 2017-12-20 15:51 | DS ---
Physical Examination Vital Signs: Vital Signs Temperature 98.0 F 12/20/17 14:51 Pulse Rate 77 12/20/17 14:51 Respiratory Rate 18 12/20/17 14:51 Blood Pressure 130/64 12/20/17 14:51 O2 Sat by Pulse Oximetry (%) 98 12/20/17 09:00 Constitutional: Yes: Mild Distress Eyes: Yes: WNL HENT: Yes: WNL Neck: Yes: WNL Cardiovascular: Yes: WNL Respiratory: Yes: WNL Gastrointestinal: Yes: WNL Renal/: Yes: Vaginal Bleeding Musculoskeletal: Yes: Muscle Weakness Extremities: Yes: Other Edema: Yes Peripheral Pulses WNL: Yes Integumentary: Yes: Rash Wound/Incision: Yes: Dressing Dry and Intact Neurological: Yes: Unsteady Gait, Weakness ...Motor Strength: LLE, RLE Psychiatric: Yes: WNL Labs: CBC, BMP 12/18/17 07:15 12/18/17 07:15 Discharge Summary Reason For Visit: RECTOVAGINAL FISTULA Current Active Problems GI bleed (Acute) Hypoalbuminemia (Acute) Metastasis from rectal cancer (Acute) Thrombocytopenia (Acute) VAGINAL BLEED Procedures: Principal: GI/ BLEED METASTATIC CANCER Hospital Course: ADMITTED FOR VAGINAL BLEED WITH METASTATIC CANCER WITH VERY POOR PROGNOSIS. PATIENT WAS SEEN AND WORKED UP BY GI//ONCOLOGY AND AT THIS POINT THEIR IS NO FURTHER RECOMMENDATION. WILL TRANSFER TO [facility] FOR REHAB/PT FOR LEG WEAKNESS AND STRENGHTENING. WILL NEED WEEKLY PRBC TRANSFUSIONS. Condition: Stable - Instructions Diet, Activity, Other Instructions: WEEKLY PRBC TRANSFUSIONS CHECK CBC BIWEEKLY TUESDAYS AND THURSDAYS Referrals: Jaime Velasco MD, MD [Primary Care Provider] - Disposition: CARE HOME FACILITY - Home Medications Comprehensive Discharge Medication List: Ambulatory Orders Acetaminophen W/ Codeine #3 [Tylenol # 3 -] 1 tab PO Q6H PRN #40 tablet MDD 4 Acetaminophen [Tylenol .Regular Strength -] 650 mg PO Q6H PRN tablet 08/27/17 Levothyroxine [Synthroid -] 112 mcg PO DAILY@0700 #30 tablet 08/27/17 Melatonin 10 mg PO HS 12/09/17
[2017-12-20] MEDS ORDERED: IRON SUCROSE INJECTION 200 MG in SODIUM CHLORIDE 90 ML IVPB ONE (17:00)
--- NOTE | 2017-12-20 19:09 | PN ---
Progress Note (short form) - Note Progress Note: CANCELING DISCHARGE FOR POSSIBLE UTERINE EMBOLIZATION IN MORNING D/W DR CARTER Problem List - Problems (1) GI bleed Code(s): K92.2 - GASTROINTESTINAL HEMORRHAGE, UNSPECIFIED Qualifiers: GI bleed type/associated pathology: unspecified gastrointestinal hemorrhage type Qualified Code(s): K92.2 - Gastrointestinal hemorrhage, unspecified (2) Metastasis from rectal cancer Code(s): C79.9 - SECONDARY MALIGNANT NEOPLASM OF UNSPECIFIED SITE; C20 - MALIGNANT NEOPLASM OF RECTUM (3) Thrombocytopenia Code(s): D69.6 - THROMBOCYTOPENIA, UNSPECIFIED (4) Rectal adenocarcinoma metastatic to liver Code(s): C20 - MALIGNANT NEOPLASM OF RECTUM; C78.7 - SECONDARY MALIG NEOPLASM OF LIVER AND INTRAHEPATIC BILE DUCT
--- NOTE | 2017-12-20 22:56 | PN ---
Progress Note (short form) - Note Progress Note: Patient seen and examined Feels weak overall Vaginal bleeding Last Vital Signs Temp Pulse Resp BP Pulse Ox 99.4 F 79 18 128/55 100 12/17/17 17:11 12/17/17 17:11 12/17/17 17:11 12/17/17 17:11 12/17/17 09:00 Cor: RSR, No murmurs, No gallops Lungs: Clear to P&A Abd: Soft, Normal bowel sounds, No organomegaly Ext:No significant edema Abnormal Lab Results 12/17/17 07:20 WBC 3.6 L RBC 2.80 L Hgb 8.5 L Hct 26.4 L RDW 22.0 H Plt Count 100 L Active Medications Generic Name Dose Route Start Last Admin Trade Name Freq PRN Reason Stop Dose Admin Acetaminophen 650 mg 12/09/17 11:07 12/16/17 23:44 Tylenol - PO 650 mg Q6H PRN Administration PAIN OR FEVER Amino Acids 30 ml 12/11/17 08:00 12/17/17 18:27 Prosource No Carb Liquid Pkt PO 30 ml BID@0800,1730 T[facility] Administration Lactated Ringer's 1,000 ml in 1,000 mls @ 75 mls/hr 12/11/17 08:00 12/17/17 08:57 Lactated Ringers Solution IV 75 mls/hr ASDIR TED Administration Levothyroxine Sodium 112 mcg 12/10/17 07:00 12/17/17 06:24 Synthroid - PO 112 mcg DAILY@0700 TED Administration Ondansetron HCl 8 mg 12/09/17 17:49 Zofran Injection IVPB Q6H PRN NAUSEA Pantoprazole Sodium 40 mg 12/10/17 10:00 12/17/17 10:38 Protonix Iv IVPUSH 40 mg DAILY TED Administration A/P 67 year old with history of rectal ca , s/p neoadjuvant RT and chemotherapy followed by surgery requiring colostomy and completion of adjuvant therapy. Developed liver mets and extrahepatic mets requiring multiple courses of chemotherapy. (oxaliplatin, irinotecan, avastin xeloda) Last chemotherapy one week earlier with infusional 5FU and leucovorin Has had enterovaginal fistula which has required surgical repair. Presents now with vaginal bleeding , falling Hct. CT c/a/p --slightly worsening mets since 08/28/17--extensive lung/liver/adrenal mets/retroperitoneal nodes Surgery/GI consults noted Discussed overall poor prognosis with patient on 12/17/17. Updated her about input of GI/Surgicalt eams -- that given her overall status, she is not a surgical cancdiadate and bleeding mostlikely form recurrent rectal tumor. Patient wants to continue palliative care , with monitoring of CBC/transfusion as needed/supportive care at this time Understands her overall prognosis Primary team in discussion with IR regarding uterine artery embolization
[2017-12-21] MEDS: LEVOTHYROXINE NA 112 MCG TABLET (FP) PO SCH (06:55)
[2017-12-21 08:25] LABS: BASO % 0.9 % (0-2.0); EOS % 2.7 % (0-4.5); HEMATOCRIT 27.9 % (32.4-45.2); HEMOGLOBIN 8.9 GM/dL (10.7-15.3); MCHC 31.8 g/dl (32.0-36.0); MEAN CELL VOLUME 94.3 fl (80-96); MEAN PLT VOLUME 8.1 fl (7.5-11.1); MONO % 9.3 % (3.8-10.2); NEUT % 78.1 % (42.8-82.8); PLATELET COUNT 121 K/MM3 (134-434); RBC 2.96 M/mm3 (3.60-5.2); RDW 19.9 % (11.6-15.6); WHITE BLOOD COUNT 3.9 K/mm3 (4.0-10.0)
[2017-12-21] MEDS: AMINO ACIDS/PROTEIN HYDROLYS 30 ML LIQUID.PKT PO SCH ×2 (08:53→17:45)
[2017-12-21 09:07] LABS: ALBUMIN 1.9 g/dl (3.4-5.0); ANION GAP 8 MMOL/L (8-16); BLOOD UREA NITROGEN 11 mg/dL (7-18); CALCIUM 8.3 mg/dL (8.5-10.1); CHLORIDE 106 mmol/L (98-107); CO2 27 mmol/L (21-32); GLUCOSE,RANDOM 83 mg/dL (74-106); POTASSIUM 3.5 mmol/L (3.5-5.1); SODIUM 141 mmol/L (136-145)
[2017-12-21] MEDS: PANTOPRAZOLE 40 MG TABLET (FP) PO SCH (09:09)
[2017-12-21] MEDS: MULTIVITAMINS (DAILY MVI) TABLET (FP) PO SCH (09:09)
[2017-12-21 09:10] LABS: ALK PHOS 142 U/L (45-117); BILIRUBIN,TOTAL 1.1 mg/dL (0.2-1.0); CREATININE 0.4 mg/dL (0.55-1.02); SGOT/AST 27 U/L (15-37); SGPT/ALT 13 U/L (12-78); TOT PROT 5.2 g/dl (6.4-8.2)
[2017-12-21 09:30] LABS: INR 1.31 (0.83-1.09); PROTHROMBIN TIME (PATIENT) 14.8 SEC (9.7-13.0)
[2017-12-21 09:33] LABS: ACTIVATED PTT 34.5 SECONDS (25.2-36.5)
--- NOTE | 2017-12-21 14:52 | PN ---
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
--- NOTE | 2017-12-21 16:03 | PN ---
Progress Note (short form) - Note Progress Note: Patient seen and exained Continues with vaginal bleeding from fistulae. Discussed with patient and with I.R. Embolization may possibly benefit patient with risks of ischemia to gluteus, pelvis and claudication type symptoms. Patient agree and is aware. Last Vital Signs Temp Pulse Resp BP Pulse Ox 98.4 F 70 16 116/84 98 12/21/17 15:03 12/21/17 15:03 12/21/17 15:03 12/21/17 15:03 12/21/17 09:00 HEENT: EVETTE, EOM Intact Oropharynx: No thrush, No mucositis Cor: RSR, No murmurs, No gallops Lungs: Clear to P&A Abd: Soft, Normal bowel sounds, No organomegaly, colostomy Ext:No significant edema Skin: No rashes, Integument intact CBC, BMP 12/21/17 07:35 12/21/17 07:35 INR, PTT INR 1.31 (0.83-1.09) H 12/21/17 07:35 Fibrinogen 495.0 mg/dL (238-498) 12/21/17 07:35 Current Medications Generic Name Dose Route Start Last Admin Trade Name Freq PRN Reason Stop Dose Admin Acetaminophen 650 mg 12/09/17 11:07 12/16/17 23:44 Tylenol - PO 650 mg Q6H PRN Administration PAIN OR FEVER Amino Acids 30 ml 12/11/17 08:00 12/21/17 08:53 Prosource No Carb Liquid Pkt PO Not Given BID@0800,1730 TED Lactated Ringer's 1,000 ml in 1,000 mls @ 75 mls/hr 12/11/17 08:00 12/20/17 08:41 Lactated Ringers Solution IV 75 mls/hr ASDIR TED Administration Levothyroxine Sodium 112 mcg 12/10/17 07:00 12/21/17 06:55 Synthroid - PO 112 mcg DAILY@0700 TED Administration Multivitamins/Minerals/Vitamin C 1 tab 12/21/17 10:00 12/21/17 09:09 Tab-A-Vit - PO 1 tab DAILY TED Administration Ondansetron HCl 8 mg 12/09/17 17:49 Zofran Injection IVPB Q6H PRN NAUSEA Pantoprazole Sodium 40 mg 12/21/17 10:00 12/21/17 09:09 Protonix - PO 40 mg DAILY TED Administration Impression: Metastatic rectal ca - s/p multiple cycles of chemotherapy, RT, Vaginal fistulae Vaginal bleeding Anemia Liver and extrahepatic mets Plan: Embolization procedure to attempt to control bleeding.
[2017-12-21] MEDS: LACTATED RINGERS SOLUTION 1,000 ML/1,000 ML INFUS.BAG IV SCH (17:48)
[2017-12-21] MEDS ORDERED: PORTA CATH FLUSH 10 ML IVPUSH PRN (18:08)
[2017-12-22] MEDS: LEVOTHYROXINE NA 112 MCG TABLET (FP) PO SCH (06:05)
[2017-12-22] MEDS: LACTATED RINGERS SOLUTION 1,000 ML/1,000 ML INFUS.BAG IV SCH ×2 (06:23→20:16)
[2017-12-22 07:39] LABS: BASO % 1.2 % (0-2.0); EOS % 2.8 % (0-4.5); HEMATOCRIT 29.7 % (32.4-45.2); HEMOGLOBIN 9.6 GM/dL (10.7-15.3); LYMPH % 9.4 % (8-40); MCH 30.6 pg (25.7-33.7); MCHC 32.3 g/dl (32.0-36.0); MEAN CELL VOLUME 94.8 fl (80-96); MEAN PLT VOLUME 8.6 fl (7.5-11.1); MONO % 8.2 % (3.8-10.2); NEUT % 78.4 % (42.8-82.8); PLATELET COUNT 148 K/MM3 (134-434); RBC 3.13 M/mm3 (3.60-5.2)
[2017-12-22] MEDS ORDERED: INSULIN (NOVOLOG) ASPART 100 UNITS/ML 10ML VIAL ONE (08:06)
[2017-12-22 08:28] LABS: ANION GAP 7 MMOL/L (8-16); CALCIUM 8.7 mg/dL (8.5-10.1); CHLORIDE 109 mmol/L (98-107); CO2 25 mmol/L (21-32); CREATININE 0.4 mg/dL (0.55-1.02); GLUCOSE,RANDOM 90 mg/dL (74-106); POTASSIUM 3.8 mmol/L (3.5-5.1); SODIUM 141 mmol/L (136-145)
[2017-12-22 08:30] LABS: BLOOD UREA NITROGEN 10 mg/dL (7-18)
--- NOTE | 2017-12-22 08:54 | PN ---
Progress Note, Physician Chief Complaint: AWAKE ALERT SCHEDULED FOR UTERINE EMBOLIZATION TODAY - Current Medication List Current Medications: Active Medications Acetaminophen (Tylenol -) 650 mg PO Q6H PRN PRN Reason: PAIN OR FEVER Last Admin: 12/16/17 23:44 Dose: 650 mg Amino Acids (Prosource No Carb Liquid Pkt) 30 ml PO BID@0800,1730 [facility] Last Admin: 12/21/17 17:45 Dose: 30 ml IV Flush (Angus-Cath Flush) 10 ml IVPUSH PRN PRN PRN Reason: [facility] PROTOCOL Lactated Ringer's (Lactated Ringers Solution) 1,000 ml in 1,000 mls @ 75 mls/ hr IV ASDIR [facility] Last Admin: 12/22/17 06:23 Dose: 75 mls/hr Levothyroxine Sodium (Synthroid -) 112 mcg PO DAILY@0700 [facility] Last Admin: 12/22/17 06:05 Dose: Not Given Multivitamins/Minerals/Vitamin C (Tab-A-Vit -) 1 tab PO DAILY [facility] Last Admin: 12/21/17 09:09 Dose: 1 tab Ondansetron HCl (Zofran Injection) 8 mg IVPB Q6H PRN PRN Reason: NAUSEA Pantoprazole Sodium (Protonix -) 40 mg PO DAILY [facility] Last Admin: 12/21/17 09:09 Dose: 40 mg - Objective Vital Signs: Vital Signs Temperature 98.5 F 12/22/17 07:24 Pulse Rate 76 12/22/17 07:24 Respiratory Rate 18 12/22/17 07:24 Blood Pressure 157/68 12/22/17 07:24 O2 Sat by Pulse Oximetry (%) 98 12/21/17 21:00 Constitutional: Yes: Mild Distress Eyes: Yes: WNL HENT: Yes: WNL Neck: Yes: WNL Cardiovascular: Yes: WNL Respiratory: Yes: WNL Gastrointestinal: Yes: WNL Genitourinary: Yes: WNL Musculoskeletal: Yes: Muscle Weakness Edema: Yes Peripheral Pulses WNL: Yes Integumentary: Yes: WNL Wound/Incision: Yes: Clean/Dry Neurological: Yes: Pre-Existing Deficit ...Motor Strength: LLE, RLE Psychiatric: Yes: WNL Labs: CBC, BMP 12/22/17 07:15 12/22/17 07:15 INR, PTT INR 1.31 (0.83-1.09) H 12/21/17 07:35 Fibrinogen 495.0 mg/dL (238-498) 12/21/17 07:35 Problem List - Problems (1) GI bleed Code(s): K92.2 - GASTROINTESTINAL HEMORRHAGE, UNSPECIFIED Qualifiers: GI bleed type/associated pathology: unspecified gastrointestinal hemorrhage type Qualified Code(s): K92.2 - Gastrointestinal hemorrhage, unspecified (2) Metastasis from rectal cancer Code(s): C79.9 - SECONDARY MALIGNANT NEOPLASM OF UNSPECIFIED SITE; C20 - MALIGNANT NEOPLASM OF RECTUM (3) Thrombocytopenia Code(s): D69.6 - THROMBOCYTOPENIA, UNSPECIFIED (4) Rectal adenocarcinoma metastatic to liver Code(s): C20 - MALIGNANT NEOPLASM OF RECTUM; C78.7 - SECONDARY MALIG NEOPLASM OF LIVER AND INTRAHEPATIC BILE DUCT Assessment/Plan MONITORING LABS TRANSFUSE PRBC NEEDED ONCOLOGY F/U GYNECOLGY DR CORRIE LIZARRAGA FOR VAGINAL BLEED OFF ABX VANC/CEFIPIME TUMOR FEVERS LIKELY UTERINE EMBOLIZATION TODAY OOB TO CHAIR WITH ASSIST
[2017-12-22] MEDS: AMINO ACIDS/PROTEIN HYDROLYS 30 ML LIQUID.PKT PO SCH ×2 (08:55→18:12)
[2017-12-22] MEDS: MULTIVITAMINS (DAILY MVI) TABLET (FP) PO SCH (09:53)
[2017-12-22] MEDS: PANTOPRAZOLE 40 MG TABLET (FP) PO SCH (09:53)
[2017-12-22] MEDS ORDERED: HYDROmorphone HCl 2 MG/ML VIAL ONE (11:36)
--- NOTE | 2017-12-22 18:08 | PN ---
Progress Note (short form) - Note Progress Note: PATIENT SEEN AND EXAMINED s/p bilateral artery embolization Still with vaginal bleeding Last Vital Signs Temp Pulse Resp BP Pulse Ox 97.7 F 73 18 156/70 100 12/22/17 16:50 12/22/17 16:50 12/22/17 16:50 12/22/17 16:50 12/22/17 16:50 Cor: RSR, No murmurs, No gallops Lungs: Clear to P&A Abd: Soft, Normal bowel sounds, No organomegaly, colostomy Ext:No significant edema CBC, BMP 12/22/17 07:15 12/22/17 07:15 Current Medications Generic Name Dose Route Start Last Admin Trade Name Freq PRN Reason Stop Dose Admin Acetaminophen 650 mg 12/09/17 11:07 12/16/17 23:44 Tylenol - PO 650 mg Q6H PRN Administration PAIN OR FEVER Amino Acids 30 ml 12/11/17 08:00 12/22/17 08:55 Prosource No Carb Liquid Pkt PO Not Given BID@0800,1730 TED IV Flush 10 ml 12/21/17 18:08 Angus-Cath Flush IVPUSH PRN PRN [facility] PROTOCOL Lactated Ringer's 1,000 ml in 1,000 mls @ 75 mls/hr 12/11/17 08:00 12/22/17 06:23 Lactated Ringers Solution IV 75 mls/hr ASDIR TED Administration Levothyroxine Sodium 112 mcg 12/10/17 07:00 12/22/17 06:05 Synthroid - PO Not Given DAILY@0700 [facility] Multivitamins/Minerals/Vitamin C 1 tab 12/21/17 10:00 12/22/17 09:53 Tab-A-Vit - PO Not Given DAILY TED Ondansetron HCl 8 mg 12/09/17 17:49 Zofran Injection IVPB Q6H PRN NAUSEA Pantoprazole Sodium 40 mg 12/21/17 10:00 12/22/17 09:53 Protonix - PO Not Given DAILY TED S/P bilateral artery embolization Vaginal bleeding Metastatic rectal ca Plan: Monitor vaginal bleeding transfuse for Hb, 8.0 gm.
--- NOTE | 2017-12-22 20:20 | HOSP ---
Subjective - Review of Symptoms Events since last encounter: called to see pt for vaginal bleeding. Nurse reports diaper FULL of blood and clots. Subjective: pt denies pain Physical Examination Vital Signs: Vital Signs Temperature 96.7 F L 12/22/17 18:17 Pulse Rate 74 12/22/17 18:17 Respiratory Rate 20 12/22/17 18:17 Blood Pressure 138/70 12/22/17 18:17 O2 Sat by Pulse Oximetry (%) 100 12/22/17 16:50 Findings/Remarks: diaper noted with serosanguinous liquid, half dollar size blood clot passed but no longer active bleeding. Labs: CBC, BMP 12/22/17 07:15 12/22/17 07:15 Hospitalist Encounter Assessment: vaginal bleeding - s/p uterine artery embolization - dw oncology, recommend CBC, transfuse if necessary.
[2017-12-22 21:01] LABS: BASO % 0.5 % (0-2.0); EOS % 0.7 % (0-4.5); HEMATOCRIT 22.9 % (32.4-45.2); HEMOGLOBIN 7.4 GM/dL (10.7-15.3); LYMPH % 3.4 % (8-40); MCH 30.6 pg (25.7-33.7); MCHC 32.1 g/dl (32.0-36.0); MEAN CELL VOLUME 95.3 fl (80-96); MONO % 4.6 % (3.8-10.2); NEUT % 90.8 % (42.8-82.8); PLATELET COUNT 238 K/MM3 (134-434); RDW 20.5 % (11.6-15.6); WHITE BLOOD COUNT 11.8 K/mm3 (4.0-10.0)
[2017-12-22 21:24] LABS: INR 1.44 (0.83-1.09); PROTHROMBIN TIME (PATIENT) 16.3 SEC (9.7-13.0)
[2017-12-22 21:32] LABS: ANISOCYTOSIS 1+; MACROCYTOSIS 1+; PLATELET ESTIMATE ADEQUATE
[2017-12-22] MEDS: ACETAMINOPHEN 325 MG TABLET (FP) PO PRN (22:50)
[2017-12-23] MEDS: oxyCODONE HCL 5 MG TABLET PO PRN ×2 (02:40→19:40)
[2017-12-23] MEDS: ACETAMINOPHEN 325 MG TABLET (FP) PO PRN ×3 (04:17→23:42)
[2017-12-23] MEDS: LEVOTHYROXINE NA 112 MCG TABLET (FP) PO SCH (06:32)
--- NOTE | 2017-12-23 08:35 | PN ---
Progress Note, Physician Chief Complaint: AWAKE ALERT EVENTS REVIEWED WITH BLOOD FROM VAGINAL VAULT NO FEVERS NO SOB TRANSFUSED 2 UNITS PRBC POST EMBOLIZATION - Current Medication List Current Medications: Active Medications Acetaminophen (Tylenol -) 650 mg PO Q6H PRN PRN Reason: PAIN OR FEVER Last Admin: 12/23/17 04:17 Dose: 650 mg Amino Acids (Prosource No Carb Liquid Pkt) 30 ml PO BID@0800,1730 [facility] Last Admin: 12/22/17 18:12 Dose: 30 ml IV Flush (Angus-Cath Flush) 10 ml IVPUSH PRN PRN PRN Reason: [facility] PROTOCOL Lactated Ringer's (Lactated Ringers Solution) 1,000 ml in 1,000 mls @ 75 mls/ hr IV ASDIR [facility] Last Admin: 12/22/17 20:16 Dose: Not Given Levothyroxine Sodium (Synthroid -) 112 mcg PO DAILY@0700 [facility] Last Admin: 12/23/17 06:32 Dose: 112 mcg Multivitamins/Minerals/Vitamin C (Tab-A-Vit -) 1 tab PO DAILY [facility] Last Admin: 12/22/17 09:53 Dose: Not Given Ondansetron HCl (Zofran Injection) 8 mg IVPB Q6H PRN PRN Reason: NAUSEA Oxycodone HCl (Roxicodone -) 5 mg PO Q6H PRN PRN Reason: PAIN LEVEL 6-10 Last Admin: 12/23/17 02:40 Dose: 5 mg Pantoprazole Sodium (Protonix -) 40 mg PO DAILY [facility] Last Admin: 12/22/17 09:53 Dose: Not Given - Objective Vital Signs: Vital Signs Temperature 97.4 F L 12/23/17 02:30 Pulse Rate 71 12/23/17 02:30 Respiratory Rate 18 12/23/17 02:30 Blood Pressure 109/60 12/23/17 02:30 O2 Sat by Pulse Oximetry (%) 100 12/22/17 21:00 Constitutional: Yes: Mild Distress Eyes: Yes: WNL HENT: Yes: WNL Neck: Yes: WNL Cardiovascular: Yes: WNL Respiratory: Yes: WNL, On Nasal O2 Gastrointestinal: Yes: WNL Genitourinary: Yes: Vaginal Bleeding Musculoskeletal: Yes: Muscle Weakness Extremities: Yes: Other Edema: Yes Edema: LLE: Trace, RLE: Trace Peripheral Pulses WNL: Yes Integumentary: Yes: WNL Wound/Incision: Yes: Other Neurological: Yes: Other ...Motor Strength: LLE, RLE Psychiatric: Yes: WNL Labs: CBC, BMP 12/22/17 19:30 12/22/17 07:15 INR, PTT INR 1.44 (0.83-1.09) H 12/22/17 19:30 Fibrinogen 495.0 mg/dL (238-498) 12/21/17 07:35 Problem List - Problems (1) GI bleed Code(s): K92.2 - GASTROINTESTINAL HEMORRHAGE, UNSPECIFIED Qualifiers: GI bleed type/associated pathology: unspecified gastrointestinal hemorrhage type Qualified Code(s): K92.2 - Gastrointestinal hemorrhage, unspecified (2) 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
[2017-12-23] MEDS ORDERED: PT OWN MED DRAWER 7, Y5N ONE (10:21)
[2017-12-23 10:28] LABS: ALBUMIN 1.9 g/dl (3.4-5.0); ANION GAP 9 MMOL/L (8-16); BILIRUBIN,TOTAL 2.3 mg/dL (0.2-1.0); BLOOD UREA NITROGEN 16 mg/dL (7-18); CALCIUM 8.5 mg/dL (8.5-10.1); CHLORIDE 109 mmol/L (98-107); CO2 24 mmol/L (21-32); CREATININE 0.5 mg/dL (0.55-1.02); GLUCOSE,RANDOM 123 mg/dL (74-106); SGPT/ALT 12 U/L (13-61); SODIUM 142 mmol/L (136-145); TOT PROT 4.8 g/dl (6.4-8.2)
[2017-12-23 10:29] LABS: ALK PHOS 119 U/L (45-117)
[2017-12-23 10:45] LABS: MAGNESIUM 1.9 mg/dL (1.8-2.4); POTASSIUM 4.4 mmol/L (3.5-5.1); SGOT/AST 44 U/L (15-37)
[2017-12-23] MEDS: AMINO ACIDS/PROTEIN HYDROLYS 30 ML LIQUID.PKT PO SCH ×2 (10:45→17:45)
[2017-12-23] MEDS: MULTIVITAMINS (DAILY MVI) TABLET (FP) PO SCH (10:45)
[2017-12-23] MEDS: PANTOPRAZOLE 40 MG TABLET (FP) PO SCH (10:45)
[2017-12-23] MEDS: LACTATED RINGERS SOLUTION 1,000 ML/1,000 ML INFUS.BAG IV SCH (10:47)
[2017-12-23 12:30] LABS: BASO % 0.6 % (0-2.0); EOS % 0.9 % (0-4.5); HEMATOCRIT 25.4 % (32.4-45.2); HEMOGLOBIN 8.5 GM/dL (10.7-15.3); LYMPH % 5.1 % (8-40); MCH 31.1 pg (25.7-33.7); MCHC 33.4 g/dl (32.0-36.0); MEAN CELL VOLUME 93.3 fl (80-96); MEAN PLT VOLUME 8.8 fl (7.5-11.1); MONO % 6.1 % (3.8-10.2); NEUT % 87.3 % (42.8-82.8); PLATELET COUNT 161 K/MM3 (134-434); RBC 2.73 M/mm3 (3.60-5.2); RDW 18.6 % (11.6-15.6); WHITE BLOOD COUNT 9.1 K/mm3 (4.0-10.0)
--- NOTE | 2017-12-23 18:25 | PN ---
Physical Exam: SUBJECTIVE: Patient seen and examined at bed side this evening. Eating dinner. Says the vaginal bleeding is less than yesterday but is still bleeding. Denies chest pain, sob, cough, palpitation, abdominal pain, nausea or vomiting. Overnight received 2 units of PRBC. OBJECTIVE: Vital Signs Period Temp Pulse Resp BP Sys/Bird Pulse Ox Last 24 Hr 97.3 F-98.1 F 71-93 18-20 105-129/55-61 100 GENERAL: Middle aged female, eating dinner, is awake, alert, and fully oriented , in no acute distress. HEAD: Normal with no signs of trauma. EYES: EOM intact, Pallor +, no icterus. ENT: Ears normal, moist mucous membranes. NECK: Supple. LUNGS: B/L Breath sounds equal, no wheezes, no crackles, no accessory muscle use. HEART: Regular rate and rhythm, S1, S2 without murmur. ABDOMEN: Colostomy bag in place, Soft, nontender, no organomegaly. EXTREMITIES: 2+ pulses, warm, well-perfused, no edema. NEUROLOGICAL: No facial droop. Normal speech, gait not observed. PSYCH: Normal mood, normal affect. SKIN: Warm, dry, normal turgor, no rashes or lesions noted Laboratory Results - last 24 hr 12/18/17 12/22/17 12/22/17 07:15 07:15 19:30 WBC 11.8 H Corrected WBC (auto) RBC 2.40 L Hgb 7.4 L Hct 22.9 L D MCV 95.3 MCH 30.6 MCHC 32.1 RDW 20.5 H Plt Count 238 D MPV 9.0 Absolute Neuts (auto) 10.7 H Neutrophils % 90.8 H Lymphocytes % 3.4 L D Monocytes % 4.6 Eosinophils % 0.7 Basophils % 0.5 Nucleated RBC % 0 Hypochromia 2+ Platelet Estimate Adequate Platelet Comment No clumping noted Polychromasia 1+ Anisocytosis 1+ Macrocytosis 1+ PT with INR INR Sodium Potassium Chloride Carbon Dioxide Anion Gap BUN Creatinine Creat Clearance w eGFR Random Glucose Calcium Magnesium Total Bilirubin AST ALT Alkaline Phosphatase Total Protein Albumin Blood Type O POSITIVE O POSITIVE Antibody Screen Negative Negative Crossmatch See Detail See Detail 12/22/17 12/23/17 12/23/17 19:30 09:45 09:45 WBC Cancelled Corrected WBC (auto) Cancelled RBC Cancelled Hgb Cancelled Hct Cancelled MCV Cancelled MCH Cancelled MCHC Cancelled RDW Cancelled Plt Count Cancelled MPV Cancelled Absolute Neuts (auto) Cancelled Neutrophils % Cancelled Lymphocytes % Cancelled Monocytes % Cancelled Eosinophils % Cancelled Basophils % Cancelled Nucleated RBC % Cancelled Hypochromia Platelet Estimate Cancelled Platelet Comment Cancelled Polychromasia Anisocytosis Macrocytosis PT with INR 16.30 H INR 1.44 H Sodium 142 Potassium 4.4 Chloride 109 H Carbon Dioxide 24 Anion Gap 9 BUN 16 Creatinine 0.5 L Creat Clearance w eGFR > 60 Random Glucose 123 H Calcium 8.5 Magnesium 1.9 Total Bilirubin 2.3 H AST 44 H ALT 12 L Alkaline Phosphatase 119 H D Total Protein 4.8 L Albumin 1.9 L Blood Type Antibody Screen Crossmatch 12/23/17 12:13 WBC 9.1 Corrected WBC (auto) RBC 2.73 L Hgb 8.5 L Hct 25.4 L MCV 93.3 MCH 31.1 MCHC 33.4 RDW 18.6 H Plt Count 161 D MPV 8.8 Absolute Neuts (auto) 7.9 Neutrophils % 87.3 H Lymphocytes % 5.1 L D Monocytes % 6.1 Eosinophils % 0.9 Basophils % 0.6 Nucleated RBC % 0 Hypochromia Platelet Estimate Platelet Comment Polychromasia Anisocytosis Macrocytosis PT with INR INR Sodium Potassium Chloride Carbon Dioxide Anion Gap BUN Creatinine Creat Clearance w eGFR Random Glucose Calcium Magnesium Total Bilirubin AST ALT Alkaline Phosphatase Total Protein Albumin Blood Type Antibody Screen Crossmatch Active Medications Generic Name Dose Route Start Last Admin Trade Name Grantq PRN Reason Stop Dose Admin Acetaminophen 650 mg 12/09/17 11:07 12/23/17 12:51 Tylenol - PO 650 mg Q6H PRN Administration PAIN OR FEVER Amino Acids 30 ml 12/11/17 08:00 12/23/17 17:45 Prosource No Carb Liquid Pkt PO 30 ml BID@0800,1730 TED Administration IV Flush 10 ml 12/21/17 18:08 Angus-Cath Flush IVPUSH PRN PRN PORT FLUSH [facility] PROTOCOL Lactated Ringer's 1,000 ml in 1,000 mls @ 75 mls/hr 12/11/17 08:00 12/23/17 10:47 Lactated Ringers Solution IV 75 mls/hr ASDIR TED Administration Levothyroxine Sodium 112 mcg 12/10/17 07:00 12/23/17 06:32 Synthroid - PO 112 mcg DAILY@0700 TED Administration Multivitamins/Minerals/Vitamin C 1 tab 12/21/17 10:00 12/23/17 10:45 Tab-A-Vit - PO 1 tab DAILY TED Administration Ondansetron HCl 8 mg 12/09/17 17:49 Zofran Injection IVPB Q6H PRN NAUSEA Oxycodone HCl 5 mg 12/23/17 02:17 12/23/17 02:40 Roxicodone - PO 5 mg Q6H PRN Administration PAIN LEVEL 6-10 Pantoprazole Sodium 40 mg 12/21/17 10:00 12/23/17 10:45 Protonix - PO 40 mg DAILY TED Administration Patient is a 67 year old with history of rectal ca , s/p neoadjuvant RT and chemotherapy followed by surgery requiring colostomy and completion of adjuvant therapy. ASSESSMENT/PLAN: Acute blood loss anemia Recal ca s/p neoadjuvant RT and chemotherapy followed by surgery requiring colostomy and completion of adjuvant therapy. Patient underwent uterine artery embolization yesterday 12/22/2017. Post procedure, was still bleeding, cbc was repeated, 2 units of PRBC was given overnight. Today, she still has vaginal bleed but is much less than yesterday. Plan is to repeat CBC tonight and transfuse as needed. Plan of care explained to the patient. She verbalized understanding. Case discussed with DR. Olivares. Visit type - Emergency Visit Emergency Visit: Yes ED Registration Date: 12/09/17 Care time: The patient presented to the Emergency Department on the above date and was hospitalized for further evaluation of their emergent condition. - New Patient This patient is new to me today: No - Critical Care Critical Care patient: No
[2017-12-23 22:28] LABS: HEMATOCRIT 23.5 % (32.4-45.2); HEMOGLOBIN 7.8 GM/dL (10.7-15.3); MCH 30.8 pg (25.7-33.7); MEAN CELL VOLUME 93.3 fl (80-96); MEAN PLT VOLUME 9.1 fl (7.5-11.1); PLATELET COUNT 148 K/MM3 (134-434); RBC 2.51 M/mm3 (3.60-5.2); RDW 19.8 % (11.6-15.6); WHITE BLOOD COUNT 8.8 K/mm3 (4.0-10.0)
[2017-12-24] MEDS: LACTATED RINGERS SOLUTION 1,000 ML/1,000 ML INFUS.BAG IV SCH ×2 (05:41→09:02)
[2017-12-24] MEDS: LEVOTHYROXINE NA 112 MCG TABLET (FP) PO SCH (06:00)
--- NOTE | 2017-12-24 08:21 | PN ---
Progress Note, Physician - Current Medication List Current Medications: Active Medications Acetaminophen (Tylenol -) 650 mg PO Q6H PRN PRN Reason: PAIN OR FEVER Last Admin: 12/23/17 23:42 Dose: 650 mg Amino Acids (Prosource No Carb Liquid Pkt) 30 ml PO BID@0800,1730 [facility] Last Admin: 12/23/17 17:45 Dose: 30 ml IV Flush (Angus-Cath Flush) 10 ml IVPUSH PRN PRN PRN Reason: [facility] PROTOCOL Lactated Ringer's (Lactated Ringers Solution) 1,000 ml in 1,000 mls @ 75 mls/ hr IV ASDIR [facility] Last Admin: 12/24/17 05:41 Dose: 75 mls/hr Levothyroxine Sodium (Synthroid -) 112 mcg PO DAILY@0700 [facility] Last Admin: 12/24/17 06:00 Dose: 112 mcg Multivitamins/Minerals/Vitamin C (Tab-A-Vit -) 1 tab PO DAILY [facility] Last Admin: 12/23/17 10:45 Dose: 1 tab Ondansetron HCl (Zofran Injection) 8 mg IVPB Q6H PRN PRN Reason: NAUSEA Oxycodone HCl (Roxicodone -) 5 mg PO Q6H PRN PRN Reason: PAIN LEVEL 6-10 Last Admin: 12/23/17 19:40 Dose: 5 mg Pantoprazole Sodium (Protonix -) 40 mg PO DAILY [facility] Last Admin: 12/23/17 10:45 Dose: 40 mg - Objective Vital Signs: Vital Signs Temperature 97.4 F L 12/24/17 06:00 Pulse Rate 72 12/24/17 06:00 Respiratory Rate 20 12/24/17 06:00 Blood Pressure 140/66 12/24/17 06:00 O2 Sat by Pulse Oximetry (%) 97 12/23/17 21:00 Labs: CBC, BMP 12/23/17 22:00 12/23/17 09:45 INR, PTT INR 1.44 (0.83-1.09) H 12/22/17 19:30 Fibrinogen 495.0 mg/dL (238-498) 12/21/17 07:35 Problem List - Problems (1) GI bleed Code(s): K92.2 - GASTROINTESTINAL HEMORRHAGE, UNSPECIFIED Qualifiers: GI bleed type/associated pathology: unspecified gastrointestinal hemorrhage type Qualified Code(s): K92.2 - Gastrointestinal hemorrhage, unspecified (2) Metastasis from rectal cancer Code(s): C79.9 - SECONDARY MALIGNANT NEOPLASM OF UNSPECIFIED SITE; C20 - MALIGNANT NEOPLASM OF RECTUM (3) Thrombocytopenia Code(s): D69.6 - THROMBOCYTOPENIA, UNSPECIFIED (4) Rectal adenocarcinoma metastatic to liver Code(s): C20 - MALIGNANT NEOPLASM OF RECTUM; C78.7 - SECONDARY MALIG NEOPLASM OF LIVER AND INTRAHEPATIC BILE DUCT
[2017-12-24 08:36] LABS: HEMATOCRIT 27.7 % (32.4-45.2); HEMOGLOBIN 9.3 GM/dL (10.7-15.3); MCH 30.6 pg (25.7-33.7); MCHC 33.5 g/dl (32.0-36.0); MEAN CELL VOLUME 91.5 fl (80-96); MEAN PLT VOLUME 9.1 fl (7.5-11.1); PLATELET COUNT 126 K/MM3 (134-434); RBC 3.03 M/mm3 (3.60-5.2); RDW 18.6 % (11.6-15.6); WHITE BLOOD COUNT 9.5 K/mm3 (4.0-10.0)
[2017-12-24] MEDS: AMINO ACIDS/PROTEIN HYDROLYS 30 ML LIQUID.PKT PO SCH (09:02)
[2017-12-24 09:14] LABS: BLOOD UREA NITROGEN 13 mg/dL (7-18); CALCIUM 8.4 mg/dL (8.5-10.1); CO2 26 mmol/L (21-32); CREATININE 0.5 mg/dL (0.55-1.3); GLUCOSE,RANDOM 78 mg/dL (74-106)
[2017-12-24 10:18] LABS: ANION GAP 9 MMOL/L (8-16); CHLORIDE 106 mmol/L (98-107); POTASSIUM 3.7 mmol/L (3.5-5.1); SODIUM 141 mmol/L (136-145)
[2017-12-24 10:22] VITALS: BP 140/75; PULSE 73; TEMP 97.6
[2017-12-24] MEDS: MULTIVITAMINS (DAILY MVI) TABLET (FP) PO SCH (10:26)
[2017-12-24] MEDS: PANTOPRAZOLE 40 MG TABLET (FP) PO SCH (10:26)
--- NOTE | 2017-12-24 13:03 | PN ---
Progress Note (short form) - Note Progress Note: Patient seen and examined Still with some vaginal bleeding Last Vital Signs Temp Pulse Resp BP Pulse Ox 97.6 F 73 20 140/75 100 12/24/17 09:30 12/24/17 09:30 12/24/17 09:30 12/24/17 09:30 12/24/17 09:00 HEENT: EVETTE, EOM Intact Oropharynx: No thrush, No mucositis Cor: RSR, No murmurs, No gallops Lungs: Clear to P&A Abd: Soft, Normal bowel sounds, No organomegaly, colostomy Ext:No significant edema Skin: No rashes, Integument intact CBC, BMP 12/24/17 06:30 12/24/17 06:30 Current Medications Generic Name Dose Route Start Last Admin Trade Name Freq PRN Reason Stop Dose Admin Acetaminophen 650 mg 12/09/17 11:07 12/23/17 23:42 Tylenol - PO 650 mg Q6H PRN Administration PAIN OR FEVER Amino Acids 30 ml 12/11/17 08:00 12/24/17 09:02 Prosource No Carb Liquid Pkt PO 30 ml BID@0800,1730 TED Administration IV Flush 10 ml 12/21/17 18:08 Angus-Cath Flush IVPUSH PRN PRN [facility] PROTOCOL Lactated Ringer's 1,000 ml in 1,000 mls @ 75 mls/hr 12/11/17 08:00 12/24/17 09:02 Lactated Ringers Solution IV Not Given ASDIR TED Levothyroxine Sodium 112 mcg 12/10/17 07:00 12/24/17 06:00 Synthroid - PO 112 mcg DAILY@0700 TED Administration Multivitamins/Minerals/Vitamin C 1 tab 12/21/17 10:00 12/24/17 10:26 Tab-A-Vit - PO 1 tab DAILY TED Administration Ondansetron HCl 8 mg 12/09/17 17:49 Zofran Injection IVPB Q6H PRN NAUSEA Oxycodone HCl 5 mg 12/23/17 02:17 12/23/17 19:40 Roxicodone - PO 5 mg Q6H PRN Administration PAIN LEVEL 6-10 Pantoprazole Sodium 40 mg 12/21/17 10:00 12/24/17 10:26 Protonix - PO 40 mg DAILY TED Administration Imp: Metastatic rectal ca s/p RT/multiple cycles of chemotherapy Vaginal fistula Vaginal bleeding S/P transfusion S/P embolization deconditioned Plan: Monitor CBC Monitor vaginal bleeding Holding on chemotherapy Rehab when feasible.
--- NOTE | 2017-12-24 14:07 | PN ---
Progress Note (short form) - Note Progress Note: LAUREANO SANCHEZ TO SONDRA DIALLO TODAY MONITOR CBC AND BMP 2 X WEEK PT EVAL Problem List - Problems (1) GI bleed Code(s): K92.2 - GASTROINTESTINAL HEMORRHAGE, UNSPECIFIED Qualifiers: GI bleed type/associated pathology: unspecified gastrointestinal hemorrhage type Qualified Code(s): K92.2 - Gastrointestinal hemorrhage, unspecified (2) Metastasis from rectal cancer Code(s): C79.9 - SECONDARY MALIGNANT NEOPLASM OF UNSPECIFIED SITE; C20 - MALIGNANT NEOPLASM OF RECTUM (3) Thrombocytopenia Code(s): D69.6 - THROMBOCYTOPENIA, UNSPECIFIED (4) Rectal adenocarcinoma metastatic to liver Code(s): C20 - MALIGNANT NEOPLASM OF RECTUM; C78.7 - SECONDARY MALIG NEOPLASM OF LIVER AND INTRAHEPATIC BILE DUCT
== END 2017-12-24 13:58 | DRG 982 ==
LOC: JER 06:18 → JERBED 09:28 → J8W 15:15
PROVIDERS: ADMIT Family Medicine; ATTEND Family Medicine
PROC: 30233N1 Transfusion of Nonautologous Red Blood Cells into Peripheral Vein, Percutaneous Approach (ICD-10-PCS; 2017-12-09)
PROC: 30233L1 Transfusion of Nonautologous Fresh Plasma into Peripheral Vein, Percutaneous Approach (ICD-10-PCS; 2017-12-10)
PROC: 30233K1 Transfusion of Nonautologous Frozen Plasma into Peripheral Vein, Percutaneous Approach (ICD-10-PCS; 2017-12-10)
PROC: 04LE3ZT Occlusion of Right Uterine Artery, Percutaneous Approach (ICD-10-PCS; principal; 2017-12-22 13:00)
DX: C19 Malignant neoplasm of rectosigmoid junction (principal); N82.3 Fistula of vagina to large intestine; C78.7 Secondary malignant neoplasm of liver and intrahepatic bile duct; D62 Acute posthemorrhagic anemia; C78.00 Secondary malignant neoplasm of unspecified lung; C79.82 Secondary malignant neoplasm of genital organs; D68.9 Coagulation defect, unspecified; C78.6 Secondary malignant neoplasm of retroperitoneum and peritoneum; D61.818 Other pancytopenia; R18.8 Other ascites; J98.11 Atelectasis; N93.9 Abnormal uterine and vaginal bleeding, unspecified; E03.9 Hypothyroidism, unspecified; Z85.038 Personal history of other malignant neoplasm of large intestine; Z93.3 Colostomy status; Z87.891 Personal history of nicotine dependence; I95.9 Hypotension, unspecified; D69.6 Thrombocytopenia, unspecified; E88.09 Other disorders of plasma-protein metabolism, not elsewhere classified; E66.9 Obesity, unspecified; Z68.32 Body mass index [BMI] 32.0-32.9, adult; D64.9 Anemia, unspecified; Z66 Do not resuscitate; R59.1 Generalized enlarged lymph nodes; K80.20 Calculus of gallbladder without cholecystitis without obstruction; R91.8 Other nonspecific abnormal finding of lung field
CPT/HCPCS: 36415; 36430; 37243; 71045-TC-FY; 74177-TC; 76000-TC-FY; 76830-TC; 76856-TC; 80048; 80053; 81003; 81015; 82272; 82550; 82553; 83735; 84484; 85025; 85027; 85384; 85610; 85730; 86850; 86900; 86901; 86922; 87040; 87086; 93005; 93010; 94760; 97116-GP; 97162-GP; 99285-25; C1760; C1769; C1887; C1894; J1756; J7030; P9017; P9038; P9058

== ENCOUNTER 2017-12-26 19:08 | Inpatient (IN) | payer OTHER, BC ==
--- NOTE | 2017-12-26 19:43 | PDOC ---
Attending Attestation - HPI HPI: 12/26/17 20:29 The patient is a 67 year old female with a significant past medical history of metastatic colon cancer with mets to the liver, status post colectomy with ilieostomy placed 2013, hysterectomy and a recent admission for a rectovaginal fistuala requiring 4 blood transfusions and embolization of uterine artery, currently at [facility] presents to the ER for continued vaginal bleeding after a recent hospital admission. Patient was admitted for similar symptoms on 12/09 and was discharged on 12/24. Patient states the bright red blood has been persistent since her discharge. Patient has no other complaints today. The patient denies chest pain, shortness of breath, headache, and dizziness. Denies fever, chills, nausea, vomit, diarrhea, and constipation. Allergies: NKA Past surgical history: status post colectomy with ilieostomy placed 2013, hysterectomy Social history: No reported alcohol, drug, or cigarette use. PCP: Dr. Rahman - Physicial Exam PE: 12/26/17 21:20 ADULT EXAM GENERAL: Awake, alert, and fully oriented, in no acute distress HEAD: No signs of trauma EYES: PERRLA, EOMI, sclera anicteric, conjunctiva clear NECK: Normal ROM, supple, no lymphadenopathy, JVD, or masses LUNGS: Breath sounds equal, clear to auscultation bilaterally. No wheezes, and no crackles HEART: (+) Tachycardic. Regular rhythm, normal S1 and S2, no murmurs, rubs or gallops ABDOMEN: (+) Empty ilieostomy bag attached. Soft, nontender, normoactive bowel sounds. No guarding, no rebound. No masses EXTREMITIES: Normal range of motion, no edema. No clubbing or cyanosis. No cords, erythema, or tenderness NEUROLOGICAL: Cranial nerves II through XII grossly intact. Normal speech, normal gait SKIN: Warm, Dry, normal turgor, no rashes or lesions noted. <Dawna Sousa - Last Filed: 12/26/17 21:20> - Resident Resident Name: Pal Borrego - ED Attending Attestation I have performed the following: I have examined & evaluated the patient, The case was reviewed & discussed with the resident, I agree w/resident's findings & plan - Medical Decision Making 12/26/17 21:03 Pt has continued vag bleed. She comes from the [place]. Pt has known recto vaginal fistula. Hb is lower today. She will be admitted to the hospitalists for blood transfusion. We spoke to the FISH ICER oon call, who tells us that this is not a FISH ICER issue as pt has no uterus. Pt's surgeon is Dr. Gaines. we will request a consult through the computer. 12/26/17 22:43 Pt will be admitted for anemia, active bleeding, and UTI Pt is getting PRBcs <Xochitl Vazquez - Last Filed: 12/26/17 22:43>
--- NOTE | 2017-12-26 20:02 | PDOC ---
History of Present Illness - General Chief Complaint: Vaginal Bleeding Stated Complaint: Vaginal Bleeding Time Seen by Provider: 12/26/17 19:25 History Source: Patient Exam Limitations: No Limitations - History of Present Illness Initial Comments: 12/26/17 19:54 67 yo female pmh of metastatic colon cancer with mets to the liver, status post colectomy with ilieostomy placed 2013, hysterectomy and a recent admission (-11/23) for a rectovaginal fistuala requiring 4 units of blood and embolization of uterine artery [place] [facility] for continued bright red blood from the vagina and weakness. Patient was told to return to the ER for continued bleeding. Denies large gushes of blood but states with every diaper change (3-4 a day) there has been varying amounts of blood present. Denies F/C/N/V abdominal pain, dysuria, SOB, CP. Past History - Past Medical History Allergies/Adverse Reactions: Allergies Allergy/AdvReac Type Severity Reaction Status Date / Time ciprofloxacin [From Cipro] Allergy Rash Verified 12/26/17 19:34 shellfish derived Allergy Vomiting Verified 12/26/17 19:34 Home Medications: Ambulatory Orders Acetaminophen W/ Codeine #3 [Tylenol # 3 -] 1 tab PO Q6H PRN #40 tablet MDD 4 Acetaminophen [Tylenol .Regular Strength -] 650 mg PO Q6H PRN tablet 08/27/17 Levothyroxine [Synthroid -] 112 mcg PO DAILY@0700 #30 tablet 08/27/17 Melatonin 10 mg PO HS 12/09/17 Amino Acids/Protein Hydrolys [Prosource No Carb Liquid Pkt] 30 ml PO BID@0800, 1730 packet 12/20/17 Ferrous Sulfate [Ferosul] 300 mg PO BID #30 elixir 12/20/17 Pantoprazole Sodium [Protonix] 40 mg PO DAILY #30 tablet. 12/20/17 Anemia: Yes Asthma: No Cancer: No (Colon CA) Cardiac Disorders: No CVA: No COPD: No CHF: No Dementia: No Diabetes: No GI Disorders: Yes (RECTAL CA) Disorders: No HTN: No Hypercholesterolemia: No Liver Disease: Yes (Cancer) Seizures: No Thyroid Disease: Yes (Hypothyroidism) Other medical history: Fistula of Vagina to Large Intestine - Surgical History Abdominal Surgery: Yes (ILEOSTOMY 09/23) Appendectomy: No Cardiac Surgery: No Cholecystectomy: No Lung Surgery: No Neurologic Surgery: No Orthopedic Surgery: No - Immunization History Immunization Up to Date: Yes - Suicide/Smoking/Psychosocial Hx Smoking History: Never smoked Have you smoked in the past 12 months: No Number of Cigarettes Smoked Daily: 15 If you are a former smoker, when did you quit?: 2013 Information on smoking cessation initiated: No 'Breaking Loose' booklet given: 10/09/13 Hx Alcohol Use: No Drug/Substance Use Hx: No Substance Use Type: None Hx Substance Use Treatment: No Review of Systems - Review of Systems Constitutional: Yes: Weakness (generalized). No: Chills, Fever HEENTM: No: Blurred Vision Respiratory: No: Shortness of Breath Cardiac (ROS): No: Chest Pain, Edema, Chest Tightness ABD/GI: No: Abdominal Distended, Nausea, Vomiting : Yes: Other (vaginal bleeding). No: Burning, Dysuria, Flank Pain Musculoskeletal: No: Back Pain Integumentary: Yes: Pallor Neurological: No: Headache, Numbness, Paresthesia *Physical Exam - Vital Signs Last Vital Signs Temp Pulse Resp BP Pulse Ox 98.8 F 96 H 18 116/68 100 12/26/17 19:15 12/26/17 19:15 12/26/17 19:15 12/26/17 19:15 12/26/17 19:15 - Physical Exam General Appearance: Yes: Nourished, Appropriately Dressed HEENT: positive: EOMI, Pale Conjunctivae Respiratory/Chest: positive: Lungs Clear, Normal Breath Sounds. negative: Respiratory Distress, Crackles, Wheezing Cardiovascular: positive: Regular Rhythm, Regular Rate, S1, S2. negative: Edema , JVD, Murmur Vascular Pulses: Dorsalis-Pedis (R): 4+, Doralis-Pedis (L): 4+ Female Pelvic Exam: positive: vaginal bleeding Gastrointestinal/Abdominal: positive: Normal Bowel Sounds, Flat, Soft. negative : Distended, Guarding, Rebound, Tenderness Extremity: positive: Normal Capillary Refill ED Treatment Course - LABORATORY CBC & Chemistry Diagram: 12/26/17 20:20 12/26/17 20:20 *DC/Admit/Observation/Transfer Diagnosis at time of Disposition: Rectal vaginal fistula, Vaginal bleeding - Discharge Dispostion Condition at time of disposition: Stable Decision to Admit order: Yes - Referrals Referrals: Alirio Rahman MD [Primary Care Provider] - - Patient Instructions - Post Discharge Activity
[2017-12-26 20:31] LABS: BASO % 0.9 % (0-2.0); EOS % 0.9 % (0-4.5); HEMOGLOBIN 7.2 GM/dL (10.7-15.3); LYMPH % 8.2 % (8-40); MCH 30.7 pg (25.7-33.7); MCHC 32.6 g/dl (32.0-36.0); MEAN CELL VOLUME 94.1 fl (80-96); MEAN PLT VOLUME 8.4 fl (7.5-11.1); MONO % 6.5 % (3.8-10.2); NEUT % 83.5 % (42.8-82.8); PLATELET COUNT 246 K/MM3 (134-434); RBC 2.34 M/mm3 (3.60-5.2); RDW 21.6 % (11.6-15.6); WHITE BLOOD COUNT 12.7 K/mm3 (4.0-10.0)
[2017-12-26 20:39] LABS: ADD RBC MORPHOLOGY YES
[2017-12-26 20:44] LABS: INR 1.36 (0.83-1.09); PROTHROMBIN TIME (PATIENT) 15.4 SEC (9.7-13.0)
[2017-12-26 20:46] LABS: ACTIVATED PTT 28.2 SECONDS (25.2-36.5)
[2017-12-26 20:55] LABS: ALBUMIN 1.8 g/dl (3.4-5.0); ALK PHOS 154 U/L (45-117); ANION GAP 13 MMOL/L (8-16); BILIRUBIN,TOTAL 0.9 mg/dL (0.2-1.0); BLOOD UREA NITROGEN 12 mg/dL (7-18); CALCIUM 8.4 mg/dL (8.5-10.1); CHLORIDE 107 mmol/L (98-107); CO2 23 mmol/L (21-32); CREATININE 0.6 mg/dL (0.55-1.3); GLUCOSE,RANDOM 98 mg/dL (74-106); SGOT/AST 32 U/L (15-37); SGPT/ALT 12 U/L (13-61); SODIUM 143 mmol/L (136-145); TOT PROT 5.1 g/dl (6.4-8.2)
[2017-12-26 21:06] LABS: URINE APPEARANCE CLOUDY; URINE BILIRUBIN NEGATIVE (<2.0 mg/dL); URINE COLOR AMBER; URINE GLUCOSE (UA) NEGATIVE (NEGATIVE); URINE KETONE NEGATIVE (NEGATIVE); URINE NITRITE NEGATIVE (NEGATIVE); URINE UROBILINOGEN 4.0 E.U/dl mg/dL (0.2-1.0)
[2017-12-26 21:16] LABS: ANISOCYTOSIS 2+; MACROCYTOSIS 1+; OVALOCYTE 1+; PLATELET ESTIMATE ADEQUATE
[2017-12-26 21:18] LABS: URINE LEUK ESTERASE 3+ (NEGATIVE); URINE PROTEIN 2+ (NEGATIVE)
[2017-12-26 21:19] LABS: EPI CELLS RARE /HPF (FEW); URINE BACTERIA MODERATE /hpf (NONE SEEN); URINE MUCUS MODERATE
[2017-12-26] MEDS ORDERED: SODIUM CHLORIDE 0.9% 500 ML INFUS.BAG IV ONE (21:19)
[2017-12-26] MEDS ORDERED: SODIUM CHLORIDE 250 ML IV STA (21:31)
[2017-12-26] MEDS ORDERED: CEFTRIAXONE 1 GM/50 ML BAG ONE (21:39)
--- NOTE | 2017-12-26 22:26 | HP ---
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 Who presents to the ED for vaginal bleeding. Patient reports having several episodes of vaginal bleeding since today, denies abdominal cramping or pain. Patient denies fever, chills, cough, TARANGO, dizziness, SOB, CP, N/V/D, constipation, dysuria. History Source: Patient, Medical Record Limitations to Obtaining History: No Limitations - Past Medical History Gastrointestinal: Yes: Other (rectal ca - metastatic to liver) Endocrine: Yes: Hypothyroidism - Past Surgical History Past Surgical History: Yes: Colectomy, Colostomy, Hysterectomy - Advance Directives Advance Directives: Yes: DNR (DNI) - Smoking History Smoking history: Former smoker Have you smoked in the past 12 months: No Aproximately how many cigarettes per day: 15 If you are a former smoker, when did you quit?: 2013 - Alcohol/Substance Use Hx Alcohol Use: No History of Substance Use: reports: None - Social History Usual Living Arrangement: Yes: [facility] ADL: Support Services History of Recent Travel: No Home Medications - Allergies Allergies/Adverse Reactions: Allergies Allergy/AdvReac Type Severity Reaction Status Date / Time ciprofloxacin [From Cipro] Allergy Rash Verified 12/26/17 19:34 shellfish derived Allergy Vomiting Verified 12/26/17 19:34 - Home Medications Home Medications: Ambulatory Orders Acetaminophen W/ Codeine #3 [Tylenol # 3 -] 1 tab PO Q6H PRN #40 tablet MDD 4 Acetaminophen [Tylenol .Regular Strength -] 650 mg PO Q6H PRN tablet 08/27/17 Levothyroxine [Synthroid -] 112 mcg PO DAILY@0700 #30 tablet 08/27/17 Melatonin 10 mg PO HS 12/09/17 Amino Acids/Protein Hydrolys [Prosource No Carb Liquid Pkt] 30 ml PO BID@0800, 1730 packet 12/20/17 Ferrous Sulfate [Ferosul] 300 mg PO BID #30 elixir 12/20/17 Pantoprazole Sodium [Protonix] 40 mg PO DAILY #30 tablet. 12/20/17 Family Disease History - Family Disease History Family Disease History: CA: Father (Lung Ca), Other: Mother (Healthy, age 92) Review of Systems - Review of Systems Constitutional: reports: Weakness Eyes: reports: No Symptoms HENT: reports: No Symptoms Neck: reports: No Symptoms Cardiovascular: reports: No Symptoms Respiratory: reports: No Symptoms Gastrointestinal: reports: No Symptoms Genitourinary: reports: Vaginal Bleeding Breasts: reports: No Symptoms Reported Musculoskeletal: reports: Muscle Weakness Integumentary: reports: No Symptoms Neurological: reports: No Symptoms Endocrine: reports: No Symptoms Hematology/Lymphatic: reports: Excessive Bleeding Psychiatric: reports: No Symptoms Physical Examination Vital Signs: Vital Signs Temperature 98.8 F 12/26/17 19:15 Pulse Rate 98 H 12/26/17 21:06 Respiratory Rate 16 12/26/17 21:06 Blood Pressure 98/56 12/26/17 21:06 O2 Sat by Pulse Oximetry (%) 94 L 12/26/17 21:06 Constitutional: Yes: No Distress, Calm, Obese, Pallor Eyes: Yes: Conjunctiva Clear (pale) HENT: Yes: WNL, Atraumatic, Normocephalic Neck: Yes: WNL, Supple, Trachea Midline Cardiovascular: Yes: WNL, Regular Rate and Rhythm, S1, S2 Respiratory: Yes: WNL, Regular, CTA Bilaterally Gastrointestinal: Yes: Rectal Bleeding, Other (Ileostomy to R-side of abdomen) ...Rectal Exam: Yes: Sphincter Tone Normal Renal/: Yes: Vaginal Bleeding (scant brownish red) Breast(s): Yes: Other (mediport to [facility]) Musculoskeletal: Yes: Muscle Weakness Extremities: Yes: WNL Edema: No Peripheral Pulses WNL: Yes Neurological: Yes: WNL, Alert, Oriented, Cran Nerves II-XII Intact ...Motor Strength: WNL Psychiatric: Yes: WNL, Alert, Oriented Labs: CBC, BMP 12/26/17 20:20 12/26/17 20:20 Laboratory Results - last 24 hr 12/26/17 12/26/17 12/26/17 20:20 20:20 20:20 WBC 12.7 H RBC 2.34 L Hgb 7.2 L Hct 22.0 L D MCV 94.1 MCH 30.7 MCHC 32.6 RDW 21.6 H Plt Count 246 D MPV 8.4 Absolute Neuts (auto) 10.6 H Neutrophils % 83.5 H Lymphocytes % 8.2 D Monocytes % 6.5 Eosinophils % 0.9 Basophils % 0.9 Nucleated RBC % 0 Platelet Estimate Adequate Platelet Comment Polychromasia 1+ Poikilocytosis 1+ Anisocytosis 2+ Microcytosis 1+ Macrocytosis 1+ Ovalocytes 1+ PT with INR 15.40 H INR 1.36 H PTT (Actin FS) 28.2 Sodium 143 Potassium 4.0 Chloride 107 Carbon Dioxide 23 Anion Gap 13 BUN 12 Creatinine 0.6 Creat Clearance w eGFR > 60 Random Glucose 98 Calcium 8.4 L Total Bilirubin 0.9 AST 32 ALT 12 L Alkaline Phosphatase 154 H Total Protein 5.1 L Albumin 1.8 L Urine Color Urine Appearance Urine pH Ur Specific [place] Urine Protein Urine Glucose (UA) Urine Ketones Urine Blood Urine Nitrite Urine Bilirubin Urine Urobilinogen Ur Leukocyte Esterase Urine WBC (Auto) Urine RBC (Auto) Ur Epithelial Cells Urine Bacteria Urine Mucus Blood Type Antibody Screen Crossmatch 12/26/17 12/26/17 20:20 20:50 WBC RBC Hgb Hct MCV MCH MCHC RDW Plt Count MPV Absolute Neuts (auto) Neutrophils % Lymphocytes % Monocytes % Eosinophils % Basophils % Nucleated RBC % Platelet Estimate Platelet Comment Polychromasia Poikilocytosis Anisocytosis Microcytosis Macrocytosis Ovalocytes PT with INR INR PTT (Actin FS) Sodium Potassium Chloride Carbon Dioxide Anion Gap BUN Creatinine Creat Clearance w eGFR Random Glucose Calcium Total Bilirubin AST ALT Alkaline Phosphatase Total Protein Albumin Urine Color Prema Urine Appearance Cloudy Urine pH 5.0 D Ur Specific [place] 1.025 Urine Protein 2+ H Urine Glucose (UA) Negative Urine Ketones Negative Urine Blood 3+ H Urine Nitrite Negative Urine Bilirubin Negative Urine Urobilinogen 4.0 e.u/dl H Ur Leukocyte Esterase 3+ H Urine WBC (Auto) 453 Urine RBC (Auto) 194 Ur Epithelial Cells Rare Urine Bacteria Moderate Urine Mucus Moderate Blood Type O POSITIVE Antibody Screen Negative Crossmatch See Detail Current Medications Generic Name Dose Route Start Last Admin Trade Name Freq PRN Reason Stop Dose Admin Levothyroxine Sodium 112 mcg 12/27/17 07:00 Synthroid - PO DAILY@0700 TED Melatonin 10 mg 12/27/17 22:00 Melatonin PO HS TED Imaging - Results EKG: Image Reviewed Problem List - Problems (1) Vaginal bleeding Assessment/Plan: - Likely due to recurrent rectal tumor - Hgb 7.2 - Will receive PRBCs x2 tonight - Surgical Consult placed by ED resident for Dr. Peres - On exam- bleeding is scant to vagina and diaper brownish red non-malodorous - Code(s): N93.9 - ABNORMAL UTERINE AND VAGINAL BLEEDING, UNSPECIFIED (2) Rectovaginal fistula Code(s): N82.3 - FISTULA OF VAGINA TO LARGE INTESTINE (3) Rectal adenocarcinoma metastatic to liver Assessment/Plan: - s/p embolization 12/22 - Appreciate Oncology consult Code(s): C20 - MALIGNANT NEOPLASM OF RECTUM; C78.7 - SECONDARY MALIG NEOPLASM OF LIVER AND INTRAHEPATIC BILE DUCT (4) Anemia Assessment/Plan: - Likely secondary to vaginal bleeding - Hgb 7.2, not at baseline - ED resident ordered PRBCs x2, to be given tonight - Repeat CBC in am - Appreciate Hematology consult - Monitor vitals Code(s): D64.9 - ANEMIA, UNSPECIFIED Qualifiers: (5) Hypothyroid Assessment/Plan: - Continue Levothyroxine Code(s): E03.9 - HYPOTHYROIDISM, UNSPECIFIED Qualifiers: Assessment/Plan This is a 67 y/o woman with a PMHx of Colorectal Ca with Mets to Liver, Hypothyroidism. Admitted for Anemia secondary to Vaginal and Rectal Bleeding for further evaluation of their emergent condition. FEN - D51/2NS@42cc/hr - Replete lytes prn - NPO DVT ppx - OOB - SCDs - Hold AC secondary to Bleeding Code Status: DNR/DNI, HCP Dispo: Requires Inpatient Care Visit type - Emergency Visit Emergency Visit: Yes ED Registration Date: 12/26/17 Care time: The patient presented to the Emergency Department on the above date and was hospitalized for further evaluation of their emergent condition. - New Patient This patient is new to me today: Yes Date on this admission: 12/26/17 - Critical Care Critical Care patient: No Hospitalist Screening - Colonoscopy Questionnaire Colonoscopy Questionnaire: Colonoscopy Questionnaire - Patient: 50 - 75 years old and never had a screening colonoscopy: No History of colon or rectal polyps, or CA: Yes History of IBD, Crohn's disease or UC: No History of abdominal radiation therapy as a child: No - Relative: 1 with colon or rectal CA, or polyps at age 60 or younger: Unknown Colon or rectal CA diagnosed at age 45 or younger: Unknown Multiple relatives with colon or rectal CA: Unknown - Outcome: Screening Result: Positive Screen
[2017-12-27] MEDS: LEVOTHYROXINE NA 112 MCG TABLET (FP) PO SCH (06:12)
[2017-12-27 07:04] LABS: BASO % 0.7 % (0-2.0); HEMATOCRIT 23.5 % (32.4-45.2); HEMOGLOBIN 8.1 GM/dL (10.7-15.3); LYMPH % 7.3 % (8-40); MCH 31.4 pg (25.7-33.7); MCHC 34.7 g/dl (32.0-36.0); MEAN CELL VOLUME 90.5 fl (80-96); MEAN PLT VOLUME 8.5 fl (7.5-11.1); MONO % 6.7 % (3.8-10.2); NEUT % 84.3 % (42.8-82.8); PLATELET COUNT 130 K/MM3 (134-434); RBC 2.59 M/mm3 (3.60-5.2); RDW 16.9 % (11.6-15.6); WHITE BLOOD COUNT 9.4 K/mm3 (4.0-10.0)
[2017-12-27 07:14] LABS: INR 1.39 (0.83-1.09); PROTHROMBIN TIME (PATIENT) 15.7 SEC (9.7-13.0)
[2017-12-27 07:22] LABS: ANION GAP 7 MMOL/L (8-16); BLOOD UREA NITROGEN 13 mg/dL (7-18); CALCIUM 7.9 mg/dL (8.5-10.1); CHLORIDE 110 mmol/L (98-107); CO2 24 mmol/L (21-32); CREATININE 0.5 mg/dL (0.55-1.3); GLUCOSE,RANDOM 101 mg/dL (74-106); POTASSIUM 3.7 mmol/L (3.5-5.1); SODIUM 141 mmol/L (136-145)
--- NOTE | 2017-12-27 09:59 | EKG ---
Test Reason : Blood Pressure : / mmHG Vent. Rate : 098 BPM Atrial Rate : 098 BPM P-R Int : 144 ms QRS Dur : 108 ms QT Int : 382 ms P-R-T Axes : 013 -55 069 degrees QTc Int : 487 ms NORMAL SINUS RHYTHM LEFT AXIS DEVIATION INCOMPLETE LEFT BUNDLE BRANCH BLOCK ABNORMAL ECG WHEN COMPARED WITH ECG OF 09-DEC-2017 06:38, T WAVE VARIATION Confirmed by MIAN SPARKS MD ([id number]) on 12/27/2017 9:58:42 AM Referred By: Confirmed By:MIAN SPARKS MD
--- NOTE | 2017-12-27 15:25 | PN ---
Progress Note, Physician Chief Complaint: patient seen and examiend still with vaginal bleeding got prbc yesterday NPO awaiting surgical eval - Current Medication List Current Medications: Active Medications Levothyroxine Sodium (Synthroid -) 112 mcg PO DAILY@0700 [facility] Last Admin: 12/27/17 06:12 Dose: 112 mcg Melatonin (Melatonin) 10 mg PO HS [facility] - Objective Vital Signs: Vital Signs Temperature 98.1 F 12/27/17 15:06 Pulse Rate 69 12/27/17 15:06 Respiratory Rate 20 12/27/17 15:06 Blood Pressure 132/68 12/27/17 15:06 O2 Sat by Pulse Oximetry (%) 96 12/27/17 01:39 Constitutional: Yes: Calm Cardiovascular: Yes: Regular Rate and Rhythm, S1, S2 Respiratory: Yes: CTA Bilaterally Gastrointestinal: Yes: Normal Bowel Sounds, Soft Edema: No Neurological: Yes: Alert, Oriented Labs: CBC, BMP 12/27/17 06:10 12/27/17 06:10 INR, PTT INR 1.39 (0.83-1.09) H 12/27/17 06:10 Problem List - Problems (1) Rectovaginal fistula Assessment/Plan: NPO awating surgical eval h/h stable Code(s): N82.3 - FISTULA OF VAGINA TO LARGE INTESTINE (2) Hypothyroid Assessment/Plan: synthroid tsh Code(s): E03.9 - HYPOTHYROIDISM, UNSPECIFIED Qualifiers: (3) Anemia Assessment/Plan: h/h monitor heme eval iron panel Code(s): D64.9 - ANEMIA, UNSPECIFIED Qualifiers: (4) UTI (urinary tract infection) Assessment/Plan: cultures pending iv rocephin Code(s): N39.0 - URINARY TRACT INFECTION, SITE NOT SPECIFIED
[2017-12-27] MEDS ORDERED: CEFTRIAXONE 1 GM in DEXTROSE 5%-WATER - 50 ML IVPB SCH (15:30)
[2017-12-27] MEDS ORDERED: cefTRIAXone SODIUM 1 GM VIAL ONE (16:35)
[2017-12-27] MEDS: CEFTRIAXONE 1 GM in DEXTROSE 5%-WATER - 50 ML IVPB SCH (17:04)
[2017-12-27] MEDS: MELATONIN 5 MG TABLETS PO SCH (21:08)
[2017-12-28] MEDS: LEVOTHYROXINE NA 112 MCG TABLET (FP) PO SCH (06:14)
[2017-12-28 07:08] LABS: BASO % 0.5 % (0-2.0); HEMATOCRIT 24.9 % (32.4-45.2); HEMOGLOBIN 8.1 GM/dL (10.7-15.3); LYMPH % 6.7 % (8-40); MCH 30.5 pg (25.7-33.7); MCHC 32.6 g/dl (32.0-36.0); MEAN CELL VOLUME 93.6 fl (80-96); MEAN PLT VOLUME 8.4 fl (7.5-11.1); NEUT % 83.8 % (42.8-82.8); PLATELET COUNT 127 K/MM3 (134-434); RBC 2.66 M/mm3 (3.60-5.2); RDW 17.5 % (11.6-15.6); WHITE BLOOD COUNT 7.4 K/mm3 (4.0-10.0)
[2017-12-28 07:48] LABS: ALBUMIN 1.7 g/dl (3.4-5.0); ANION GAP 10 MMOL/L (8-16); BILIRUBIN,TOTAL 0.9 mg/dL (0.2-1); BLOOD UREA NITROGEN 12 mg/dL (7-18); CALCIUM 8.1 mg/dL (8.5-10.1); CHLORIDE 110 mmol/L (98-107); CO2 24 mmol/L (21-32); CREATININE 0.5 mg/dL (0.55-1.3); GLUCOSE,RANDOM 91 mg/dL (74-106); POTASSIUM 3.9 mmol/L (3.5-5.1); SGOT/AST 24 U/L (15-37); SGPT/ALT 11 U/L (13-61); SODIUM 144 mmol/L (136-145); TOT PROT 4.8 g/dl (6.4-8.2)
[2017-12-28 07:56] LABS: ALK PHOS 136 U/L (45-117)
[2017-12-28 08:25] LABS: INR 1.27 (0.83-1.09); PROTHROMBIN TIME (PATIENT) 14.4 SEC (9.7-13.0)
--- NOTE | 2017-12-28 08:41 | CONSULT ---
Consult - text type - Consultation Consultation Note: 67 yr old female well known to me with advanced rectal cancer, s/p low anterior resection with maritza-adjuvant chemo radiation therapy. recently discharged from hospital with vaginal bleeding. P"atient has a known recto- vaginal fistula and underwent embolization. She is now readmitted with further bleeding and anemia and has received 2 units of PRBCs. Currently at the moment she is not bleeding. Hemodynamically stable A/p recto-vaginal bleeding most likely from local tumor recurrence. Fistulas don't generally bleed Surgical intervention in this setting is not likely to be successful. Recommend consultation with Radiation oncology possible radiotherapy for local control if she is a candidate GI consultation
[2017-12-28] MEDS ORDERED: cefTRIAXone SODIUM 1 GM VIAL ONE (09:09)
[2017-12-28] MEDS ORDERED: DEXTROSE 5%-WATER - 50 ML IVPB ONE (09:09)
[2017-12-28] MEDS: CEFTRIAXONE 1 GM in DEXTROSE 5%-WATER - 50 ML IVPB SCH (09:12)
--- NOTE | 2017-12-28 11:10 | PN ---
Progress Note, Physician Chief Complaint: patient seen and examined surgical note appreciate - Current Medication List Current Medications: Active Medications Ceftriaxone Sodium 1 gm/ (Dextrose) 50 mls @ 200 mls/hr IVPB DAILY [facility]; Protocol Last Admin: 12/28/17 09:12 Dose: 200 mls/hr Levothyroxine Sodium (Synthroid -) 112 mcg PO DAILY@0700 [facility] Last Admin: 12/28/17 06:14 Dose: 112 mcg Melatonin (Melatonin) 10 mg PO HS [facility] Last Admin: 12/27/17 21:08 Dose: 10 mg - Objective Vital Signs: Vital Signs Temperature 98.2 F 12/28/17 10:19 Pulse Rate 77 12/28/17 10:19 Respiratory Rate 18 12/28/17 10:19 Blood Pressure 133/67 12/28/17 10:19 O2 Sat by Pulse Oximetry (%) 96 12/28/17 08:38 Constitutional: Yes: Calm Cardiovascular: Yes: Regular Rate and Rhythm, S1, S2 Respiratory: Yes: CTA Bilaterally Gastrointestinal: Yes: Normal Bowel Sounds, Soft, Other (colotosmy) Neurological: Yes: Alert, Oriented Labs: CBC, BMP 12/28/17 06:50 12/28/17 06:50 INR, PTT INR 1.27 (0.83-1.09) H 12/28/17 06:50 Problem List - Problems (1) Rectovaginal fistula Assessment/Plan: surgical eval note no intervention at this time h/h stable radiation oncology evaluation Code(s): N82.3 - FISTULA OF VAGINA TO LARGE INTESTINE (2) Hypothyroid Assessment/Plan: synthroid dose increase from 112 to 125 mcg tsh is 13 Code(s): E03.9 - HYPOTHYROIDISM, UNSPECIFIED Qualifiers: (3) Anemia Assessment/Plan: h/h monitor heme eval iron panel gi eval Code(s): D64.9 - ANEMIA, UNSPECIFIED Qualifiers: (4) UTI (urinary tract infection) Assessment/Plan: cultures pending iv rocephin Code(s): N39.0 - URINARY TRACT INFECTION, SITE NOT SPECIFIED
[2017-12-28] MEDS: PANTOPRAZOLE 40 MG TABLET (FP) PO SCH (14:23)
--- NOTE | 2017-12-28 14:27 | CONSULT ---
Consult Consult Specialty:: Oncology - Past Medical History Gastrointestinal: Yes: Other (rectal ca - metastatic to liver) ...: No Endocrine: Yes: Hypothyroidism - Past Surgical History Past Surgical History: Yes: Colectomy, Colostomy, Hysterectomy - Alcohol/Substance Use Hx Alcohol Use: No History of Substance Use: reports: None - Smoking History Smoking history: Former smoker Have you smoked in the past 12 months: No Aproximately how many cigarettes per day: 15 If you are a former smoker, when did you quit?: 2013 - Social History ADL: Support Services History of Recent Travel: No Home Medications - Allergies Allergies/Adverse Reactions: Allergies Allergy/AdvReac Type Severity Reaction Status Date / Time ciprofloxacin [From Cipro] Allergy Rash Verified 12/26/17 19:34 shellfish derived Allergy Vomiting Verified 12/26/17 19:34 - Home Medications Home Medications: Ambulatory Orders Acetaminophen W/ Codeine #3 [Tylenol # 3 -] 1 tab PO Q6H PRN #40 tablet MDD 4 Acetaminophen [Tylenol .Regular Strength -] 650 mg PO Q6H PRN tablet 08/27/17 Levothyroxine [Synthroid -] 112 mcg PO DAILY@0700 #30 tablet 08/27/17 Melatonin 10 mg PO HS 12/09/17 Amino Acids/Protein Hydrolys [Prosource No Carb Liquid Pkt] 30 ml PO BID@0800, 1730 packet 12/20/17 Ferrous Sulfate [Ferosul] 300 mg PO BID #30 elixir 12/20/17 Pantoprazole Sodium [Protonix] 40 mg PO DAILY #30 tablet. 12/20/17 Family Disease History - Family Disease History Family Disease History: CA: Father (Lung Ca), Other: Mother (Healthy, age 92) Physical Exam Vital Signs: Vital Signs Temperature 98.2 F 12/28/17 10:19 Pulse Rate 77 12/28/17 10:19 Respiratory Rate 18 12/28/17 10:19 Blood Pressure 133/67 12/28/17 10:19 O2 Sat by Pulse Oximetry (%) 96 12/28/17 08:38 Labs: CBC, BMP 12/28/17 06:50 12/28/17 06:50 Assessment/Plan Patient seen and examined 67 year old with metastatic rectal ca with liver and extrahepatic mets. Previously treated with neoadjuvant RT/ xeloda. S/P recurrence treated with surgery and multiple prior chemotherapy regimens. Patient has recto vaginal fistula and has been bleeding. It is likely that it is related to local recurrence and prior RT. She recently had uterine artery embolization in an attempt to control vaginal bleeding, but the patient continues to bleed. She is transferred back from [facility] with bleeding and has been transfused 2 units of packed cells to date. Last Vital Signs Temp Pulse Resp BP Pulse Ox 98.2 F 77 18 133/67 96 12/28/17 10:19 12/28/17 10:19 12/28/17 10:19 12/28/17 10:12/28/17 08:38 HEENT: EVETTE, EOM Intact Oropharynx: No thrush, No mucositis Neck: Supple Nodes: Without adenopathy Breasts: Without masses Cor: RSR, No murmurs, No gallops Lungs: Clear to P&A Abd: Soft, Normal bowel sounds, No organomegaly, colostomy Ext:No significant edema Skin: No rashes, Integument intact Vaginal bleeding - currently minimal CBC, BMP 12/28/17 06:50 12/28/17 06:50 Current Medications Generic Name Dose Route Start Last Admin Trade Name Freq PRN Reason Stop Dose Admin Ceftriaxone Sodium 1 gm/ 50 mls @ 200 mls/hr 12/27/17 16:00 12/28/17 09:12 Dextrose IVPB 200 mls/hr DAILY TED Administration Protocol Levothyroxine Sodium 125 mcg 12/28/17 11:09 Synthroid - PO DAILY@0700 TED Melatonin 10 mg 12/27/17 22:00 12/27/17 21:08 Melatonin PO 10 mg HS TED Administration Pantoprazole Sodium 40 mg 12/28/17 11:30 Protonix - PO DAILY TED Impression: Metastatic rectal ca, Recto -vaginal fistula Vaginal bleeding Patient is not a surgical candidate. She already had full dose of RT for maritza-adjuvant therapy 7 years earlier. I spoke with [facility] RT who said she is not a candidate for any additional RT since she has already had maximum and it is only 7 years since her treatment. I will reach out again to [facility] May have to be supported just with prn transfusions.
--- NOTE | 2017-12-28 14:59 | CON.GI ---
Consult Consult Specialty:: gastroenterology - History of Present Illness History of Present Illness: Mrs. Lindsay is a 67 year old woman with a past medical history of Colorectal Ca mets Liver, s/p neoadjuvant RT and chemotherapy, Colectomy 2013, rectal/vaginal fistula s/p embolization, hypothyroidism who was sent from the rehab with complaints of vaginal bleed . During the course she was found to be anemic. She is a poor historian but denies any abdominal pain , nausea, vomiting, diarrhea , blood in the stool. Her last endoscopic evaluation was done over 5 years ago as per the pt. - History Source History Provided By: Patient, Medical Record Limitations to Obtaining History: Poor Historian - Past Medical History Gastrointestinal: Yes: Other (rectal ca - metastatic to liver) ...: No Endocrine: Yes: Hypothyroidism - Past Surgical History Past Surgical History: Yes: Colectomy, Colostomy, Hysterectomy - Alcohol/Substance Use Hx Alcohol Use: No History of Substance Use: reports: None - Smoking History Smoking history: Former smoker Have you smoked in the past 12 months: No Aproximately how many cigarettes per day: 15 If you are a former smoker, when did you quit?: 2013 - Social History ADL: Support Services History of Recent Travel: No Home Medications - Allergies Allergies/Adverse Reactions: Allergies Allergy/AdvReac Type Severity Reaction Status Date / Time ciprofloxacin [From Cipro] Allergy Rash Verified 12/26/17 19:34 shellfish derived Allergy Vomiting Verified 12/26/17 19:34 - Home Medications Home Medications: Ambulatory Orders Acetaminophen W/ Codeine #3 [Tylenol # 3 -] 1 tab PO Q6H PRN #40 tablet MDD 4 Acetaminophen [Tylenol .Regular Strength -] 650 mg PO Q6H PRN tablet 08/27/17 Levothyroxine [Synthroid -] 112 mcg PO DAILY@0700 #30 tablet 08/27/17 Melatonin 10 mg PO HS 12/09/17 Amino Acids/Protein Hydrolys [Prosource No Carb Liquid Pkt] 30 ml PO BID@0800, 1730 packet 12/20/17 Ferrous Sulfate [Ferosul] 300 mg PO BID #30 elixir 12/20/17 Pantoprazole Sodium [Protonix] 40 mg PO DAILY #30 tablet. 12/20/17 Family Disease History - Family Disease History Family Disease History: CA: Father (Lung Ca), Other: Mother (Healthy, age 92) Review of Systems - Review of Systems Constitutional: reports: Weakness Eyes: reports: No Symptoms HENT: reports: No Symptoms Neck: reports: No Symptoms Cardiovascular: reports: No Symptoms Respiratory: reports: No Symptoms Gastrointestinal: reports: Other (see HPI) Genitourinary: reports: No Symptoms Musculoskeletal: reports: No Symptoms Integumentary: reports: No Symptoms Physical Exam-GI Vital Signs: Vital Signs Temperature 98.2 F 12/28/17 10:19 Pulse Rate 77 12/28/17 10:19 Respiratory Rate 18 12/28/17 10:19 Blood Pressure 133/67 12/28/17 10:19 O2 Sat by Pulse Oximetry (%) 96 12/28/17 08:38 Constitutional: Yes: No Distress, Calm Eyes: Yes: WNL HENT: Yes: WNL Neck: Yes: WNL Cardiovascular: Yes: WNL, Regular Rate and Rhythm Respiratory: Yes: WNL, Regular Gastrointestinal Inspection: Yes: Other (ostomy / dresing clean and dry) ...Auscultate: Yes: Normoactive Bowel Sounds Musculoskeletal: Yes: WNL Extremities: Yes: WNL Edema: No Neurological: Yes: WNL, Alert, Oriented Labs: CBC, BMP 12/28/17 06:50 12/28/17 06:50 INR, PTT INR 1.27 (0.83-1.09) H 12/28/17 06:50 Problem List - Problems (1) Rectovaginal fistula Code(s): N82.3 - FISTULA OF VAGINA TO LARGE INTESTINE (2) Anemia Code(s): D64.9 - ANEMIA, UNSPECIFIED Qualifiers: Assessment/Plan Impression: Normocytic anemia appears to be multifactorial in origin predominantly secondary to her advanced rectal CA/ metastatic disease. There is no sign of an overt GI bleed - she is hemodynamically stable at this time. REcommendation: - IR consultation / colo -rectal surgery evaluation - trend h/h q12 transfuse to HG greater than 8 - PPI therapy - no indication for any invasive procedures at this time.
[2017-12-28] MEDS: ACETAMINOPHEN 325 MG TABLET (FP) PO PRN (18:48)
[2017-12-28] MEDS: MELATONIN 5 MG TABLETS PO SCH (22:08)
[2017-12-29] MEDS: ACETAMINOPHEN 325 MG TABLET (FP) PO PRN ×2 (01:41→20:59)
[2017-12-29 06:06] LABS: SERUM IRON SATURATION 15 % (15-55); TOTAL IRON BINDING CAPACITY 178 ug/dL (250-450); UIBC 152 ug/dL (118-369)
[2017-12-29] MEDS: LEVOTHYROXINE NA 125 MCG TABLET (FP) PO SCH (06:13)
[2017-12-29 07:41] LABS: BASO % 0.7 % (0-2.0); EOS % 1.9 % (0-4.5); HEMATOCRIT 23.3 % (32.4-45.2); HEMOGLOBIN 7.7 GM/dL (10.7-15.3); LYMPH % 7.4 % (8-40); MCH 31.1 pg (25.7-33.7); MCHC 32.8 g/dl (32.0-36.0); MEAN CELL VOLUME 94.6 fl (80-96); MEAN PLT VOLUME 9.3 fl (7.5-11.1); MONO % 8.8 % (3.8-10.2); NEUT % 81.2 % (42.8-82.8); PLATELET COUNT 98 K/MM3 (134-434); RBC 2.46 M/mm3 (3.60-5.2); RDW 18.6 % (11.6-15.6); WHITE BLOOD COUNT 5.5 K/mm3 (4.0-10.0)
[2017-12-29 08:23] LABS: INR 1.48 (0.83-1.09); PROTHROMBIN TIME (PATIENT) 16.7 SEC (9.7-13.0)
[2017-12-29 08:26] LABS: CHLORIDE 107 mmol/L (98-107); POTASSIUM 3.8 mmol/L (3.5-5.1); SODIUM 139 mmol/L (136-145)
[2017-12-29 08:52] LABS: ALBUMIN 1.6 g/dl (3.4-5.0); ALK PHOS 502 U/L (45-117); ANION GAP 8 MMOL/L (8-16); BILIRUBIN,TOTAL 3.4 mg/dL (0.2-1); BLOOD UREA NITROGEN 10 mg/dL (7-18); CO2 24 mmol/L (21-32); CREATININE 0.5 mg/dL (0.55-1.3); GLUCOSE,RANDOM 92 mg/dL (74-106); SGOT/AST 151 U/L (15-37); SGPT/ALT 49 U/L (13-61); TOT PROT 4.5 g/dl (6.4-8.2)
[2017-12-29] MEDS ORDERED: cefTRIAXone SODIUM 1 GM VIAL ONE (08:58)
[2017-12-29] MEDS ORDERED: DEXTROSE 5%-WATER - 50 ML IVPB ONE (08:58)
[2017-12-29] MEDS: PANTOPRAZOLE 40 MG TABLET (FP) PO SCH (09:00)
[2017-12-29] MEDS: CEFTRIAXONE 1 GM in DEXTROSE 5%-WATER - 50 ML IVPB SCH (09:01)
--- NOTE | 2017-12-29 10:01 | PN ---
Progress Note, Physician - Current Medication List Current Medications: Active Medications Acetaminophen (Tylenol -) 650 mg PO Q6H PRN PRN Reason: PAIN LEVEL 7 - 10 Last Admin: 12/29/17 01:41 Dose: 650 mg Ceftriaxone Sodium 1 gm/ (Dextrose) 50 mls @ 200 mls/hr IVPB DAILY [facility]; Protocol Last Admin: 12/29/17 09:01 Dose: 200 mls/hr Levothyroxine Sodium (Synthroid -) 125 mcg PO DAILY@0700 [facility] Last Admin: 12/29/17 06:13 Dose: 125 mcg Melatonin (Melatonin) 10 mg PO HS [facility] Last Admin: 12/28/17 22:08 Dose: 10 mg Pantoprazole Sodium (Protonix -) 40 mg PO DAILY [facility] Last Admin: 12/29/17 09:00 Dose: 40 mg - Objective Vital Signs: Vital Signs Temperature 97.5 F L 12/29/17 06:00 Pulse Rate 60 12/29/17 06:00 Respiratory Rate 23 12/29/17 06:00 Blood Pressure 146/70 12/29/17 06:00 O2 Sat by Pulse Oximetry (%) 96 12/28/17 21:00 Labs: CBC, BMP 12/29/17 06:30 12/29/17 06:30 INR, PTT INR 1.48 (0.83-1.09) H 12/29/17 06:30 Assessment/Plan - Problems (1) Rectovaginal fistula Assessment/Plan: surgical eval note no intervention at this time h/h stable radiation oncology evaluation Code(s): N82.3 - FISTULA OF VAGINA TO LARGE INTESTINE (2) Hypothyroid Assessment/Plan: synthroid dose increase from 112 to 125 mcg tsh is 13 Code(s): E03.9 - HYPOTHYROIDISM, UNSPECIFIED Qualifiers: (3) Anemia Assessment/Plan: h/h monitor heme eval noted--no RT iron panel gi eval Code(s): D64.9 - ANEMIA, UNSPECIFIED Qualifiers: (4) UTI (urinary tract infection) Assessment/Plan: cultures pending iv rocephin Code(s): N39.0 - URINARY TRACT INFECTION, SITE NOT SPECIFIED
[2017-12-29] MEDS ORDERED: POTASSIUM CHLORIDE TABS 20 MEQ TABLET.ER (FP) PO ONE (11:00)
[2017-12-29] MEDS ORDERED: FUROSEMIDE 40 MG/4 ML INJECTABLE VIAL IVPUSH ONE (11:00)
[2017-12-29] MEDS ORDERED: FUROSEMIDE 40 MG/4 ML INJECTABLE VIAL ONE (20:54)
[2017-12-29] MEDS: MELATONIN 5 MG TABLETS PO SCH (21:00)
--- NOTE | 2017-12-29 23:03 | PN ---
Progress Note, Physician History of Present Illness: No new complaints , states she is feeling ok HG noted - Current Medication List Current Medications: Active Medications Acetaminophen (Tylenol -) 650 mg PO Q6H PRN PRN Reason: PAIN LEVEL 7 - 10 Last Admin: 12/29/17 20:59 Dose: 650 mg Ceftriaxone Sodium 1 gm/ (Dextrose) 50 mls @ 200 mls/hr IVPB DAILY [facility]; Protocol Last Admin: 12/29/17 09:01 Dose: 200 mls/hr Levothyroxine Sodium (Synthroid -) 125 mcg PO DAILY@0700 [facility] Last Admin: 12/29/17 06:13 Dose: 125 mcg Melatonin (Melatonin) 10 mg PO HS [facility] Last Admin: 12/29/17 21:00 Dose: 10 mg Pantoprazole Sodium (Protonix -) 40 mg PO DAILY [facility] Last Admin: 12/29/17 09:00 Dose: 40 mg - Objective Vital Signs: Vital Signs Temperature 98.3 F 12/29/17 22:07 Pulse Rate 77 12/29/17 22:07 Respiratory Rate 20 12/29/17 22:07 Blood Pressure 137/63 12/29/17 22:07 O2 Sat by Pulse Oximetry (%) 94 L 12/29/17 20:51 Constitutional: Yes: Well Nourished Eyes: Yes: WNL HENT: Yes: WNL Neck: Yes: WNL Cardiovascular: Yes: WNL Respiratory: Yes: WNL Gastrointestinal: Yes: WNL, Other (ostomy) Musculoskeletal: Yes: WNL Extremities: Yes: WNL Edema: No Labs: CBC, BMP 12/29/17 06:30 12/29/17 06:30 INR, PTT INR 1.48 (0.83-1.09) H 12/29/17 06:30 Problem List - Problems (1) Rectovaginal fistula Code(s): N82.3 - FISTULA OF VAGINA TO LARGE INTESTINE (2) Anemia Assessment/Plan: - trend h/h , transfuse to HG of 10 - oncology f/u ? radiotherapy - diet as tolerated - no indication for endoscopic procedure at this time. Code(s): D64.9 - ANEMIA, UNSPECIFIED Qualifiers:
[2017-12-30] MEDS: LEVOTHYROXINE NA 125 MCG TABLET (FP) PO SCH (06:47)
[2017-12-30 07:50] LABS: BASO % 0.7 % (0-2.0); EOS % 1.7 % (0-4.5); HEMATOCRIT 30.9 % (32.4-45.2); HEMOGLOBIN 10.4 GM/dL (10.7-15.3); LYMPH % 5.5 % (8-40); MCHC 33.6 g/dl (32.0-36.0); MEAN CELL VOLUME 92.5 fl (80-96); MEAN PLT VOLUME 9.3 fl (7.5-11.1); MONO % 7.2 % (3.8-10.2); NEUT % 84.9 % (42.8-82.8); PLATELET COUNT 102 K/MM3 (134-434); RBC 3.34 M/mm3 (3.60-5.2); RDW 16.8 % (11.6-15.6); WHITE BLOOD COUNT 7.5 K/mm3 (4.0-10.0)
[2017-12-30 08:56] LABS: ALBUMIN 1.6 g/dl (3.4-5.0); ALK PHOS 506 U/L (45-117); ANION GAP 7 MMOL/L (8-16); BILIRUBIN,TOTAL 4.4 mg/dL (0.2-1); BLOOD UREA NITROGEN 8 mg/dL (7-18); CALCIUM 7.9 mg/dL (8.5-10.1); CHLORIDE 106 mmol/L (98-107); CO2 25 mmol/L (21-32); CREATININE 0.5 mg/dL (0.55-1.3); GLUCOSE,RANDOM 82 mg/dL (74-106); POTASSIUM 3.6 mmol/L (3.5-5.1); SGOT/AST 137 U/L (15-37); SGPT/ALT 58 U/L (13-61); SODIUM 138 mmol/L (136-145); TOT PROT 4.7 g/dl (6.4-8.2)
[2017-12-30] MEDS ORDERED: DEXTROSE 5%-WATER - 50 ML IVPB ONE (08:57)
[2017-12-30] MEDS ORDERED: cefTRIAXone SODIUM 1 GM VIAL ONE (08:57)
[2017-12-30 09:05] LABS: INR 1.48 (0.83-1.09); PROTHROMBIN TIME (PATIENT) 16.7 SEC (9.7-13.0)
[2017-12-30] MEDS: CEFTRIAXONE 1 GM in DEXTROSE 5%-WATER - 50 ML IVPB SCH (09:09)
[2017-12-30] MEDS: PANTOPRAZOLE 40 MG TABLET (FP) PO SCH (09:09)
--- NOTE | 2017-12-30 12:48 | PN ---
Progress Note, Physician Chief Complaint: patient got 2 units of prbc PT to see patient - Current Medication List Current Medications: Active Medications Acetaminophen (Tylenol -) 650 mg PO Q6H PRN PRN Reason: PAIN LEVEL 7 - 10 Last Admin: 12/29/17 20:59 Dose: 650 mg Ceftriaxone Sodium 1 gm/ (Dextrose) 50 mls @ 200 mls/hr IVPB DAILY [facility]; Protocol Last Admin: 12/30/17 09:09 Dose: 200 mls/hr Levothyroxine Sodium (Synthroid -) 125 mcg PO DAILY@0700 [facility] Last Admin: 12/30/17 06:47 Dose: 125 mcg Melatonin (Melatonin) 10 mg PO HS [facility] Last Admin: 12/29/17 21:00 Dose: 10 mg Pantoprazole Sodium (Protonix -) 40 mg PO DAILY [facility] Last Admin: 12/30/17 09:09 Dose: 40 mg - Objective Vital Signs: Vital Signs Temperature 97.6 F 12/30/17 10:00 Pulse Rate 79 12/30/17 10:00 Respiratory Rate 18 12/30/17 10:00 Blood Pressure 123/62 12/30/17 10:00 O2 Sat by Pulse Oximetry (%) 96 12/30/17 08:31 Constitutional: Yes: Calm Cardiovascular: Yes: Regular Rate and Rhythm, S1, S2 Respiratory: Yes: CTA Bilaterally Gastrointestinal: Yes: Normal Bowel Sounds, Soft, Other (colostomy) Neurological: Yes: Alert, Oriented Labs: CBC, BMP 12/30/17 06:30 12/30/17 06:30 INR, PTT INR 1.48 (0.83-1.09) H 12/30/17 06:30 Problem List - Problems (1) Rectovaginal fistula Assessment/Plan: surgical eval note no intervention at this time h/h stable oncology evaluation is noted as well Code(s): N82.3 - FISTULA OF VAGINA TO LARGE INTESTINE (2) Hypothyroid Assessment/Plan: synthroid dose increase from 112 to 125 mcg tsh is 13 Code(s): E03.9 - HYPOTHYROIDISM, UNSPECIFIED Qualifiers: (3) Anemia Assessment/Plan: s/p prbc h/h above 10 heme eval iron panel gi eval- no indication for endoscopy right now oncology eval noted as well Code(s): D64.9 - ANEMIA, UNSPECIFIED Qualifiers: (4) UTI (urinary tract infection) Code(s): N39.0 - URINARY TRACT INFECTION, SITE NOT SPECIFIED Assessment/Plan PT eval to go to [facility] once ok with heme
[2017-12-30] MEDS: ACETAMINOPHEN 325 MG TABLET (FP) PO PRN (22:13)
[2017-12-30] MEDS: MELATONIN 5 MG TABLETS PO SCH (22:13)
[2017-12-31] MEDS: LEVOTHYROXINE NA 125 MCG TABLET (FP) PO SCH (06:23)
[2017-12-31] MEDS ORDERED: PT OWN MED DRAWER 7, Y5N ONE ×2 (06:47→22:19)
[2017-12-31 07:19] LABS: BASO % 0.6 % (0-2.0); EOS % 1.6 % (0-4.5); HEMATOCRIT 30.3 % (32.4-45.2); HEMOGLOBIN 10.3 GM/dL (10.7-15.3); MCH 31.3 pg (25.7-33.7); MCHC 33.9 g/dl (32.0-36.0); MEAN CELL VOLUME 92.4 fl (80-96); MEAN PLT VOLUME 9.3 fl (7.5-11.1); NEUT % 84.8 % (42.8-82.8); PLATELET COUNT 107 K/MM3 (134-434); RBC 3.28 M/mm3 (3.60-5.2); RDW 17.7 % (11.6-15.6); WHITE BLOOD COUNT 6.6 K/mm3 (4.0-10.0)
[2017-12-31 07:29] LABS: INR 1.45 (0.83-1.09); PROTHROMBIN TIME (PATIENT) 16.4 SEC (9.7-13.0)
[2017-12-31 07:48] LABS: ALBUMIN 1.6 g/dl (3.4-5.0); ALK PHOS 431 U/L (45-117); ANION GAP 5 MMOL/L (8-16); BILIRUBIN,TOTAL 2.1 mg/dL (0.2-1); BLOOD UREA NITROGEN 9 mg/dL (7-18); CALCIUM 7.9 mg/dL (8.5-10.1); CHLORIDE 105 mmol/L (98-107); CO2 27 mmol/L (21-32); CREATININE 0.5 mg/dL (0.55-1.3); GLUCOSE,RANDOM 82 mg/dL (74-106); POTASSIUM 3.4 mmol/L (3.5-5.1); SGOT/AST 73 U/L (15-37); SGPT/ALT 42 U/L (13-61); SODIUM 137 mmol/L (136-145); TOT PROT 4.8 g/dl (6.4-8.2)
--- NOTE | 2017-12-31 08:08 | PN ---
Progress Note (short form) - Note Progress Note: continues to endorse small amounts of vaginal bleeding Hemodynamically stable H/H sable REcommendations Obtain Pelvic MRI to evaluate for recurrence in the cul du sac. If radiation is not an options given that has a history of prior radiotherapy to the pelvis I will consider EUA inthe OR to evaluate ( possible tomorrow )if any surgical measures could help control the bleeding.
[2017-12-31] MEDS ORDERED: cefTRIAXone SODIUM 1 GM VIAL ONE (09:47)
[2017-12-31] MEDS ORDERED: DEXTROSE 5%-WATER - 50 ML IVPB ONE (09:48)
[2017-12-31] MEDS: CEFTRIAXONE 1 GM in DEXTROSE 5%-WATER - 50 ML IVPB SCH (10:02)
[2017-12-31] MEDS: PANTOPRAZOLE 40 MG TABLET (FP) PO SCH (10:03)
--- NOTE | 2017-12-31 11:30 | PN ---
Progress Note, Physician Chief Complaint: patient seen by surgery to get pelvic MRI scant vaginal bleeding - Current Medication List Current Medications: Active Medications Acetaminophen (Tylenol -) 650 mg PO Q6H PRN PRN Reason: PAIN LEVEL 7 - 10 Last Admin: 12/30/17 22:13 Dose: 650 mg Ceftriaxone Sodium 1 gm/ (Dextrose) 50 mls @ 200 mls/hr IVPB DAILY [facility]; Protocol Last Admin: 12/31/17 10:02 Dose: 200 mls/hr Levothyroxine Sodium (Synthroid -) 125 mcg PO DAILY@0700 [facility] Last Admin: 12/31/17 06:23 Dose: 125 mcg Melatonin (Melatonin) 10 mg PO HS [facility] Last Admin: 12/30/17 22:13 Dose: 10 mg Pantoprazole Sodium (Protonix -) 40 mg PO DAILY [facility] Last Admin: 12/31/17 10:03 Dose: 40 mg - Objective Vital Signs: Vital Signs Temperature 97.5 F L 12/31/17 05:00 Pulse Rate 68 12/31/17 05:00 Respiratory Rate 20 12/30/17 23:38 Blood Pressure 147/74 12/31/17 05:00 O2 Sat by Pulse Oximetry (%) 96 12/30/17 20:55 Constitutional: Yes: Calm Cardiovascular: Yes: Regular Rate and Rhythm, S1, S2 Respiratory: Yes: CTA Bilaterally Gastrointestinal: Yes: Normal Bowel Sounds, Soft, Other (colostomy) Edema: No Labs: CBC, BMP 12/31/17 06:35 12/31/17 06:35 INR, PTT INR 1.45 (0.83-1.09) H 12/31/17 06:35 Problem List - Problems (1) Rectovaginal fistula Assessment/Plan: to get pelvic MRI to look for recurrence and possible OR [place] for further exploration h/h stable s/p prbc oncology evaluation is noted as well- Code(s): N82.3 - FISTULA OF VAGINA TO LARGE INTESTINE (2) Hypothyroid Assessment/Plan: synthroid dose increase from 112 to 125 mcg tsh is 13 Code(s): E03.9 - HYPOTHYROIDISM, UNSPECIFIED Qualifiers: (3) Anemia Assessment/Plan: s/p prbc h/h above 10 heme eval iron panel gi eval- no indication for endoscopy right now oncology eval noted as well Code(s): D64.9 - ANEMIA, UNSPECIFIED Qualifiers: (4) UTI (urinary tract infection) Code(s): N39.0 - URINARY TRACT INFECTION, SITE NOT SPECIFIED
--- NOTE | 2017-12-31 13:24 | PN ---
Progress Note (short form) - Note Progress Note: spoke with shawn ALONZO after midnnight for OR in AM for EUA ivf to start after midnight MRI with andwithout contrast to look for rectal cancer recurrence Problem List - Problems (1) Rectovaginal fistula Code(s): N82.3 - FISTULA OF VAGINA TO LARGE INTESTINE (2) Hypothyroid Code(s): E03.9 - HYPOTHYROIDISM, UNSPECIFIED Qualifiers: (3) Anemia Code(s): D64.9 - ANEMIA, UNSPECIFIED Qualifiers: (4) UTI (urinary tract infection) Code(s): N39.0 - URINARY TRACT INFECTION, SITE NOT SPECIFIED
[2017-12-31] MEDS: ACETAMINOPHEN 325 MG TABLET (FP) PO PRN (21:22)
[2017-12-31] MEDS: MELATONIN 5 MG TABLETS PO SCH (21:22)
[2018-01-01] MEDS: DEXTROSE 5%-0.45% SALINE 1,000 ML IV SCH ×3 (00:05→23:30)
[2018-01-01] MEDS: LEVOTHYROXINE NA 125 MCG TABLET (FP) PO SCH (06:34)
[2018-01-01] MEDS ORDERED: PT OWN MED DRAWER 7, Y5N ONE (07:29)
[2018-01-01 08:40] LABS: BASO % 0.8 % (0-2.0); EOS % 1.9 % (0-4.5); HEMATOCRIT 29.4 % (32.4-45.2); HEMOGLOBIN 9.7 GM/dL (10.7-15.3); LYMPH % 7.2 % (8-40); MCH 30.7 pg (25.7-33.7); MCHC 32.9 g/dl (32.0-36.0); MEAN CELL VOLUME 93.3 fl (80-96); MEAN PLT VOLUME 8.9 fl (7.5-11.1); MONO % 6.2 % (3.8-10.2); NEUT % 83.9 % (42.8-82.8); PLATELET COUNT 111 K/MM3 (134-434); RBC 3.15 M/mm3 (3.60-5.2); RDW 18.3 % (11.6-15.6); WHITE BLOOD COUNT 5.7 K/mm3 (4.0-10.0)
[2018-01-01 09:24] LABS: ALBUMIN 1.6 g/dl (3.4-5.0); ALK PHOS 361 U/L (45-117); ANION GAP 6 MMOL/L (8-16); BILIRUBIN,TOTAL 1.2 mg/dL (0.2-1); BLOOD UREA NITROGEN 7 mg/dL (7-18); CALCIUM 7.8 mg/dL (8.5-10.1); CHLORIDE 106 mmol/L (98-107); CO2 25 mmol/L (21-32); CREATININE 0.4 mg/dL (0.55-1.3); GLUCOSE,RANDOM 94 mg/dL (74-106); POTASSIUM 3.3 mmol/L (3.5-5.1); SGOT/AST 44 U/L (15-37); SGPT/ALT 30 U/L (13-61); SODIUM 137 mmol/L (136-145); TOT PROT 4.8 g/dl (6.4-8.2)
[2018-01-01] MEDS ORDERED: cefTRIAXone SODIUM 1 GM VIAL ONE (10:36)
[2018-01-01] MEDS ORDERED: DEXTROSE 5%-WATER - 50 ML IVPB ONE (10:36)
[2018-01-01] MEDS: PANTOPRAZOLE 40 MG TABLET (FP) PO SCH ×2 (10:38→16:51)
[2018-01-01] MEDS: CEFTRIAXONE 1 GM in DEXTROSE 5%-WATER - 50 ML IVPB SCH (10:39)
--- NOTE | 2018-01-01 11:47 | PN ---
Progress Note (short form) - Note Progress Note: Plan for the EUA int he OR was postponed due to delay in obtaining MRI Awaiting official reading of the study and plan for OR in the am
[2018-01-01] MEDS ORDERED: POTASSIUM CHLORIDE ORAL LIQUID 20 MEQ/15 ML PO ONE (12:48)
--- NOTE | 2018-01-01 12:52 | PN ---
Progress Note, Physician Chief Complaint: Vaginal bleeding History of Present Illness: NAD lethargic OR cancelled today due to delay in MRI reading labs stable - Current Medication List Current Medications: Active Medications Acetaminophen (Tylenol -) 650 mg PO Q6H PRN PRN Reason: PAIN LEVEL 7 - 10 Last Admin: 12/31/17 21:22 Dose: 650 mg Ceftriaxone Sodium 1 gm/ (Dextrose) 50 mls @ 200 mls/hr IVPB DAILY [facility]; Protocol Last Admin: 01/01/18 10:39 Dose: 200 mls/hr Dextrose/Sodium Chloride (D5-1/2ns -) 1,000 mls @ 75 mls/hr IV ASDIR [facility] Last Admin: 01/01/18 00:05 Dose: 75 mls/hr Levothyroxine Sodium (Synthroid -) 125 mcg PO DAILY@0700 [facility] Last Admin: 01/01/18 06:34 Dose: 125 mcg Melatonin (Melatonin) 10 mg PO HS [facility] Last Admin: 12/31/17 21:22 Dose: 10 mg Pantoprazole Sodium (Protonix -) 40 mg PO DAILY [facility] Last Admin: 01/01/18 10:38 Dose: Not Given Potassium Chloride (Potassium Chloride Oral Liquid) 40 meq PO ONCE ONE Stop: 01/01/18 12:49 - Objective Vital Signs: Vital Signs Temperature 97.9 F 01/01/18 10:35 Pulse Rate 69 01/01/18 10:35 Respiratory Rate 19 01/01/18 10:35 Blood Pressure 146/73 01/01/18 10:35 O2 Sat by Pulse Oximetry (%) 96 01/01/18 09:00 Constitutional: Yes: Well Nourished, No Distress, Calm Cardiovascular: Yes: Regular Rate and Rhythm Respiratory: Yes: Regular Gastrointestinal: Yes: Normal Bowel Sounds, Soft Musculoskeletal: Yes: Muscle Weakness Extremities: Yes: WNL Edema: No Peripheral Pulses WNL: Yes Neurological: Yes: Alert, Oriented Psychiatric: Yes: Alert, Oriented Labs: CBC, BMP 01/01/18 08:20 01/01/18 08:20 INR, PTT INR 1.45 (0.83-1.09) H 12/31/17 06:35 Problem List - Problems (1) Rectovaginal fistula Assessment/Plan: -Followed by Dr Gaines -Awaiting examination under anesthesia Code(s): N82.3 - FISTULA OF VAGINA TO LARGE INTESTINE (2) Vaginal bleeding Assessment/Plan: -awaiting EUA -monitor H/H Code(s): N93.9 - ABNORMAL UTERINE AND VAGINAL BLEEDING, UNSPECIFIED (3) Anemia Assessment/Plan: 2/2 to blood los -Normal transfusion parameters, transfuse for Hg <8.0 -monitor trend Code(s): D64.9 - ANEMIA, UNSPECIFIED Qualifiers: Assessment/Plan see problem list
[2018-01-01 13:06] LABS: INR 1.29 (0.83-1.09); PROTHROMBIN TIME (PATIENT) 14.6 SEC (9.7-13.0)
[2018-01-01 13:08] LABS: ACTIVATED PTT 36.4 SECONDS (25.2-36.5)
[2018-01-01] MEDS ORDERED: MELATONIN 5 MG TABLETS PO SCH (13:55)
[2018-01-01] MEDS: ACETAMINOPHEN 325 MG TABLET (FP) PO PRN ×2 (14:36→21:32)
[2018-01-01] MEDS: AMINO ACIDS/PROTEIN HYDROLYS 30 ML LIQUID.PKT PO SCH (16:51)
--- NOTE | 2018-01-01 20:51 | PN ---
Progress Note (short form) - Note Progress Note: Patient seen in follow up. No new complaints. No significant events overnight. Reports scant bleeding. Eating with appetite. Inpatient Meds reviewed. Current Medications Generic Name Dose Route Start Last Admin Trade Name Kelsey PRN Reason Stop Dose Admin Acetaminophen 650 mg 12/28/17 17:16 01/01/18 14:36 Tylenol - PO 650 mg Q6H PRN Administration PAIN LEVEL 7 - 10 Amino Acids 30 ml 01/01/18 17:30 01/01/18 16:51 Prosource No Carb Liquid Pkt PO 30 ml BID@0800,1730 TED Administration Ceftriaxone Sodium 1 gm/ 50 mls @ 200 mls/hr 12/27/17 16:00 01/01/18 10:39 Dextrose IVPB 200 mls/hr DAILY TED Administration Protocol Dextrose/Sodium Chloride 1,000 mls @ 75 mls/hr 12/31/17 23:55 01/01/18 18:18 D5-1/2ns - IV 75 mls/hr ASDIR TED Administration Levothyroxine Sodium 125 mcg 12/28/17 11:09 01/01/18 06:34 Synthroid - PO 125 mcg DAILY@0700 TED Administration Melatonin 20 mg 01/01/18 13:55 Melatonin PO HS TED Pantoprazole Sodium 40 mg 12/28/17 11:30 01/01/18 16:51 Protonix - PO 40 mg DAILY TED Administration On Examination: Last Vital Signs Temp Pulse Resp BP Pulse Ox 98.3 F 78 19 139/67 96 01/01/18 18:00 01/01/18 18:00 01/01/18 18:00 01/01/18 18:00 01/01/18 09:00 General: In no acute distress, lying comfortably in bed. Extremities: No pallor or icterus. No pedal edema. Chest: breathing comfortably Abdomen: Non-distended, non-tender, colostomy Neuro: Alert, oriented, non-focal. Labs: CBC, BMP 01/01/18 08:20 01/01/18 08:20 Assessment. Vaginal bleeding, possibly attributable to local progression of metastatic rectal cancer, (s/p AP resection, with known rectovaginal fistula). Bleeding now controlled. Hb stable. MRI yesterday - no clear indication of progressive disease. Will undergo EUA tomorrow. Apparently not a candidate for local RTX (prior RTX, as part of adjuvant treatment).
[2018-01-02] MEDS: LEVOTHYROXINE NA 125 MCG TABLET (FP) PO SCH (06:09)
[2018-01-02] MEDS: DEXTROSE 5%-0.45% SALINE 1,000 ML IV SCH ×2 (06:09→12:00)
[2018-01-02] MEDS: AMINO ACIDS/PROTEIN HYDROLYS 30 ML LIQUID.PKT PO SCH ×2 (08:16→17:20)
[2018-01-02] MEDS ORDERED: PROPOFOL 20 ML ONE ×2 (08:58→09:39)
[2018-01-02] MEDS ORDERED: MIDAZOLAM HCL 2 MG/2 ML SINGLE DOSE VIAL ONE ×2 (08:59)
[2018-01-02] MEDS ORDERED: KETAMINE HCL 200 MG/20 ML VIAL ONE (09:16)
[2018-01-02] MEDS: PANTOPRAZOLE 40 MG TABLET (FP) PO SCH (09:38)
--- NOTE | 2018-01-02 09:55 | PN ---
Progress Note, Physician Chief Complaint: Vaginal bleeding History of Present Illness: Unable to see the pt, pt in OR - Current Medication List Current Medications: Active Medications Acetaminophen (Tylenol -) 650 mg PO Q6H PRN PRN Reason: PAIN LEVEL 7 - 10 Last Admin: 01/01/18 21:32 Dose: 650 mg Amino Acids (Prosource No Carb Liquid Pkt) 30 ml PO BID@0800,1730 [facility] Last Admin: 01/02/18 08:16 Dose: Not Given Ceftriaxone Sodium 1 gm/ (Dextrose) 50 mls @ 200 mls/hr IVPB DAILY [facility]; Protocol Last Admin: 01/01/18 10:39 Dose: 200 mls/hr Dextrose/Sodium Chloride (D5-1/2ns -) 1,000 mls @ 75 mls/hr IV ASDIR [facility] Last Admin: 01/02/18 06:09 Dose: 75 mls/hr Levothyroxine Sodium (Synthroid -) 125 mcg PO DAILY@0700 [facility] Last Admin: 01/02/18 06:09 Dose: Not Given Melatonin (Melatonin) 20 mg PO HS [facility] Last Admin: 01/01/18 21:32 Dose: 20 mg Pantoprazole Sodium (Protonix -) 40 mg PO DAILY [facility] Last Admin: 01/01/18 16:51 Dose: 40 mg - Objective Vital Signs: Vital Signs Temperature 98.1 F 01/02/18 08:13 Pulse Rate 68 01/02/18 08:13 Respiratory Rate 20 01/02/18 08:13 Blood Pressure 135/73 01/02/18 08:13 O2 Sat by Pulse Oximetry (%) 96 01/01/18 22:00 Labs: CBC, BMP 01/01/18 08:20 01/01/18 08:20 INR, PTT INR 1.29 (0.83-1.09) H 01/01/18 12:35 Problem List - Problems (1) Rectovaginal fistula Assessment/Plan: -Followed by Dr Gaines -in OR for EUA Code(s): N82.3 - FISTULA OF VAGINA TO LARGE INTESTINE (2) Vaginal bleeding Assessment/Plan: -EUA -monitor H/H Code(s): N93.9 - ABNORMAL UTERINE AND VAGINAL BLEEDING, UNSPECIFIED (3) Anemia Assessment/Plan: 2/2 to blood los -Normal transfusion parameters, transfuse for Hg <8.0 -monitor trend Code(s): D64.9 - ANEMIA, UNSPECIFIED Qualifiers: Assessment/Plan see problem list
[2018-01-02] MEDS: CEFTRIAXONE 1 GM in DEXTROSE 5%-WATER - 50 ML IVPB SCH (10:00)
[2018-01-02] MEDS ORDERED: DEXAMETHASONE SOD PHOSPHATE 4 MG/1 ML VIAL ONE (10:07)
--- NOTE | 2018-01-02 10:21 | OP ---
Operative Note - Note: Operative Date: 01/02/18 Pre-Operative Diagnosis: rectal bleeding/ metastatic rectal cancer Operation: examination under anesthesia Findings: recto-vaginal fistula bleeding appears to be coming from above the anastomosis. Post-Operative Diagnosis: Same as Pre-op Surgeon: Al Gray Specimens Removed: cultures Estimated Blood Loss (mls): 100
[2018-01-02] MEDS ORDERED: ONDANSETRON 4 MG/2 ML VIAL IVPUSH PRN (11:15)
[2018-01-02] MEDS ORDERED: SODIUM CHLORIDE 1,000 ML IV SCH (11:15)
--- NOTE | 2018-01-02 13:28 | PN ---
Progress Note (short form) - Note Progress Note: Patient seen in follow up. No new complaints. Returned recently for EUA. Eating with appetite. Inpatient Meds reviewed. Current Medications Generic Name Dose Route Start Last Admin Trade Name Freskye PRN Reason Stop Dose Admin Acetaminophen 650 mg 01/02/18 10:28 Tylenol - PO Q6H PRN PAIN LEVEL 7 - 10 Amino Acids 30 ml 01/02/18 17:30 Prosource No Carb Liquid Pkt PO BID@0800,1730 TED Ceftriaxone Sodium 1 gm/ 50 mls @ 200 mls/hr 01/03/18 10:00 Dextrose IVPB DAILY TED Protocol Dextrose/Sodium Chloride 1,000 mls @ 75 mls/hr 01/02/18 10:28 01/02/18 12:00 D5-1/2ns - IV 0 mls ASDIR TED Administration Levothyroxine Sodium 125 mcg 01/03/18 07:00 Synthroid - PO DAILY@0700 TED Melatonin 20 mg 01/02/18 22:00 Melatonin PO HS TED Ondansetron HCl 4 mg 01/02/18 11:15 Zofran Injection IVPUSH Q6H PRN NAUSEA AND/OR VOMITING Pantoprazole Sodium 40 mg 01/03/18 10:00 Protonix - PO DAILY TED On Examination: Last Vital Signs Temp Pulse Resp BP Pulse Ox 97.5 F L 70 18 111/71 97 01/02/18 12:16 01/02/18 12:16 01/02/18 12:16 01/02/18 12:16 01/02/18 12:16 General: In no acute distress, lying comfortably in bed. Extremities: No pallor or icterus. No pedal edema. Chest: breathing comfortably Abdomen: Non-distended, non-tender, colostomy Neuro: Alert, oriented, non-focal. Labs: CBC, BMP 01/01/18 08:20 01/01/18 08:20 Assessment. Vaginal bleeding, possibly attributable to local progression of metastatic rectal cancer, (s/p AP resection, with known rectovaginal fistula). Bleeding now controlled. Hb stable. MRI this admission - no clear indication of progressive disease. EUA today - results pending. Apparently not a candidate for local RTX (prior RTX, as part of adjuvant treatment).
--- NOTE | 2018-01-02 13:49 | OP ---
DATE OF OPERATION: 01/02/2018 PREOPERATIVE DIAGNOSES: Advanced rectal cancer, rectovaginal fistula, and vaginal and rectal bleeding. POSTOPERATIVE DIAGNOSES: Advanced rectal cancer, rectovaginal fistula, and rectal bleeding. PROCEDURE: Examination under anesthesia, attempt to oversew the bleeding site. Findings were rectovaginal fistula and the bleeding appears to be coming from above where the anastomosis is, not reachable by surgical approach transanally or transvaginally. This is a 67-year-old female, status post low anterior resection approximately 5 years ago for rectal cancer. The patient has metastatic disease extensive to the liver and has presented several times for readmission secondary to rectal and vaginal bleeding. There is evidence of a rectovaginal fistula on MRI and a potential recurrence on MRI as well. Patient is taken to the operating room for an examination under anesthesia and attempt to see whether or not bleeding control could be achieved. In the operating room, she was placed in supine position. After induction of general anesthesia, she was prepped and draped in usual sterile fashion. Standard timeout was observed. The patient was placed in the lithotomy position. The procedure was begun first with a vaginal speculum to examine vagina, which showed to be clear evidence of a fistula in the cul-de-sac draining into the vagina. There was some purulent material, which was cultured, and there was some bleeding. The fistula site was oversewn with a 2-0 silk suture in a [id number] fashion. Then the rectum was inspected, both by digital examination and by anoscopy, and the anastomosis could be clearly visualized. The bleeding appeared to be coming from above the anastomosis as the rectum appeared to be fixed on one side, suggestive of potential for recurrence in that site. However, the bleeding was coming from above the anastomotic site and it could not be truly be reached, visualized at the actual point of bleeding, so a decision was made to interrupt the procedure at this point and recommend that patient undergo a perhaps endoscopic or a angiographic evaluation and embolization. AVI BO M.D. [id number]
[2018-01-02 13:59] LABS: BASO % 0.4 % (0-2.0); EOS % 0.3 % (0-4.5); HEMATOCRIT 32.8 % (32.4-45.2); LYMPH % 3.6 % (8-40); MCH 31.8 pg (25.7-33.7); MCHC 33.4 g/dl (32.0-36.0); MEAN CELL VOLUME 95.1 fl (80-96); MEAN PLT VOLUME 9.3 fl (7.5-11.1); MONO % 1.4 % (3.8-10.2); NEUT % 94.3 % (42.8-82.8); PLATELET COUNT 120 K/MM3 (134-434); RBC 3.45 M/mm3 (3.60-5.2); RDW 19.4 % (11.6-15.6); WHITE BLOOD COUNT 6.5 K/mm3 (4.0-10.0)
[2018-01-02 14:39] LABS: ALBUMIN 1.8 g/dl (3.4-5.0); ALK PHOS 349 U/L (45-117); ANION GAP 4 MMOL/L (8-16); BLOOD UREA NITROGEN 7 mg/dL (7-18); CALCIUM 7.9 mg/dL (8.5-10.1); CHLORIDE 110 mmol/L (98-107); CO2 25 mmol/L (21-32); CREATININE 0.5 mg/dL (0.55-1.3); GLUCOSE,RANDOM 127 mg/dL (74-106); SGOT/AST 40 U/L (15-37); SGPT/ALT 25 U/L (13-61); SODIUM 139 mmol/L (136-145); TOT PROT 5.3 g/dl (6.4-8.2)
[2018-01-02 16:54] LABS: ANISOCYTOSIS 0; MACROCYTOSIS 0; PLATELET ESTIMATE DECREASED
[2018-01-02] MEDS: MELATONIN 5 MG TABLETS PO SCH (21:16)
[2018-01-03] MEDS: DEXTROSE 5%-0.45% SALINE 1,000 ML IV SCH ×2 (01:20→13:38)
[2018-01-03] MEDS: LEVOTHYROXINE NA 125 MCG TABLET (FP) PO SCH (06:11)
[2018-01-03] MEDS: AMINO ACIDS/PROTEIN HYDROLYS 30 ML LIQUID.PKT PO SCH ×2 (07:44→17:17)
[2018-01-03 07:55] LABS: BASO % 0.3 % (0-2.0); EOS % 0.6 % (0-4.5); HEMATOCRIT 29.3 % (32.4-45.2); HEMOGLOBIN 9.7 GM/dL (10.7-15.3); LYMPH % 6.6 % (8-40); MCH 31.5 pg (25.7-33.7); MCHC 33.1 g/dl (32.0-36.0); MEAN CELL VOLUME 95.1 fl (80-96); MONO % 5.8 % (3.8-10.2); NEUT % 86.7 % (42.8-82.8); PLATELET COUNT 111 K/MM3 (134-434); RBC 3.08 M/mm3 (3.60-5.2); RDW 19.1 % (11.6-15.6); WHITE BLOOD COUNT 6.6 K/mm3 (4.0-10.0)
[2018-01-03 08:38] LABS: ALBUMIN 1.7 g/dl (3.4-5.0); ALK PHOS 301 U/L (45-117); ANION GAP 6 MMOL/L (8-16); BILIRUBIN,TOTAL 0.8 mg/dL (0.2-1); BLOOD UREA NITROGEN 7 mg/dL (7-18); CALCIUM 8.2 mg/dL (8.5-10.1); CHLORIDE 106 mmol/L (98-107); CO2 26 mmol/L (21-32); CREATININE 0.4 mg/dL (0.55-1.3); GLUCOSE,RANDOM 99 mg/dL (74-106); SGOT/AST 33 U/L (15-37); SGPT/ALT 22 U/L (13-61); SODIUM 138 mmol/L (136-145); TOT PROT 5.1 g/dl (6.4-8.2)
[2018-01-03] MEDS ORDERED: cefTRIAXone SODIUM 1 GM VIAL ONE (11:01)
[2018-01-03] MEDS ORDERED: DEXTROSE 5%-WATER - 50 ML IVPB ONE (11:01)
[2018-01-03] MEDS: CEFTRIAXONE 1 GM in DEXTROSE 5%-WATER - 50 ML IVPB SCH (11:04)
[2018-01-03] MEDS: PANTOPRAZOLE 40 MG TABLET (FP) PO SCH (11:05)
[2018-01-03 13:22] VITALS: BMI 30.5
[2018-01-03] MEDS: ACETAMINOPHEN 325 MG TABLET (FP) PO PRN (13:38)
--- NOTE | 2018-01-03 13:59 | PN ---
Physical Exam: SUBJECTIVE: Patient seen and examined at bedside. No overnight events. Continues to have vaginal bleeding. Still has abdominal pain but improved. Denies CP,TARANGO,SOB, nausea or vomiting. OBJECTIVE: Vital Signs Period Temp Pulse Resp BP Sys/Bird Pulse Ox Last 24 Hr 97.5 F-98.7 F 70-77 18-20 113-150/68-78 98 GENERAL: AAOx3,NAD. . HEAD: NCAT ENT: moist mucous membranes. NECK: supple. LUNGS:CTAB, No wheezing or rales. HEART: RRR, S1, S2 without murmur, rub or gallop. ABDOMEN: Soft, nontender, nondistended, normoactive bowel sounds, colostomy bag with fecal material. EXTREMITIES: 2+ pulses, warm, well-perfused, no edema. NEUROLOGICAL: Cranial nerves II through XII grossly intact. Normal speech, gait not observed. PSYCH: Normal mood, normal affect. Laboratory Results - last 24 hr 01/02/18 01/02/18 01/03/18 13:40 13:45 06:35 WBC 6.5 6.6 RBC 3.45 L 3.08 L Hgb 11.0 9.7 L Hct 32.8 29.3 L MCV 95.1 95.1 MCH 31.8 31.5 MCHC 33.4 33.1 RDW 19.4 H 19.1 H Plt Count 120 L 111 L MPV 9.3 9.0 Absolute Neuts (auto) 6.1 5.8 Neutrophils % 94.3 H 86.7 H Neutrophils % (Manual) 96.9 H Band Neutrophils % 0.0 Lymphocytes % 3.6 L D 6.6 L D Lymphocytes % (Manual) 2.1 L D Monocytes % 1.4 L 5.8 D Monocytes % (Manual) 0 L D Eosinophils % 0.3 D 0.6 D Eosinophils % (Manual) 0.0 Basophils % 0.4 0.3 Basophils % (Manual) 0.0 Myelocytes % (Man) 0 Promyelocytes % (Man) 0 Blast Cells % (Manual) 0 Nucleated RBC % 0 0 Metamyelocytes 1 D Hypochromia 1+ Platelet Estimate Decreased Polychromasia 1+ Poikilocytosis 0 Anisocytosis 0 Microcytosis 0 Macrocytosis 0 Sodium 139 Potassium 4.0 Chloride 110 H Carbon Dioxide 25 Anion Gap 4 L BUN 7 Creatinine 0.5 L Creat Clearance w eGFR > 60 Random Glucose 127 H Calcium 7.9 L Total Bilirubin 1.0 AST 40 H ALT 25 Alkaline Phosphatase 349 H Total Protein 5.3 L Albumin 1.8 L 01/03/18 06:35 WBC RBC Hgb Hct MCV MCH MCHC RDW Plt Count MPV Absolute Neuts (auto) Neutrophils % Neutrophils % (Manual) Band Neutrophils % Lymphocytes % Lymphocytes % (Manual) Monocytes % Monocytes % (Manual) Eosinophils % Eosinophils % (Manual) Basophils % Basophils % (Manual) Myelocytes % (Man) Promyelocytes % (Man) Blast Cells % (Manual) Nucleated RBC % Metamyelocytes Hypochromia Platelet Estimate Polychromasia Poikilocytosis Anisocytosis Microcytosis Macrocytosis Sodium 138 Potassium 4.0 Chloride 106 Carbon Dioxide 26 Anion Gap 6 L BUN 7 Creatinine 0.4 L Creat Clearance w eGFR > 60 Random Glucose 99 Calcium 8.2 L Total Bilirubin 0.8 AST 33 ALT 22 Alkaline Phosphatase 301 H Total Protein 5.1 L Albumin 1.7 L Active Medications Generic Name Dose Route Start Last Admin Trade Name Freq PRN Reason Stop Dose Admin Acetaminophen 650 mg 01/02/18 10:28 01/03/18 13:38 Tylenol - PO 650 mg Q6H PRN Administration PAIN LEVEL 7 - 10 Amino Acids 30 ml 01/02/18 17:30 01/03/18 07:44 Prosource No Carb Liquid Pkt PO 30 ml BID@0800,1730 TED Administration Ceftriaxone Sodium 1 gm/ 50 mls @ 200 mls/hr 01/03/18 10:00 01/03/18 11:04 Dextrose IVPB 200 mls/hr DAILY TED Administration Protocol Dextrose/Sodium Chloride 1,000 mls @ 75 mls/hr 01/02/18 10:28 01/03/18 13:38 D5-1/2ns - IV 75 mls/hr ASDIR TED Administration Levothyroxine Sodium 125 mcg 01/03/18 07:00 01/03/18 06:11 Synthroid - PO 125 mcg DAILY@0700 TED Administration Melatonin 20 mg 01/02/18 22:00 01/02/18 21:16 Melatonin PO 20 mg HS TED Administration Ondansetron HCl 4 mg 01/02/18 11:15 Zofran Injection IVPUSH Q6H PRN NAUSEA AND/OR VOMITING Pantoprazole Sodium 40 mg 01/03/18 10:00 01/03/18 11:05 Protonix - PO 40 mg DAILY TED Administration ASSESSMENT/PLAN: 67 year old with metastatic rectal ca with liver and extrahepatic mets.Previously treated with neoadjuvant RT/ xeloda. S/P recurrence treated with surgery and multiple prior chemotherapy regimens. Presents with vaginal bleeding 2/2 recto-vaginal fistula. Problem List - Problems (1) Rectovaginal fistula Assessment/Plan: Patient went for examination under anesthesia and found to have bleeding from recto-vaginal fistula just above anastomosis site. * Will continue to monitor H/H * May represent recurrence. * Will await pathology from EUA. (2) Vaginal bleeding Assessment/Plan: will continue to observe * CBC in AM (3) Anemia Assessment/Plan: acute blood loss. Visit type - Emergency Visit Emergency Visit: Yes ED Registration Date: 12/26/17 Care time: The patient presented to the Emergency Department on the above date and was hospitalized for further evaluation of their emergent condition. - New Patient This patient is new to me today: Yes Date on this admission: 01/04/18 - Critical Care Critical Care patient: No - Discharge Referral Referred to [facility] Med P.C.: No
--- NOTE | 2018-01-03 14:16 | PN ---
Progress Note (short form) - Note Progress Note: 67F s/p EOA and rectal packing placed on 01/02 for rectal-vaginal fistula and bleeding, was seen at bedside. Pt states that vaginal bleeding has improved and is slowing only changing her pads a few times a day. Pt denies any n/v, fever, chills. Last Vital Signs Temp Pulse Resp BP Pulse Ox 98.6 F 70 18 138/68 98 01/03/18 06:53 01/03/18 06:53 01/03/18 06:53 01/03/18 06:53 01/02/18 22:00 CBC, BMP 01/03/18 06:35 01/03/18 06:35 PE: Gen: A&O x3 Resp: breathing comfortably Abd: soft nontender, air and stool in ostomy bag. Rectal: packing removed, serosanguinous drainage noted. No gross bleeding Problem List - Problems (1) Rectovaginal fistula Assessment/Plan: Plan -continue trending hct -will discuss with Dr. Gray Code(s): N82.3 - FISTULA OF VAGINA TO LARGE INTESTINE
--- NOTE | 2018-01-03 16:57 | PN ---
Progress Note, Physician Chief Complaint: patient was readmitted from [facility] for vaginal bleed notes and events from this admission reviewed awake in bed comfortable completed breakfast - Current Medication List Current Medications: Active Medications Acetaminophen (Tylenol -) 650 mg PO Q6H PRN PRN Reason: PAIN LEVEL 7 - 10 Last Admin: 01/03/18 13:38 Dose: 650 mg Amino Acids (Prosource No Carb Liquid Pkt) 30 ml PO BID@0800,1730 [facility] Last Admin: 01/03/18 07:44 Dose: 30 ml Ceftriaxone Sodium 1 gm/ (Dextrose) 50 mls @ 200 mls/hr IVPB DAILY [facility]; Protocol Last Admin: 01/03/18 11:04 Dose: 200 mls/hr Dextrose/Sodium Chloride (D5-1/2ns -) 1,000 mls @ 75 mls/hr IV ASDIR [facility] Last Admin: 01/03/18 13:38 Dose: 75 mls/hr Levothyroxine Sodium (Synthroid -) 125 mcg PO DAILY@0700 [facility] Last Admin: 01/03/18 06:11 Dose: 125 mcg Melatonin (Melatonin) 20 mg PO HS [facility] Last Admin: 01/02/18 21:16 Dose: 20 mg Ondansetron HCl (Zofran Injection) 4 mg IVPUSH Q6H PRN PRN Reason: NAUSEA AND/OR VOMITING Pantoprazole Sodium (Protonix -) 40 mg PO DAILY [facility] Last Admin: 01/03/18 11:05 Dose: 40 mg - Objective Vital Signs: Vital Signs Temperature 98.6 F 01/03/18 06:53 Pulse Rate 71 01/03/18 12:00 Respiratory Rate 18 01/03/18 12:00 Blood Pressure 145/74 01/03/18 12:00 O2 Sat by Pulse Oximetry (%) 98 01/02/18 22:00 Constitutional: Yes: No Distress Eyes: Yes: WNL HENT: Yes: WNL Neck: Yes: WNL Cardiovascular: Yes: WNL Respiratory: Yes: WNL Gastrointestinal: Yes: WNL Genitourinary: Yes: Vaginal Bleeding Musculoskeletal: Yes: Muscle Weakness Extremities: Yes: Other Edema: Yes Edema: LLE: 1+, RLE: 1+ Peripheral Pulses WNL: Yes Integumentary: Yes: WNL Wound/Incision: Yes: Open to air Neurological: Yes: WNL ...Motor Strength: LLE, RLE Psychiatric: Yes: WNL Labs: CBC, BMP 01/03/18 06:35 01/03/18 06:35 INR, PTT INR 1.29 (0.83-1.09) H 01/01/18 12:35 Problem List - Problems (1) Rectovaginal fistula Code(s): N82.3 - FISTULA OF VAGINA TO LARGE INTESTINE (2) UTI (urinary tract infection) Code(s): N39.0 - URINARY TRACT INFECTION, SITE NOT SPECIFIED (3) Vaginal bleeding Code(s): N93.9 - ABNORMAL UTERINE AND VAGINAL BLEEDING, UNSPECIFIED (4) Anemia Code(s): D64.9 - ANEMIA, UNSPECIFIED Qualifiers: (5) Hypoalbuminemia Code(s): E88.09 - OTH DISORDERS OF PLASMA-PROTEIN METABOLISM, NEC (6) Metastasis from rectal cancer Code(s): C79.9 - SECONDARY MALIGNANT NEOPLASM OF UNSPECIFIED SITE; C20 - MALIGNANT NEOPLASM OF RECTUM (7) Rectal adenocarcinoma metastatic to liver Code(s): C20 - MALIGNANT NEOPLASM OF RECTUM; C78.7 - SECONDARY MALIG NEOPLASM OF LIVER AND INTRAHEPATIC BILE DUCT Assessment/Plan monitor labs transfuse as needed oncology follow up pt eval advanced directives d/w patient DNR/DNI would like all treatment options d/w oncology
--- NOTE | 2018-01-03 19:04 | PN ---
Progress Note (short form) - Note Progress Note: Post op- day#1.S/P examination under anesthesia under GA uneventful.Patient stable.No any anesthesia related problem.Patient DC from the anesthesia care.
[2018-01-03 20:38] LABS: INR 1.24 (0.83-1.09)
[2018-01-03] MEDS: MELATONIN 5 MG TABLETS PO SCH (21:01)
[2018-01-04] MEDS: LEVOTHYROXINE NA 125 MCG TABLET (FP) PO SCH (06:10)
--- NOTE | 2018-01-04 08:34 | PN ---
Progress Note, Physician Chief Complaint: AWAKE ALERT DENIES PAIN C/O WEAKNESS - Current Medication List Current Medications: Active Medications Acetaminophen (Tylenol -) 650 mg PO Q6H PRN PRN Reason: PAIN LEVEL 7 - 10 Last Admin: 01/03/18 13:38 Dose: 650 mg Amino Acids (Prosource No Carb Liquid Pkt) 30 ml PO BID@0800,1730 [facility] Last Admin: 01/03/18 17:17 Dose: 30 ml Ceftriaxone Sodium 1 gm/ (Dextrose) 50 mls @ 200 mls/hr IVPB DAILY [facility]; Protocol Last Admin: 01/03/18 11:04 Dose: 200 mls/hr Dextrose/Sodium Chloride (D5-1/2ns -) 1,000 mls @ 75 mls/hr IV ASDIR [facility] Last Admin: 01/03/18 13:38 Dose: 75 mls/hr Levothyroxine Sodium (Synthroid -) 125 mcg PO DAILY@0700 [facility] Last Admin: 01/04/18 06:10 Dose: 125 mcg Melatonin (Melatonin) 20 mg PO HS [facility] Last Admin: 01/03/18 21:01 Dose: 20 mg Ondansetron HCl (Zofran Injection) 4 mg IVPUSH Q6H PRN PRN Reason: NAUSEA AND/OR VOMITING Pantoprazole Sodium (Protonix -) 40 mg PO DAILY [facility] Last Admin: 01/03/18 11:05 Dose: 40 mg - Objective Vital Signs: Vital Signs Temperature 98.5 F 01/04/18 05:50 Pulse Rate 78 01/04/18 05:50 Respiratory Rate 18 01/04/18 05:50 Blood Pressure 131/69 01/04/18 05:50 O2 Sat by Pulse Oximetry (%) 98 01/03/18 22:00 Constitutional: Yes: Mild Distress HENT: Yes: WNL Neck: Yes: WNL Cardiovascular: Yes: WNL Respiratory: Yes: WNL Gastrointestinal: Yes: Other Genitourinary: Yes: Vaginal Bleeding Musculoskeletal: Yes: Muscle Weakness Extremities: Yes: Other Edema: No Peripheral Pulses WNL: Yes Integumentary: Yes: Venous Stasis Changes Wound/Incision: Yes: Dressing Dry and Intact Neurological: Yes: Other Psychiatric: Yes: WNL Labs: CBC, BMP 01/03/18 06:35 01/03/18 06:35 INR, PTT INR 1.24 (0.83-1.09) H 01/03/18 15:30 Problem List - Problems (1) Rectovaginal fistula Code(s): N82.3 - FISTULA OF VAGINA TO LARGE INTESTINE (2) UTI (urinary tract infection) Code(s): N39.0 - URINARY TRACT INFECTION, SITE NOT SPECIFIED (3) Vaginal bleeding Code(s): N93.9 - ABNORMAL UTERINE AND VAGINAL BLEEDING, UNSPECIFIED (4) Anemia Code(s): D64.9 - ANEMIA, UNSPECIFIED Qualifiers: (5) Hypoalbuminemia Code(s): E88.09 - OTH DISORDERS OF PLASMA-PROTEIN METABOLISM, NEC (6) Metastasis from rectal cancer Code(s): C79.9 - SECONDARY MALIGNANT NEOPLASM OF UNSPECIFIED SITE; C20 - MALIGNANT NEOPLASM OF RECTUM (7) Rectal adenocarcinoma metastatic to liver Code(s): C20 - MALIGNANT NEOPLASM OF RECTUM; C78.7 - SECONDARY MALIG NEOPLASM OF LIVER AND INTRAHEPATIC BILE DUCT Assessment/Plan monitor labs transfuse as needed oncology follow up pt eval advanced directives d/w patient DNR/DNI would like all treatment options d/w oncology
[2018-01-04] MEDS: AMINO ACIDS/PROTEIN HYDROLYS 30 ML LIQUID.PKT PO SCH ×2 (09:05→16:50)
[2018-01-04] MEDS ORDERED: DEXTROSE 5%-WATER - 50 ML IVPB ONE (10:49)
[2018-01-04] MEDS ORDERED: cefTRIAXone SODIUM 1 GM VIAL ONE (10:49)
[2018-01-04] MEDS: CEFTRIAXONE 1 GM in DEXTROSE 5%-WATER - 50 ML IVPB SCH (10:52)
[2018-01-04] MEDS: PANTOPRAZOLE 40 MG TABLET (FP) PO SCH (10:54)
--- NOTE | 2018-01-04 14:12 | PN ---
Physical Exam: SUBJECTIVE: Patient seen and examined at bedside. No overnight events. Less vaginal bleeding. Still has abdominal pain but improved. Denies CP,TARANGO,SOB, nausea or vomiting. OBJECTIVE: Vital Signs Period Temp Pulse Resp BP Sys/Bird Pulse Ox Last 24 Hr 98.2 F-98.5 F 73-81 18-19 120-131/62-69 98 GENERAL: AAOx3,NAD. . HEAD: NCAT ENT: moist mucous membranes. NECK: supple. LUNGS:CTAB, No wheezing or rales. med-port on right anterior chest. HEART: RRR, S1, S2 without murmur, rub or gallop. ABDOMEN: Soft, nontender, nondistended, normoactive bowel sounds, colostomy bag with fecal material. EXTREMITIES: 2+ pulses, warm, well-perfused, no edema. NEUROLOGICAL: Normal speech, gait not observed. PSYCH: Normal mood, normal affect. Laboratory Results - last 24 hr 01/03/18 01/03/18 15:30 15:30 PT with INR 14.00 H INR 1.24 H PTT (Actin FS) 32.4 Active Medications Generic Name Dose Route Start Last Admin Trade Name Freq PRN Reason Stop Dose Admin Acetaminophen 650 mg 01/02/18 10:28 01/03/18 13:38 Tylenol - PO 650 mg Q6H PRN Administration PAIN LEVEL 7 - 10 Amino Acids 30 ml 01/02/18 17:30 01/04/18 09:05 Prosource No Carb Liquid Pkt PO 30 ml BID@0800,1730 [facility] Administration Ceftriaxone Sodium 1 gm/ 50 mls @ 200 mls/hr 01/03/18 10:00 01/04/18 10:52 Dextrose IVPB 200 mls/hr DAILY [facility] Administration Protocol Dextrose/Sodium Chloride 1,000 mls @ 75 mls/hr 01/02/18 10:28 01/03/18 13:38 D5-1/2ns - IV 75 mls/hr ASDIR [facility]ED Administration Levothyroxine Sodium 125 mcg 01/03/18 07:00 01/04/18 06:10 Synthroid - PO 125 mcg DAILY@0700 [facility] Administration Melatonin 20 mg 01/02/18 22:00 01/03/18 21:01 Melatonin PO 20 mg HS [facility] Administration Ondansetron HCl 4 mg 01/02/18 11:15 Zofran Injection IVPUSH Q6H PRN NAUSEA AND/OR VOMITING Pantoprazole Sodium 40 mg 01/03/18 10:00 01/04/18 10:54 Protonix - PO 40 mg DAILY [facility]ED Administration ASSESSMENT/PLAN: 67 year old with metastatic rectal ca with liver and extrahepatic mets.Previously treated with neoadjuvant RT/ xeloda. S/P recurrence treated with surgery and multiple prior chemotherapy regimens. Presents with vaginal bleeding 2/2 recto-vaginal fistula. Problem List - Problems (1) Rectovaginal fistula Assessment/Plan: Patient went for examination under anesthesia and found to have bleeding from recto-vaginal fistula just above anastomosis site. * Will continue to monitor H/H * May represent recurrence. * Will await pathology from [facility]. (2) Vaginal bleeding Assessment/Plan: will continue to observe * CBC in AM (3) Anemia Assessment/Plan: acute blood loss. Visit type - Emergency Visit Emergency Visit: Yes ED Registration Date: 12/26/17 Care time: The patient presented to the Emergency Department on the above date and was hospitalized for further evaluation of their emergent condition. - New Patient This patient is new to me today: No - Critical Care Critical Care patient: No - Discharge Referral Referred to [facility] Med [facility].C.: No
[2018-01-04] MEDS: DEXTROSE 5%-0.45% SALINE 1,000 ML IV SCH (16:51)
--- NOTE | 2018-01-04 20:35 | PN ---
Teaching Attending Note Name of Resident: Anderson Curran ATTENDING PHYSICIAN STATEMENT I saw and evaluated the patient. I reviewed the resident's note and discussed the case with the resident. I agree with the resident's findings and plan as documented. SUBJECTIVE: Patient seen and examined Frustrating Continues to bleed without obvious good options of treatment or management Last Vital Signs Temp Pulse Resp BP Pulse Ox 99.2 F 88 20 135/75 99 01/04/18 19:31 01/04/18 19:31 01/04/18 20:22 01/04/18 19:31 01/04/18 20:22 HEENT: EVETTE, EOM Intact Oropharynx: No thrush, No mucositis Cor: RSR, No murmurs, No gallops Lungs: Clear to P&A Abd: Soft, Normal bowel sounds, No organomegaly, functioning colostomy Ext:No significant edema Skin: No rashes, Integument intact CBC, BMP 01/03/18 06:35 01/03/18 06:35 Current Medications Generic Name Dose Route Start Last Admin Trade Name Freq PRN Reason Stop Dose Admin Acetaminophen 650 mg 01/02/18 10:28 01/03/18 13:38 Tylenol - PO 650 mg Q6H PRN Administration PAIN LEVEL 7 - 10 Amino Acids 30 ml 01/02/18 17:30 01/04/18 16:50 Prosource No Carb Liquid Pkt PO 30 ml BID@0800,1730 [facility] Administration Ceftriaxone Sodium 1 gm/ 50 mls @ 200 mls/hr 01/03/18 10:00 01/04/18 10:52 Dextrose IVPB 200 mls/hr DAILY [facility] Administration Protocol Dextrose/Sodium Chloride 1,000 mls @ 75 mls/hr 01/02/18 10:28 01/04/18 16:51 D5-1/2ns - IV 75 mls/hr ASDIR [facility] Administration Levothyroxine Sodium 125 mcg 01/03/18 07:00 01/04/18 06:10 Synthroid - PO 125 mcg DAILY@0700 [facility] Administration Melatonin 20 mg 01/02/18 22:00 01/03/18 21:01 Melatonin PO 20 mg HS [facility] Administration Ondansetron HCl 4 mg 01/02/18 11:15 Zofran Injection IVPUSH Q6H PRN NAUSEA AND/OR VOMITING Pantoprazole Sodium 40 mg 01/03/18 10:00 01/04/18 10:54 Protonix - PO 40 mg DAILY [facility] Administration OBJECTIVE:Impression : Metastatic rectal ca Recto-vaginal fistulae Suspect bleeding from local recurrence with RT effects No significant benefit of uterine embolization. ASSESSMENT AND PLAN:
[2018-01-04] MEDS: MELATONIN 5 MG TABLETS PO SCH (21:28)
[2018-01-05] MEDS: DEXTROSE 5%-0.45% SALINE 1,000 ML IV SCH ×2 (06:00→10:59)
[2018-01-05] MEDS: LEVOTHYROXINE NA 125 MCG TABLET (FP) PO SCH (06:01)
[2018-01-05] MEDS: ACETAMINOPHEN 325 MG TABLET (FP) PO PRN (06:01)
[2018-01-05 06:36] VITALS: TEMP 98.4
[2018-01-05 07:59] LABS: HEMATOCRIT 30.3 % (32.4-45.2); HEMOGLOBIN 9.8 GM/dL (10.7-15.3); MCH 31.1 pg (25.7-33.7); MCHC 32.5 g/dl (32.0-36.0); MEAN CELL VOLUME 95.8 fl (80-96); MEAN PLT VOLUME 8.9 fl (7.5-11.1); PLATELET COUNT 119 K/MM3 (134-434); RBC 3.16 M/mm3 (3.60-5.2); RDW 19.4 % (11.6-15.6); WHITE BLOOD COUNT 4.8 K/mm3 (4.0-10.0)
[2018-01-05 08:18] LABS: ANION GAP 6 MMOL/L (8-16); BLOOD UREA NITROGEN 9 mg/dL (7-18); CALCIUM 8.2 mg/dL (8.5-10.1); CHLORIDE 105 mmol/L (98-107); CO2 26 mmol/L (21-32); CREATININE 0.4 mg/dL (0.55-1.3); GLUCOSE,RANDOM 89 mg/dL (74-106); POTASSIUM 3.7 mmol/L (3.5-5.1); SODIUM 138 mmol/L (136-145)
--- NOTE | 2018-01-05 09:25 | DS ---
Physical Examination Vital Signs: Vital Signs Temperature 98.4 F 01/05/18 06:00 Pulse Rate 76 01/05/18 06:00 Respiratory Rate 20 01/05/18 06:00 Blood Pressure 144/74 01/05/18 06:00 O2 Sat by Pulse Oximetry (%) 99 01/04/18 20:22 Constitutional: Yes: Mild Distress Eyes: Yes: WNL HENT: Yes: WNL Neck: Yes: WNL Cardiovascular: Yes: WNL Respiratory: Yes: WNL Gastrointestinal: Yes: WNL Renal/: Yes: Vaginal Bleeding, Other Musculoskeletal: Yes: Muscle Weakness Extremities: Yes: Other Edema: Yes Edema: LLE: 1+, RLE: 1+ Peripheral Pulses WNL: Yes Integumentary: Yes: Venous Stasis Changes Wound/Incision: Yes: Clean/Dry Neurological: Yes: Pre-Existing Deficit ...Motor Strength: LLE, RLE Psychiatric: Yes: Other Labs: CBC, BMP 01/05/18 06:52 01/05/18 06:52 Discharge Summary Reason For Visit: VAGINAL BLEEDING Current Active Problems Rectovaginal fistula (Acute) UTI (urinary tract infection) (Acute) Vaginal bleeding (Acute) Procedures: Principal: ABD SURGERY TO EXPLORE BLEED FROM FISTULA Condition: Stable - Instructions Diet, Activity, Other Instructions: check tsh in 3 week repeat weekly cbc keep h/h above 10 transfuse prn follow up with Dr barnard in 3 weeks Referrals: Alirio Rahman MD [Primary Care Provider] - [facility] - Home Medications Comprehensive Discharge Medication List: Ambulatory Orders Acetaminophen W/ Codeine #3 [Tylenol # 3 -] 1 tab PO Q6H PRN #40 tablet MDD 4 Acetaminophen [Tylenol .Regular Strength -] 650 mg PO Q6H PRN tablet 08/27/17 Levothyroxine [Synthroid -] 112 mcg PO DAILY@0700 #30 tablet 08/27/17 Melatonin 10 mg PO HS 12/09/17 Amino Acids/Protein Hydrolys [Prosource No Carb Liquid Pkt] 30 ml PO BID@0800, 1730 packet 12/20/17 Ferrous Sulfate [Ferosul] 300 mg PO BID #30 elixir 12/20/17 Pantoprazole Sodium [Protonix] 40 mg PO DAILY #30 tablet. 12/20/17
[2018-01-05] MEDS ORDERED: DEXTROSE 5%-WATER - 50 ML IVPB ONE (10:15)
[2018-01-05] MEDS ORDERED: cefTRIAXone SODIUM 1 GM VIAL ONE (10:15)
[2018-01-05] MEDS: CEFTRIAXONE 1 GM in DEXTROSE 5%-WATER - 50 ML IVPB SCH (10:59)
[2018-01-05] MEDS: PANTOPRAZOLE 40 MG TABLET (FP) PO SCH (10:59)
[2018-01-05] MEDS: AMINO ACIDS/PROTEIN HYDROLYS 30 ML LIQUID.PKT PO SCH ×2 (10:59→17:04)
[2018-01-05 18:38] VITALS: BP 146/81; PULSE 81
== END 2018-01-05 18:57 | DRG 982 ==
LOC: JER 19:08 → JERBED 21:29 → J6S 12-27 00:49
PROVIDERS: ADMIT Internal Medicine; ATTEND Family Medicine
PROC: 30233N1 Transfusion of Nonautologous Red Blood Cells into Peripheral Vein, Percutaneous Approach (ICD-10-PCS; 2017-12-26)
PROC: 0UQG8ZZ Repair Vagina, Via Natural or Artificial Opening Endoscopic (ICD-10-PCS; 2018-01-02)
PROC: 0DJD8ZZ Inspection of Lower Intestinal Tract, Via Natural or Artificial Opening Endoscopic (ICD-10-PCS; principal; 2018-01-02 09:00)
DX: N82.3 Fistula of vagina to large intestine (principal); C20 Malignant neoplasm of rectum; K62.5 Hemorrhage of anus and rectum; N39.0 Urinary tract infection, site not specified; D62 Acute posthemorrhagic anemia; C78.7 Secondary malignant neoplasm of liver and intrahepatic bile duct; E03.9 Hypothyroidism, unspecified; N93.9 Abnormal uterine and vaginal bleeding, unspecified; E88.09 Other disorders of plasma-protein metabolism, not elsewhere classified; D63.0 Anemia in neoplastic disease; Z66 Do not resuscitate; Z87.891 Personal history of nicotine dependence; Z93.2 Ileostomy status
CPT/HCPCS: 36415; 36430; 72197-TC; 80048; 80053; 81003; 81015; 82728; 83540; 83550; 84443; 85025; 85027; 85610; 85730; 86850; 86900; 86901; 86922; 87070; 87086; 87186; 87205; 93005; 93010; 94760; 97116-GP; 99284-25; A9576; P9038; P9058

== ENCOUNTER 2018-03-20 03:07 | Inpatient (IN) | payer OTHER, BC ==
--- NOTE | 2018-03-20 03:33 | PDOC ---
History of Present Illness - General Chief Complaint: Shortness of Breath Stated Complaint: DIFF BREATHING Time Seen by Provider: 03/20/18 03:32 History Source: Patient, Sibling (brother) Exam Limitations: No Limitations - History of Present Illness Initial Comments: 03/20/18 03:35 Best Contact: Jacob/brother [phone] PCP:Aki Mederos Pmhx: Liver metastases, hypothyroid/colorectal CA with metastases to the liver Pshx: 2014: Colectomy/colorectal CA metastases to the liver, 12/09/2017- 2017 rectovaginal fistula status post embolization on December 22 Allergies: Cipro/short of breath Social Hx: Cigarettes/ 0 Alcohol/ 0 Drugs/0 68-year-old female with a history of colorectal CA with metastases to the liver status post neoadjuvant RT female presents to the emergency department with her brother complaining of shortness of breath and congestion which started 4 days ago which is worsened this evening. Patient denies fever/chills, nausea/vomiting /diarrhea, headache, dizziness, lightheadedness, facial pains, rhinorrhea, earache, sore throat, neck stiffness/pain, back pains, chest pain, shortness of breath, abdominal pains, flank pains, intermittent/urgency/hesitancy or hematuria. Patient states she feels she's not getting enough air. Patient's brother states approximately 3 months ago they were informed that she has spots on her liver. She was sent to radiation/chemotherapy when she developed vaginal bleeding. She was sent to a nursing facility for discharged 2 days later and came back to [facility] emergency department for vaginal bleed. She was ultimately admitted to the hospital and discharged to [facility] nursing facility and has been home since February. 03/20/18 04:58 Past History - Past Medical History Allergies/Adverse Reactions: Allergies Allergy/AdvReac Type Severity Reaction Status Date / Time ciprofloxacin [From Cipro] Allergy Rash Verified 12/26/17 19:34 shellfish derived Allergy Vomiting Verified 12/26/17 19:34 Home Medications: Ambulatory Orders Levothyroxine [Synthroid -] 125 mcg PO DAILY@0700 tablet 01/05/18 Melatonin 20 mg PO HS tab 01/05/18 Anemia: Yes Asthma: No Cancer: No (Colon CA) Cardiac Disorders: No CVA: No COPD: No CHF: No Dementia: No Diabetes: No GI Disorders: Yes (RECTAL CA) Disorders: No HTN: No Hypercholesterolemia: No Liver Disease: Yes (Cancer) Seizures: No Thyroid Disease: Yes (Hypothyroidism) - Surgical History Abdominal Surgery: Yes (ILEOSTOMY 09/23) Appendectomy: No Cardiac Surgery: No Cholecystectomy: No Lung Surgery: No Neurologic Surgery: No Orthopedic Surgery: No - Immunization History Immunization Up to Date: Yes - Suicide/Smoking/Psychosocial Hx Smoking History: Unknown if ever smoked Have you smoked in the past 12 months: No Number of Cigarettes Smoked Daily: 15 If you are a former smoker, when did you quit?: 2013 'Breaking Loose' booklet given: 10/09/13 Hx Alcohol Use: No Drug/Substance Use Hx: No Substance Use Type: None Hx Substance Use Treatment: No Review of Systems - Review of Systems Able to Perform ROS?: Yes Comments:: 03/20/18 03:36 CONSTITUTIONAL: Absent: fever, chills, diaphoresis, generalized weakness, malaise, loss of appetite HEENT: Absent: rhinorrhea, nasal congestion, throat pain, throat swelling, difficulty swallowing, mouth swelling, ear pain, eye pain, visual Changes CARDIOVASCULAR: Absent: chest pain, loss of consciousness, palpitations, irregular heart rate, peripheral edema RESPIRATORY: +SOB Absent: cough, dyspnea with exertion, orthopnea, wheezing, stridor, hemoptysis GASTROINTESTINAL: Absent: abdominal pain, abdominal distension, nausea, vomiting, diarrhea, constipation, melena, hematochezia GENITOURINARY: Absent: dysuria, frequency, urgency, hesitancy, hematuria, flank pain, genital pain MUSCULOSKELETAL: Absent: myalgia, arthralgia, joint swelling SKIN: Absent: rash, itching, pallor HEMATOLOGIC/IMMUNOLOGIC: Absent: easy bleeding, easy bruising, lymphadenopathy, frequent infections ENDOCRINE: Absent: unexplained weight gain, unexplained weight loss, heat intolerance, cold intolerance NEUROLOGIC: Absent: headache, focal weakness or paresthesias, dizziness, unsteady gait, seizure, mental status changes, bladder or bowel incontinence PSYCHIATRIC: Absent: anxiety, depression, suicidal or homicidal ideation, hallucinations.My review of system Is the patient limited Romanian proficient: No *Physical Exam - Vital Signs Last Vital Signs Temp Pulse Resp BP Pulse Ox 97.8 F 86 19 121/72 100 03/20/18 03:17 03/20/18 03:17 03/20/18 03:17 03/20/18 03:17 03/20/18 03:17 - Physical Exam Comments: 03/20/18 03:36 GENERAL: Well developed, well nourished. Awake and alert. No acute distress. HEENT: Normocephalic, atraumatic. PERRLA, EOMI. No conjunctival pallor. Sclera are non- icteric. Moist mucous membranes. Oropharynx is clear. NECK: Supple. Full ROM. No JVD. Carotid pulses 2+ and symmetric, without bruits. No thyromegaly. No lymphadenopathy. CARDIOVASCULAR: Regular rate and rhythm. No murmurs, rubs, or gallops. Distal pulses are 2+ and symmetric. PULMONARY: +B/L lower rhonchi Lungs clear to auscultation bilaterally. No wheezing, rales or rhonchi. ABDOMINAL: Soft. Non-tender. Non-distended. No rebound or guarding. No organomegaly. Normoactive bowel sounds. MUSCULOSKELETAL Normal range of motion at all joints. No bony deformities or tenderness. No CVA tenderness. EXTREMITIES: No cyanosis. No clubbing. No edema. No calf tenderness. SKIN: Warm and dry. Normal capillary refill. No rashes. No jaundice. NEUROLOGICAL: Alert, awake, appropriate. Cranial nerves 2-12 intact. No deficits to light touch and temperature in face, upper extremities and lower extremities. No motor deficits in the in face, upper extremities and lower extremities. Normoreflexic in the upper and lower extremities. Normal speech. Toes are down- going bilaterally. Gait is normal without ataxia. Moderate Sedation - Procedure Monitoring Vital Signs: Procedure Monitoring Vital Signs Temperature 97.8 F 03/20/18 03:17 Pulse Rate 86 03/20/18 03:17 Respiratory Rate 19 03/20/18 03:17 Blood Pressure 121/72 03/20/18 03:17 O2 Sat by Pulse Oximetry (%) 100 03/20/18 03:17 Heart Score/ECG Review - History History: Slightly suspicious - Electrocardiogram EKG: Normal - Age Age: >/= 65 - Risk Factors Based on the list above the patient has:: 1-2 risk factors - Troponin Troponin: </= normal limit - Score Heart Score - Total: 3 ED Treatment Course - LABORATORY CBC & Chemistry Diagram: 03/20/18 04:10 03/20/18 04:10 - RADIOLOGY Radiograph Interpretation: 03/20/18 03:36 cxr: 1v portable MARTHA PNA *DC/Admit/Observation/Transfer Diagnosis at time of Disposition: Metastasis from rectal cancer PNA (pneumonia) Qualifiers: Pneumonia type: due to unspecified organism Laterality: left Lung location: upper lobe of lung Qualified Code(s): J18.1 - Lobar pneumonia, unspecified organism - Discharge Dispostion Condition at time of disposition: Guarded Decision to Admit order: Yes - Referrals Referrals: Jaime Velasco MD, MD [Primary Care Provider] - - Patient Instructions - Post Discharge Activity
[2018-03-20] MEDS ORDERED: SODIUM CHLORIDE 1,000 ML IV SCH (03:45)
[2018-03-20 04:33] LABS: BASO % 0.5 % (0-2.0); EOS % 0.4 % (0-4.5); HEMATOCRIT 32.3 % (32.4-45.2); HEMOGLOBIN 10.7 GM/dL (10.7-15.3); LYMPH % 5.3 % (8-40); MCH 31.7 pg (25.7-33.7); MCHC 33.2 g/dl (32.0-36.0); MEAN CELL VOLUME 95.5 fl (80-96); MEAN PLT VOLUME 8.7 fl (7.5-11.1); MONO % 5.1 % (3.8-10.2); NEUT % 88.7 % (42.8-82.8); PLATELET COUNT 120 K/MM3 (134-434); RBC 3.39 M/mm3 (3.60-5.2); RDW 24.5 % (11.6-15.6); WHITE BLOOD COUNT 6.7 K/mm3 (4.0-10.0)
[2018-03-20 04:34] LABS: VENOUS PC02 40.7 mmHg (38-52); VENOUS PH 7.39 (7.32-7.42); VENOUS PO2 88.1 mmHg (28-48)
[2018-03-20 04:57] LABS: MAGNESIUM 2.1 mg/dL (1.8-2.4)
[2018-03-20 05:00] LABS: ALBUMIN 1.8 g/dl (3.4-5.0); ALK PHOS 769 U/L (45-117); ANION GAP 8 MMOL/L (8-16); BILIRUBIN,TOTAL 5.4 mg/dL (0.2-1); BLOOD UREA NITROGEN 17 mg/dL (7-18); CALCIUM 9.2 mg/dL (8.5-10.1); CHLORIDE 105 mmol/L (98-107); CO2 24 mmol/L (21-32); CREATININE 0.6 mg/dL (0.55-1.3); GLUCOSE,RANDOM 91 mg/dL (74-106); POTASSIUM 4.2 mmol/L (3.5-5.1); SGOT/AST 101 U/L (15-37); SGPT/ALT 32 U/L (13-61); SODIUM 137 mmol/L (136-145)
[2018-03-20 05:02] LABS: N-TERMINAL BNP 1082.2 pg/ml (5-125)
--- NOTE | 2018-03-20 05:20 | HP ---
Admitting History and Physical - Primary Care Physician PCP: Ezra Prabhakar - Admission Chief Complaint: SOB History of Present Illness: This is a 68-year-old woman with a significant medical history of Colorectal Ca with metastases to the liver status post neoadjuvant RT, Hypothyroidism. Who presents to the emergency department with her brother complaining of shortness of breath and congestion which started 4 days ago, which is worse last evening. Patient states she feels she's not getting enough air. Patient's brother states approximately 3 months ago they were informed that she has spots on her liver. She was sent to radiation/chemotherapy when she developed vaginal bleeding. She was sent to a nursing facility and discharged 2 days later. Then, came back to [facility] emergency department for vaginal bleeding. She was ultimately admitted to the hospital and discharged to [facility] and has been home since February. Patient denies fever/chills, rhinorrhea, earache, sore throat, headache, dizziness, lightheadedness, shortness of breath, chest pain, facial pains, neck stiffness/pain, back pains, abdominal pains, flank pains, nausea/vomiting/ diarrhea, intermittent/urgency/hesitancy or hematuria. History Source: Patient, Family Member Limitations to Obtaining History: No Limitations - Past Medical History Gastrointestinal: Yes: Other (rectal ca - metastatic to liver) Endocrine: Yes: Hypothyroidism - Past Surgical History Past Surgical History: Yes: Colectomy, Colostomy, Hysterectomy - Smoking History Smoking history: Unknown if ever smoked Have you smoked in the past 12 months: No Aproximately how many cigarettes per day: 15 If you are a former smoker, when did you quit?: 2013 - Alcohol/Substance Use Hx Alcohol Use: No History of Substance Use: reports: None - Social History Usual Living Arrangement: Yes: Other (with brother) ADL: Support Services History of Recent Travel: No Home Medications - Allergies Allergies/Adverse Reactions: Allergies Allergy/AdvReac Type Severity Reaction Status Date / Time ciprofloxacin [From Cipro] Allergy Rash Verified 12/26/17 19:34 shellfish derived Allergy Vomiting Verified 12/26/17 19:34 - Home Medications Home Medications: Ambulatory Orders Levothyroxine [Synthroid -] 125 mcg PO DAILY@0700 tablet 01/05/18 Melatonin 20 mg PO HS tab 01/05/18 Family Disease History - Family Disease History Family Disease History: CA: Father (Lung Ca), Other: Mother (Healthy, age 92) Review of Systems - Review of Systems Constitutional: reports: Loss of Appetite, Malaise, Weakness Eyes: reports: No Symptoms HENT: reports: No Symptoms Neck: reports: No Symptoms Cardiovascular: reports: Shortness of Breath Respiratory: reports: SOB, SOB on Exertion Gastrointestinal: reports: No Symptoms Genitourinary: reports: No Symptoms Breasts: reports: No Symptoms Reported Musculoskeletal: reports: Muscle Weakness Integumentary: reports: No Symptoms Neurological: reports: No Symptoms Endocrine: reports: No Symptoms Hematology/Lymphatic: reports: No Symptoms Psychiatric: reports: No Symptoms Physical Examination Vital Signs: Vital Signs Temperature 97.8 F 03/20/18 03:17 Pulse Rate 86 03/20/18 03:17 Respiratory Rate 12 03/20/18 04:59 Blood Pressure 121/72 03/20/18 03:17 O2 Sat by Pulse Oximetry (%) 100 03/20/18 04:59 Constitutional: Yes: No Distress, Calm, Pallor Eyes: Yes: Conjunctiva Clear, PERRL HENT: Yes: WNL, Atraumatic, Normocephalic Neck: Yes: WNL, Supple, Trachea Midline Cardiovascular: Yes: WNL, Regular Rate and Rhythm, S1, S2 Respiratory: Yes: Diminished, On BiPap, Rhonchi (Coarse- B/L) Gastrointestinal: Yes: Normal Bowel Sounds, Palpable Mass ...Rectal Exam: Yes: Deferred Breast(s): Yes: Other (port to RCW) Musculoskeletal: Yes: WNL Edema: Yes Edema: RLE: 1+ (R- foot) Peripheral Pulses WNL: Yes Neurological: Yes: Cran Nerves II-XII Intact, Lethargy ...Motor Strength: LUE (4/5), LLE (4/5), RUE (4/5), RLE (4/5) Labs: CBC, BMP 03/20/18 04:10 03/20/18 04:10 Laboratory Results - last 24 hr 03/20/18 03/20/18 03/20/18 04:10 04:10 04:10 WBC 6.7 RBC 3.39 L Hgb 10.7 Hct 32.3 L MCV 95.5 MCH 31.7 MCHC 33.2 RDW 24.5 H Plt Count 120 L MPV 8.7 Absolute Neuts (auto) 6.0 Neutrophils % 88.7 H Lymphocytes % 5.3 L Monocytes % 5.1 Eosinophils % 0.4 Basophils % 0.5 Nucleated RBC % 0 VBG pH 7.39 POC VBG pCO2 40.7 POC VBG pO2 88.1 H Mixed VBG HCO3 24.3 Sodium 137 Potassium 4.2 Chloride 105 Carbon Dioxide 24 Anion Gap 8 BUN 17 Creatinine 0.6 Creat Clearance w eGFR > 60 Random Glucose 91 Lactic Acid Calcium 9.2 Phosphorus Magnesium Total Bilirubin 5.4 H AST 101 H ALT 32 Alkaline Phosphatase 769 H Creatine Kinase Troponin I B-Natriuretic Peptide Total Protein 6.0 L Albumin 1.8 L Influenza A (Rapid) Influenza B (Rapid) 03/20/18 03/20/18 03/20/18 04:10 04:10 04:10 WBC RBC Hgb Hct MCV MCH MCHC RDW Plt Count MPV Absolute Neuts (auto) Neutrophils % Lymphocytes % Monocytes % Eosinophils % Basophils % Nucleated RBC % VBG pH POC VBG pCO2 POC VBG pO2 Mixed VBG HCO3 Sodium Potassium Chloride Carbon Dioxide Anion Gap BUN Creatinine Creat Clearance w eGFR Random Glucose Lactic Acid 1.4 Calcium Phosphorus 3.0 Magnesium 2.1 Total Bilirubin AST ALT Alkaline Phosphatase Creatine Kinase 50 Troponin I 0.02 B-Natriuretic Peptide 1082.2 H Total Protein Albumin Influenza A (Rapid) Influenza B (Rapid) 03/20/18 06:48 WBC RBC Hgb Hct MCV MCH MCHC RDW Plt Count MPV Absolute Neuts (auto) Neutrophils % Lymphocytes % Monocytes % Eosinophils % Basophils % Nucleated RBC % VBG pH POC VBG pCO2 POC VBG pO2 Mixed VBG HCO3 Sodium Potassium Chloride Carbon Dioxide Anion Gap BUN Creatinine Creat Clearance w eGFR Random Glucose Lactic Acid Calcium Phosphorus Magnesium Total Bilirubin AST ALT Alkaline Phosphatase Creatine Kinase Troponin I B-Natriuretic Peptide Total Protein Albumin Influenza A (Rapid) Negative Influenza B (Rapid) Negative Current Medications Generic Name Dose Route Start Last Admin Trade Name Freq PRN Reason Stop Dose Admin Sodium Chloride 1,000 mls @ 42 mls/hr 03/20/18 08:34 Normal Saline - IV ASDIR TED Levothyroxine Sodium 125 mcg 03/20/18 07:00 Synthroid - PO DAILY@0700 TED Melatonin 20 mg 03/20/18 22:00 Melatonin PO HS TED Imaging - Results Chest X-ray: Image Reviewed Cat Scan: Pending EKG: Image Reviewed Problem List - Problems (1) PNA (pneumonia) Assessment/Plan: HCAP Curb65 Score 1 Chest Xray image- MARTHA Infiltrate Chest CT- pending Cefepime, Azithromycin and Vancomycin given in the ED Will continue Cefepime and Vancomycin for MDR organisms Appreciate ID consult O2- Bipap Appreciate Pulmonology consult Monitor CBC, BMP Monitor vitals Code(s): J18.9 - PNEUMONIA, UNSPECIFIED ORGANISM Qualifiers: Pneumonia type: due to unspecified organism Laterality: left Lung location: upper lobe of lung Qualified Code(s): J18.1 - Lobar pneumonia, unspecified organism (2) SOB (shortness of breath) Assessment/Plan: Likely due to Lung Metastasis vs Pneumonia CT Chest-pending Wells Score 2.5 Continue O2 Appreciate Social Work for home O2 Monitor vitals Code(s): R06.02 - SHORTNESS OF BREATH (3) Metastasis from rectal cancer Assessment/Plan: s/p RT/chemo stopped 2/2 vag bleed Appreciate Oncology consult Consider Palliative Care consult Code(s): C79.9 - SECONDARY MALIGNANT NEOPLASM OF UNSPECIFIED SITE; C20 - MALIGNANT NEOPLASM OF RECTUM (4) Rectal adenocarcinoma metastatic to liver Assessment/Plan: See Above Code(s): C20 - MALIGNANT NEOPLASM OF RECTUM; C78.7 - SECONDARY MALIG NEOPLASM OF LIVER AND INTRAHEPATIC BILE DUCT (5) Hypothyroid Assessment/Plan: Continue Levothyroxine Code(s): E03.9 - HYPOTHYROIDISM, UNSPECIFIED Qualifiers: Assessment/Plan This is a 68 y/o woman with a PMHx of Colorectal Ca with mets to Liver, (RT, Chemo stopped secondary to Vaginal Bleed), Rectovaginal Fistula, Hypothyroidism. Admitted to M/S for Pneumonia for further evaluation of their emergent condition. Plan: FEN PO fluids as tolerated Replete lytes prn Regular Diet as tolerated DVT ppx OOB SCDs Lovenox SQ Dispo: Requires Inpatient Care Visit type - Emergency Visit Emergency Visit: Yes ED Registration Date: 03/20/18 Care time: The patient presented to the Emergency Department on the above date and was hospitalized for further evaluation of their emergent condition. - New Patient This patient is new to me today: Yes Date on this admission: 03/20/18 - Critical Care Critical Care patient: No
[2018-03-20] MEDS ORDERED: CEFEPIME HCL/D5W 2 GM/50 ML BAG IVPB ONE (06:01)
[2018-03-20] MEDS ORDERED: VANCOMYCIN 1 GM PREMIX - 1 GM/200 ML BAG IVPB ONE (06:03)
[2018-03-20] MEDS ORDERED: AZITHROMYCIN IVPB 500 MG in DEXTROSE 5%-WATER - 250 ML IVPB ONE (06:03)
[2018-03-20] MEDS ORDERED: AZITHROMYCIN IVPB 500 MG/250 ML BAG IVPB ONE (07:02)
[2018-03-20] MEDS ORDERED: VANCOMYCIN 1 GRAM (PRE-DOCKED) 1,000 MG/250 ML BAG IVPB ONE (08:02)
[2018-03-20] MEDS ORDERED: LEVOTHYROXINE NA 25 MCG TABLET (FP) ONE (08:43)
[2018-03-20] MEDS: LEVOTHYROXINE NA 125 MCG TABLET (FP) PO SCH (08:54)
[2018-03-20] MEDS ORDERED: MORPHINE SULFATE 2 MG/ML VIAL ONE (08:58)
[2018-03-20] MEDS ORDERED: MORPHINE SULFATE 2 MG/ML VIAL IVPUSH ONE (09:00)
--- NOTE | 2018-03-20 09:26 | EKG ---
Test Reason : Blood Pressure : / mmHG Vent. Rate : 089 BPM Atrial Rate : 089 BPM P-R Int : 156 ms QRS Dur : 122 ms QT Int : 390 ms P-R-T Axes : 034 -54 064 degrees QTc Int : 474 ms NORMAL SINUS RHYTHM LEFT AXIS DEVIATION incoplete LBBB ABNORMAL ECG WHEN COMPARED WITH ECG OF 26-DEC-2017 20:30, BORDERLINE CRITERIA FOR LATERAL INFARCT ARE NOW PRESENT Confirmed by JOEL EDOUARD, LESLIE ([id number]) on 03/20/2018 9:26:00 AM Referred By: Confirmed By:LESLIE MALDONADO MD
[2018-03-20] MEDS: SODIUM CHLORIDE 1,000 ML IV SCH (09:44)
[2018-03-20] MEDS ORDERED: ENOXAPARIN NA (PORCINE) 40 MG/0.4 ML DISP.SYRIN SQ ONE (09:51)
[2018-03-20] MEDS: ENOXAPARIN NA (PORCINE) 40 MG/0.4 ML DISP.SYRIN SQ SCH (09:59)
--- NOTE | 2018-03-20 13:18 | PN ---
Progress Note, Physician History of Present Illness: This is a 68 y/o woman with a PMHx of Colorectal Ca with mets to Liver, (RT, Chemo stopped secondary to Vaginal Bleed), Rectovaginal Fistula, Hypothyroidism. Admitted to M/S for Pneumonia for further evaluation - Current Medication List Current Medications: Active Medications Enoxaparin Sodium (Lovenox -) 40 mg SQ DAILY [facility] Last Admin: 03/20/18 09:59 Dose: 40 mg Sodium Chloride (Normal Saline -) 1,000 mls @ 42 mls/hr IV ASDIR TED Last Admin: 03/20/18 09:44 Dose: 42 mls/hr Cefepime HCl (Maxipime 2gm Ivpb (Premix)) 2 gm in 50 mls @ 100 mls/hr IVPB Q8H- IV TED; Protocol Vancomycin HCl 1,000 mg/ (Dextrose) 250 mls @ 166.667 mls/hr IVPB Q12H TED; Protocol Levothyroxine Sodium (Synthroid -) 125 mcg PO DAILY@0700 [facility] Last Admin: 03/20/18 08:54 Dose: 125 mcg Melatonin (Melatonin) 20 mg PO HS TED - Objective Vital Signs: Vital Signs Temperature 97.6 F 03/20/18 10:15 Pulse Rate 87 03/20/18 09:26 Respiratory Rate 16 03/20/18 09:26 Blood Pressure 118/76 03/20/18 09:26 O2 Sat by Pulse Oximetry (%) 99 03/20/18 12:21 Cardiovascular: Yes: S1, S2 Respiratory: Yes: Diminished, On BiPap, Rhonchi Gastrointestinal: Yes: Normal Bowel Sounds, Soft, Distention Labs: CBC, BMP 03/20/18 04:10 03/20/18 04:10 Problem List - Problems (1) PNA (pneumonia) Assessment/Plan: HCAP Curb65 Score 1 Chest Xray image- MARTHA Infiltrate Chest CT- pending Cefepime, Azithromycin and Vancomycin given in the ED Will continue Cefepime and Vancomycin for MDR organisms Appreciate ID consult O2- Bipap Appreciate Pulmonology consult Monitor CBC, BMP Monitor vitals Code(s): J18.9 - PNEUMONIA, UNSPECIFIED ORGANISM Qualifiers: Pneumonia type: due to unspecified organism Laterality: left Lung location: upper lobe of lung Qualified Code(s): J18.1 - Lobar pneumonia, unspecified organism (2) Metastasis from rectal cancer Assessment/Plan: s/p RT/chemo stopped 2/2 vag bleed Appreciate Oncology consult Consider Palliative Care consult Code(s): C79.9 - SECONDARY MALIGNANT NEOPLASM OF UNSPECIFIED SITE; C20 - MALIGNANT NEOPLASM OF RECTUM
[2018-03-20] MEDS ORDERED: CEFEPIME 2 GM/100 ML BAG IVPB ONE (15:38)
[2018-03-20] MEDS: CEFEPIME HCL/D5W 2 GM/50 ML BAG IVPB SCH ×2 (15:44→18:53)
--- NOTE | 2018-03-20 17:19 | CON.PULM ---
Consult Consult Specialty:: PULM/CCM Referred by:: YE Reason for Consultation:: SOB - History of Present Illness Chief Complaint: SOB History of Present Illness: 68 F, Colorectal CA with metastases to the liver and likely lung (brother and patient not aware), status post RT, vaginal bleeding, and Hypothyroidism. She was admitted via the ER accompanied by her brother due to worsening of shortness of breath of 4 days duration. According to her brother, her health has been declining for the past several months. She was previously admitted to the hospital and then SNF and home for about 1 month. No travel history or sick contacts. She is awake and alert on NIPPV support. She reports that the breathing does feel better at this time. No reported hemoptysis or night sweats. CT: diffuse airspace disease / masses / nodules: consistent with metastatic disease. - History Source History Provided By: Patient, Significant Other Limitations to Obtaining History: Clinical Condition - Past Medical History Gastrointestinal: Yes: Other (rectal ca - metastatic to liver) Endocrine: Yes: Hypothyroidism - Past Surgical History Past Surgical History: Yes: Colectomy, Colostomy, Hysterectomy - Alcohol/Substance Use Hx Alcohol Use: No History of Substance Use: reports: None - Smoking History Smoking history: Unknown if ever smoked Have you smoked in the past 12 months: No Aproximately how many cigarettes per day: 15 If you are a former smoker, when did you quit?: 2013 - Social History ADL: Support Services History of Recent Travel: No Home Medications - Allergies Allergies/Adverse Reactions: Allergies Allergy/AdvReac Type Severity Reaction Status Date / Time ciprofloxacin [From Cipro] Allergy Rash Verified 12/26/17 19:34 shellfish derived Allergy Vomiting Verified 12/26/17 19:34 - Home Medications Home Medications: Ambulatory Orders Levothyroxine [Synthroid -] 125 mcg PO DAILY@0700 tablet 01/05/18 Melatonin 20 mg PO HS tab 01/05/18 Family Disease History - Family Disease History Family Disease History: CA: Father (Lung Ca), Other: Mother (Healthy, age 92) Review of Systems - Review of Systems Constitutional: reports: Fever, Loss of Appetite, Malaise, Weakness. denies: Chills, Night Sweats, Unintentional Wgt. Loss Eyes: reports: No Symptoms HENT: reports: No Symptoms Neck: reports: No Symptoms Cardiovascular: reports: Shortness of Breath. denies: Chest Pain, Edema, Palpitations Respiratory: reports: Cough, SOB. denies: Hemoptysis, Snoring, SOB on Exertion , Wheezing Gastrointestinal: reports: No Symptoms Genitourinary: reports: No Symptoms Breasts: reports: No Symptoms Reported Musculoskeletal: reports: Back Pain Integumentary: reports: No Symptoms Endocrine: reports: No Symptoms Hematology/Lymphatic: reports: No Symptoms Psychiatric: reports: No Symptoms Physical Exam Vital Sings: Vital Signs Temperature 97.4 F L 03/20/18 14:45 Pulse Rate 87 03/20/18 14:45 Respiratory Rate 20 03/20/18 14:45 Blood Pressure 126/76 03/20/18 14:45 O2 Sat by Pulse Oximetry (%) 99 03/20/18 15:34 Constitutional: Yes: Mild Distress Eyes: Yes: Conjunctiva Clear, EOM Intact HENT: Yes: Atraumatic, Normocephalic Neck: Yes: Supple, Trachea Midline Cardiovascular: Yes: Pulse Irregular Respiratory: Yes: Cough, Diminished, On BiPap, Rhonchi, SOB, Tachypnea. No: Accessory Muscle Use, Rales, Stridor, Wheezes ...Inspection: Yes: WNL ...Clubbing: No Gastrointestinal: Yes: Normal Bowel Sounds, Soft, Abdomen, Obese Renal/: Yes: WNL Musculoskeletal: Yes: WNL Extremities: Yes: WNL Edema: Yes Peripheral Pulses WNL: Yes Integumentary: Yes: WNL Neurological: Yes: Alert, Oriented Psychiatric: Yes: Alert, Oriented Labs: CBC, BMP 03/20/18 04:10 03/20/18 04:10 Imaging - Results Chest X-ray: Report Reviewed, Image Reviewed Problem List - Problems (1) Metastasis from rectal cancer Code(s): C79.9 - SECONDARY MALIGNANT NEOPLASM OF UNSPECIFIED SITE; C20 - MALIGNANT NEOPLASM OF RECTUM (2) PNA (pneumonia) Code(s): J18.9 - PNEUMONIA, UNSPECIFIED ORGANISM Qualifiers: Pneumonia type: due to unspecified organism Laterality: left Lung location: upper lobe of lung Qualified Code(s): J18.1 - Lobar pneumonia, unspecified organism (3) SOB (shortness of breath) Code(s): R06.02 - SHORTNESS OF BREATH (4) Anemia Code(s): D64.9 - ANEMIA, UNSPECIFIED Qualifiers: (5) Hypoalbuminemia Code(s): E88.09 - OTH DISORDERS OF PLASMA-PROTEIN METABOLISM, NEC (6) Hypothyroid Code(s): E03.9 - HYPOTHYROIDISM, UNSPECIFIED Qualifiers: (7) Rectovaginal fistula Code(s): N82.3 - FISTULA OF VAGINA TO LARGE INTESTINE (8) Insomnia Code(s): G47.00 - INSOMNIA, UNSPECIFIED Assessment/Plan ABX per ID NIPPV support: once improved can try VM O2 Follow cultures Aspiration precautions Daily Medrol BD TX PRN Need to clarify GOC VTE prophylaxis Adjust Melatonin dose to 5 mg Will follow Thank you. Dr Otoole
[2018-03-20] MEDS ORDERED: PT OWN MED DRAWER 7, Y5N ONE (18:46)
[2018-03-20] MEDS: methylPREDNISolone NA SUCC 40 MG/1 ML VIAL IVPUSH SCH (18:54)
[2018-03-20] MEDS ORDERED: VANCOMYCIN 1,000 MG in DEXTROSE 5%-WATER - 250 ML IVPB SCH (20:00)
[2018-03-20] MEDS: VANCOMYCIN 1 GRAM (PRE-DOCKED) 1,000 MG/250 ML BAG IVPB SCH (20:14)
--- NOTE | 2018-03-20 21:46 | CONSULT ---
Consult Consult Specialty:: Oncology Referred by:: Dr. Desai Reason for Consultation:: Met. rectal cancer - History of Present Illness Chief Complaint: Dyspnea History of Present Illness: 55F, pt of Dr. Owens, with metastatic rectal cancer presents with dyspnea. Pt was diagnosed with poorly differentiated rectal cancer in 2013 s/p neoadjuvant chemoradiation (Xeloda) followed by LAR (due to extensive evidence of invasion into the pelvic sidewall as well as the uterus and ovaries, required an en bloc resection of rectum with ALEN and oophorectomy). In 2014, found to have recurrence in yenny-sacral tissue as well biopsy proven liver mets. Received 11 cycles of FOLFOX (08/2014 - 02/2015), then XELIRI x 8 (07/26-2015) cycles. In 04/2017, found to have progression of disease and received FOLFOX (25%reduction) with Avastin x 5 (last in 06/2017). Required fistulectomy then resumed 5FU, leucovorin, and Avastin (10/21/17-12/02/17) Received 5 doses of FOLFOX and Avastin-last one 07/05/17. Had fistulectomy, then restarted 5FU, leucovorum and Avastin, 10/21/17- 12/02/17. Chemo was subsequently held due to fistula. Pt was last seen by Dr. Owens on 01/26/18 when she declined further treatment. She now presents, accompanied by brother, with worsening dyspnea. CTAP showed multiple pulmonary nodules compatible with metastases, diffuse interstitial thickening (infiltrates versus lymphangitic spread versus pulmonary congestion, bibasal consolidations and enlarged mediastinal lympho nodes. Placed on BiPAP - History Source History Provided By: Family Member, Medical Record - Past Medical History Gastrointestinal: Yes: Other (rectal ca - metastatic to liver) ...: No Endocrine: Yes: Hypothyroidism - Past Surgical History Past Surgical History: Yes: Colectomy, Colostomy, Hysterectomy - Alcohol/Substance Use Hx Alcohol Use: Yes (SOCIAL) History of Substance Use: reports: None - Smoking History Smoking history: Former smoker Have you smoked in the past 12 months: No Aproximately how many cigarettes per day: 15 If you are a former smoker, when did you quit?: 2013 - Social History ADL: Support Services History of Recent Travel: No Home Medications - Allergies Allergies/Adverse Reactions: Allergies Allergy/AdvReac Type Severity Reaction Status Date / Time ciprofloxacin [From Cipro] Allergy Rash Verified 12/26/17 19:34 shellfish derived Allergy Vomiting Verified 12/26/17 19:34 - Home Medications Home Medications: Ambulatory Orders Levothyroxine [Synthroid -] 125 mcg PO DAILY@0700 tablet 01/05/18 Melatonin 20 mg PO HS tab 01/05/18 Family Disease History - Family Disease History Family Disease History: CA: Father (Lung Ca), Other: Mother (Healthy, age 92) Physical Exam Vital Signs: Vital Signs Temperature 97.4 F L 03/20/18 17:27 Pulse Rate 87 03/20/18 17:27 Respiratory Rate 20 03/20/18 18:13 Blood Pressure 126/76 03/20/18 17:27 O2 Sat by Pulse Oximetry (%) 98 03/20/18 20:55 Constitutional: Yes: Mild Distress Eyes: Yes: Sclera Icterus Cardiovascular: Yes: Tachycardia Respiratory: Yes: On BiPap Gastrointestinal: Yes: WNL, Soft Edema: No Labs: CBC, BMP 03/20/18 04:10 03/20/18 04:10 Imaging - Results Cat Scan: Report Reviewed Problem List - Problems (1) Metastasis from rectal cancer Assessment/Plan: 55F with metastatic rectal cancer s/p multiple lines of chemo (last in 11/2017) presents with dyspnea and found to have new PNA, new lung mets, ?lymphangitic spread. On cefepime, vancoayalaithro for PNA BiPap, daily medrol. Appreciate pulm input. Also with rising bilirubin likely 2/2 POD in liver Discussed CT chest findings (including progression of disease) with pt's brother. GOC discussions. Pt is DNR. Oncology will follow Code(s): C79.9 - SECONDARY MALIGNANT NEOPLASM OF UNSPECIFIED SITE; C20 - MALIGNANT NEOPLASM OF RECTUM
[2018-03-20 21:55] LABS: ARTERIAL BLD GAS O2 SATURATION 96.3 % (90-98.9); ARTERIAL BLOOD GAS BASE EXCESS -1.1 meq/l (-2-2); ARTERIAL BLOOD GAS PCO2 35.3 mmHg (35-45); ARTERIAL BLOOD GAS PO2 83.9 mmHg (80-100); ARTERIAL BLOOD GAS pH 7.42 (7.35-7.45)
[2018-03-20 21:56] LABS: ALLENS TEST POSITIVE
[2018-03-20] MEDS ORDERED: MELATONIN 5 MG TABLETS PO SCH (22:00)
[2018-03-21] MEDS: MELATONIN 5 MG TABLETS PO SCH ×2 (00:34→21:39)
[2018-03-21] MEDS ORDERED: PT OWN MED DRAWER 7, Y5N ONE ×3 (01:17→10:52)
[2018-03-21] MEDS: CEFEPIME 2 GM in DEXTROSE 5%-WATER - 100 ML IVPB SCH ×2 (01:21→07:50)
[2018-03-21] MEDS ORDERED: CEFEPIME HCL/D5W 2 GM/50 ML BAG IVPB SCH (02:00)
[2018-03-21] MEDS: SODIUM CHLORIDE 1,000 ML IV SCH ×2 (06:21→10:56)
[2018-03-21] MEDS: LEVOTHYROXINE NA 125 MCG TABLET (FP) PO SCH (06:21)
[2018-03-21] MEDS: VANCOMYCIN 1 GRAM (PRE-DOCKED) 1,000 MG/250 ML BAG IVPB SCH (08:28)
--- NOTE | 2018-03-21 09:56 | CON.ID ---
Consult Consult Specialty:: infectious disease Referred by:: bandar Reason for Consultation:: possible pneumonia - History of Present Illness Chief Complaint: sob History of Present Illness: 68 yo with meatstic rectal cancer- most recently hospitalized in December with recurrent vaginal bleeding she had a known rectovaginal fistula she underwent bilateral artery emboliztion 12/22, and EUA on she was discharged to the [place] end of December and then home in February she is now admitted with SOB and cogh for several days at home, no fevers no hemoptysis ct scan in ed with multiple nodules, diffuse interstital thickening mediastinal adenopathy liver metastasis she is fatigues, currently on nasal canulla reports breathing is improved received zithromax, vancomycin and cefepime - History Source History Provided By: Patient, Medical Record Limitations to Obtaining History: Clinical Condition - Past Medical History Gastrointestinal: Yes: Other (rectal ca - metastatic to liver) ...: No Endocrine: Yes: Hypothyroidism Additional Medical History: rectovaginal fistula - Past Surgical History Past Surgical History: Yes: Colectomy, Colostomy, Hysterectomy - Alcohol/Substance Use Hx Alcohol Use: Yes (SOCIAL) History of Substance Use: reports: None - Smoking History Smoking history: Former smoker Have you smoked in the past 12 months: No Aproximately how many cigarettes per day: 15 If you are a former smoker, when did you quit?: 2013 - Social History Usual Living Arrangement: Other (with sibling) ADL: Support Services Place of : [facility] History of Recent Travel: No Home Medications - Allergies Allergies/Adverse Reactions: Allergies Allergy/AdvReac Type Severity Reaction Status Date / Time ciprofloxacin [From Cipro] Allergy Rash Verified 12/26/17 19:34 shellfish derived Allergy Vomiting Verified 12/26/17 19:34 - Home Medications Home Medications: Ambulatory Orders Levothyroxine [Synthroid -] 125 mcg PO DAILY@0700 tablet 01/05/18 Melatonin 20 mg PO HS tab 01/05/18 Family Disease History - Family Disease History Family Disease History: CA: Father (Lung Ca), Other: Mother (Healthy, age 92) Review of Systems - Review of Systems Constitutional: reports: Malaise. denies: Chills, Diaphoresis, Fever Eyes: reports: No Symptoms HENT: reports: No Symptoms Neck: reports: No Symptoms Cardiovascular: reports: Edema. denies: Chest Pain Respiratory: reports: Cough, SOB. denies: Hemoptysis Gastrointestinal: reports: No Symptoms Genitourinary: reports: No Symptoms Physical Exam Vital Signs: Vital Signs Temperature 97.6 F 03/21/18 06:00 Pulse Rate 86 03/21/18 06:00 Respiratory Rate 20 03/21/18 06:00 Blood Pressure 127/67 03/21/18 06:00 O2 Sat by Pulse Oximetry (%) 98 03/21/18 07:52 Constitutional: Yes: No Distress, Calm, Cachectic, Thin Eyes: Yes: Conjunctiva Clear HENT: Yes: Atraumatic, Normocephalic. No: Thrush Neck: Yes: Supple Cardiovascular: Yes: Regular Rate and Rhythm Respiratory: Yes: Diminished, Rhonchi Gastrointestinal: Yes: Normal Bowel Sounds, Soft, Other (colostomy) Edema: Yes Edema: LLE: 2+ (pedal), RLE: 2+ (pedal) Integumentary: Yes: Other (no erythema at the port site) Labs: CBC, BMP 03/20/18 04:10 03/20/18 04:10 cultures pending Laboratory Tests 03/20/18 04:10 Total Bilirubin 5.4 H AST 101 H ALT 32 Alkaline Phosphatase 769 H Imaging - Results Cat Scan: Report Reviewed, Image Reviewed Problem List - Problems (1) SOB (shortness of breath) Code(s): R06.02 - SHORTNESS OF BREATH (2) PNA (pneumonia) Code(s): J18.9 - PNEUMONIA, UNSPECIFIED ORGANISM Qualifiers: Pneumonia type: due to unspecified organism Laterality: left Lung location: upper lobe of lung Qualified Code(s): J18.1 - Lobar pneumonia, unspecified organism (3) Metastasis from rectal cancer Code(s): C79.9 - SECONDARY MALIGNANT NEOPLASM OF UNSPECIFIED SITE; C20 - MALIGNANT NEOPLASM OF RECTUM (4) Abnormal LFTs Code(s): R94.5 - ABNORMAL RESULTS OF LIVER FUNCTION STUDIES Assessment/Plan suspect this is all from her metastaic disease but cannot r/o pneumonia treat with zosyn /zithromax check urinary antigens for pneumonia f/u cultures abnormal lfts- most likely due to liver mets doing poorly should have palliative care evaluation
[2018-03-21] MEDS: VANCOMYCIN 1,000 MG in DEXTROSE 5%-WATER - 250 ML IVPB SCH (10:56)
[2018-03-21] MEDS: methylPREDNISolone NA SUCC 40 MG/1 ML VIAL IVPUSH SCH (10:57)
[2018-03-21] MEDS: ENOXAPARIN NA (PORCINE) 40 MG/0.4 ML DISP.SYRIN SQ SCH (10:57)
[2018-03-21] MEDS: AZITHROMYCIN IVPB 500 MG/250 ML BAG IVPB SCH (10:58)
--- NOTE | 2018-03-21 11:49 | PN ---
Progress Note, Physician Chief Complaint: patient off the bipap on nasal canula - Current Medication List Current Medications: Active Medications Enoxaparin Sodium (Lovenox -) 40 mg SQ DAILY [facility] Last Admin: 03/21/18 10:57 Dose: 40 mg Sodium Chloride (Normal Saline -) 1,000 mls @ 42 mls/hr IV ASDIR TED Last Admin: 03/21/18 10:56 Dose: Not Given Piperacillin Sod/Tazobactam (Sod 4.5 gm/ Dextrose) 100 mls @ 200 mls/hr IVPB Q8H-IV TED; Protocol Azithromycin (Zithromax 500mg Ivpb (Pre-Docked)) 500 mg in 250 mls @ 250 mls/ hr IVPB DAILY [facility] Last Admin: 03/21/18 10:58 Dose: 250 mls/hr Levothyroxine Sodium (Synthroid -) 125 mcg PO DAILY@0700 [facility] Last Admin: 03/21/18 06:21 Dose: 125 mcg Melatonin (Melatonin) 5 mg PO HS [facility] Last Admin: 03/21/18 00:34 Dose: Not Given Methylprednisolone Sodium Succinate (Solu-Medrol -) 40 mg IVPUSH DAILY [facility] Stop: 03/24/18 10:01 Last Admin: 03/21/18 10:57 Dose: 40 mg - Objective Vital Signs: Vital Signs Temperature 97.6 F 03/21/18 10:46 Pulse Rate 86 03/21/18 10:46 Respiratory Rate 22 H 03/21/18 10:46 Blood Pressure 113/66 03/21/18 10:46 O2 Sat by Pulse Oximetry (%) 98 03/21/18 07:52 Constitutional: Yes: Calm Eyes: Yes: Sclera Icterus Cardiovascular: Yes: Regular Rate and Rhythm, S1, S2 Respiratory: Yes: On Nasal O2, Rhonchi Gastrointestinal: Yes: Normal Bowel Sounds, Soft, Other (colostomy) Edema: Yes Labs: CBC, BMP 03/20/18 04:10 03/20/18 04:10 Problem List - Problems (1) Abnormal LFTs Assessment/Plan: mets from rectal cancer patient is DNR oncology on board lovenox Code(s): R94.5 - ABNORMAL RESULTS OF LIVER FUNCTION STUDIES (2) Metastasis from rectal cancer Assessment/Plan: patient is DNR oncology on board palliative consult Code(s): C79.9 - SECONDARY MALIGNANT NEOPLASM OF UNSPECIFIED SITE; C20 - MALIGNANT NEOPLASM OF RECTUM (3) PNA (pneumonia) Assessment/Plan: iv abx medrol oxygen apreicate pulm input Code(s): J18.9 - PNEUMONIA, UNSPECIFIED ORGANISM Qualifiers: Pneumonia type: due to unspecified organism Laterality: left Lung location: upper lobe of lung Qualified Code(s): J18.1 - Lobar pneumonia, unspecified organism
--- NOTE | 2018-03-21 11:52 | PN ---
Progress Note, Physician History of Present Illness: PULMONARY AWAKE,LESS DYSPNEIC,ON O2 VIA VM. - Current Medication List Current Medications: Active Medications Enoxaparin Sodium (Lovenox -) 40 mg SQ DAILY [facility] Last Admin: 03/21/18 10:57 Dose: 40 mg Sodium Chloride (Normal Saline -) 1,000 mls @ 42 mls/hr IV ASDIR [facility] Last Admin: 03/21/18 10:56 Dose: Not Given Piperacillin Sod/Tazobactam (Sod 4.5 gm/ Dextrose) 100 mls @ 200 mls/hr IVPB Q8H-IV TED; Protocol Azithromycin (Zithromax 500mg Ivpb (Pre-Docked)) 500 mg in 250 mls @ 250 mls/ hr IVPB DAILY [facility] Last Admin: 03/21/18 10:58 Dose: 250 mls/hr Levothyroxine Sodium (Synthroid -) 125 mcg PO DAILY@0700 [facility] Last Admin: 03/21/18 06:21 Dose: 125 mcg Melatonin (Melatonin) 5 mg PO HS [facility] Last Admin: 03/21/18 00:34 Dose: Not Given Methylprednisolone Sodium Succinate (Solu-Medrol -) 40 mg IVPUSH DAILY [facility] Stop: 03/24/18 10:01 Last Admin: 03/21/18 10:57 Dose: 40 mg - Objective Vital Signs: Vital Signs Temperature 97.6 F 03/21/18 10:46 Pulse Rate 86 03/21/18 10:46 Respiratory Rate 22 H 03/21/18 10:46 Blood Pressure 113/66 03/21/18 10:46 O2 Sat by Pulse Oximetry (%) 98 03/21/18 07:52 Constitutional: Yes: Well Nourished, Calm Eyes: Yes: WNL HENT: Yes: WNL Neck: Yes: WNL Cardiovascular: Yes: Regular Rate and Rhythm, S1, S2 Respiratory: Yes: Rhonchi (SCATTERED STEPHANIE RHONCHI) Gastrointestinal: Yes: Normal Bowel Sounds, Soft Extremities: Yes: WNL Edema: Yes Labs: CBC, BMP 03/20/18 04:10 03/20/18 04:10 Assessment/Plan Problem List - Problems (1) Metastasis from rectal cancer Code(s): C79.9 - SECONDARY MALIGNANT NEOPLASM OF UNSPECIFIED SITE; C20 - MALIGNANT NEOPLASM OF RECTUM (2) PNA (pneumonia) Code(s): J18.9 - PNEUMONIA, UNSPECIFIED ORGANISM Qualifiers: Pneumonia type: due to unspecified organism Laterality: left Lung location: upper lobe of lung Qualified Code(s): J18.1 - Lobar pneumonia, unspecified organism (3) SOB (shortness of breath) Code(s): R06.02 - SHORTNESS OF BREATH (4) Anemia Code(s): D64.9 - ANEMIA, UNSPECIFIED Qualifiers: (5) Hypoalbuminemia Code(s): E88.09 - OTH DISORDERS OF PLASMA-PROTEIN METABOLISM, NEC (6) Hypothyroid Code(s): E03.9 - HYPOTHYROIDISM, UNSPECIFIED Qualifiers: (7) Rectovaginal fistula Code(s): N82.3 - FISTULA OF VAGINA TO LARGE INTESTINE (8) Insomnia Code(s): G47.00 - INSOMNIA, UNSPECIFIED Assessment/Plan ABX per ID NIPPV support: once improved can try VM O2 Follow cultures Aspiration precautions Daily Medrol BD TX PRN Need to clarify GOC VTE prophylaxis Melatonin dose to [address] PIERCE
--- NOTE | 2018-03-21 17:00 | PN ---
Progress Note (short form) - Note Progress Note: PROGRESS NOTE FOR HEMATOLOGY/ONCOLOGY Patient seen and examined by me at bedside Laying in bed and drowsy. Barely audible States she is comfortable Denies any chest pain, nausea, vomiting, abdominal pain Vital Signs Temperature 97.8 F 03/21/18 15:19 Pulse Rate 89 03/21/18 15:19 Respiratory Rate 22 H 03/21/18 15:19 Blood Pressure 122/62 03/21/18 15:19 O2 Sat by Pulse Oximetry (%) 97 03/21/18 10:00 PHYSICAL EXAMINATION GENERAL: Drowsy, laying in bed , no acute distress EYES: PERLL, Conjunctiva clear ENT: No oral thrush NECK: Supple, (-) JVD CARDIO: RRR, Normal S1 and S2 LUNGS: Rhonchi throughout lung bases. On NC GI: (+)Colostomy bag with air. Nontender, nondistended, normoactive bowel sounds EXTREMITIES: 2+ Pitting edema bilaterally NEURO: Unable to assess due to medical condition CBC, BMP 03/20/18 04:10 03/20/18 04:10 ASSESSMENT AND PLAN: Patient is a 68 year old female with Metastatic rectal cancer who presented with shortness of breath and was found to have a Pneumonia with CT revealing new lung mets. We were consulted for further monitoring and management. Problem List Dyspnea Metastatic Rectal Adenocarcinoma s/p multiple lines of chemo Pneumonia Hyperbilirubinemia Hypothyroidism Plan: -Continue IV Abx, as per ID -Bipap and steroids, as per pulm -Patient has progression of disease with rising bili likely secondary to the liver. CT findings revealed progression of disease to the lungs and now pneumonia after multiple chemo line attemps (last in 11/2017) -Goals of care was discussed with family and ultimately made patient DNR. -Will need to continue supportive care
[2018-03-21] MEDS ORDERED: DEXTROSE 5%-WATER 100 ML IVPB ONE (17:21)
[2018-03-21] MEDS ORDERED: PIPERACILLIN/TAZOBACTAM 4.5 GM VIAL IVPB ONE (17:21)
[2018-03-21] MEDS: PIPERACILLIN/TAZOB 4.5 GM 4.5 GM in DEXTROSE 5%-WATER 100 ML IVPB SCH (17:52)
--- NOTE | 2018-03-21 18:17 | PN ---
Teaching Attending Note Name of Resident: Bernarda Ferris ATTENDING PHYSICIAN STATEMENT I saw and evaluated the patient. I reviewed the resident's note and discussed the case with the resident. I agree with the resident's findings and plan as documented. ASSESSMENT AND PLAN: 68 y/o well known to our service, advanced rectal cancer, s/p multiple lines of therapy, now with failure to thrive admitted with SOB/pneumonia Supportive care Palliative care
[2018-03-22] MEDS ORDERED: DEXTROSE 5%-WATER 100 ML IVPB ONE ×3 (01:29→17:12)
[2018-03-22] MEDS ORDERED: PIPERACILLIN/TAZOBACTAM 4.5 GM VIAL IVPB ONE ×3 (01:29→17:12)
[2018-03-22] MEDS: PIPERACILLIN/TAZOB 4.5 GM 4.5 GM in DEXTROSE 5%-WATER 100 ML IVPB SCH ×3 (01:33→17:17)
[2018-03-22] MEDS: SODIUM CHLORIDE 1,000 ML IV SCH ×2 (06:18→09:37)
[2018-03-22] MEDS: LEVOTHYROXINE NA 125 MCG TABLET (FP) PO SCH (06:19)
[2018-03-22] MEDS: oxyCODONE HCL 5 MG TABLET PO PRN ×2 (06:19→21:11)
[2018-03-22] MEDS: ENOXAPARIN NA (PORCINE) 40 MG/0.4 ML DISP.SYRIN SQ SCH (09:36)
[2018-03-22] MEDS: methylPREDNISolone NA SUCC 40 MG/1 ML VIAL IVPUSH SCH (09:36)
[2018-03-22] MEDS: AZITHROMYCIN IVPB 500 MG/250 ML BAG IVPB SCH (11:00)
--- NOTE | 2018-03-22 11:34 | PN ---
Progress Note (short form) - Note Progress Note: Resting in NAD on NC O2. Appears much improved from admission. No acute events overnight. Intake & Output 03/19/18 03/20/18 03/21/18 03/22/18 23:59 23:59 23:59 23:59 Intake Total 1135 1400 562 Balance 1135 1400 562 Weight 196 lb Last Vital Signs Temp Pulse Resp BP Pulse Ox 97.4 F L 93 H 22 H 116/66 98 03/22/18 09:42 03/22/18 09:42 03/22/18 09:42 03/22/18 09:42 03/21/18 21:00 Active Medications Enoxaparin Sodium (Lovenox -) 40 mg SQ DAILY [facility] Last Admin: 03/22/18 09:36 Dose: 40 mg Sodium Chloride (Normal Saline -) 1,000 mls @ 42 mls/hr IV ASDIR TED Last Admin: 03/22/18 09:37 Dose: Not Given Piperacillin Sod/Tazobactam (Sod 4.5 gm/ Dextrose) 100 mls @ 200 mls/hr IVPB Q8H-IV TED; Protocol Last Admin: 03/22/18 09:37 Dose: 200 mls/hr Azithromycin (Zithromax 500mg Ivpb (Pre-Docked)) 500 mg in 250 mls @ 250 mls/ hr IVPB DAILY [facility] Last Admin: 03/22/18 11:00 Dose: 250 mls/hr Levothyroxine Sodium (Synthroid -) 125 mcg PO DAILY@0700 [facility] Last Admin: 03/22/18 06:19 Dose: 125 mcg Melatonin (Melatonin) 5 mg PO HS [facility] Last Admin: 03/21/18 21:39 Dose: 5 mg Methylprednisolone Sodium Succinate (Solu-Medrol -) 40 mg IVPUSH DAILY [facility] Stop: 03/24/18 10:01 Last Admin: 03/22/18 09:36 Dose: 40 mg Oxycodone HCl (Roxicodone -) 5 mg PO Q6H PRN PRN Reason: PAIN LEVEL 6-10 Last Admin: 03/22/18 06:19 Dose: 5 mg Constitutional: Yes: NAD Eyes: Yes: WNL HENT: Yes: WNL Neck: Yes: WNL Cardiovascular: Yes: Regular Rate and Rhythm, S1, S2 Respiratory: Yes: Bibasilar Rhonchi, no wheeze Gastrointestinal: Yes: Normal Bowel Sounds, Soft Extremities: Yes: WNL Edema: Yes Labs: Assessment/Plan Problem List - Problems (1) Metastasis from rectal cancer Code(s): C79.9 - SECONDARY MALIGNANT NEOPLASM OF UNSPECIFIED SITE; C20 - MALIGNANT NEOPLASM OF RECTUM (2) PNA (pneumonia) Code(s): J18.9 - PNEUMONIA, UNSPECIFIED ORGANISM Qualifiers: Pneumonia type: due to unspecified organism Laterality: left Lung location: upper lobe of lung Qualified Code(s): J18.1 - Lobar pneumonia, unspecified organism (3) SOB (shortness of breath) Code(s): R06.02 - SHORTNESS OF BREATH (4) Anemia Code(s): D64.9 - ANEMIA, UNSPECIFIED Qualifiers: (5) Hypoalbuminemia Code(s): E88.09 - OTH DISORDERS OF PLASMA-PROTEIN METABOLISM, NEC (6) Hypothyroid Code(s): E03.9 - HYPOTHYROIDISM, UNSPECIFIED Qualifiers: (7) Rectovaginal fistula Code(s): N82.3 - FISTULA OF VAGINA TO LARGE INTESTINE (8) Insomnia Code(s): G47.00 - INSOMNIA, UNSPECIFIED Assessment/Plan ABX per ID O2 as tolerate NIPPV support as needed Aspiration precautions Daily Medrol BD TX PRN VTE prophylaxis Melatonin Dr Otoole Problem List - Problems (1) Metastasis from rectal cancer Code(s): C79.9 - SECONDARY MALIGNANT NEOPLASM OF UNSPECIFIED SITE; C20 - MALIGNANT NEOPLASM OF RECTUM (2) PNA (pneumonia) Code(s): J18.9 - PNEUMONIA, UNSPECIFIED ORGANISM Qualifiers: Pneumonia type: due to unspecified organism Laterality: left Lung location: upper lobe of lung Qualified Code(s): J18.1 - Lobar pneumonia, unspecified organism (3) SOB (shortness of breath) Code(s): R06.02 - SHORTNESS OF BREATH (4) Anemia Code(s): D64.9 - ANEMIA, UNSPECIFIED Qualifiers: (5) Hypoalbuminemia Code(s): E88.09 - OTH DISORDERS OF PLASMA-PROTEIN METABOLISM, NEC (6) Hypothyroid Code(s): E03.9 - HYPOTHYROIDISM, UNSPECIFIED Qualifiers: (7) Rectovaginal fistula Code(s): N82.3 - FISTULA OF VAGINA TO LARGE INTESTINE (8) Insomnia Code(s): G47.00 - INSOMNIA, UNSPECIFIED
--- NOTE | 2018-03-22 14:33 | PN ---
Progress Note, Physician Chief Complaint: AWAKE ALERT IN MODERATE DISTRESS/WEAK/TIRED POOR APPETITE - Current Medication List Current Medications: Active Medications Enoxaparin Sodium (Lovenox -) 40 mg SQ DAILY [facility] Last Admin: 03/22/18 09:36 Dose: 40 mg Sodium Chloride (Normal Saline -) 1,000 mls @ 42 mls/hr IV ASDIR [facility] Last Admin: 03/22/18 09:37 Dose: Not Given Piperacillin Sod/Tazobactam (Sod 4.5 gm/ Dextrose) 100 mls @ 200 mls/hr IVPB Q8H-IV TED; Protocol Last Admin: 03/22/18 09:37 Dose: 200 mls/hr Azithromycin (Zithromax 500mg Ivpb (Pre-Docked)) 500 mg in 250 mls @ 250 mls/ hr IVPB DAILY [facility] Last Admin: 03/22/18 11:00 Dose: 250 mls/hr Levothyroxine Sodium (Synthroid -) 125 mcg PO DAILY@0700 [facility] Last Admin: 03/22/18 06:19 Dose: 125 mcg Melatonin (Melatonin) 5 mg PO HS [facility] Last Admin: 03/21/18 21:39 Dose: 5 mg Methylprednisolone Sodium Succinate (Solu-Medrol -) 40 mg IVPUSH DAILY [facility] Stop: 03/24/18 10:01 Last Admin: 03/22/18 09:36 Dose: 40 mg Oxycodone HCl (Roxicodone -) 5 mg PO Q6H PRN PRN Reason: PAIN LEVEL 6-10 Last Admin: 03/22/18 06:19 Dose: 5 mg - Objective Vital Signs: Vital Signs Temperature 97.7 F 03/22/18 13:42 Pulse Rate 84 03/22/18 13:42 Respiratory Rate 20 03/22/18 13:42 Blood Pressure 129/68 03/22/18 13:42 O2 Sat by Pulse Oximetry (%) 97 03/22/18 09:00 Constitutional: Yes: Moderate Distress Eyes: Yes: WNL HENT: Yes: WNL, Tonsillar Exudate Cardiovascular: Yes: Regular Rate and Rhythm Respiratory: Yes: Diminished, On Nasal O2 Gastrointestinal: Yes: Soft Genitourinary: Yes: Other Musculoskeletal: Yes: Muscle Weakness Extremities: Yes: Other Edema: Yes Integumentary: Yes: Rash, Other Wound/Incision: Yes: Dressing Dry and Intact Neurological: Yes: Pre-Existing Deficit, Weakness Psychiatric: Yes: WNL Labs: CBC, BMP 03/20/18 04:10 03/20/18 04:10 Problem List - Problems (1) Abnormal LFTs Code(s): R94.5 - ABNORMAL RESULTS OF LIVER FUNCTION STUDIES (2) Insomnia Code(s): G47.00 - INSOMNIA, UNSPECIFIED (3) Metastasis from rectal cancer Code(s): C79.9 - SECONDARY MALIGNANT NEOPLASM OF UNSPECIFIED SITE; C20 - MALIGNANT NEOPLASM OF RECTUM (4) PNA (pneumonia) Code(s): J18.9 - PNEUMONIA, UNSPECIFIED ORGANISM Qualifiers: Pneumonia type: due to unspecified organism Laterality: left Lung location: upper lobe of lung Qualified Code(s): J18.1 - Lobar pneumonia, unspecified organism (5) SOB (shortness of breath) Code(s): R06.02 - SHORTNESS OF BREATH (6) Anemia Code(s): D64.9 - ANEMIA, UNSPECIFIED Qualifiers: (7) Hypothyroid Code(s): E03.9 - HYPOTHYROIDISM, UNSPECIFIED Qualifiers: Assessment/Plan IV ABX CONT NEBS PULM F/U APPRECIATED CHECKING LABS PALLIATIVE CARE RECOMMENDED
[2018-03-22 16:23] VITALS: BMI 33.4
--- NOTE | 2018-03-22 19:31 | PN ---
Progress Note (short form) - Note Progress Note: Patient seen and examined States feeling somewhat improved On antibiotics for infection Has pulmonary mets, ? lymphangitic disease, liver mets, extrahepatic raymundo mets , bone mets, and enterovaginal fistula. Remarkably she has been at home with brother. She is not a candidate for future chemotherapy. She has been through multiple lines of treatment in past. Last Vital Signs Temp Pulse Resp BP Pulse Ox 97.9 F 82 22 H 118/61 97 03/22/18 18:06 03/22/18 18:06 03/22/18 18:06 03/22/18 18:06 03/22/18 09:00 Icteric Diminished breath sounds Cor-RSR Abd- functional colostomy LE edema CBC, BMP 03/20/18 04:10 03/20/18 04:10 Current Medications Generic Name Dose Route Start Last Admin Trade Name Freq PRN Reason Stop Dose Admin Enoxaparin Sodium 40 mg 03/20/18 10:00 03/22/18 09:36 Lovenox - SQ 40 mg DAILY TED Administration Sodium Chloride 1,000 mls @ 42 mls/hr 03/20/18 08:34 03/22/18 09:37 Normal Saline - IV Not Given ASDIR TED Piperacillin Sod/Tazobactam 100 mls @ 200 mls/hr 03/21/18 18:00 03/22/18 17: 17 Sod 4.5 gm/ Dextrose IVPB 200 mls/hr Q8H-IV TED Administration Protocol Azithromycin 500 mg in 250 mls @ 250 mls/hr 03/21/18 10:15 03/22/18 11:00 Zithromax 500mg Ivpb (Pre-Docked) IVPB 250 mls/hr DAILY TED Administration Levothyroxine Sodium 125 mcg 03/20/18 07:00 03/22/18 06:19 Synthroid - PO 125 mcg DAILY@0700 TED Administration Melatonin 5 mg 03/20/18 22:00 03/21/18 21:39 Melatonin PO 5 mg HS TED Administration Methylprednisolone Sodium Succinate 40 mg 03/20/18 17:30 03/22/18 09:36 Solu-Medrol - IVPUSH 03/24/18 10:01 40 mg DAILY TED Administration Oxycodone HCl 5 mg 03/21/18 12:29 03/22/18 06:19 Roxicodone - PO 5 mg Q6H PRN Administration PAIN LEVEL 6-10 Impression: Advanced colon ca - liver, lung, bone, raymundo mets, enterovaginal fistula. SOB/dyspnea ?lymphangitic disease vs. infection vs. component of fluid overload. Suggest : Palliative/supportive care. Will speak with brother.
[2018-03-22] MEDS: MELATONIN 5 MG TABLETS PO SCH (21:10)
[2018-03-23] MEDS ORDERED: PIPERACILLIN/TAZOBACTAM 4.5 GM VIAL IVPB ONE ×3 (01:52→15:48)
[2018-03-23] MEDS ORDERED: DEXTROSE 5%-WATER 100 ML IVPB ONE ×3 (01:52→15:48)
[2018-03-23] MEDS: PIPERACILLIN/TAZOB 4.5 GM 4.5 GM in DEXTROSE 5%-WATER 100 ML IVPB SCH ×3 (01:55→18:44)
[2018-03-23] MEDS: oxyCODONE HCL 5 MG TABLET PO PRN ×2 (06:00→15:52)
[2018-03-23] MEDS: LEVOTHYROXINE NA 125 MCG TABLET (FP) PO SCH (06:01)
[2018-03-23 06:58] LABS: HEMATOCRIT 31.9 % (32.4-45.2); HEMOGLOBIN 9.9 GM/dL (10.7-15.3); MCH 30.3 pg (25.7-33.7); MEAN CELL VOLUME 97.8 fl (80-96); MEAN PLT VOLUME 8.7 fl (7.5-11.1); PLATELET COUNT 108 K/MM3 (134-434); RBC 3.27 M/mm3 (3.60-5.2); RDW 26.3 % (11.6-15.6); WHITE BLOOD COUNT 7.2 K/mm3 (4.0-10.0)
[2018-03-23 07:28] LABS: ANION GAP 10 MMOL/L (8-16); BLOOD UREA NITROGEN 26 mg/dL (7-18); CALCIUM 9.3 mg/dL (8.5-10.1); CHLORIDE 106 mmol/L (98-107); CO2 21 mmol/L (21-32); CREATININE 0.7 mg/dL (0.55-1.3); GLUCOSE,RANDOM 90 mg/dL (74-106); POTASSIUM 4.3 mmol/L (3.5-5.1); SODIUM 137 mmol/L (136-145)
--- NOTE | 2018-03-23 09:44 | PN ---
Progress Note, Physician Chief Complaint: AWAKE TIRED [facility] REVIEWED - Current Medication List Current Medications: Active Medications Enoxaparin Sodium (Lovenox -) 40 mg SQ DAILY [facility] Last Admin: 03/22/18 09:36 Dose: 40 mg Sodium Chloride (Normal Saline -) 1,000 mls @ 42 mls/hr IV ASDIR TED Last Admin: 03/22/18 09:37 Dose: Not Given Piperacillin Sod/Tazobactam (Sod 4.5 gm/ Dextrose) 100 mls @ 200 mls/hr IVPB Q8H-IV TED; Protocol Last Admin: 03/23/18 01:55 Dose: 200 mls/hr Azithromycin (Zithromax 500mg Ivpb (Pre-Docked)) 500 mg in 250 mls @ 250 mls/ hr IVPB DAILY [facility] Last Admin: 03/22/18 11:00 Dose: 250 mls/hr Levothyroxine Sodium (Synthroid -) 125 mcg PO DAILY@0700 [facility] Last Admin: 03/23/18 06:01 Dose: 125 mcg Melatonin (Melatonin) 5 mg PO HS [facility] Last Admin: 03/22/18 21:10 Dose: 5 mg Methylprednisolone Sodium Succinate (Solu-Medrol -) 40 mg IVPUSH DAILY [facility] Stop: 03/24/18 10:01 Last Admin: 03/22/18 09:36 Dose: 40 mg Oxycodone HCl (Roxicodone -) 5 mg PO Q6H PRN PRN Reason: PAIN LEVEL 6-10 Last Admin: 03/23/18 06:00 Dose: 5 mg - Objective Vital Signs: Vital Signs Temperature 98.1 F 03/23/18 07:00 Pulse Rate 85 03/23/18 07:00 Respiratory Rate 20 03/23/18 07:00 Blood Pressure 127/64 03/23/18 07:00 O2 Sat by Pulse Oximetry (%) 96 03/23/18 00:11 Constitutional: Yes: Mild Distress Eyes: Yes: WNL HENT: Yes: WNL Neck: Yes: WNL Cardiovascular: Yes: Regular Rate and Rhythm Respiratory: Yes: WNL Gastrointestinal: Yes: WNL Genitourinary: Yes: Incontinence, Vaginal Bleeding Musculoskeletal: Yes: Muscle Weakness Extremities: Yes: Other Edema: No Peripheral Pulses WNL: Yes Wound/Incision: Yes: Clean/Dry Neurological: Yes: Pre-Existing Deficit ...Motor Strength: LLE, RLE Psychiatric: Yes: WNL Labs: CBC, BMP 03/23/18 06:00 03/23/18 06:00 Problem List - Problems (1) Abnormal LFTs Code(s): R94.5 - ABNORMAL RESULTS OF LIVER FUNCTION STUDIES (2) Insomnia Code(s): G47.00 - INSOMNIA, UNSPECIFIED (3) Metastasis from rectal cancer Code(s): C79.9 - SECONDARY MALIGNANT NEOPLASM OF UNSPECIFIED SITE; C20 - MALIGNANT NEOPLASM OF RECTUM (4) PNA (pneumonia) Code(s): J18.9 - PNEUMONIA, UNSPECIFIED ORGANISM Qualifiers: Pneumonia type: due to unspecified organism Laterality: left Lung location: upper lobe of lung Qualified Code(s): J18.1 - Lobar pneumonia, unspecified organism (5) SOB (shortness of breath) Code(s): R06.02 - SHORTNESS OF BREATH (6) Anemia Code(s): D64.9 - ANEMIA, UNSPECIFIED Qualifiers: (7) Hypothyroid Code(s): E03.9 - HYPOTHYROIDISM, UNSPECIFIED Qualifiers: (8) Rectal adenocarcinoma metastatic to liver Code(s): C20 - MALIGNANT NEOPLASM OF RECTUM; C78.7 - SECONDARY MALIG NEOPLASM OF LIVER AND INTRAHEPATIC BILE DUCT Assessment/Plan IV ABX CONT NEBS PULM F/U APPRECIATED CHECKING LABS PALLIATIVE CARE RECOMMENDED PATIENT IS A FULL CODE AND WANTS TO BE INTUBATED FOR RESP SUPPORT IF NEEDED. WILL NEED DENTAL EQUIPMENT TECHNICIAN F/U
[2018-03-23] MEDS: ENOXAPARIN NA (PORCINE) 40 MG/0.4 ML DISP.SYRIN SQ SCH (09:52)
[2018-03-23] MEDS: methylPREDNISolone NA SUCC 40 MG/1 ML VIAL IVPUSH SCH (09:53)
[2018-03-23] MEDS: AZITHROMYCIN IVPB 500 MG/250 ML BAG IVPB SCH (11:22)
[2018-03-23] MEDS: SODIUM CHLORIDE 1,000 ML IV SCH (11:26)
--- NOTE | 2018-03-23 12:23 | PN ---
Progress Note (short form) - Note Progress Note: awakens easily day #4 antibiotics zosyn/zithromax Vital Signs Period Temp Pulse Resp BP Sys/Bird Pulse Ox Last 24 Hr 97.7 F-98.1 F 82-85 18-22 118-129/61-68 96-96 cor-rrr lungs decreased bs at bases abd soft,nt +ostomy ext +edema CBC, BMP 03/23/18 06:00 03/23/18 06:00 Microbiology 03/20/18 06:48 Blood - Peripheral Venous Blood Culture - Preliminary NO GROWTH OBTAINED AFTER 72 HOURS, INCUBATION TO CONTINUE FOR 2 DAYS. 03/20/18 06:48 Blood - Peripheral Venous Blood Culture - Preliminary NO GROWTH OBTAINED AFTER 72 HOURS, INCUBATION TO CONTINUE FOR 2 DAYS. Current Medications Enoxaparin Sodium (Lovenox -) 40 mg SQ DAILY [facility] Last Admin: 03/23/18 09:52 Dose: 40 mg Sodium Chloride (Normal Saline -) 1,000 mls @ 42 mls/hr IV ASDIR TED Last Admin: 03/23/18 11:26 Dose: 42 mls/hr Piperacillin Sod/Tazobactam (Sod 4.5 gm/ Dextrose) 100 mls @ 200 mls/hr IVPB Q8H-IV TED; Protocol Last Admin: 03/23/18 09:47 Dose: 200 mls/hr Azithromycin (Zithromax 500mg Ivpb (Pre-Docked)) 500 mg in 250 mls @ 250 mls/ hr IVPB DAILY [facility] Last Admin: 03/23/18 11:22 Dose: 250 mls/hr Levothyroxine Sodium (Synthroid -) 125 mcg PO DAILY@0700 [facility] Last Admin: 03/23/18 06:01 Dose: 125 mcg Melatonin (Melatonin) 5 mg PO HS [facility] Last Admin: 03/22/18 21:10 Dose: 5 mg Methylprednisolone Sodium Succinate (Solu-Medrol -) 40 mg IVPUSH DAILY [facility] Stop: 03/24/18 10:01 Last Admin: 03/23/18 09:53 Dose: 40 mg Oxycodone HCl (Roxicodone -) 5 mg PO Q6H PRN PRN Reason: PAIN LEVEL 6-10 Last Admin: 03/23/18 06:00 Dose: 5 mg a/p metastatic rectal cancer pulmonary mets vs pneumonia suspect this is malignancy given normal wbc and lack of fever day #4 antibiotics would complete 5 days zosyn/zithromax- then d/c antibioitcs and observe please call back if needed palliative care eval in progress Problem List - Problems (1) SOB (shortness of breath) Code(s): R06.02 - SHORTNESS OF BREATH (2) PNA (pneumonia) Code(s): J18.9 - PNEUMONIA, UNSPECIFIED ORGANISM Qualifiers: Pneumonia type: due to unspecified organism Laterality: left Lung location: upper lobe of lung Qualified Code(s): J18.1 - Lobar pneumonia, unspecified organism (3) Metastasis from rectal cancer Code(s): C79.9 - SECONDARY MALIGNANT NEOPLASM OF UNSPECIFIED SITE; C20 - MALIGNANT NEOPLASM OF RECTUM (4) Abnormal LFTs Code(s): R94.5 - ABNORMAL RESULTS OF LIVER FUNCTION STUDIES
--- NOTE | 2018-03-23 13:16 | PN ---
Progress Note, Physician History of Present Illness: pulmonary drowsy,-resp distress,on nasal cannula - Current Medication List Current Medications: Active Medications Enoxaparin Sodium (Lovenox -) 40 mg SQ DAILY [facility] Last Admin: 03/23/18 09:52 Dose: 40 mg Sodium Chloride (Normal Saline -) 1,000 mls @ 42 mls/hr IV ASDIR [facility] Last Admin: 03/23/18 11:26 Dose: 42 mls/hr Piperacillin Sod/Tazobactam (Sod 4.5 gm/ Dextrose) 100 mls @ 200 mls/hr IVPB Q8H-IV TED; Protocol Last Admin: 03/23/18 09:47 Dose: 200 mls/hr Azithromycin (Zithromax 500mg Ivpb (Pre-Docked)) 500 mg in 250 mls @ 250 mls/ hr IVPB DAILY [facility] Last Admin: 03/23/18 11:22 Dose: 250 mls/hr Levothyroxine Sodium (Synthroid -) 125 mcg PO DAILY@0700 [facility] Last Admin: 03/23/18 06:01 Dose: 125 mcg Melatonin (Melatonin) 5 mg PO HS [facility] Last Admin: 03/22/18 21:10 Dose: 5 mg Methylprednisolone Sodium Succinate (Solu-Medrol -) 40 mg IVPUSH DAILY [facility] Stop: 03/24/18 10:01 Last Admin: 03/23/18 09:53 Dose: 40 mg Oxycodone HCl (Roxicodone -) 5 mg PO Q6H PRN PRN Reason: PAIN LEVEL 6-10 Last Admin: 03/23/18 06:00 Dose: 5 mg - Objective Vital Signs: Vital Signs Temperature 98.1 F 03/23/18 07:00 Pulse Rate 80 03/23/18 10:00 Respiratory Rate 18 03/23/18 10:00 Blood Pressure 134/66 03/23/18 10:00 O2 Sat by Pulse Oximetry (%) 96 03/23/18 09:00 Constitutional: Yes: Well Nourished, Other (dwowsy) Eyes: Yes: WNL HENT: Yes: WNL Neck: Yes: WNL Cardiovascular: Yes: Regular Rate and Rhythm, S1, S2 Respiratory: Yes: Diminished Gastrointestinal: Yes: Normal Bowel Sounds, Soft Extremities: Yes: WNL Edema: Yes Labs: CBC, BMP 03/23/18 06:00 03/23/18 06:00 Assessment/Plan Problem List - Problems (1) Metastasis from rectal cancer Code(s): C79.9 - SECONDARY MALIGNANT NEOPLASM OF UNSPECIFIED SITE; C20 - MALIGNANT NEOPLASM OF RECTUM (2) PNA (pneumonia) Code(s): J18.9 - PNEUMONIA, UNSPECIFIED ORGANISM Qualifiers: Pneumonia type: due to unspecified organism Laterality: left Lung location: upper lobe of lung Qualified Code(s): J18.1 - Lobar pneumonia, unspecified organism (3) SOB (shortness of breath) Code(s): R06.02 - SHORTNESS OF BREATH (4) Anemia Code(s): D64.9 - ANEMIA, UNSPECIFIED Qualifiers: (5) Hypoalbuminemia Code(s): E88.09 - OTH DISORDERS OF PLASMA-PROTEIN METABOLISM, NEC (6) Hypothyroid Code(s): E03.9 - HYPOTHYROIDISM, UNSPECIFIED Qualifiers: (7) Rectovaginal fistula Code(s): N82.3 - FISTULA OF VAGINA TO LARGE INTESTINE (8) Insomnia Code(s): G47.00 - INSOMNIA, UNSPECIFIED Assessment/Plan ABX per ID nasal o2 NIPPV as needed Aspiration precautions Medrol BD TX PRN VTE prophylaxis Melatonin dose to [address] PIERCE
--- NOTE | 2018-03-23 14:16 | RAPID ---
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
--- NOTE | 2018-03-23 15:03 | PN ---
Progress Note (short form) - Note Progress Note: Patient seen and examined Somewhat lethargic Began vaginal bleeding once again from entero-vaginal fistula Last Vital Signs Temp Pulse Resp BP Pulse Ox 97.6 F 88 20 122/60 96 03/23/18 14:15 03/23/18 14:15 03/23/18 14:15 03/23/18 14:15 03/23/18 09:00 HEENT: EVETTE, EOM Intact Cor: RSR, No murmurs, No gallops Lungs: rhonchi , upper respiratory sounds Abd: Soft, Normal bowel soundsfunctioning colostomy Ext:LE edema Skin: No rashes, Integument intact CBC, BMP 03/23/18 06:00 03/23/18 06:00 Current Medications Generic Name Dose Route Start Last Admin Trade Name Freq PRN Reason Stop Dose Admin Enoxaparin Sodium 40 mg 03/20/18 10:00 03/23/18 09:52 Lovenox - SQ 40 mg DAILY TED Administration Sodium Chloride 1,000 mls @ 42 mls/hr 03/20/18 08:34 03/23/18 11:26 Normal Saline - IV 42 mls/hr ASDIR TED Administration Piperacillin Sod/Tazobactam 100 mls @ 200 mls/hr 03/21/18 18:00 03/23/18 09: 47 Sod 4.5 gm/ Dextrose IVPB 200 mls/hr Q8H-IV TED Administration Protocol Azithromycin 500 mg in 250 mls @ 250 mls/hr 03/21/18 10:15 03/23/18 11:22 Zithromax 500mg Ivpb (Pre-Docked) IVPB 250 mls/hr DAILY TED Administration Levothyroxine Sodium 125 mcg 03/20/18 07:00 03/23/18 06:01 Synthroid - PO 125 mcg DAILY@0700 TED Administration Melatonin 5 mg 03/20/18 22:00 03/22/18 21:10 Melatonin PO 5 mg HS TED Administration Methylprednisolone Sodium Succinate 40 mg 03/20/18 17:30 03/23/18 09:53 Solu-Medrol - IVPUSH 03/24/18 10:01 40 mg DAILY TED Administration Oxycodone HCl 5 mg 03/21/18 12:29 03/23/18 06:00 Roxicodone - PO 5 mg Q6H PRN Administration PAIN LEVEL 6-10 Impression : Metastatic rectal ca s/p multiple lines of therapy - end stage. liver ,lung, bone, raymundo mets Entero-vaginal fistula Vaginal bleeding Plan - discontinue lovenox unfortunately we have previously explored treatment for the vaginal bleeding including surgical evaluation under anesthesa,as well as eligibility clerk, and RT assessment . No further treatment available although if persistent bleeding, we may have to re-visit consultations. Spoke with brother- updated - suggested best place for patient is [place]- which patient has previously rejected . Do not see good NH or home option- as patient will quickly require hospital readmission. Patient is a DNR but stated to me that she would allow intubation. I have asked brother to speak with patients re social service disposition.
[2018-03-23 18:30] LABS: HEMATOCRIT 30.2 % (32.4-45.2); HEMOGLOBIN 9.9 GM/dL (10.7-15.3); MCH 32.3 pg (25.7-33.7); MCHC 32.8 g/dl (32.0-36.0); MEAN CELL VOLUME 98.4 fl (80-96); MEAN PLT VOLUME 8.9 fl (7.5-11.1); PLATELET COUNT 153 K/MM3 (134-434); RBC 3.07 M/mm3 (3.60-5.2); RDW 25.7 % (11.6-15.6); WHITE BLOOD COUNT 7.3 K/mm3 (4.0-10.0)
[2018-03-23 18:47] LABS: INR 1.39 (0.83-1.09); PROTHROMBIN TIME (PATIENT) 16.5 SEC (9.7-13.0)
[2018-03-23 19:33] LABS: ALBUMIN 1.7 g/dl (3.4-5.0); ALK PHOS 798 U/L (45-117); ANION GAP 10 MMOL/L (8-16); BILIRUBIN,TOTAL 7.1 mg/dL (0.2-1); BLOOD UREA NITROGEN 26 mg/dL (7-18); CALCIUM 9.3 mg/dL (8.5-10.1); CHLORIDE 105 mmol/L (98-107); CO2 22 mmol/L (21-32); GLUCOSE,RANDOM 114 mg/dL (74-106); SGOT/AST 169 U/L (15-37); SGPT/ALT 56 U/L (13-61); SODIUM 137 mmol/L (136-145); TOT PROT 5.8 g/dl (6.4-8.2)
[2018-03-23] MEDS: MELATONIN 5 MG TABLETS PO SCH (21:12)
[2018-03-24] MEDS ORDERED: DEXTROSE 5%-WATER 100 ML IVPB ONE ×3 (01:30→17:08)
[2018-03-24] MEDS ORDERED: PIPERACILLIN/TAZOBACTAM 4.5 GM VIAL IVPB ONE ×3 (01:30→17:08)
[2018-03-24] MEDS: PIPERACILLIN/TAZOB 4.5 GM 4.5 GM in DEXTROSE 5%-WATER 100 ML IVPB SCH ×3 (01:35→17:55)
[2018-03-24] MEDS: LEVOTHYROXINE NA 125 MCG TABLET (FP) PO SCH (05:59)
[2018-03-24 07:49] LABS: BASO % 0.5 % (0-2.0); HEMATOCRIT 29.2 % (32.4-45.2); HEMOGLOBIN 9.1 GM/dL (10.7-15.3); LYMPH % 2.8 % (8-40); MCH 30.5 pg (25.7-33.7); MEAN CELL VOLUME 98.4 fl (80-96); MEAN PLT VOLUME 9.5 fl (7.5-11.1); MONO % 8.3 % (3.8-10.2); NEUT % 88.4 % (42.8-82.8); PLATELET COUNT 156 K/MM3 (134-434); RBC 2.97 M/mm3 (3.60-5.2); RDW 25.9 % (11.6-15.6); WHITE BLOOD COUNT 11.1 K/mm3 (4.0-10.0)
[2018-03-24 08:02] LABS: INR 1.35 (0.83-1.09)
[2018-03-24 08:04] LABS: ACTIVATED PTT 31.1 SECONDS (25.2-36.5)
[2018-03-24 09:04] LABS: ALBUMIN 1.7 g/dl (3.4-5.0); ALK PHOS 772 U/L (45-117); ANION GAP 11 MMOL/L (8-16); BILIRUBIN,TOTAL 7.2 mg/dL (0.2-1); BLOOD UREA NITROGEN 27 mg/dL (7-18); CALCIUM 9.3 mg/dL (8.5-10.1); CHLORIDE 106 mmol/L (98-107); CO2 19 mmol/L (21-32); CREATININE 0.8 mg/dL (0.55-1.3); GLUCOSE,RANDOM 92 mg/dL (74-106); POTASSIUM 4.5 mmol/L (3.5-5.1); SGOT/AST 174 U/L (15-37); SGPT/ALT 59 U/L (13-61); SODIUM 136 mmol/L (136-145); TOT PROT 5.5 g/dl (6.4-8.2)
[2018-03-24] MEDS: SODIUM CHLORIDE 1,000 ML IV SCH ×2 (09:55→17:55)
[2018-03-24] MEDS: methylPREDNISolone NA SUCC 40 MG/1 ML VIAL IVPUSH SCH (10:04)
[2018-03-24 11:38] LABS: ANISOCYTOSIS 1+; MACROCYTOSIS 1+; OVALOCYTE 1+
[2018-03-24] MEDS: AZITHROMYCIN IVPB 500 MG/250 ML BAG IVPB SCH (11:48)
[2018-03-24 12:08] LABS: PLATELET ESTIMATE ADEQUATE
--- NOTE | 2018-03-24 12:39 | PN ---
Progress Note, Physician Chief Complaint: AWAKE ALERT VAGINAL BLEEDING YESTERDAY NOTED VERY TIRED TODAY AND DOES NOT WANT PT - Current Medication List Current Medications: Active Medications Sodium Chloride (Normal Saline -) 1,000 mls @ 42 mls/hr IV ASDIR [facility] Last Admin: 03/24/18 09:55 Dose: Not Given Piperacillin Sod/Tazobactam (Sod 4.5 gm/ Dextrose) 100 mls @ 200 mls/hr IVPB Q8H-IV TED; Protocol Last Admin: 03/24/18 10:04 Dose: 200 mls/hr Azithromycin (Zithromax 500mg Ivpb (Pre-Docked)) 500 mg in 250 mls @ 250 mls/ hr IVPB DAILY [facility] Last Admin: 03/24/18 11:48 Dose: 250 mls/hr Levothyroxine Sodium (Synthroid -) 125 mcg PO DAILY@0700 [facility] Last Admin: 03/24/18 05:59 Dose: 125 mcg Melatonin (Melatonin) 5 mg PO HS [facility] Last Admin: 03/23/18 21:12 Dose: 5 mg Oxycodone HCl (Roxicodone -) 5 mg PO Q6H PRN PRN Reason: PAIN LEVEL 6-10 Last Admin: 03/23/18 15:52 Dose: 5 mg - Objective Vital Signs: Vital Signs Temperature 97.9 F 03/24/18 09:53 Pulse Rate 104 H 03/24/18 09:53 Respiratory Rate 18 03/24/18 09:53 Blood Pressure 146/67 03/24/18 09:53 O2 Sat by Pulse Oximetry (%) 97 03/23/18 21:00 Constitutional: Yes: Calm Cardiovascular: Yes: Regular Rate and Rhythm Respiratory: Yes: Cough, Diminished Gastrointestinal: Yes: WNL Genitourinary: Yes: Incontinence Musculoskeletal: Yes: Muscle Weakness Extremities: Yes: Other Edema: Yes Integumentary: Yes: Other Wound/Incision: Yes: Dressing Dry and Intact ...Motor Strength: LLE (WEAKNESS), RLE Psychiatric: Yes: WNL Labs: CBC, BMP 03/24/18 06:15 03/24/18 06:15 INR, PTT INR 1.35 (0.83-1.09) H 03/24/18 06:15 Problem List - Problems (1) Abnormal LFTs Code(s): R94.5 - ABNORMAL RESULTS OF LIVER FUNCTION STUDIES (2) Insomnia Code(s): G47.00 - INSOMNIA, UNSPECIFIED (3) Metastasis from rectal cancer Code(s): C79.9 - SECONDARY MALIGNANT NEOPLASM OF UNSPECIFIED SITE; C20 - MALIGNANT NEOPLASM OF RECTUM (4) PNA (pneumonia) Code(s): J18.9 - PNEUMONIA, UNSPECIFIED ORGANISM Qualifiers: Pneumonia type: due to unspecified organism Laterality: left Lung location: upper lobe of lung Qualified Code(s): J18.1 - Lobar pneumonia, unspecified organism (5) SOB (shortness of breath) Code(s): R06.02 - SHORTNESS OF BREATH (6) Anemia Code(s): D64.9 - ANEMIA, UNSPECIFIED Qualifiers: (7) Hypothyroid Code(s): E03.9 - HYPOTHYROIDISM, UNSPECIFIED Qualifiers: (8) Rectal adenocarcinoma metastatic to liver Code(s): C20 - MALIGNANT NEOPLASM OF RECTUM; C78.7 - SECONDARY MALIG NEOPLASM OF LIVER AND INTRAHEPATIC BILE DUCT Assessment/Plan IV ABX CONT NEBS PULM F/U APPRECIATED CHECKING LABS CBC H/H STABLE PALLIATIVE CARE RECOMMENDED PATIENT IS A FULL CODE AND WANTS TO BE INTUBATED FOR RESP SUPPORT IF NEEDED. WILL NEED CHARGE MACHINE OPERATOR F/U
--- NOTE | 2018-03-24 13:25 | PN ---
Progress Note (short form) - Note Progress Note: PROGRESS NOTE FOR HEMATOLOGY/ONCOLOGY Patient seen and examined by me at bedside No vaginal bleeding. States she is comfortable Laying in bed and responding. Brother at bedside and wanted more information on [place]. Patient's son tried to explain to patient why [place] would be the best place for her but patient continues to deny. Denies any chest pain, nausea, vomiting, abdominal pain Vital Signs Temperature 97.9 F 03/24/18 09:53 Pulse Rate 104 H 03/24/18 09:53 Respiratory Rate 18 03/24/18 09:53 Blood Pressure 146/67 03/24/18 09:53 O2 Sat by Pulse Oximetry (%) 97 03/23/18 21:00 PHYSICAL EXAMINATION GENERAL: tired and ill- appearing, laying in bed , no acute distress EYES: PERRL, Conjunctiva clear ENT: No oral thrush NECK: Supple, (-) JVD CARDIO: RRR, Normal S1 and S2 LUNGS: Rhonchi throughout lung bases. On NC GI: (+)Colostomy bag with air. Nontender, nondistended, normoactive bowel sounds EXTREMITIES: 2+ Pitting edema bilaterally Laboratory Results 03/24/18 06:15 03/24/18 06:15 ASSESSMENT AND PLAN: Patient is a 68 year old female with Metastatic rectal cancer who presented with shortness of breath and was found to have a Pneumonia with CT revealing new lung mets. We were consulted for further monitoring and management. Problem List Dyspnea Metastatic Rectal Adenocarcinoma s/p multiple lines of chemo Pneumonia Hyperbilirubinemia Hypothyroidism Plan: -Patient has progression of disease with rising bili likely secondary to the liver. CT findings revealed progression of disease to the lungs and now pneumonia after multiple chemo line attemps (last in 11/2017) -Had vaginal bleeding yesterday with rapid response called. Patient did not require PRBC's and today's hgb is stable >9 -Continue to monitor CBC and Coags -Continue IV Abx, as per ID -Bipap and steroids, as per pulm -Will need to continue supportive care
[2018-03-24] MEDS: oxyCODONE HCL 5 MG TABLET PO PRN (14:37)
--- NOTE | 2018-03-24 15:15 | PN ---
Progress Note (short form) - Note Progress Note: PULMONARY States breathing about the same. +nonproductive cough. No fevers. Vital Signs Period Temp Pulse Resp BP Sys/Bird Pulse Ox Last 24 Hr 97.5 F-98.1 F 84-104 03-29 116-146/56-71 97 Gen: jaundiced Heart: RRR Lung: scattered rhonchi Abd: softly distended, +ostomy Ext: + edema CBC, BMP 03/24/18 06:15 03/24/18 06:15 Hepatic Panel Total Bilirubin 7.2 mg/dL (0.2-1) H 03/24/18 06:15 AST 174 U/L (15-37) H 03/24/18 06:15 ALT 59 U/L (13-61) 03/24/18 06:15 Alkaline Phosphatase 772 U/L (45-117) H 03/24/18 06:15 Albumin 1.7 g/dl (3.4-5.0) L 03/24/18 06:15 Active Medications Sodium Chloride (Normal Saline -) 1,000 mls @ 42 mls/hr IV ASDIR [facility] Last Admin: 03/24/18 09:55 Dose: Not Given Piperacillin Sod/Tazobactam (Sod 4.5 gm/ Dextrose) 100 mls @ 200 mls/hr IVPB Q8H-IV TED; Protocol Last Admin: 03/24/18 10:04 Dose: 200 mls/hr Azithromycin (Zithromax 500mg Ivpb (Pre-Docked)) 500 mg in 250 mls @ 250 mls/ hr IVPB DAILY [facility] Last Admin: 03/24/18 11:48 Dose: 250 mls/hr Levothyroxine Sodium (Synthroid -) 125 mcg PO DAILY@0700 [facility] Last Admin: 03/24/18 05:59 Dose: 125 mcg Melatonin (Melatonin) 5 mg PO HS [facility] Last Admin: 03/23/18 21:12 Dose: 5 mg Oxycodone HCl (Roxicodone -) 5 mg PO Q6H PRN PRN Reason: PAIN LEVEL 6-10 Last Admin: 03/24/18 14:37 Dose: 5 mg A/P End Stage Metastatic Rectal Ca Pneumonia Rectovaginal Fistula Hypothyroidism - continue antibiotics - aspiration precautions - BiPAP as needed to assist in work of breathing - continue discussions regarding goals of care
[2018-03-24] MEDS ORDERED: PT OWN MED DRAWER 7, Y5N ONE (17:40)
[2018-03-24] MEDS: ALPRAZolam 0.25 MG TABLET PO PRN (17:55)
[2018-03-24] MEDS: MELATONIN 5 MG TABLETS PO SCH (22:07)
[2018-03-25] MEDS ORDERED: PIPERACILLIN/TAZOBACTAM 4.5 GM VIAL IVPB ONE ×3 (00:48→17:36)
[2018-03-25] MEDS ORDERED: DEXTROSE 5%-WATER 100 ML IVPB ONE ×3 (00:49→17:36)
[2018-03-25] MEDS: PIPERACILLIN/TAZOB 4.5 GM 4.5 GM in DEXTROSE 5%-WATER 100 ML IVPB SCH ×3 (02:14→17:50)
[2018-03-25] MEDS: LEVOTHYROXINE NA 125 MCG TABLET (FP) PO SCH (06:35)
[2018-03-25 06:57] LABS: MCH 30.7 pg (25.7-33.7); MEAN CELL VOLUME 99.1 fl (80-96); MEAN PLT VOLUME 8.8 fl (7.5-11.1); PLATELET COUNT 131 K/MM3 (134-434); RBC 2.92 M/mm3 (3.60-5.2); RDW 25.9 % (11.6-15.6); WHITE BLOOD COUNT 12.6 K/mm3 (4.0-10.0)
--- NOTE | 2018-03-25 09:31 | PN ---
Progress Note (short form) - Note Progress Note: awakens easily day #6 antibiotics zosyn/zithromax had episode vaginal bleeding 03/23, lovenox d/amna she is tired, does not want to eat Vital Signs Period Temp Pulse Resp BP Sys/Bird Pulse Ox Last 24 Hr 97.4 F-99.0 F 96-104 18-22 124-146/62-71 96-96 cor-rrr llungs bilateral rhonchi abd soft, +ostomy ext +edema CBC, BMP 03/25/18 06:00 03/24/18 06:15 Microbiology 03/20/18 06:48 Blood - Peripheral Venous Blood Culture - Final NO GROWTH AFTER 5 DAYS INCUBATION 03/20/18 06:48 Blood - Peripheral Venous Blood Culture - Final NO GROWTH AFTER 5 DAYS INCUBATION Current Medications Alprazolam (Xanax -) 0.25 mg PO Q8H PRN PRN Reason: ANXIETY Last Admin: 03/24/18 17:55 Dose: 0.25 mg Sodium Chloride (Normal Saline -) 1,000 mls @ 42 mls/hr IV ASDIR TED Last Admin: 03/24/18 17:55 Dose: 42 mls/hr Piperacillin Sod/Tazobactam (Sod 4.5 gm/ Dextrose) 100 mls @ 200 mls/hr IVPB Q8H-IV TED; Protocol Last Admin: 03/25/18 02:14 Dose: 200 mls/hr Azithromycin (Zithromax 500mg Ivpb (Pre-Docked)) 500 mg in 250 mls @ 250 mls/ hr IVPB DAILY TED Last Admin: 03/24/18 11:48 Dose: 250 mls/hr Levothyroxine Sodium (Synthroid -) 125 mcg PO DAILY@0700 TED Last Admin: 03/25/18 06:35 Dose: 125 mcg Melatonin (Melatonin) 5 mg PO HS TED Last Admin: 03/24/18 22:07 Dose: 5 mg Oxycodone HCl (Roxicodone -) 5 mg PO Q6H PRN PRN Reason: PAIN LEVEL 6-10 Last Admin: 03/24/18 14:37 Dose: 5 mg a/p metastatic rectal cancer pulmonary mets vs pneumonia suspect this is malignancy given normal wbc and lack of fever day #6 antibiotics would complete 7 days zosyn, d/c zithromax today- d/c antiibotics in palliative care eval in progress Problem List - Problems (1) SOB (shortness of breath) Code(s): R06.02 - SHORTNESS OF BREATH (2) PNA (pneumonia) Code(s): J18.9 - PNEUMONIA, UNSPECIFIED ORGANISM Qualifiers: Pneumonia type: due to unspecified organism Laterality: left Lung location: upper lobe of lung Qualified Code(s): J18.1 - Lobar pneumonia, unspecified organism (3) Metastasis from rectal cancer Code(s): C79.9 - SECONDARY MALIGNANT NEOPLASM OF UNSPECIFIED SITE; C20 - MALIGNANT NEOPLASM OF RECTUM (4) Abnormal LFTs Code(s): R94.5 - ABNORMAL RESULTS OF LIVER FUNCTION STUDIES
[2018-03-25] MEDS: SODIUM CHLORIDE 1,000 ML IV SCH (10:47)
[2018-03-25] MEDS: oxyCODONE HCL 5 MG TABLET PO PRN (10:51)
[2018-03-25] MEDS ORDERED: FENTANYL PATCH WASTE TD PRN (13:43)
--- NOTE | 2018-03-25 13:43 | PN ---
Progress Note, Physician Chief Complaint: IN BED ASLEEP COMFORTABLE PATIENT NOW DNR/DNI - Current Medication List Current Medications: Active Medications Alprazolam (Xanax -) 0.25 mg PO Q8H PRN PRN Reason: ANXIETY Last Admin: 03/24/18 17:55 Dose: 0.25 mg Sodium Chloride (Normal Saline -) 1,000 mls @ 42 mls/hr IV ASDIR TED Last Admin: 03/25/18 10:47 Dose: 42 mls/hr Piperacillin Sod/Tazobactam (Sod 4.5 gm/ Dextrose) 100 mls @ 200 mls/hr IVPB Q8H-IV TED; Protocol Last Admin: 03/25/18 10:47 Dose: 200 mls/hr Levothyroxine Sodium (Synthroid -) 125 mcg PO DAILY@0700 [facility] Last Admin: 03/25/18 06:35 Dose: 125 mcg Melatonin (Melatonin) 5 mg PO HS [facility] Last Admin: 03/24/18 22:07 Dose: 5 mg Oxycodone HCl (Roxicodone -) 5 mg PO Q6H PRN PRN Reason: PAIN LEVEL 6-10 Last Admin: 03/25/18 10:51 Dose: 5 mg - Objective Vital Signs: Vital Signs Temperature 97.4 F L 03/25/18 04:00 Pulse Rate 98 H 03/25/18 04:00 Respiratory Rate 22 H 03/25/18 04:00 Blood Pressure 124/62 03/25/18 04:00 O2 Sat by Pulse Oximetry (%) 96 03/25/18 02:28 Constitutional: Yes: Mild Distress Cardiovascular: Yes: WNL Respiratory: Yes: WNL Gastrointestinal: Yes: Soft Genitourinary: Yes: Incontinence Musculoskeletal: Yes: Muscle Weakness Extremities: Yes: Other Edema: LLE: 2+, RLE: 2+ Peripheral Pulses WNL: Yes Integumentary: Yes: WNL Wound/Incision: Yes: Clean/Dry Neurological: Yes: Pre-Existing Deficit ...Motor Strength: LLE, RLE Psychiatric: Yes: Other Labs: CBC, BMP 03/25/18 06:00 03/24/18 06:15 INR, PTT INR 1.35 (0.83-1.09) H 03/24/18 06:15 Problem List - Problems (1) Abnormal LFTs Code(s): R94.5 - ABNORMAL RESULTS OF LIVER FUNCTION STUDIES (2) Insomnia Code(s): G47.00 - INSOMNIA, UNSPECIFIED (3) Metastasis from rectal cancer Code(s): C79.9 - SECONDARY MALIGNANT NEOPLASM OF UNSPECIFIED SITE; C20 - MALIGNANT NEOPLASM OF RECTUM (4) PNA (pneumonia) Code(s): J18.9 - PNEUMONIA, UNSPECIFIED ORGANISM Qualifiers: Pneumonia type: due to unspecified organism Laterality: left Lung location: upper lobe of lung Qualified Code(s): J18.1 - Lobar pneumonia, unspecified organism (5) SOB (shortness of breath) Code(s): R06.02 - SHORTNESS OF BREATH (6) Anemia Code(s): D64.9 - ANEMIA, UNSPECIFIED Qualifiers: (7) Hypothyroid Code(s): E03.9 - HYPOTHYROIDISM, UNSPECIFIED Qualifiers: (8) Rectal adenocarcinoma metastatic to liver Code(s): C20 - MALIGNANT NEOPLASM OF RECTUM; C78.7 - SECONDARY MALIG NEOPLASM OF LIVER AND INTRAHEPATIC BILE DUCT Assessment/Plan IV ABX CONT NEBS PULM F/U APPRECIATED CHECKING LABS CBC H/H STABLE PALLIATIVE CARE RECOMMENDED NOW DNR/DI PATIENT IS A FULL CODE AND WANTS TO BE INTUBATED FOR RESP SUPPORT IF NEEDED. WILL NEED GARMENT SUPERVISOR F/U DURAGESIC PATCH
--- NOTE | 2018-03-25 14:32 | PN ---
Progress Note, Physician History of Present Illness: PULMONARY SLEEPY 0N NASAL CANNULA,-RESP DISTRESS - Current Medication List Current Medications: Active Medications Alprazolam (Xanax -) 0.25 mg PO Q8H PRN PRN Reason: ANXIETY Last Admin: 03/24/18 17:55 Dose: 0.25 mg Fentanyl (Duragesic 12mcg Patch -) 1 patch TD Q72H [facility] Stop: 04/01/18 13:43 Sodium Chloride (Normal Saline -) 1,000 mls @ 42 mls/hr IV ASDIR TED Last Admin: 03/25/18 10:47 Dose: 42 mls/hr Piperacillin Sod/Tazobactam (Sod 4.5 gm/ Dextrose) 100 mls @ 200 mls/hr IVPB Q8H-IV TED; Protocol Last Admin: 03/25/18 10:47 Dose: 200 mls/hr Levothyroxine Sodium (Synthroid -) 125 mcg PO DAILY@0700 [facility] Last Admin: 03/25/18 06:35 Dose: 125 mcg Melatonin (Melatonin) 5 mg PO HS [facility] Last Admin: 03/24/18 22:07 Dose: 5 mg Miscellaneous (Duragesic Patch Waste) 1 each TD PRN PRN PRN Reason: PAIN Oxycodone HCl (Roxicodone -) 5 mg PO Q6H PRN PRN Reason: PAIN LEVEL 6-10 Last Admin: 03/25/18 10:51 Dose: 5 mg - Objective Vital Signs: Vital Signs Temperature 97.4 F L 03/25/18 04:00 Pulse Rate 98 H 03/25/18 04:00 Respiratory Rate 22 H 03/25/18 04:00 Blood Pressure 124/62 03/25/18 04:00 O2 Sat by Pulse Oximetry (%) 96 03/25/18 02:28 Constitutional: Yes: Well Nourished, Other (SLEEPY) Eyes: Yes: WNL HENT: Yes: WNL Neck: Yes: WNL Cardiovascular: Yes: Regular Rate and Rhythm, S1, S2 Respiratory: Yes: Rhonchi (FEW RHONCHI) Gastrointestinal: Yes: Normal Bowel Sounds, Soft Extremities: Yes: WNL Edema: Yes Labs: CBC, BMP 03/25/18 06:00 03/24/18 06:15 INR, PTT INR 1.35 (0.83-1.09) H 03/24/18 06:15 Assessment/Plan Problem List - Problems (1) Metastasis from rectal cancer Code(s): C79.9 - SECONDARY MALIGNANT NEOPLASM OF UNSPECIFIED SITE; C20 - MALIGNANT NEOPLASM OF RECTUM (2) PNA (pneumonia) Code(s): J18.9 - PNEUMONIA, UNSPECIFIED ORGANISM Qualifiers: Pneumonia type: due to unspecified organism Laterality: left Lung location: upper lobe of lung Qualified Code(s): J18.1 - Lobar pneumonia, unspecified organism (3) SOB (shortness of breath) Code(s): R06.02 - SHORTNESS OF BREATH (4) Anemia Code(s): D64.9 - ANEMIA, UNSPECIFIED Qualifiers: (5) Hypoalbuminemia Code(s): E88.09 - OTH DISORDERS OF PLASMA-PROTEIN METABOLISM, NEC (6) Hypothyroid Code(s): E03.9 - HYPOTHYROIDISM, UNSPECIFIED Qualifiers: (7) Rectovaginal fistula Code(s): N82.3 - FISTULA OF VAGINA TO LARGE INTESTINE (8) Insomnia Code(s): G47.00 - INSOMNIA, UNSPECIFIED Assessment/Plan ABX per ID nasal o2 NIPPV as needed Aspiration precautions Medrol BD TX PRN VTE prophylaxis DR PIERCE
[2018-03-25] MEDS: fentaNYL 12mcg/hr PATCH.TD72 TD SCH (14:53)
--- NOTE | 2018-03-25 17:01 | PN ---
Progress Note (short form) - Note Progress Note: Patient seen and examined Lying in bed Chronic non productive coughing No significant vaginal bleeding Last Vital Signs Temp Pulse Resp BP Pulse Ox 97.7 F 103 H 22 H 113/75 96 03/25/18 14:50 03/25/18 14:50 03/25/18 14:50 03/25/18 14:50 03/25/18 09:00 HEENT: EVETTE, EOM Intact Oropharynx: No thrush, No mucositis Cor: RSR, No murmurs, No gallops Lungs rhonchi upper airway sounds Abd: Soft, Normal bowel sounds, No organomegaly,functioning colostomy Ext:No significant edema Skin: No rashes, Integument intact CBC, BMP 03/25/18 06:00 03/24/18 06:15 Current Medications Generic Name Dose Route Start Last Admin Trade Name Freq PRN Reason Stop Dose Admin Alprazolam 0.25 mg 03/24/18 15:54 03/24/18 17:55 Xanax - PO 0.25 mg Q8H PRN Administration ANXIETY Fentanyl 1 patch 03/25/18 13:45 03/25/18 14:53 Duragesic 12mcg Patch - TD 04/01/18 13:43 1 patch Q72H TED Administration Sodium Chloride 1,000 mls @ 42 mls/hr 03/20/18 08:34 03/25/18 10:47 Normal Saline - IV 42 mls/hr ASDIR TED Administration Piperacillin Sod/Tazobactam 100 mls @ 200 mls/hr 03/21/18 18:00 03/25/18 10: 47 Sod 4.5 gm/ Dextrose IVPB 200 mls/hr Q8H-IV TED Administration Protocol Levothyroxine Sodium 125 mcg 03/20/18 07:00 03/25/18 06:35 Synthroid - PO 125 mcg DAILY@0700 TED Administration Melatonin 5 mg 03/20/18 22:00 03/24/18 22:07 Melatonin PO 5 mg HS TED Administration Miscellaneous 1 each 03/25/18 13:43 Duragesic Patch Waste TD PRN PRN PAIN Oxycodone HCl 5 mg 03/21/18 12:29 03/25/18 10:51 Roxicodone - PO 5 mg Q6H PRN Administration PAIN LEVEL 6-10 Impression: Metastatic rectal ca Liver, lung , bone ,raymundo mets ? pneumonia- to complete course of antibiotic therapy Vaginal bleeding Entero-vaginal fistula Hct relatively stable Vaginal bleeding has abated Little p.o. intake Need social service and palliative care intervention.
[2018-03-25] MEDS: ALPRAZolam 0.25 MG TABLET PO PRN (18:27)
[2018-03-25] MEDS: MELATONIN 5 MG TABLETS PO SCH (22:58)
[2018-03-26] MEDS ORDERED: PIPERACILLIN/TAZOBACTAM 4.5 GM VIAL IVPB ONE ×2 (00:58→10:05)
[2018-03-26] MEDS ORDERED: DEXTROSE 5%-WATER 100 ML IVPB ONE ×2 (00:58→10:05)
[2018-03-26] MEDS: PIPERACILLIN/TAZOB 4.5 GM 4.5 GM in DEXTROSE 5%-WATER 100 ML IVPB SCH ×2 (02:25→10:30)
[2018-03-26] MEDS: LEVOTHYROXINE NA 125 MCG TABLET (FP) PO SCH (06:41)
--- NOTE | 2018-03-26 10:00 | PN ---
Progress Note (short form) - Note Progress Note: lethargic day #7 antibiotics zosyn last day not eating some vaginal bleeding Vital Signs Period Temp Pulse Resp BP Sys/Bird Pulse Ox Last 24 Hr 97.2 F-98.4 F 98-107 12- 113-129/64-75 97 cor-rrr lungs bilateral rhonchi abd soft, +ostomy ext +edema CBC, BMP 03/25/18 06:00 03/24/18 06:15 Microbiology 03/20/18 06:48 Blood - Peripheral Venous Blood Culture - Final NO GROWTH AFTER 5 DAYS INCUBATION 03/20/18 06:48 Blood - Peripheral Venous Blood Culture - Final NO GROWTH AFTER 5 DAYS INCUBATION a/p metastatic rectal cancer pulmonary mets vs pneumonia suspect this is malignancy given normal wbc and lack of fever day #7 antibiotics d/c zosyn today palliative care eval in progress please call back if needed Problem List - Problems (1) SOB (shortness of breath) Code(s): R06.02 - SHORTNESS OF BREATH (2) PNA (pneumonia) Code(s): J18.9 - PNEUMONIA, UNSPECIFIED ORGANISM Qualifiers: Pneumonia type: due to unspecified organism Laterality: left Lung location: upper lobe of lung Qualified Code(s): J18.1 - Lobar pneumonia, unspecified organism (3) Metastasis from rectal cancer Code(s): C79.9 - SECONDARY MALIGNANT NEOPLASM OF UNSPECIFIED SITE; C20 - MALIGNANT NEOPLASM OF RECTUM (4) Abnormal LFTs Code(s): R94.5 - ABNORMAL RESULTS OF LIVER FUNCTION STUDIES
--- NOTE | 2018-03-26 10:57 | PN ---
Progress Note, Physician History of Present Illness: pulmonary more alert today,-resp distress - Current Medication List Current Medications: Active Medications Alprazolam (Xanax -) 0.25 mg PO Q8H PRN PRN Reason: ANXIETY Last Admin: 03/25/18 18:27 Dose: 0.25 mg Fentanyl (Duragesic 12mcg Patch -) 1 patch TD Q72H TED Stop: 04/01/18 13:43 Last Admin: 03/25/18 14:53 Dose: 1 patch Sodium Chloride (Normal Saline -) 1,000 mls @ 42 mls/hr IV ASDIR TED Last Admin: 03/25/18 10:47 Dose: 42 mls/hr Piperacillin Sod/Tazobactam (Sod 4.5 gm/ Dextrose) 100 mls @ 200 mls/hr IVPB Q8H-IV TED; Protocol Stop: 03/26/18 12:00 Last Admin: 03/26/18 10:30 Dose: 200 mls/hr Levothyroxine Sodium (Synthroid -) 125 mcg PO DAILY@0700 [facility] Last Admin: 03/26/18 06:41 Dose: 125 mcg Melatonin (Melatonin) 5 mg PO HS TED Last Admin: 03/25/18 22:58 Dose: 5 mg Miscellaneous (Duragesic Patch Waste) 1 each TD PRN PRN PRN Reason: PAIN Oxycodone HCl (Roxicodone -) 5 mg PO Q6H PRN PRN Reason: PAIN LEVEL 6-10 Last Admin: 03/25/18 10:51 Dose: 5 mg - Objective Vital Signs: Vital Signs Temperature 97.8 F 03/26/18 06:00 Pulse Rate 16 L 03/26/18 10:00 Respiratory Rate 100 H 03/26/18 10:00 Blood Pressure 126/66 03/26/18 10:00 O2 Sat by Pulse Oximetry (%) 97 03/25/18 21:00 Constitutional: Yes: Well Nourished, Calm Eyes: Yes: WNL HENT: Yes: WNL Neck: Yes: WNL Cardiovascular: Yes: Regular Rate and Rhythm, S1, S2 Respiratory: Yes: Rhonchi (scattered rhonchi) Gastrointestinal: Yes: Normal Bowel Sounds, Soft Extremities: Yes: WNL Edema: Yes Labs: CBC, BMP 03/25/18 06:00 03/24/18 06:15 INR, PTT INR 1.35 (0.83-1.09) H 03/24/18 06:15 Assessment/Plan Problem List - Problems (1) Metastasis from rectal cancer Code(s): C79.9 - SECONDARY MALIGNANT NEOPLASM OF UNSPECIFIED SITE; C20 - MALIGNANT NEOPLASM OF RECTUM (2) PNA (pneumonia) Code(s): J18.9 - PNEUMONIA, UNSPECIFIED ORGANISM Qualifiers: Pneumonia type: due to unspecified organism Laterality: left Lung location: upper lobe of lung Qualified Code(s): J18.1 - Lobar pneumonia, unspecified organism (3) SOB (shortness of breath) Code(s): R06.02 - SHORTNESS OF BREATH (4) Anemia Code(s): D64.9 - ANEMIA, UNSPECIFIED Qualifiers: (5) Hypoalbuminemia Code(s): E88.09 - OTH DISORDERS OF PLASMA-PROTEIN METABOLISM, NEC (6) Hypothyroid Code(s): E03.9 - HYPOTHYROIDISM, UNSPECIFIED Qualifiers: (7) Rectovaginal fistula Code(s): N82.3 - FISTULA OF VAGINA TO LARGE INTESTINE (8) Insomnia Code(s): G47.00 - INSOMNIA, UNSPECIFIED Assessment/Plan ABX per ID nasal o2 NIPPV as needed Aspiration precautions BD TX PRN VTE prophylaxis chest x-ray DR PIERCE
--- NOTE | 2018-03-26 11:07 | PN ---
Progress Note, Physician Chief Complaint: metastatic rectal cancer Pneumonia vs metastatic ca to lung History of Present Illness: NAD asleep, comfortable in bed DNR/DNI - Current Medication List Current Medications: Active Medications Alprazolam (Xanax -) 0.25 mg PO Q8H PRN PRN Reason: ANXIETY Last Admin: 03/25/18 18:27 Dose: 0.25 mg Fentanyl (Duragesic 12mcg Patch -) 1 patch TD Q72H TED Stop: 04/01/18 13:43 Last Admin: 03/25/18 14:53 Dose: 1 patch Sodium Chloride (Normal Saline -) 1,000 mls @ 42 mls/hr IV ASDIR TED Last Admin: 03/25/18 10:47 Dose: 42 mls/hr Piperacillin Sod/Tazobactam (Sod 4.5 gm/ Dextrose) 100 mls @ 200 mls/hr IVPB Q8H-IV TED; Protocol Stop: 03/26/18 12:00 Last Admin: 03/26/18 10:30 Dose: 200 mls/hr Levothyroxine Sodium (Synthroid -) 125 mcg PO DAILY@0700 [facility] Last Admin: 03/26/18 06:41 Dose: 125 mcg Melatonin (Melatonin) 5 mg PO HS [facility] Last Admin: 03/25/18 22:58 Dose: 5 mg Miscellaneous (Duragesic Patch Waste) 1 each TD PRN PRN PRN Reason: PAIN Oxycodone HCl (Roxicodone -) 5 mg PO Q6H PRN PRN Reason: PAIN LEVEL 6-10 Last Admin: 03/25/18 10:51 Dose: 5 mg - Objective Vital Signs: Vital Signs Temperature 97.8 F 03/26/18 06:00 Pulse Rate 16 L 03/26/18 10:00 Respiratory Rate 100 H 03/26/18 10:00 Blood Pressure 126/66 03/26/18 10:00 O2 Sat by Pulse Oximetry (%) 97 03/26/18 09:00 Constitutional: Yes: Well Nourished, No Distress, Calm Cardiovascular: Yes: Regular Rate and Rhythm Respiratory: Yes: Regular Labs: CBC, BMP 03/25/18 06:00 03/24/18 06:15 INR, PTT INR 1.35 (0.83-1.09) H 12/13/18 06:15 Problem List - Problems (1) Metastasis from rectal cancer Assessment/Plan: -poor prognosis -DNR/DNI now -Oncology on board Code(s): C79.9 - SECONDARY MALIGNANT NEOPLASM OF UNSPECIFIED SITE; C20 - MALIGNANT NEOPLASM OF RECTUM (2) SOB (shortness of breath) Assessment/Plan: -comfortable at this time -Nasal o2 prn -pulmonary on board Code(s): R06.02 - SHORTNESS OF BREATH (3) Insomnia Assessment/Plan: -On melatonin and alprazolam Code(s): G47.00 - INSOMNIA, UNSPECIFIED (4) Anemia Assessment/Plan: -chronic and stable -no over bleeding Code(s): D64.9 - ANEMIA, UNSPECIFIED Qualifiers: (5) PNA (pneumonia) Assessment/Plan: -Completed 7 days of iv abx -Seen by ID and pulmonary -afebrile Code(s): J18.9 - PNEUMONIA, UNSPECIFIED ORGANISM Qualifiers: Pneumonia type: due to unspecified organism Laterality: left Lung location: upper lobe of lung Qualified Code(s): J18.1 - Lobar pneumonia, unspecified organism Assessment/Plan see problem list d/c to [facility] when bed is available
--- NOTE | 2018-03-26 12:08 | PN ---
Progress Note (short form) - Note Progress Note: Patient seen in follow up. No new complaints, as per aide. No significant events overnight. Inpatient Meds reviewed. Current Medications Generic Name Dose Route Start Last Admin Trade Name Freq PRN Reason Stop Dose Admin Alprazolam 0.25 mg 03/24/18 15:54 03/25/18 18:27 Xanax - PO 0.25 mg Q8H PRN Administration ANXIETY Fentanyl 1 patch 03/25/18 13:45 03/25/18 14:53 Duragesic 12mcg Patch - TD 04/01/18 13:43 1 patch Q72H TED Administration Sodium Chloride 1,000 mls @ 42 mls/hr 03/20/18 08:34 03/25/18 10:47 Normal Saline - IV 42 mls/hr ASDIR TED Administration Levothyroxine Sodium 125 mcg 03/20/18 07:00 03/26/18 06:41 Synthroid - PO 125 mcg DAILY@0700 TED Administration Melatonin 5 mg 03/20/18 22:00 03/25/18 22:58 Melatonin PO 5 mg HS TED Administration Miscellaneous 1 each 03/25/18 13:43 Duragesic Patch Waste TD PRN PRN PAIN Oxycodone HCl 5 mg 03/21/18 12:29 03/25/18 10:51 Roxicodone - PO 5 mg Q6H PRN Administration PAIN LEVEL 6-10 On Examination: Last Vital Signs Temp Pulse Resp BP Pulse Ox 97.8 F 16 L 100 H 126/66 97 03/26/18 06:00 03/26/18 10:00 03/26/18 10:00 03/26/18 10:00 03/26/18 09:00 General: In no acute distress, lying comfortably in bed. Extremities: No pallor or icterus. No palpable lymphadenopathy. CVS: S1, S2, regular, no gallop or murmur. Chest: good air entry bilaterally, clear Abdomen: Non-distended, non-tender, no palpable organomegaly. Neuro: Drowsy, responds when encouarged, non-focal. Labs: CBC, BMP 03/25/18 06:00 03/24/18 06:15 Assessment. Metastatic rectal ca Liver, lung, bone, raymundo metastases Vaginal bleeding, entero-vaginal fistula Hct relatively stable Ongoing comfort measures. Need social service and palliative care intervention.
[2018-03-26] MEDS: ALPRAZolam 0.25 MG TABLET PO PRN (18:27)
[2018-03-26] MEDS: SODIUM CHLORIDE 1,000 ML IV SCH (22:11)
[2018-03-26] MEDS: MELATONIN 5 MG TABLETS PO SCH (22:16)
[2018-03-27] MEDS: oxyCODONE HCL 5 MG TABLET PO PRN ×2 (05:58→21:30)
[2018-03-27] MEDS: LEVOTHYROXINE NA 125 MCG TABLET (FP) PO SCH (05:59)
--- NOTE | 2018-03-27 11:23 | PN ---
Progress Note, Physician Chief Complaint: metastatic rectal cancer Pneumonia vs metastatic ca to lung History of Present Illness: NAD asleep, comfortable in bed DNR/DNI - Current Medication List Current Medications: Active Medications Alprazolam (Xanax -) 0.25 mg PO Q8H PRN PRN Reason: ANXIETY Last Admin: 03/26/18 18:27 Dose: 0.25 mg Fentanyl (Duragesic 12mcg Patch -) 1 patch TD Q72H [facility] Stop: 04/01/18 13:43 Last Admin: 03/25/18 14:53 Dose: 1 patch Sodium Chloride (Normal Saline -) 1,000 mls @ 42 mls/hr IV ASDIR [facility] Last Admin: 03/26/18 22:11 Dose: 42 mls/hr Levothyroxine Sodium (Synthroid -) 125 mcg PO DAILY@0700 [facility] Last Admin: 03/27/18 05:59 Dose: 125 mcg Melatonin (Melatonin) 5 mg PO HS [facility] Last Admin: 03/26/18 22:16 Dose: Not Given Miscellaneous (Duragesic Patch Waste) 1 each TD PRN PRN PRN Reason: PAIN Oxycodone HCl (Roxicodone -) 5 mg PO Q6H PRN PRN Reason: PAIN LEVEL 6-10 Last Admin: 03/27/18 05:58 Dose: 5 mg - Objective Vital Signs: Vital Signs Temperature 97.7 F 03/27/18 06:00 Pulse Rate 100 H 03/27/18 06:00 Respiratory Rate 20 03/27/18 06:00 Blood Pressure 107/50 L 03/27/18 06:00 O2 Sat by Pulse Oximetry (%) 96 03/26/18 22:00 Constitutional: Yes: Well Nourished, No Distress, Calm Cardiovascular: Yes: Regular Rate and Rhythm Respiratory: Yes: Regular Gastrointestinal: Yes: Normal Bowel Sounds, Soft Musculoskeletal: Yes: WNL Extremities: Yes: WNL Edema: No Peripheral Pulses WNL: Yes Neurological: Yes: Alert, Oriented Psychiatric: Yes: Alert, Oriented Labs: CBC, BMP 03/25/18 06:00 03/24/18 06:15 INR, PTT INR 1.35 (0.83-1.09) H 03/24/18 06:15 Problem List - Problems (1) Metastasis from rectal cancer Assessment/Plan: -poor prognosis -DNR/DNI now -Oncology on board Code(s): C79.9 - SECONDARY MALIGNANT NEOPLASM OF UNSPECIFIED SITE; C20 - MALIGNANT NEOPLASM OF RECTUM (2) SOB (shortness of breath) Assessment/Plan: -comfortable at this time -Nasal o2 prn -pulmonary on board Code(s): R06.02 - SHORTNESS OF BREATH (3) Insomnia Assessment/Plan: -On melatonin and alprazolam Code(s): G47.00 - INSOMNIA, UNSPECIFIED (4) Anemia Assessment/Plan: -chronic and stable -no over bleeding Code(s): D64.9 - ANEMIA, UNSPECIFIED Qualifiers: (5) PNA (pneumonia) Assessment/Plan: -Completed 7 days of iv abx -Seen by ID and pulmonary -afebrile Code(s): J18.9 - PNEUMONIA, UNSPECIFIED ORGANISM Qualifiers: Pneumonia type: due to unspecified organism Laterality: left Lung location: upper lobe of lung Qualified Code(s): J18.1 - Lobar pneumonia, unspecified organism Assessment/Plan see problem list d/c to [facility] when bed is available
--- NOTE | 2018-03-27 12:26 | CONS ---
DATE OF CONSULTATION: 03/25/2018 REASON FOR CONSULTATION: Vaginal bleeding. 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 At this time was admitted with complaint of shortness of breath and weakness rule out pneumonia. The patient has had some vaginal bleeding in the past and it persists. No blood clots. Hemoglobin and hematocrit is stable. PHYSICAL EXAMINATION: Abdomen: Soft and nontender. No masses are palpable. Genitalia: Vagina had small dark virginal bleeding in the vault. No pelvic masses were palpable. Rectovaginal examination shows a connection between the vagina and the rectum consistent with rectovaginal fistula. IMPRESSION: Vaginal bleeding secondary to rectovaginal fistula. PLAN: At this time since hemoglobin and hematocrit are stable and the patient is a surgical risk, advised observation and monitoring the hemoglobin and hematocrit and we will follow up for any evidence of heavy vaginal bleeding. TEDDY RIZVI M.D. [id number]
--- NOTE | 2018-03-27 12:58 | PN ---
Progress Note, Physician History of Present Illness: pulmonary lethargic on O2 VM - Current Medication List Current Medications: Active Medications Alprazolam (Xanax -) 0.25 mg PO Q8H PRN PRN Reason: ANXIETY Last Admin: 03/26/18 18:27 Dose: 0.25 mg Fentanyl (Duragesic 12mcg Patch -) 1 patch TD Q72H [facility] Stop: 04/01/18 13:43 Last Admin: 03/25/18 14:53 Dose: 1 patch Sodium Chloride (Normal Saline -) 1,000 mls @ 42 mls/hr IV ASDIR [facility] Last Admin: 03/26/18 22:11 Dose: 42 mls/hr Levothyroxine Sodium (Synthroid -) 125 mcg PO DAILY@0700 [facility] Last Admin: 03/27/18 05:59 Dose: 125 mcg Melatonin (Melatonin) 5 mg PO HS [facility] Last Admin: 03/26/18 22:16 Dose: Not Given Miscellaneous (Duragesic Patch Waste) 1 each TD PRN PRN PRN Reason: PAIN Oxycodone HCl (Roxicodone -) 5 mg PO Q6H PRN PRN Reason: PAIN LEVEL 6-10 Last Admin: 03/27/18 05:58 Dose: 5 mg - Objective Vital Signs: Vital Signs Temperature 97.7 F 03/27/18 06:00 Pulse Rate 100 H 03/27/18 06:00 Respiratory Rate 20 03/27/18 06:00 Blood Pressure 107/50 L 03/27/18 06:00 O2 Sat by Pulse Oximetry (%) 96 03/26/18 22:00 Constitutional: Yes: Well Nourished, Other (lethargic) Eyes: Yes: WNL HENT: Yes: WNL Neck: Yes: WNL Cardiovascular: Yes: Regular Rate and Rhythm, S1, S2 Respiratory: Yes: Rhonchi (bilateral rhonchi) Gastrointestinal: Yes: Normal Bowel Sounds, Soft Extremities: Yes: WNL Edema: Yes Labs: Assessment/Plan Problem List - Problems (1) Metastasis from rectal cancer Code(s): C79.9 - SECONDARY MALIGNANT NEOPLASM OF UNSPECIFIED SITE; C20 - MALIGNANT NEOPLASM OF RECTUM (2) PNA (pneumonia) Code(s): J18.9 - PNEUMONIA, UNSPECIFIED ORGANISM Qualifiers: Pneumonia type: due to unspecified organism Laterality: left Lung location: upper lobe of lung Qualified Code(s): J18.1 - Lobar pneumonia, unspecified organism (3) SOB (shortness of breath) Code(s): R06.02 - SHORTNESS OF BREATH (4) Anemia Code(s): D64.9 - ANEMIA, UNSPECIFIED Qualifiers: (5) Hypoalbuminemia Code(s): E88.09 - OTH DISORDERS OF PLASMA-PROTEIN METABOLISM, NEC (6) Hypothyroid Code(s): E03.9 - HYPOTHYROIDISM, UNSPECIFIED Qualifiers: (7) Rectovaginal fistula Code(s): N82.3 - FISTULA OF VAGINA TO LARGE INTESTINE (8) Insomnia Code(s): G47.00 - INSOMNIA, UNSPECIFIED Assessment/Plan ABX per ID nasal o2 NIPPV as needed Aspiration precautions BD TX PRN VTE prophylaxis chest x-ray am prognosis poor DR PIERCE
[2018-03-27] MEDS: MELATONIN 5 MG TABLETS PO SCH (21:30)
[2018-03-27] MEDS: SODIUM CHLORIDE 1,000 ML IV SCH (21:30)
[2018-03-28] MEDS: oxyCODONE HCL 5 MG TABLET PO PRN ×2 (05:36→22:05)
[2018-03-28] MEDS: LEVOTHYROXINE NA 125 MCG TABLET (FP) PO SCH (06:26)
--- NOTE | 2018-03-28 09:03 | PN ---
Progress Note, Physician - Current Medication List Current Medications: Active Medications Alprazolam (Xanax -) 0.25 mg PO Q8H PRN PRN Reason: ANXIETY Last Admin: 03/26/18 18:27 Dose: 0.25 mg Fentanyl (Duragesic 12mcg Patch -) 1 patch TD Q72H [facility] Stop: 04/01/18 13:43 Last Admin: 03/25/18 14:53 Dose: 1 patch Sodium Chloride (Normal Saline -) 1,000 mls @ 42 mls/hr IV ASDIR [facility] Last Admin: 03/27/18 21:30 Dose: 42 mls/hr Levothyroxine Sodium (Synthroid -) 125 mcg PO DAILY@0700 [facility] Last Admin: 03/28/18 06:26 Dose: 125 mcg Melatonin (Melatonin) 5 mg PO HS [facility] Last Admin: 03/27/18 21:30 Dose: 5 mg Miscellaneous (Duragesic Patch Waste) 1 each TD PRN PRN PRN Reason: PAIN Oxycodone HCl (Roxicodone -) 5 mg PO Q6H PRN PRN Reason: PAIN LEVEL 6-10 Last Admin: 03/28/18 05:36 Dose: 5 mg - Objective Vital Signs: Vital Signs Temperature 98.4 F 03/28/18 02:00 Pulse Rate 97 H 03/28/18 02:00 Respiratory Rate 20 03/28/18 02:00 Blood Pressure 126/67 03/28/18 02:00 O2 Sat by Pulse Oximetry (%) 96 03/28/18 02:00 Cardiovascular: Yes: S1, S2 Respiratory: Yes: Regular, CTA Bilaterally Gastrointestinal: Yes: Normal Bowel Sounds, Soft Neurological: Yes: Lethargy Labs: CBC, BMP 03/25/18 06:00 03/24/18 06:15 INR, PTT INR 1.35 (0.83-1.09) H 03/24/18 06:15 Problem List - Problems (1) PNA (pneumonia) Code(s): J18.9 - PNEUMONIA, UNSPECIFIED ORGANISM Qualifiers: Pneumonia type: due to unspecified organism Laterality: left Lung location: upper lobe of lung Qualified Code(s): J18.1 - Lobar pneumonia, unspecified organism (2) Metastasis from rectal cancer Code(s): C79.9 - SECONDARY MALIGNANT NEOPLASM OF UNSPECIFIED SITE; C20 - MALIGNANT NEOPLASM OF RECTUM Assessment/Plan - Problems (1) Metastasis from rectal cancer Assessment/Plan: -poor prognosis -DNR/DNI now -Oncology on board Code(s): C79.9 - SECONDARY MALIGNANT NEOPLASM OF UNSPECIFIED SITE; C20 - MALIGNANT NEOPLASM OF RECTUM (2) SOB (shortness of breath) Assessment/Plan: -comfortable at this time -Nasal o2 prn -pulmonary on board Code(s): R06.02 - SHORTNESS OF BREATH (3) Insomnia Assessment/Plan: -On melatonin and alprazolam Code(s): G47.00 - INSOMNIA, UNSPECIFIED (4) Anemia Assessment/Plan: -chronic and stable -no over bleeding Code(s): D64.9 - ANEMIA, UNSPECIFIED Qualifiers: (5) PNA (pneumonia) Assessment/Plan: -Completed 7 days of iv abx -Seen by ID and pulmonary -afebrile Code(s): J18.9 - PNEUMONIA, UNSPECIFIED ORGANISM Qualifiers: Pneumonia type: due to unspecified organism Laterality: left Lung location: upper lobe of lung Qualified Code(s): J18.1 - Lobar pneumonia, unspecified organism
[2018-03-28] MEDS: SODIUM CHLORIDE 1,000 ML IV SCH ×2 (10:28→17:21)
[2018-03-28] MEDS: fentaNYL 12mcg/hr PATCH.TD72 TD SCH (13:46)
--- NOTE | 2018-03-28 14:18 | PN ---
Progress Note (short form) - Note Progress Note: PULMONARY Sleeping, family at bedside. +nonproductive cough. No fevers. Vital Signs Period Temp Pulse Resp BP Sys/Bird Pulse Ox Last 24 Hr 96.5 F-98.4 F 97-112 18-21 108-129/47-67 96-96 Gen: jaundiced Heart: RRR Lung: scattered rhonchi Abd: softly distended, +ostomy Ext: + edema CBC, BMP 03/25/18 06:00 03/24/18 06:15 Active Medications Alprazolam (Xanax -) 0.25 mg PO Q8H PRN PRN Reason: ANXIETY Last Admin: 03/26/18 18:27 Dose: 0.25 mg Fentanyl (Duragesic 12mcg Patch -) 1 patch TD Q72H [facility] Stop: 04/01/18 13:43 Last Admin: 03/28/18 13:46 Dose: 1 patch Sodium Chloride (Normal Saline -) 1,000 mls @ 42 mls/hr IV ASDIR TED Last Admin: 03/28/18 10:28 Dose: Not Given Levothyroxine Sodium (Synthroid -) 125 mcg PO DAILY@0700 [facility] Last Admin: 03/28/18 06:26 Dose: 125 mcg Melatonin (Melatonin) 5 mg PO HS TED Last Admin: 03/27/18 21:30 Dose: 5 mg Miscellaneous (Duragesic Patch Waste) 1 each TD PRN PRN PRN Reason: PAIN Last Admin: 03/28/18 13:49 Dose: 1 each Oxycodone HCl (Roxicodone -) 5 mg PO Q6H PRN PRN Reason: PAIN LEVEL 6-10 Last Admin: 03/28/18 05:36 Dose: 5 mg A/P End Stage Metastatic Rectal Ca Pneumonia Rectovaginal Fistula Hypothyroidism - completed antibiotics - aspiration precautions - BiPAP as needed to assist in work of breathing - continue discussions regarding goals of care
[2018-03-28] MEDS: MELATONIN 5 MG TABLETS PO SCH ×2 (22:05→22:13)
[2018-03-28] MEDS: MORPHINE SULFATE 2 MG/ML VIAL IVPUSH PRN (23:11)
[2018-03-29] MEDS: MORPHINE SULFATE 2 MG/ML VIAL IVPUSH PRN ×2 (05:59→11:08)
[2018-03-29] MEDS: LEVOTHYROXINE NA 125 MCG TABLET (FP) PO SCH (07:09)
[2018-03-29] MEDS: SODIUM CHLORIDE 1,000 ML IV SCH ×2 (08:40→14:56)
--- NOTE | 2018-03-29 11:38 | DS ---
Physical Examination Vital Signs: Vital Signs Temperature 98.1 F 03/29/18 09:14 Pulse Rate 110 H 03/29/18 09:14 Respiratory Rate 24 H 03/29/18 09:14 Blood Pressure 116/52 L 03/29/18 09:14 O2 Sat by Pulse Oximetry (%) 98 03/28/18 21:00 Findings/Remarks: This is a 68-year-old woman with a significant medical history of Colorectal Ca with metastases to the liver status post neoadjuvant RT, Hypothyroidism. Who presents to the emergency department with her brother complaining of shortness of breath and congestion which started 4 days ago, which is worse last evening. Patient states she feels she's not getting enough air. Patient's brother states approximately 3 months ago they were informed that she has spots on her liver. She was sent to radiation/chemotherapy when she developed vaginal bleeding. She was sent to a nursing facility and discharged 2 days later. Then, came back to [facility] emergency department for vaginal bleeding. She was ultimately admitted to the hospital and discharged to [facility] and has been home since February. Patient denies fever/chills, rhinorrhea, earache, sore throat, headache, dizziness, lightheadedness, shortness of breath, chest pain, facial pains, neck stiffness/pain, back pains, abdominal pains, flank pains, nausea/vomiting/ diarrhea, intermittent/urgency/hesitancy or hematuria. Constitutional: Yes: Well Nourished, No Distress, Calm Cardiovascular: Yes: Regular Rate and Rhythm Respiratory: Yes: Regular Gastrointestinal: Yes: Normal Bowel Sounds, Soft Musculoskeletal: Yes: Muscle Weakness Edema: No Peripheral Pulses WNL: Yes Neurological: Yes: Alert, Oriented Psychiatric: Yes: Alert, Oriented Labs: CBC, BMP 03/25/18 06:00 03/24/18 06:15 Discharge Summary Reason For Visit: PNEUMONIA Current Active Problems Abnormal LFTs (Acute) Insomnia (Acute) Metastasis from rectal cancer (Acute) PNA (pneumonia) (Acute) SOB (shortness of breath) (Acute) Hospital Course: Laboratory Last Values WBC 12.6 K/mm3 (4.0-10.0) H 03/25/18 06:00 RBC 2.92 M/mm3 (3.60-5.2) L 03/25/18 06:00 Hgb 9.0 GM/dL (10.7-15.3) L 03/25/18 06:00 Hct 29.0 % (32.4-45.2) L 03/25/18 06:00 MCV 99.1 fl (80-96) H 03/25/18 06:00 MCH 30.7 pg (25.7-33.7) 03/25/18 06:00 MCHC 31.0 g/dl (32.0-36.0) L 03/25/18 06:00 RDW 25.9 % (11.6-15.6) H 03/25/18 06:00 Plt Count 131 K/MM3 (134-434) L 03/25/18 06:00 MPV 8.8 fl (7.5-11.1) 03/25/18 06:00 Absolute Neuts (auto) 9.8 K/mm3 (1.5-8.0) H 03/24/18 06:15 Neutrophils % 88.4 % (42.8-82.8) H 03/24/18 06:15 Neutrophils % (Manual) 87.9 % (42.8-82.8) H 03/24/18 06:15 Band Neutrophils % 0.0 % 03/24/18 06:15 Lymphocytes % 2.8 % (8-40) L D 03/24/18 06:15 Lymphocytes % (Manual) 5.0 % (8-40) L D 03/24/18 06:15 Monocytes % 8.3 % (3.8-10.2) 03/24/18 06:15 Monocytes % (Manual) 5 % (3.8-10.2) D 03/24/18 06:15 Eosinophils % 0.0 % (0-4.5) D 03/24/18 06:15 Eosinophils % (Manual) 0.0 % (0-4.5) 03/24/18 06:15 Basophils % 0.5 % (0-2.0) 03/24/18 06:15 Basophils % (Manual) 0.0 % (0-2.0) 03/24/18 06:15 Myelocytes % (Man) 1 % (0-2) D 03/24/18 06:15 Promyelocytes % (Man) 0 % (0-2) 03/24/18 06:15 Blast Cells % (Manual) 0 % (0-0) 03/24/18 06:15 Nucleated RBC % 0 % (0-0) 03/24/18 06:15 Metamyelocytes 1 % (0-2) 03/24/18 06:15 Hypochromia 1+ 03/24/18 06:15 Platelet Estimate Adequate 03/24/18 06:15 Polychromasia 0 03/24/18 06:15 Poikilocytosis 2+ 03/24/18 06:15 Anisocytosis 1+ 03/24/18 06:15 Microcytosis 0 03/24/18 06:15 Macrocytosis 1+ 03/24/18 06:15 Ovalocytes 1+ 03/24/18 06:15 PT with INR 16.00 SEC (9.7-13.0) H 03/24/18 06:15 INR 1.35 (0.83-1.09) H 03/24/18 06:15 PTT (Actin FS) 31.1 SECONDS (25.2-36.5) 03/24/18 06:15 Anticoagulation Therapy No Result Required. 03/20/18 21:45 Puncture Site Right brachial 03/20/18 21:45 ABG pH 7.42 (7.35-7.45) 03/20/18 21:45 ABG pCO2 at Pt Temp 35.3 mmHg (35-45) 03/20/18 21:45 ABG pO2 at Pt Temp 83.9 mmHg (80-100) 03/20/18 21:45 ABG HCO3 22.5 meq/L (22-26) 03/20/18 21:45 ABG O2 Sat (Measured) 96.3 % (90-98.9) 03/20/18 21:45 ABG O2 Content 12.6 % vol (15-22) L 03/20/18 21:45 ABG Base Excess -1.1 meq/l (-2-2) 03/20/18 21:45 Richie Test Positive 03/20/18 21:45 VBG pH 7.39 (7.32-7.42) 03/20/18 04:10 POC VBG pCO2 40.7 mmHg (38-52) 03/20/18 04:10 POC VBG pO2 88.1 mmHg (28-48) H 03/20/18 04:10 Mixed VBG HCO3 24.3 meq/L (19-25) 03/20/18 04:10 O2 Delivery Device Bipap 03/20/18 21:45 Oxygen Flow Rate Yes 03/20/18 21:45 Vent Mode No Result Required. 03/20/18 21:45 Vent Rate No Result Required. 03/20/18 21:45 Mechanical Rate No Result Required. 03/20/18 21:45 Pressure Support Vent No Result Required. 03/20/18 21:45 Sodium 136 mmol/L (136-145) 03/24/18 06:15 Potassium 4.5 mmol/L (3.5-5.1) 03/24/18 06:15 Chloride 106 mmol/L (98-107) 03/24/18 06:15 Carbon Dioxide 19 mmol/L (21-32) L 03/24/18 06:15 Anion Gap 11 MMOL/L (8-16) 03/24/18 06:15 BUN 27 mg/dL (7-18) H 03/24/18 06:15 Creatinine 0.8 mg/dL (0.55-1.3) 03/24/18 06:15 Creat Clearance w eGFR > 60 (>60) 03/24/18 06:15 Random Glucose 92 mg/dL (74-106) 03/24/18 06:15 Lactic Acid 1.4 mmol/L (0.4-2.0) 03/20/18 04:10 Calcium 9.3 mg/dL (8.5-10.1) 03/24/18 06:15 Phosphorus 3.0 mg/dL (2.5-4.9) 03/20/18 04:10 Magnesium 2.1 mg/dL (1.8-2.4) 03/20/18 04:10 Total Bilirubin 7.2 mg/dL (0.2-1) H 03/24/18 06:15 AST 174 U/L (15-37) H 03/24/18 06:15 ALT 59 U/L (13-61) 03/24/18 06:15 Alkaline Phosphatase 772 U/L (45-117) H 03/24/18 06:15 Creatine Kinase 50 IU/L (26-192) 03/20/18 04:10 Troponin I 0.02 ng/ml (0.00-0.05) 03/20/18 04:10 B-Natriuretic Peptide 1082.2 pg/ml (5-125) H 03/20/18 04:10 Total Protein 5.5 g/dl (6.4-8.2) L 03/24/18 06:15 Albumin 1.7 g/dl (3.4-5.0) L 03/24/18 06:15 TSH 0.21 uIU/ml (0.358-3.74) L 03/23/18 06:00 Vancomycin Pre-Dose 9.5 ug/ml (18-26) L 03/20/18 17:50 Influenza A (Rapid) Negative 03/20/18 06:48 Influenza B (Rapid) Negative 03/20/18 06:48 Microbiology 03/28/18 19:50 Urine For Antigen Detection Legionella Antigen - Final 03/28/18 19:50 Urine For Antigen Detection Streptococcus pneumoniae Antigen (M - Final 03/20/18 06:48 Blood - Peripheral Venous Blood Culture - Final NO GROWTH AFTER 5 DAYS INCUBATION 03/20/18 06:48 Blood - Peripheral Venous Blood Culture - Final NO GROWTH AFTER 5 DAYS INCUBATION Condition: Guarded - Instructions Referrals: Jaime Velasco MD, MD [Primary Care Provider] - Disposition: CUSTODIAL FACILITY - Home Medications Comprehensive Discharge Medication List: Ambulatory Orders Levothyroxine [Synthroid -] 125 mcg PO DAILY@0700 tablet 01/05/18 Melatonin 20 mg PO HS tab 01/05/18 Alprazolam [Xanax] 0.25 mg PO Q8H PRN tablet MDD 3 03/29/18 FENTANYL 12mcg PATCH [DURAGESIC 12mcg PATCH -] 1 patch TD Q72H #1 patch.td72 MDD 1 03/29/18 oxyCODONE HCL [Roxicodone -] 5 mg PO Q6H PRN tablet MDD 4 03/29/18
[2018-03-29] MEDS ORDERED: SCOPOLAMINE HYDROBROMIDE 1 PATCH PATCH.TD72 TD SCH (14:00)
[2018-03-29] MEDS ORDERED: PT OWN MED DRAWER 7, Y5N ONE (14:40)
--- NOTE | 2018-03-29 14:41 | PN ---
Progress Note, Physician History of Present Illness: PULMONARY POORLY RESPONSIVE,CONGESTED - Current Medication List Current Medications: Active Medications Alprazolam (Xanax -) 0.25 mg PO Q8H PRN PRN Reason: ANXIETY Last Admin: 03/26/18 18:27 Dose: 0.25 mg Fentanyl (Duragesic 12mcg Patch -) 1 patch TD Q72H [facility] Stop: 04/01/18 13:43 Last Admin: 03/28/18 13:46 Dose: 1 patch Sodium Chloride (Normal Saline -) 1,000 mls @ 42 mls/hr IV ASDIR [facility] Last Admin: 03/29/18 08:40 Dose: Not Given Levothyroxine Sodium (Synthroid -) 125 mcg PO DAILY@0700 [facility] Last Admin: 03/29/18 07:09 Dose: Not Given Melatonin (Melatonin) 5 mg PO HS [facility] Last Admin: 03/28/18 22:13 Dose: Not Given Miscellaneous (Duragesic Patch Waste) 1 each TD PRN PRN PRN Reason: PAIN Last Admin: 03/28/18 13:49 Dose: 1 each Morphine Sulfate (Morphine Sulfate) 2 mg IVPUSH Q4H PRN PRN Reason: PAIN LEVEL 6-10 Last Admin: 03/29/18 11:08 Dose: 2 mg Scopolamine HBr (Transderm-Scop -) 1 patch TD Q72H [facility] - Objective Vital Signs: Vital Signs Temperature 98.1 F 03/29/18 09:14 Pulse Rate 110 H 03/29/18 09:14 Respiratory Rate 24 H 03/29/18 09:14 Blood Pressure 116/52 L 03/29/18 09:14 O2 Sat by Pulse Oximetry (%) 98 03/28/18 21:00 Constitutional: Yes: Well Nourished, Other (POORLY RESPONSIVE) Eyes: Yes: WNL HENT: Yes: WNL Neck: Yes: WNL Cardiovascular: Yes: Regular Rate and Rhythm, S1, S2 Respiratory: Yes: Rhonchi (BILATERAL RHONCHI) Gastrointestinal: Yes: Normal Bowel Sounds, Soft Extremities: Yes: WNL Edema: Yes Labs: CBC, BMP Assessment/Plan Problem List - Problems (1) Metastasis from rectal cancer Code(s): C79.9 - SECONDARY MALIGNANT NEOPLASM OF UNSPECIFIED SITE; C20 - MALIGNANT NEOPLASM OF RECTUM (2) PNA (pneumonia) Code(s): J18.9 - PNEUMONIA, UNSPECIFIED ORGANISM Qualifiers: Pneumonia type: due to unspecified organism Laterality: left Lung location: upper lobe of lung Qualified Code(s): J18.1 - Lobar pneumonia, unspecified organism (3) SOB (shortness of breath) Code(s): R06.02 - SHORTNESS OF BREATH (4) Anemia Code(s): D64.9 - ANEMIA, UNSPECIFIED Qualifiers: (5) Hypoalbuminemia Code(s): E88.09 - OTH DISORDERS OF PLASMA-PROTEIN METABOLISM, NEC (6) Hypothyroid Code(s): E03.9 - HYPOTHYROIDISM, UNSPECIFIED Qualifiers: (7) Rectovaginal fistula Code(s): N82.3 - FISTULA OF VAGINA TO LARGE INTESTINE (8) Insomnia Code(s): G47.00 - INSOMNIA, UNSPECIFIED Assessment/Plan nasal o2 Aspiration precautions BD TX PRN VTE prophylaxis prognosis poor hospice care DR PIERCE
[2018-03-29 18:14] VITALS: BP 133/66; PULSE 103; TEMP 98.1
== END 2018-03-29 19:00 | disposition expired | DRG 435 ==
LOC: JER 03:07 → JERBED 05:05 → J5S 16:34
PROVIDERS: ADMIT Internal Medicine; ATTEND Family Medicine
PROC: 5A09557 Assistance with Respiratory Ventilation, Greater than 96 Consecutive Hours, Continuous Positive Airway Pressure (ICD-10-PCS; principal; 2018-03-20)
DX: C78.7 Secondary malignant neoplasm of liver and intrahepatic bile duct (principal); J18.1 Lobar pneumonia, unspecified organism; C19 Malignant neoplasm of rectosigmoid junction; N82.4 Other female intestinal-genital tract fistulae; E03.9 Hypothyroidism, unspecified; E88.09 Other disorders of plasma-protein metabolism, not elsewhere classified; D64.9 Anemia, unspecified; G47.00 Insomnia, unspecified
CPT/HCPCS: 36415; 36600; 71045-TC-FY; 71250-TC; 80048; 80053; 82550; 82803; 83605; 83735; 83880; 84100; 84443; 84484; 85025; 85027; 85610; 85730; 87040; 87804; 87899; 93005; 93010; 94660; 97161-GP; 99285-25; G0480; J7030